=== PATIENT | male | born 1955 | race Two or more races ===

== ENCOUNTER 2024-02-06 00:46 | Inpatient (IN) | payer MEDICARE, MEDICAID, SELFPAY ==
[2024-02-06] VITALS (27 sets, daily range): BP systolic 139–234; BP diastolic 83–125; PULSE 68–93; RESP 16–100; TEMP 36.1–37.1; O2SAT 94–100; BMI 23.6; BMI 25.2; BMI 23.5
--- NOTE | 2024-02-06 01:07 | XR_ITS ---
Examination: Foot, right, 3 views Technique: AP, oblique, lateral views foot, 3 views Date and time of exam: February 06, 2024 0124 hrs. Indications: Redness swelling and pain involving the foot this week Findings: Severe osteopenia Soft tissue vascular calcification Soft tissue swelling dorsum of the foot Suspicious for early cortical bone destruction along the plantar surface of the calcaneus adjacent with soft tissue defect Impression: Suspicious for osteomyelitis plantar surface of the calcaneus, consider repeat MRI foot without contrast
--- NOTE | 2024-02-06 01:07 | PD.EDRME ---
Rapid Medical Screening Exam [facility] Arrival date/time: 02/06/24 00:46 68M with history of HTN and DM (does not take his meds) presents to ED with several weeks of worsening wounds on his R foot. Chief Complaint: Wound/Laceration Vital signs: Vital Signs Temperature 98.3 F 02/06/24 00:58 Pulse Rate 82 02/06/24 00:58 Respiratory Rate 18 02/06/24 00:58 Blood Pressure 232/125 H 02/06/24 00:58 Pulse Oximetry (%) 97 02/06/24 00:58 Oxygen Delivery Method Room Air 02/06/24 00:58
[2024-02-06 02:01] LABS: Basophils # (Auto) 0.1 Thou/mm3 (0.0-0.2); Basophils % (Auto) 1 % (0-2.5); Eosinophils # (Auto) 0.2 Thou/mm3 (0.0-0.5); Eosinophils % (Auto) 1 % (0-10); Hematocrit 34.8 % (41.0-53.0); Hemoglobin 11.2 g/dL (13.5-16.0); Immature Granulocytes % (Auto) 0 % (0-0); Immature Granulocytes Auto 0.04 Thou/mm3 (0.00-0.00); Lymphocytes % (Auto) 16 % (10-50); Mean Corpuscular HGB Conc 32.2 g/dl (31.0-37.0); Mean Corpuscular Hemoglobin 28.8 pg (25.0-35.0); Mean Corpuscular Volume 90 fL (80-100); Monocytes # (Auto) 0.7 Thou/mm3 (0.0-0.8); Monocytes % (Auto) 6 % (0-12); Neutrophils # (Auto) 9.7 Thou/mm3 (1.8-7.7); Neutrophils % (Auto) 77 % (37-80); Nucleated Red Blood Cell % 0 /100 WBC (0); Platelet Count 391 Thou/mm3 (140-440); RDW Standard Deviation 44.5 fL (35.1-43.9); Red Blood Count 3.89 Miln/mm3 (4.50-5.90); White Blood Count 12.6 Thou/mm3 (3.8-10.6)
[2024-02-06 02:19] LABS: Sed Rate (ESR) 130 mm/hr (0-20)
[2024-02-06 02:34] LABS: Glucose Estimated Average 303 mg/dL (80-131); Hemoglobin A1C 12.2 % Hgb (4.8-6.0)
[2024-02-06 02:40] LABS: Alanine Aminotransferase 7 U/L (10-49); Albumin, Serum 3.7 gm/dL (3.4-4.8); Albumin/Globulin Ratio 0.8 (1.2-2.2); Alkaline Phosphatase 100 U/L (46-116); Anion Gap 4 (7-16); Aspartate Amino Transferase < 8 U/L (0-34); BUN/Creatinine Ratio 10 Ratio (12-20); Bilirubin,Total 0.3 mg/dL (0.3-1.2); Blood Urea Nitrogen 34 mg/dL (9-23); Calcium (Corrected) 9.2 mg/dL (8.5-10.1); Carbon Dioxide 23.6 mMol/L (20.0-31.0); Chloride 101 mMol/L (98-107); Creatinine (Component) 3.3 mg/dL (0.6-1.3); Estimated Creatinine Clearance 20.2 mL/min (>60); Globulin 4.8 gm/dL (2.3-3.5); Osmolality,Calculated 283 (275-295); Potassium 4.6 mMol/L (3.4-5.1); Sodium 129 mMol/L (136-145); Total Protein 8.5 gm/dL (5.7-8.2); eGFR 19 See Note
[2024-02-06 03:00] LABS: Glucose 413 mg/dL (74-106)
--- NOTE | 2024-02-06 03:09 | PD.EDWOUND ---
ED Wound/Laceration-RME/HPI General Chief Complaint: Wound/Laceration Stated Complaint: CUt on top of his toes/ happened a week ago Arrival date/time: 02/06/24 00:46 RME / HPI RME / HPI narrative: 02/06/24 00:46 68M with history of HTN and DM (does not take his meds) presents to ED with several weeks of worsening wounds on his R foot. ----- Dr. Zuniga?s Main ED Evaluation: 68yo male with pmhx DM, HTN accompanied by his stepdaughter presents to the ED for a chief complaint of worsening wounds to his right foot. Patient states he cut his right foot ~2 weeks ago. Stepdaughter states she came to visit the patient today and noticed redness and wetness to his right foot, reporting she had to convince the patient to come in for evaluation. She states the patient was more fatigued than usual yesterday, but family thought it was due to the patient still getting Influenza. Patient states his right foot has been swollen for the last 1 week. Denies any fever, chills or any other associated symptoms. No known allergies. Related Data Home Medications ?Medication ?Instructions ?Recorded ?Confirmed atorvastatin 40 mg tablet 40 mg PO QPM 12/09/21 12/09/21 lisinopril 10 mg tablet 10 mg PO QDAY 12/09/21 12/09/21 tamsulosin 0.4 mg capsule 0.4 mg PO QDAY 12/09/21 12/09/21 Allergies Allergy/AdvReac Type Severity Reaction Status Date / Time No Known Allergies Allergy Verified 12/09/21 18:39 Review of Systems Review of Systems Systems Reviewed: All systems reviewed, normal except as documented ED Exam Narrative Physical exam: GENERAL APPEARANCE: alert and oriented x 4, well-developed, well-nourished, no acute distress VITALS: All vitals were reviewed and the pulse ox is 97% on room air, which is normal according to my interpretation. HEENT: Normocephalic, atraumatic; pupils equal, round, reactive to light; EOMI; mucous membranes pink, moist; oropharynx clear NECK: Supple LUNGS: CTABL; no wheezes, no rales, no rhonchi HEART: Regular rate, regular rhythm; normal S1, S2; no murmurs ABDOMEN: non distended; normal BS; soft, no tenderness, no guarding, no rebound; no masses, no organomegaly, no hernia BACK: no CVA tenderness EXTREMITIES: erythema to the right guevara, circumferential swelling of the right foot, tenderness to palpation of the right heel, 4 cm open laceration to the right heel that is warm to touch without any perulent drainage, cap refill is < 2 seconds, good sensations NEUROLOGIC: awake; alert and oriented x4; cranial nerves II-XII grossly intact; no focal sensory or motor deficits PSYCHIATRIC: appropriate mood and affect SKIN: warm, dry, normal color; no rashes Course Course Course Narrative: CXR is ordered for determining the etiology of fatigue. Quality Measures none Orders Category Date Time Status Lay Out Worker STAT Care 02/06/24 03:40 Active Continuous Pulse Oximetry STAT Care 02/06/24 03:40 Completed EKG (ED ONLY) *Do not use* NOW Care 02/06/24 03:40 Active In and Out Catheter [id number] Care 02/06/24 03:40 Active Insert IV NOW Care 02/06/24 03:40 Active Strict Intake and Output Routine Care 02/06/24 03:40 Ordered EKG (ED Only) Stat Exams 02/06/24 03:40 Draft XR chest 1V portable Stat Exams 02/06/24 03:42 Taken XR foot comp RT min 3V Stat Exams 02/06/24 01:07 Taken A1C [Glycohemoglobin w (eAG)] Stat Lab 02/06/24 01:42 Completed B-Type Natriuretic Peptide Stat Lab 02/06/24 04:30 Completed Blood Culture (Lab) Stat Lab 02/06/24 01:35 Received Blood Culture (Lab) Stat Lab 02/06/24 04:20 Received CBC Stat Lab 02/06/24 01:42 Completed CMP [Comprehensive Metabolic Panel] Stat Lab 02/06/24 01:42 Completed CRP [C-Reactive Protein] Stat Lab 02/06/24 01:42 Completed ESR [Sed Rate (ESR)] Stat Lab 02/06/24 01:42 Completed Lactate (Lactic Acid) Stat Lab 02/06/24 04:30 Completed Partial Thromboplastin Time Stat Lab 02/06/24 04:30 Completed Prothrombin Time with INR Stat Lab 02/06/24 04:30 Completed Urinalysis Stat Lab 02/06/24 04:20 Completed Urine Culture Stat Lab 02/06/24 04:20 Received Piper/Tazo 3.375 gm [Zosyn] Med 02/06/24 03:40 Discontinued 3.375 gm in 50 ml IV X1 Sodium Chloride 0.9% 1000 ml [Ns] 1,000 ml Med 02/06/24 03:47 Discontinued IV 999 mls/hr Vancomycin Inj 1,000 mg Med 02/06/24 03:41 Discontinued Sodium Chloride 0.9% 250 ml [Ns] 250 ml IV X1 Vital Signs Vital signs: Vital Signs Temperature 98.3 F 02/06/24 00:58 Pulse Rate 82 02/06/24 00:58 Respiratory Rate 18 02/06/24 00:58 Blood Pressure 232/125 H 02/06/24 00:58 Pulse Oximetry (%) 97 02/06/24 00:58 Oxygen Delivery Method Room Air 02/06/24 00:58 Wound / Laceration Patient data External records reviewed:: [facility] previous records (Per chart review, patient was seen here on 04/30/21 for a diabetic foot infection.) Clinical information provided by:: patient Social determinants that could affect healthcare access:: none Patient has the following chronic illnesses:: DM, HTN How is presenting disease/condition affected by chronic disease/condition?: exacerbated by Evaluation data The following diagnostics were reviewed and interpreted by me:: lab results and radiology exam(s) Lab and/or radiology exams considered but not ordered:: none Interpretation Summary: WBC count is elevated at 12.6, Sodium is low at 129, Creatinine is elevated at 3.3, Glucose is elevated at 413, Sed Rate is elevated at 130, A1C is elevated at 12.2, CRP is elevated at 9.5, according to my interpretation. Right foot x-ray is negative for any fractures, dislocations, bony erosion or subcutaneous gas, according to my interpretation. Medications / Prescriptions Medications or Prescriptions considered but not ordered:: none Medication administrations:: Medication Administration History Acetaminophen (Acetaminophen 325 Mg Tablet) 650 mg PO Q6H PRN PRN Reason: PAIN OR FEVER > 101 Stop: 03/07/24 03:53 Amlodipine Besylate (Amlodipine Besylate 5 Mg Tablet) 5 mg PO QDAY [facility] Stop: 03/07/24 04:09 Last Admin: 02/06/24 05:24 Dose: 5 mg Documented By: CCT Dextrose (Dextrose 50%-Water Inj 50 Ml Syringe) 25 ml IV Q15MIN PRN PRN Reason: BG 50-70 responsive npo pt Stop: 03/07/24 04:02 Dextrose (Dextrose 50%-Water Inj 50 Ml Syringe) 50 ml IV Q15MIN PRN PRN Reason: BG <50 OR BG <70 & pt unresponsive Stop: 03/07/24 04:02 Glucagon (Glucagon Inj 1 Mg Vial) 1 mg IM Q15MIN PRN PRN Reason: BG <70, and no IV access Heparin Sodium (Porcine) (Heparin Sod Inj 5000 Unit/Ml Vial) 5,000 unit SC Q12HR [facility] Stop: 02/20/24 08:59 Hydralazine HCl (Hydralazine Inj 20 Mg/Ml Vial) 10 mg IV Q6H PRN PRN Reason: hypertension Stop: 03/07/24 04:14 Last Admin: 02/06/24 04:33 Dose: 10 mg Documented By: CCT Sodium Chloride (Ns) 1,000 mls @ 75 mls/hr IV .[id number] [facility] Stop: 03/07/24 03:59 Cefepime HCl 2 gm/ Sodium (Chloride) 50 mls @ 100 mls/hr IV DAILY [facility] Stop: 02/13/24 08:59 Insulin Human Lispro (Insulin Lispro (Admelog) 1 Unit/0.01 Ml Unit) 0 unit SC [facility]; Protocol Stop: 03/07/24 07:29 Ondansetron HCl (Ondansetron Inj 2 Mg/Ml Inj 2 Ml) 4 mg IV Q6H PRN; Protocol PRN Reason: NAUSEA OR VOMITING Stop: 03/07/24 03:53 Pantoprazole Sodium (Pantoprazole 40 Mg Tablet) 40 mg PO QDAY [facility] Stop: 03/07/24 08:59 Pharmacy Consult (Vancomycin Pharmacy To Dose 1 Each Each) 1 each IV QDAY [facility] Stop: 03/07/24 08:59 Discontinued Medications Heparin Sodium (Porcine) (Heparin Sod Inj 5000 Unit/Ml Vial) 5,000 unit SC Q8HR [facility] Stop: 02/20/24 05:59 Piperacillin/Tazobactam/Dextrose (Zosyn) 3.375 gm in 50 mls @ 100 mls/hr IV X1 ONE Stop: 02/06/24 04:09 Last Infusion: 02/06/24 05:30 Dose: Infused Documented By: Admin: 02/06/24 04:39 Dose: 100 mls/hr Documented By: CCT Vancomycin HCl 1,000 mg/ (Sodium Chloride) 250 mls @ 150 mls/hr IV X1 ONE Stop: 02/06/24 05:20 Last Admin: 02/06/24 05:09 Dose: 150 mls/hr Documented By: CCT Sodium Chloride (Ns) 1,000 mls @ 999 mls/hr IV .Q1H1M ONE Stop: 02/06/24 04:47 Last Infusion: 02/06/24 05:30 Dose: Infused Documented By: Admin: 02/06/24 04:31 Dose: 999 mls/hr Documented By: CCT Cefepime HCl 2 gm/ Sodium (Chloride) 50 mls @ 100 mls/hr IV Q12HR [facility] Stop: 02/13/24 08:59 Insulin Human Lispro (Insulin Lispro (Admelog) 1 Unit/0.01 Ml Unit) 10 unit SC X1 ONE Stop: 02/06/24 04:07 Last Admin: 02/06/24 04:28 Dose: 10 unit Documented By: CCT Co-signed By: NATACHA see above Consultations Consultation(s) initiated? (list below): Yes Consultation #1 (Physician, Specialty, Details): Discussed case with [Dr. Melton, attending Dr. Bennett] from Hospitalist service regarding admission. Discussed patients ED course, exam findings, labs, and radiology results. The Hospitalist [agrees] to accept the patient for admission. Time: 03:44 Diagnosis Wound Differential Diagnosis: laceration and other (diabetic foot wound, DKA, hyperglycemia without ketosis) Most likely diagnosis given after review of the tests above:: see below Admission Indicated Admission indicated?: indicated Admission Request Was there a request for admission?: Yes Admission Attestation Admission request attestation: Discussed case with [] from Hospitalist service regarding admission. Discussed patients ED course, exam findings, labs, and radiology results. The Hospitalist [agrees,declines] to accept the patient for admission. Disposition Plan Disposition Plan: Admit Critical Care Time Critical Care Time Attestation: Critical Care Time Critical Care Time: Yes Total Critical Care Time (min.): 35 Attestation: The high probability of sudden, clinically significant deterioration in the patient?s condition required the highest level of my preparedness to intervene urgently. The services I provided to this patient were to treat and/or prevent clinically significant deterioration. Services included the following: chart data review, reviewing nursing notes and/or old charts, documentation time, senior treasury consultant collaboration regarding findings and treatment options, medication orders and management, direct patient care, vital sign assessments and ordering, interpreting and reviewing diagnostic studies and lab tests. Aggregate critical care time includes only time during which I was engaged in work directly related to the patient?s care, as described above, whether at bedside or elsewhere in the Emergency Department. It did not include time spent performing other reported procedures or the services of residents, students, nurses or physician assistants. Discharge Plan Plan Patient Disposition: Admit Acute Care w/in Hospital Problem List Clinical Impression: Diabetic foot infection, Sepsis
[2024-02-06 03:12] LABS: C-Reactive Protein 9.5 mg/dL (0.0-0.9)
--- NOTE | 2024-02-06 03:40 | EKG_ITS ---
[facility] Test Date: 2024-02-06 Pat Name: ABDIRAHMAN PETERSEN Department: Room: - Gender: Male Sample Maker: : 1955 Requested By: Gregg Mendoza Order Number: [id number] Reading MD: Gregg Mendoza Measurements Intervals Potter Rate: 80 P: 30 AK: 130 QRS: -31 QRSD: 104 T: 161 QT: 359 QTc: 414 Interpretive Statements SINUS RHYTHM POSSIBLE LEFT ATRIAL ENLARGEMENT [-0.1mV P WAVE IN V1/V2] MARKED LEFT AXIS DEVIATION [QRS AXIS < -30] INCOMPLETE RIGHT BUNDLE BRANCH BLOCK [90+ ms QRS DURATION, TERMINAL R IN V1/V2, 40+ ms S IN I/aVL/V4/V5/V6] LEFT VENTRICULAR HYPERTROPHY AND ST-T CHANGE [VOLTAGE CRITERIA PLUS ST/T ABNORMALITY] Compared to ECG 12/09/2021 18:41:29 Left-axis deviation now present Incomplete right bundle-branch block now present Left ventricular hypertrophy now present ST (T wave) deviation now present T-wave abnormality no longer present Possible ischemia no longer present /store/S0/[id number]/ecg/[id number].pdf
--- NOTE | 2024-02-06 03:42 | XR_ITS ---
Examination: AP chest single view Technique one AP portable upright chest single view Exam date and time: February 06, 2024 0349 hrs. Comparison January 09, 2022 Indications: Sepsis protocol Findings: Normal heart size Early right lower lobe pneumonia Moderate osteopenia Impression: Early right lower lobe pneumonia
--- NOTE | 2024-02-06 04:05 | PD.RESHP ---
Documentation for date of: 02/06/24 [facility] History of Present Illness History of present illness: Ranjith Madden is a 68-year-old male with a past medical history of type 2 diabetes and hypertension who presents with right lower extremity wound. Approximately 2 weeks ago, patient states he injured the plantar surface of his right foot and did not think much of it. It has since progressed to become erythematous and warm up to his guevara. Denies fever, chills, nausea, vomiting, abdominal pain, or change in bowel movements. He has not seen a PCP in a while and does not currently take any medications, including that for his diabetes. In ED, BP 232/125 and patient denies any blurry vision or headaches. Otherwise, patient afebrile and on room air. WBC 12.6, ESR 130, CRP 9.5, Na 129 (corrected 134), Cr 3.3, GFR 19, glucose 413, A1c 12.2%. In ED given Zosyn, vancomycin, 1 L NS bolus PMHx: as noted above Medications: None SHx: Denies cigarette, alcohol, illicit drug use PSHx: Appendectomy Review of Systems Review of Systems Systems Reviewed: All systems reviewed, normal except as documented Exam Vital Signs Temp Pulse Resp BP Pulse Ox O2 Del Method 98.3 F 82 18 232/125 H 97 Room Air 02/06/24 00:58 02/06/24 00:58 02/06/24 00:58 02/06/24 00:58 02/06/24 00:58 02/06/24 00:58 Narrative Exam General: AOx3, no acute distress, able to speak full sentences HEENT: NC/AT, mucous membranes moist, bilateral sclera anicteric Cardiovascular: regular rate and rhythm, S1/S2 present, no murmurs appreciated Pulmonary: clear to auscultation bilaterally, no rales/rhonchi/wheezes Abdominal: soft, non-tender, non-distended, no rebound/guarding, normal bowel sounds present Musculoskeletal: non-pitting right lower extremity edema; normal ROM Skin: right lower extremity erythematous, warm to touch, and scaly with wound on plantar surface Neuro: CN II-XII intact, no focal deficits Results: Labs 02/06/24 04:30 02/06/24 13:40 Labs: Short CBC 02/06/24 Range/Units 01:42 WBC 12.6 H (3.8-10.6) Thou/mm3 Hgb 11.2 L (13.5-16.0) g/dL Hct 34.8 L (41.0-53.0) % Plt Count 391 (140-440) Thou/mm3 BMP 02/06/24 01:42 Sodium 129 L Potassium 4.6 Chloride 101 Carbon Dioxide 23.6 BUN 34 H Creatinine 3.3 H Glucose 413 H* Calcium 9.0 Liver Function 02/06/24 Range/Units 01:42 Total Bilirubin 0.3 (0.3-1.2) mg/dL AST < 8 (0-34) U/L ALT 7 L (10-49) U/L Alkaline Phosphatase 100 (46-116) U/L Albumin 3.7 (3.4-4.8) gm/dL Quality Measures Quality Measures none Advance care planning discussed with:: patient Medications Home Medications and Allergies Home Medications ?Medication ?Instructions ?Recorded ?Confirmed ?Type No Known Home Medications 02/06/24 02/06/24 History Allergies Allergy/AdvReac Type Severity Reaction Status Date / Time No Known Allergies Allergy Verified 12/09/21 18:39 Visit Medications Acetaminophen (Acetaminophen 325 Mg Tablet) 650 mg PO Q6H PRN PRN Reason: PAIN OR FEVER > 101 Stop: 03/07/24 03:53 Dextrose (Dextrose 50%-Water Inj 50 Ml Syringe) 25 ml IV Q15MIN PRN PRN Reason: BG 50-70 responsive npo pt Stop: 03/07/24 04:02 Dextrose (Dextrose 50%-Water Inj 50 Ml Syringe) 50 ml IV Q15MIN PRN PRN Reason: BG <50 OR BG <70 & pt unresponsive Stop: 03/07/24 04:02 Glucagon (Glucagon Inj 1 Mg Vial) 1 mg IM Q15MIN PRN PRN Reason: BG <70, and no IV access Heparin Sodium (Porcine) (Heparin Sod Inj 5000 Unit/Ml Vial) 5,000 unit SC Q8HR [facility] Stop: 02/20/24 05:59 Piperacillin/Tazobactam/Dextrose (Zosyn) 3.375 gm in 50 mls @ 100 mls/hr IV X1 ONE Stop: 02/06/24 04:09 Vancomycin HCl 1,000 mg/ (Sodium Chloride) 250 mls @ 150 mls/hr IV X1 ONE Stop: 02/06/24 05:20 Sodium Chloride (Ns) 1,000 mls @ 999 mls/hr IV .Q1H1M ONE Stop: 02/06/24 04:47 Sodium Chloride (Ns) 1,000 mls @ 75 mls/hr IV .[id number] [facility] Stop: 03/07/24 03:59 Cefepime HCl 2 gm/ Sodium (Chloride) 50 mls @ 100 mls/hr IV Q12HR [facility] Stop: 02/13/24 08:59 Insulin Human Lispro (Insulin Lispro (Admelog) 1 Unit/0.01 Ml Unit) 0 unit SC [facility]; Protocol Stop: 03/07/24 07:29 Ondansetron HCl (Ondansetron Inj 2 Mg/Ml Inj 2 Ml) 4 mg IV Q6H PRN; Protocol PRN Reason: NAUSEA OR VOMITING Stop: 03/07/24 03:53 Pantoprazole Sodium (Pantoprazole 40 Mg Tablet) 40 mg PO QDAY [facility] Stop: 03/07/24 08:59 Pharmacy Consult (Vancomycin Pharmacy To Dose 1 Each Each) 1 each IV QDAY [facility] Stop: 03/07/24 08:59 Assessment & Plan Plan Ranjith Madden is a 68-year-old male with a past medical history of type 2 diabetes and hypertension who is admitted for cellulitis of right lower extremity versus osteomyelitis. #Cellulitis, right lower extremity # ? Osteomyelitis, right lower extremity Nonseptic, WBC 12.6, ESR 130, CRP 9.5. ? General Surgery consulted, appreciate recommendations ? Cefepime 2 g IV daily (02/05-) ? Vancomycin IV daily, renally dosed (02/05-) ? MRI of right foot ? Follow-up blood culture #? Acute on chronic kidney injury #Chronic kidney disease, stage IV ? 1 L NS at 75 mL/h ? Renally dose medications, avoid nephrotoxins #Type 2 diabetes mellitus, uncontrolled On admission, A1c 12.2% and glucose of 413. ? 10 units lispro now ? SSI #Hypertension #Hypertensive urgency ? Amlodipine 5 mg p.o. daily ? Hydralazine 10 mg IV every 6 hours as needed if BP greater than 170/110 Hospital management: Disposition: med surg Fluids: 1 L NS at 75 mL/hr Diet: carb consistent Lines: peripheral DVT prophylaxis: heparin SC BID GI prophylaxis: pantoprazole 40 mg PO daily CODE STATUS: full code ----- Plan discussed with attending physician Dr. Donald Schuster MD PGY-1 Internal Medicine Attending Provider Attestation/Addendum I reviewed labs, imaging, EKG, home medications and prior available records. Face to face evaluation was performed by me. I have personally examined the patient and discussed assessment and plan with the IM team. I reviewed the resident note and agree with the plan with exceptions as below. 68-year-old male with history of uncontrolled diabetes mellitus who presented with worsening right lower extremity wounds. He was found to have cellulitis with possible osteomyelitis. Possible osteomyelitis of right lower extremity: In the setting of diabetic foot ulcer. Started the patient empirically on vancomycin and cefepime. Consulted general surgery for evaluation for debridement. Continue wound care. Management of pain as needed. Uncontrolled diabetes mellitus with hyperglycemia: Last A1c is 12.2. He does not take any medications. Started the patient on insulin Lantus plus sliding scale. Started low carb consistent diet. Monitor fingersticks. 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 Started the patient on IV fluids as he appears dehydrated. Monitor kidney function. Avoid nephrotoxins. Renally dosed medications. Hypertensive urgency: Gave IV labetalol after which BP improved. Started amlodipine. Monitor BP.
[2024-02-06] MEDS: INSULIN LISPRO (AdmeLOG) 1 UNIT/0.01 ML UNIT 10 UNIT SC (04:28)
[2024-02-06] MEDS: SODIUM CHLORIDE 0.9% 1000 ML 1,000 ML 999 ML IV (04:31)
[2024-02-06] MEDS: hydrALAZINE INJ 20 MG/ML VIAL 10 MG IV ×2 (04:33→17:11)
[2024-02-06 04:35] LABS: Lactate (Lactic Acid) 0.9 mMol/L (0.4-2.0)
[2024-02-06] MEDS: PIPER/TAZO 3.375 GM 3.375 GM/50 ML BAG IV (04:39)
[2024-02-06 04:41] LABS: Collection Type, Urine Clean Catch; WBC,Urine 0 /hpf (0-5)
[2024-02-06 04:44] LABS: Basophils # (Auto) 0.1 Thou/mm3 (0.0-0.2); Basophils % (Auto) 1 % (0-2.5); Eosinophils # (Auto) 0.2 Thou/mm3 (0.0-0.5); Eosinophils % (Auto) 1 % (0-10); Hematocrit 33.3 % (41.0-53.0); Hemoglobin 10.5 g/dL (13.5-16.0); Immature Granulocytes % (Auto) 0 % (0-0); Immature Granulocytes Auto 0.04 Thou/mm3 (0.00-0.00); Lymphocytes # (Auto) 2.1 Thou/mm3 (1.0-4.8); Lymphocytes % (Auto) 15 % (10-50); Mean Corpuscular HGB Conc 31.5 g/dl (31.0-37.0); Mean Corpuscular Hemoglobin 28.5 pg (25.0-35.0); Mean Corpuscular Volume 90 fL (80-100); Monocytes # (Auto) 0.8 Thou/mm3 (0.0-0.8); Monocytes % (Auto) 6 % (0-12); Neutrophils # (Auto) 10.6 Thou/mm3 (1.8-7.7); Neutrophils % (Auto) 77 % (37-80); Nucleated Red Blood Cell % 0 /100 WBC (0); Platelet Count 383 Thou/mm3 (140-440); RDW Standard Deviation 44.5 fL (35.1-43.9); Red Blood Count 3.69 Miln/mm3 (4.50-5.90); White Blood Count 13.8 Thou/mm3 (3.8-10.6)
[2024-02-06 05:04] LABS: Partial Thromboplastin Time 33.9 Seconds (22.0-36.0); Prothrombin Time 11.4 Seconds (9.0-12.2)
[2024-02-06 05:07] LABS: Bilirubin,Urine Negative (Negative); Blood,Urine Trace (Negative); Clarity,Urine Clear (Clear/Hazy); Color,Urine Lt-Yellow (Lt Yel-Yel); Glucose, Urine 4+ (Negative); Hyaline Casts,Urine < 1 /hpf (0-1); Ketones,Urine Negative (Negative); Leukocyte Esterase,Urine Negative (Negative); Nitrite,Urine Negative (Negative); PH,Urine 6.5 (5.0-7.0); Protein,Urine 3+ (Neg - Trace); RBC,Urine 2 /hpf (0-3); Specific Gravity,Urine 1.015 (1.001-1.035); Squamous Epithelial Cell,Urine < 1 /hpf (0-5); Urobilinogen,Urine Negative mg/dL (0.0-1.0)
[2024-02-06] MEDS: Vancomycin Inj 1,000 MG in SODIUM CHLORIDE 0.9% 250 ML 250 ML 150 MG IV (05:09)
[2024-02-06] MEDS: amLODIPine BESYLATE 5 MG TABLET PO ×2 (05:24→09:10)
[2024-02-06 05:28] LABS: Alanine Aminotransferase 8 U/L (10-49); Albumin, Serum 3.5 gm/dL (3.4-4.8); Albumin/Globulin Ratio 0.7 (1.2-2.2); Alkaline Phosphatase 91 U/L (46-116); Anion Gap 4 (7-16); Aspartate Amino Transferase 10 U/L (0-34); BUN/Creatinine Ratio 9 Ratio (12-20); Bilirubin,Total 0.3 mg/dL (0.3-1.2); Blood Urea Nitrogen 33 mg/dL (9-23); Calcium 8.6 mg/dL (8.3-10.6); Carbon Dioxide 23.6 mMol/L (20.0-31.0); Cardiac Risk Estimate 4.6 RATIO (4.0-6.7); Chloride 100 mMol/L (98-107); Cholesterol 138 mg/dL (132-200); Creatinine (Component) 3.5 mg/dL (0.6-1.3); Globulin 4.7 gm/dL (2.3-3.5); Glucose 371 mg/dL (74-106); HDL Cholesterol 30 mg/dL (40-60); LDH (Lactate Dehydrogenase) 140 U/L (120-246); LDL Cholesterol,Calculated 87 mg/dL (0-130); Lipase 77 U/L (12-53); Magnesium 2.3 mg/dL (1.6-2.6); Osmolality,Calculated 279 (275-295); Phosphorous 3.3 mg/dL (2.4-5.1); Potassium 4.5 mMol/L (3.4-5.1); Sodium 128 mMol/L (136-145); Thyroid Stimulating Hormone 8.17 uIU/mL (0.55-4.78); Total Protein 8.2 gm/dL (5.7-8.2); Triglycerides 104 mg/dL (30-150); eGFR 18 See Note
[2024-02-06 05:29] LABS: B-Type Natriuretic Peptide 599 pg/mL (0-100)
[2024-02-06 05:31] LABS: Troponin I 0.126 ng/mL (0.0-0.045)
--- NOTE | 2024-02-06 05:37 | PC.NURSE ---
RECEIVED CALL FROM LAB REGARDING TROPONIN .3, ATTEMPTED TO CALL HOSPITALIST NO ANSWER, PHONE IS BUSY.
--- NOTE | 2024-02-06 06:12 | ECHO_ITS ---
Transthoracic Echo Report Ht (in): 68 Wt (lb): 155 Exam Location: Portable Status: Inpatient Food Service Kitchen Supervisor: Susan Holden Indications: Procedure Performed: BP: 190 / 102 HR: 78 Rhythm: Sinus Technical Quality: Fair MEASUREMENTS (Male / Female) Normal Values 2D ECHO LV Diastolic Diameter PLAX 4.9 cm 4.2 - 5.9 / 3.9 - 5.3 cm LV Systolic Diameter PLAX 3.4 cm IVS Diastolic Thickness 1.2 cm 0.6 - 1.0 / 0.6 - 0.9 cm LVPW Diastolic Thickness 1.3 cm 0.6 - 1.0 / 0.6 - 0.9 cm LV Relative Wall Thickness 0.5 LVOT Diameter 2.0 cm LA Volume Index 27.2 cm?/m? 16 - 28 cm?/m? Ascending Aorta Diameter 3.6 cm M-MODE Aortic Root Diameter MM 3.4 cm LA Systolic Diameter MM 3.7 cm LA Ao Ratio MM 1.1 AV Cusp Separation MM 2.0 cm DOPPLER AV Peak Velocity 143.0 cm/s AV Peak Gradient 8.2 mmHg AV Mean Gradient 4.0 mmHg AV Velocity Time Integral 24.7 cm LVOT Peak Velocity 103.0 cm/s LVOT Peak Gradient 4.2 mmHg LVOT Velocity Time Integral 21.1 cm LVOT Cardiac Index 2807.7 cm?/min?m? AV Area Cont Eq vti 2.7 cm? AV Area Cont Eq pk 2.3 cm? MV Peak Velocity 128.0 cm/s MV Peak Gradient 6.6 mmHg MV Mean Velocity 78.0 cm/s MV Mean Gradient 3.0 mmHg MV Area PHT 3.0 cm? Mitral E Point Velocity 75.2 cm/s Mitral A Point Velocity 131.0 cm/s Mitral E to A Ratio 0.6 LV E' Lateral Velocity 3.7 cm/s Mitral E to LV E' Lateral Ratio 20.3 LV E' Septal Velocity 4.2 cm/s Mitral E to LV E' Septal Ratio 17.7 FINDINGS Left Ventricle Normal left ventricular size, systolic function with no obvious regional wall motion abnormalities. Mild LVH. The ejection fraction is visually estimated at 55-60 %. Right Ventricle The right ventricle is normal in size and systolic function. Left Atrium The left atrium is normal by two-dimensional, color flow and Doppler imaging with no structural abnormalities, no thrombus formation present. Right Atrium The right atrium is normal by two-dimensional imaging, color flow and Doppler imaging with no struct ural abnormalities, no thrombus formation present. Atrial Septum The interatrial septum appears normal with no evidence of a shunt. Aorta The ascending aorta is mildly dilated. Mitral Valve The mitral valve is normal by two-dimensional, color flow and Doppler interrogation. There is trace mitral valve regurgitation. Aortic Valve The aortic valve is trileaflet. Mild sclerosis without stenosis. There is trace aortic valve regurgi tation. Tricuspid Valve The tricuspid valve is normal by two-dimensional, color flow and Doppler interrogation. There is tra ce tricuspid valve regurgitation. Pulmonic Valve There is no significant pulmonic valve regurgitation. Vessels The pulmonary artery appears normal. The inferior vena cava pulmonary and hepatic veins appear kade l. Pericardium The pericardium is normal by two-dimensional imaging. There is no significant pericardial effusion. CONCLUSIONS Normal LV size and function. Mild LVH. Estimated EF 55-60% Normal RV size and function. The ascending aorta is mildly dilated. Trace MR, TR, AI. Mild AV sclerosis without stenosis. Shani Benedict (Electronically Signed) Final Date: 09 February 2024 10:08
[2024-02-06] MEDS: LABETALOL INJ 5 MG/ML VIAL 20 ML 10 MG IVP (06:16)
--- NOTE | 2024-02-06 07:08 | PC.NURSE ---
Received report from Marcel BROWN and assumed care of patient. Patient sleeping in bed with no signs of distress.
[2024-02-06] MEDS: SODIUM CHLORIDE 0.9% 1000 ML 1,000 ML 75 ML IV ×2 (07:15→20:19)
--- NOTE | 2024-02-06 07:56 | PC.NURSE ---
Report called and given to Lorraine BROWN in Med Surg
--- NOTE | 2024-02-06 08:15 | PC.CC ---
Patient is a 68 year-old male who presents to the hospital for Diabetic Foot. Radha MENDES made [id number] contact with patient. ASW introduced self, role, and reason for visit. Patient appeared alert and oriented to self, location, and situation. Patient was pleasant and engaged in initial assessment. Patient provided consent to make contact with patient's daughter, Luz Madden . Patient confirmed information on demographics and reports he lives with his daughter Luz. Patient reports he uses a walker to ambulate and his daughter provides assistance with his ADLs. Patient reports he uses [facility] in [place], [place]. ASW made telephone contact with the patient's daughter who reports the patient has an appointment with [facility] in [place] to establish primary care. The patient has his appointment on February 13, 2024. Upon discharge the patient plans to return home with his daughter. technical services rep to remain available for any discharge need.
[2024-02-06 08:22] LABS: Free T4 (Free Thyroxine) 1.06 ng/dL (0.89-1.76)
[2024-02-06] MEDS: INSULIN GLARGINE (Lantus) 5 UNIT/0.05 ML (PER 5 UNITS) 10 UNIT SC (08:57)
[2024-02-06] MEDS: INSULIN LISPRO (AdmeLOG) 1 UNIT/0.01 ML UNIT SC ×4 (08:57→20:15)
[2024-02-06] MEDS: HEPARIN SOD INJ 5000 UNIT/ML VIAL SC ×2 (08:58→20:16)
[2024-02-06] MEDS: PANTOPRAZOLE 40 MG TABLET PO (09:10)
[2024-02-06] MEDS: CEFEPIME INJ 2 GM in SODIUM CHLORIDE 0.9% (P) 50 ML IV (09:11)
--- NOTE | 2024-02-06 11:15 | EVENTNT_ITS ---
Documentation for date of: 02/06/24 Event Note Event Note: Patient received from the night team, admitted overnight for generalized weakness, agree with the admitting team's plan other than the the following exceptions: Mr. Madden is a 68-year-old male with past medical history of type 2 diabetes and hypertension who was admitted to [facility] on earlier this morning for right lower extremity cellulitis, rule out osteomyelitis. Patient is noncompliant with diabetes outpatient, denies taking any medications at home, hemoglobin A1c 12.2, patient's renal panel significant for BUN 33, creatinine 3.5 and GFR 18. Otherwise patient seen at bedside, has no current complaints. Will order nephrology consult for the patient and will repeat renal panel in afternoon, otherwise we will continue with antibiotics and sliding scale insulin. Patient will be referred for wound care, pending general surgery consult. Narrative Exam General: AOx3, no acute distress, able to speak full sentences HEENT: NC/AT, mucous membranes moist, bilateral sclera anicteric Cardiovascular: regular rate and rhythm, S1/S2 present, no murmurs appreciated Pulmonary: clear to auscultation bilaterally, no rales/rhonchi/wheezes Abdominal: soft, non-tender, non-distended, no rebound/guarding, normal bowel sounds present Musculoskeletal: non-pitting right lower extremity edema; normal ROM Skin: right lower extremity erythematous, warm to touch, and scaly with wound on plantar surface Neuro: CN II-XII intact, no focal deficits Case discussed with Attending Dr. Neumann and Dr. Kapoor PGY3. John Weeks PGY1
[2024-02-06 14:20] LABS: Albumin, Serum 3.4 gm/dL (3.4-4.8); Anion Gap 6 (7-16); BUN/Creatinine Ratio 10 Ratio (12-20); Blood Urea Nitrogen 31 mg/dL (9-23); Calcium 8.1 mg/dL (8.3-10.6); Calcium (Corrected) 8.6 mg/dL (8.5-10.1); Carbon Dioxide 22.3 mMol/L (20.0-31.0); Chloride 104 mMol/L (98-107); Creatinine (Component) 3.2 mg/dL (0.6-1.3); Estimated Creatinine Clearance 20.8 mL/min (>60); Glucose 203 mg/dL (74-106); Osmolality,Calculated 277 (275-295); Phosphorous 3.3 mg/dL (2.4-5.1); Potassium 4.2 mMol/L (3.4-5.1); Sodium 132 mMol/L (136-145); Troponin I 0.119 ng/mL (0.0-0.045); eGFR 20 See Note
--- NOTE | 2024-02-06 17:04 | PD.SURCONS ---
HPI Consult details History of present illness: 68M with HTN, DMII presenting with R foot wound. Pt reports he injured his foot 2 weeks ago and then later developed redness and warmth. Workup shows WBC 12, A1c 12.2 and possible osteo of calcaneus on xray, MRI pending Review of Systems Review of Systems ROS Unobtainable: All systems reviewed & no additional complaints except as documented Meds Home Medications and Allergies Home Medications ?Medication ?Instructions ?Recorded ?Confirmed ?Type No Known Home Medications 02/06/24 02/06/24 History Allergies Allergy/AdvReac Type Severity Reaction Status Date / Time No Known Allergies Allergy Verified 12/09/21 18:39 Exam Vital Signs Temp Pulse Resp BP Pulse Ox O2 Del Method 97.0 F 78 18 151/93 H 98 Room Air 02/06/24 12:00 02/06/24 14:59 02/06/24 14:59 02/06/24 12:00 02/06/24 12:00 02/06/24 12:00 Constitutional Constitutional: no acute distress Routine Respiratory Exam Respiratory: Present no resp distress Routine Extremities Exam Comments: right foot dry, blister on lateral distal aspect draining pus, eschar of heel with no erythema or fluctuance Results Results: Laboratory Laboratory results: results reviewed Results: Imaging Imaging narrative: Xray reviewed Assessment & Plan Plan 68M with HTN, DMII presenting with R toe draining wound and eschar of calcaneus with possible associated osteomyelitis. As the wound is draining there is no need for surgical intervention at this time F/u MRI Wound care daily
[2024-02-06] MEDS: ACETAMINOPHEN 325 MG TABLET 650 MG PO (20:13)
--- NOTE | 2024-02-06 22:17 | PC.NURSE ---
Addendum entered by Anam Davidson RN 02/06/24 22:38: Dr. Schuster told KEVIN Mendieta he will come to the unit to make rounds. Addendum entered by Anam Davidson RN 02/06/24 22:20: KEVIN Mendieta attempted to contact hospitalist 3 times, but hospitalists did not answer. KEVIN Mendieta will try to call again. Original Note: Patient complaining of pain in his right foot. Tylenol given at 2013, but did not help. KEVIN Mendieta will notify hospitalists.
[2024-02-06] MEDS: HYDROcodone/APAP 5/325 TABLET 1 TAB PO (23:02)
[2024-02-07] VITALS (13 sets, daily range): BP systolic 139–190; BP diastolic 78–102; PULSE 65–94; RESP 15–97; TEMP 36.2–37.1; O2SAT 94–98
--- NOTE | 2024-02-07 | XR_ITS ---
Examination: MRI right foot, without contrast Date and time of exam: February 07, 2024 1323 hrs. Indications: Right foot swelling and pain this week, diabetes Technique: Multiple axial sagittal and coronal images of the right foot without intravenous contrast have been obtained with the Siemens high-resolution 1.5 Caterina MRI scanner. Images obtained include T2-weighted fat-suppressed sagittal sections, TR 3500, TE 46, T2 weighted coronal fat suppressed images, TR 3050, TE 84, T2-weighted transverse fat suppressed images, TR 3260, TE 63, proton density transverse images, TR 4720 TE 46, and T1 weighted coronal images, TR 560, TE 13. Findings: Large soft tissue defect plantar surface of the calcaneus Cortical bone destruction plantar surface of the calcaneus with reactive marrow edema in the calcaneus Diffuse edema dorsum and plantar aspect of the foot Prominent plantar fasciitis Achilles tendinosis No occult fracture Impression: Osteomyelitis plantar surface of the calcaneus
--- NOTE | 2024-02-07 00:04 | XR_ITS ---
Examination: Retroperitoneal ultrasound, complete Technique: Multiple high resolution grayscale images of the retroperitoneum obtained, including kidneys and bladder. Exam date and time:February 07, 2024 0017 hrs. Indications: Renal failure diagnosis on laboratory examination this week Findings: Right kidney 11.0 x 5.8 x 5.3 cm renal cortex 1.3 cm Left kidney 11.8 x 4.5 x 6.4 cm cortex 1.7 cm Moderate bilateral renal parenchymal scar formation Midpole left renal cyst 21 mm No hydronephrosis Impression: Moderate bilateral renal parenchymal scar formation Bilateral renal cortical thinning
--- NOTE | 2024-02-07 03:18 | PRELIM_ITS ---
Renal/Retroperitoneal ultrasound. February 07, 2024 at 0017 hours Clinical history: Chronic kidney di sease. Technique: Duplex scan of the bilateral renal arterial and venous tree was performed utilizin g 2D grayscale imaging, Doppler spectral analysis and color flow. Comparison: No prior study is avail able for comparison. Findings:Right: The right kidney measures 11 x 5.8 x 5.3 cm and is unremarkable. There is no hydronephrosis or renal calculus. The corticomedullary differentiation is maintained.Lef t: The left kidney measures 11.8 x 4.5 x 6.4 cm and is unremarkable. There is a 2.1 x 1.7 x 2.1 cm le ft renal cortical cyst. There is no hydronephrosis or renal calculus. The corticomedullary differenti ation is maintained.The urinary bladder is not imaged.Please note, the technologist's note is not debby ilable at the time of interpretation.Impression:No renal calculus or hydronephrosis.Small left renal cortical cyst. Report Electronically Signed By: Lina Garcia 02/07/2024 3:18:00 AM [EST]
[2024-02-07 06:05] LABS: Basophils # (Auto) 0.1 Thou/mm3 (0.0-0.2); Basophils % (Auto) 1 % (0-2.5); Eosinophils # (Auto) 0.3 Thou/mm3 (0.0-0.5); Eosinophils % (Auto) 2 % (0-10); Hematocrit 30.7 % (41.0-53.0); Hemoglobin 9.7 g/dL (13.5-16.0); Immature Granulocytes % (Auto) 0 % (0-0); Immature Granulocytes Auto 0.04 Thou/mm3 (0.00-0.00); Lymphocytes # (Auto) 1.9 Thou/mm3 (1.0-4.8); Lymphocytes % (Auto) 16 % (10-50); Mean Corpuscular HGB Conc 31.6 g/dl (31.0-37.0); Mean Corpuscular Hemoglobin 28.8 pg (25.0-35.0); Mean Corpuscular Volume 91 fL (80-100); Monocytes # (Auto) 0.8 Thou/mm3 (0.0-0.8); Monocytes % (Auto) 6 % (0-12); Neutrophils # (Auto) 8.7 Thou/mm3 (1.8-7.7); Neutrophils % (Auto) 75 % (37-80); Nucleated Red Blood Cell % 0 /100 WBC (0); Platelet Count 331 Thou/mm3 (140-440); RDW Standard Deviation 45.8 fL (35.1-43.9); Red Blood Count 3.37 Miln/mm3 (4.50-5.90); White Blood Count 11.7 Thou/mm3 (3.8-10.6)
--- NOTE | 2024-02-07 06:26 | PC.NURSE ---
Per Dr. Schuster change patient from medsurg to tele for elevated troponin.
[2024-02-07 06:36] LABS: Alanine Aminotransferase < 7 U/L (10-49); Albumin, Serum 3.3 gm/dL (3.4-4.8); Albumin/Globulin Ratio 0.8 (1.2-2.2); Alkaline Phosphatase 76 U/L (46-116); Anion Gap 7 (7-16); Aspartate Amino Transferase < 10 U/L (0-34); BUN/Creatinine Ratio 9 Ratio (12-20); Bilirubin,Total 0.3 mg/dL (0.3-1.2); Blood Urea Nitrogen 28 mg/dL (9-23); Calcium 8.4 mg/dL (8.3-10.6); Carbon Dioxide 20.4 mMol/L (20.0-31.0); Chloride 105 mMol/L (98-107); Creatinine (Component) 3.2 mg/dL (0.6-1.3); Estimated Creatinine Clearance 20.8 mL/min (>60); Glucose 150 mg/dL (74-106); Magnesium 2.2 mg/dL (1.6-2.6); Osmolality,Calculated 273 (275-295); Phosphorous 3.9 mg/dL (2.4-5.1); Potassium 4.4 mMol/L (3.4-5.1); Sodium 132 mMol/L (136-145); Total Protein 7.3 gm/dL (5.7-8.2); Vancomycin,Random 8.5 mcg/mL; eGFR 20 See Note
[2024-02-07] MEDS: INSULIN LISPRO (AdmeLOG) 1 UNIT/0.01 ML UNIT SC ×4 (07:18→21:24)
[2024-02-07] MEDS: hydrALAZINE INJ 20 MG/ML VIAL 10 MG IV ×2 (08:08→14:26)
[2024-02-07] MEDS: amLODIPine BESYLATE 5 MG TABLET PO (08:08)
[2024-02-07] MEDS: CEFEPIME INJ 2 GM in SODIUM CHLORIDE 0.9% (P) 50 ML IV (08:08)
[2024-02-07] MEDS: PANTOPRAZOLE 40 MG TABLET PO (08:08)
[2024-02-07] MEDS: INSULIN GLARGINE (Lantus) 5 UNIT/0.05 ML (PER 5 UNITS) 10 UNIT SC (08:09)
[2024-02-07] MEDS: HEPARIN SOD INJ 5000 UNIT/ML VIAL SC ×2 (08:09→21:23)
[2024-02-07] MEDS: VANCOMYCIN/NS 500 MG IVPB 100 ML 120 MG IV (09:42)
--- NOTE | 2024-02-07 10:55 | PC.NURSE ---
Patient arrived on the floor via hospital bed. No signs of distress, no discomfort. Dressing to right foot CDI, IV fluids runing.
--- NOTE | 2024-02-07 11:05 | PC.SS ---
Follow up note: Pt is on IV antibiotic. Final cultures are pending.
[2024-02-07 12:45] LABS: Creatinine,Random Urine 41 mg/dL (30-125); Protein Total, Random Urine 176 mg/dL (1-14)
--- NOTE | 2024-02-07 13:08 | ESPR_ITS ---
<Statement entered by Diya Kapoor DO - 02/07/24 15:07> Senior attestation: Patient was examined and case was reviewed with team including attending physician. Note reviewed, I agree with most of its contents and agree with the patient's care. Vancomycin stopped and doxycycline started, MRI revealing evidence of osteomyelitis, will consult Infectious Disease gaviota Azul appreciated. Data Coder Operator Dr. Bryant following, recommended stopping Vancomycin and IV fluids, will follow patient. Diya Kapoor DO PGY-3 Documentation for date of: 02/07/24 Subjective Subjective Interval history: Patient seen at bedside. Was seen by general surgery, no surgical intervention for now Nephrology consulted for patient's declining renal function, possibility of progression of chronic kidney disease. Patient is currently on IV antibiotics, MRI positive for osteomyelitis. Consulted infectious disease Will continue to monitor patient. Exam Vital Signs Temp Pulse Resp BP Pulse Ox O2 Del Method 97.9 F 82 20 177/96 H 96 Room Air 02/07/24 12:00 02/07/24 12:00 02/07/24 12:00 02/07/24 12:00 02/07/24 12:00 02/07/24 12:00 Narrative Exam General: AOx3, no acute distress, able to speak full sentences HEENT: NC/AT, mucous membranes moist, bilateral sclera anicteric Cardiovascular: regular rate and rhythm, S1/S2 present, no murmurs appreciated Pulmonary: clear to auscultation bilaterally, no rales/rhonchi/wheezes Abdominal: soft, non-tender, non-distended, no rebound/guarding, normal bowel sounds present Musculoskeletal: non-pitting right lower extremity edema; normal ROM Skin: right lower extremity erythematous, warm to touch, and scaly with wound on plantar surface Neuro: CN II-XII intact, no focal deficits Objective Labs 02/09/24 06:10 02/09/24 06:10 Labs: Laboratory Results - last 24 hr 02/06/24 02/07/24 02/07/24 13:40 05:25 11:40 WBC 11.7 H RBC 3.37 L Hgb 9.7 L Hct 30.7 L MCV 91 MCH 28.8 MCHC 31.6 RDW Std Deviation 45.8 H Plt Count 331 D Neut % (Auto) 75 Lymph % (Auto) 16 [place] % (Auto) 6 Eos % (Auto) 2 Baso % (Auto) 1 Neut # (Auto) 8.7 H Lymph # (Auto) 1.9 [place] # (Auto) 0.8 Eos # (Auto) 0.3 Baso # (Auto) 0.1 Immature Gran # (Auto) 0.04 H Absolute Nucleated RBC 0.00 Immature Gran % 0 Nucleated RBC % 0 Sodium 132 L 132 L Potassium 4.2 4.4 Chloride 104 105 Carbon Dioxide 22.3 20.4 Anion Gap 6 L 7 BUN 31 H 28 H Creatinine 3.2 H 3.2 H Estim Creat Clear Calc 20.8 L 20.8 L eGFR 20 L 20 L BUN/Creatinine Ratio 10 L 9 L Glucose 203 H D 150 H D Calculated Osmolality 277 273 L Calcium 8.1 L 8.4 Corrected Calcium 8.6 9.0 Phosphorus 3.3 3.9 Magnesium 2.2 Total Bilirubin 0.3 AST < 10 ALT < 7 L Alkaline Phosphatase 76 Troponin I 0.119 H* Total Protein 7.3 Albumin 3.4 3.3 L Globulin 4.0 H Albumin/Globulin Ratio 0.8 L Ur Random Creatinine 41 U Random Total Protein 176 H Random Vancomycin 8.5 Quality Measures Quality Measures none Advance care planning discussed with:: patient Assessment & Plan Assessment Current Active Medications: Generic Name Dose Route Start Last Admin Trade Name Freq PRN Reason Stop Dose Admin Acetaminophen 650 mg 02/06/24 03:54 02/06/24 20:13 Acetaminophen 325 Mg Tablet PO 03/07/24 03:53 650 mg Q6H PRN Administration PAIN OR FEVER > 101 Amlodipine Besylate 10 mg 02/08/24 09:00 Amlodipine Besylate 5 Mg Tablet PO 03/09/24 08:59 QDAY MADELEINE Dextrose 25 ml 02/06/24 04:03 Dextrose 50%-Water Inj 50 Ml Syringe IV 03/07/24 04:02 Q15MIN PRN BG 50-70 responsive npo pt Dextrose 50 ml 02/06/24 04:03 Dextrose 50%-Water Inj 50 Ml Syringe IV 03/07/24 04:02 Q15MIN PRN BG <50 OR BG <70 & pt unresponsive Glucagon 1 mg 02/06/24 04:03 Glucagon Inj 1 Mg Vial IM Q15MIN PRN BG <70, and no IV access Heparin Sodium (Porcine) 5,000 unit 02/06/24 09:00 02/07/24 08:09 Heparin Sod Inj 5000 Unit/Ml Vial SC 02/20/24 08:59 5,000 unit Q12HR MADELEINE Administration Hydralazine HCl 10 mg 02/06/24 04:05 02/07/24 08:08 Hydralazine Inj 20 Mg/Ml Vial IV 03/07/24 04:14 10 mg Q6H PRN Administration hypertension Sodium Chloride 1,000 mls @ 75 mls/hr 02/06/24 04:00 02/06/24 20:19 Ns IV 03/07/24 03:59 75 mls/hr .[id number] MADELEINE Administration Cefepime HCl 2 gm/ Sodium 50 mls @ 100 mls/hr 02/06/24 09:00 02/07/24 08:08 Chloride IV 02/13/24 08:59 100 mls/hr DAILY MADELEINE Administration Insulin Glargine 10 unit 02/06/24 09:00 02/07/24 08:09 Insulin Glargine (Lantus) 5 Unit/0.05 Ml (Per 5 Units) SC 03/07/24 08:59 10 unit QDAY MADELEINE Administration Insulin Human Lispro 0 unit 02/06/24 07:30 02/07/24 11:50 Insulin Lispro (Admelog) 1 Unit/0.01 Ml Unit SC 03/07/24 07:29 1 unit ACHS MADELEINE Administration Protocol Ondansetron HCl 4 mg 02/06/24 03:54 Ondansetron Inj 2 Mg/Ml Inj 2 Ml IV 03/07/24 03:53 Q6H PRN NAUSEA OR VOMITING Protocol Pantoprazole Sodium 40 mg 02/06/24 09:00 02/07/24 08:08 Pantoprazole 40 Mg Tablet PO 03/07/24 08:59 40 mg QDAY MADELEINE Administration Pharmacy Consult 1 each 02/06/24 09:00 Vancomycin Pharmacy To Dose 1 Each Each IV 03/07/24 08:59 QDAY PRN CONSULT Plan Assessment and Plan: Summary: Mr. Ranjith Madden is a 68-year-old male with a past medical history of type 2 diabetes and hypertension who was admitted for cellulitis of right lower extremity versus osteomyelitis. Patient's MRI of the foot positive for osteomyelitis of calcaneum, consulted infectious disease, ordered physical therapy, will continue IV antibiotics. #Diabetic foot, right #Cellulitis, right foot #Osteomyelitis plantar surface calcaneum, right foot Did not meet SIRS criteria, WBC 12.6, ESR 130, CRP 9.5. Foot x-ray shows suspicious for osteomyelitis plantar surface of the calcaneus MRI positive for Osteomyelitis plantar surface of the calcaneus General Surgery evaluated patient, no surgical need for now per general surgery Patient was started on cefepime and vancomycin, vancomycin (02/05-02/06) discontinued due to patient's poor renal function Plan: ?Continue Cefepime 2 g IV daily (02/05-) and doxycycline (02/06-) ?Wound care as needed ?Follow-up blood culture -Possible PICC line placement, will schedule for Saturday -General Surgery consulted, appreciate recommendations -Infectious disease consulted, appreciate recommendations -Referral to physical therapy -Referral to wound care #?Acute on chronic kidney injury #Chronic kidney disease, stage IV Patient was given IV fluids on admission, baseline renal function unknown, GFR for 12/09/2021: 43 Possible progression of chronic kidney disease due to uncontrolled diabetes and hypertension Urine random creatinine 41, Random urine total protein 176 Retroperitoneal ultrasound shows Moderate bilateral renal parenchymal scar formation Bilateral renal cortical thinning Plan: -Renally dose medications -Avoid nephrotoxic agents -Consulted nephrology, appreciate recommendations #Type 2 diabetes mellitus, uncontrolled On admission, A1c 12.2% and glucose of 413. Patient has poor outpatient control of diabetes, denies taking any medications. Plan: ?Continue 10 units insulin glargine ?SSI lispro -Hypoglycemia protocol in place -Diabetic education -Referral to dietitian #Hypertension #Hypertensive urgency ? Changed amlodipine to 10 mg p.o. daily ? Hydralazine 10 mg IV every 6 hours as needed if BP greater than 170/110 - Monitor blood pressure DVT prophylaxis: Heparin GI prophylaxis: Not indicated Diet: Oral Protonix Lines: Peripheral IV Code status: Full code Case discussed with Attending Dr. Neumann and Dr. Kapoor PGY3. John Weeks PGY1 Attending Provider Attestation/Addendum 68-year-old male with multiple comorbidities including hypertension, hyperlipidemia, type 2 diabetes mellitus who presented with right lower extremity swelling and found to have osteomyelitis started on IV antibiotic therapy. In addition, patient also noted to have acute kidney injury and plan to consult nephrology, infectious disease and general surgery. I reviewed above note and agree with findings and plans. I have also personally examined the patient with medicine team and went over assessment and plan with medical team including global marketing intern and resident physician.
--- NOTE | 2024-02-07 13:13 | PC.NURSE ---
Pt to MRI via jayla
--- NOTE | 2024-02-07 14:59 | ESCONSULT_ITS ---
RE: ABDIRAHMAN PETERSEN : 1955 DATE OF CONSULTATION: 02/07/2024 REASON FOR REFERRAL: Acute kidney injury on chronic kidney disease versus progression of CKD over time. REFERRING PHYSICIAN: Armando Schuster MD HISTORY OF PRESENT ILLNESS: This patient is a 68-year-old -Tajik gentleman with past medical history significant for hypertension and type 2 diabetes diagnosed about 2 years ago who presented to the emergency room yesterday with right lower extremity wound. The patient was found with an elevated creatinine of 3.3 and I was asked to see the patient in consultation. The patient said that a few weeks ago he developed right foot infection, which progressed to his right guevara. He was convinced by his family members to go to the emergency room for further management. While in the ED, he was found with a blood sugar of 413, hemoglobin A1c of 12.2, ESR of 130, and a WBC of 12.6. He was eventually admitted and was started on IV vancomycin and IV Zosyn. 2 years ago, the patient also presented to the emergency room with right foot infection. He said that he stepped on a nail 4 years ago and had a lingering right wound infection. When he presented to the emergency room in 2021, his serum creatinine was found to be elevated as well at 1.7. When he presented yesterday, creatinine was at 3.3, which peaked to 3.5. He said that he never went to a primary care physician for the longest time. He saw a physician 2 years ago and that is when he was told that he has diabetes and hypertension. He currently denies any fever, chest pain, or shortness of breath. He also denies any leg swelling. He denies nausea, vomiting, diarrhea, or constipation. PAST MEDICAL HISTORY: As previously mentioned, diabetes, hypertension. Surgical history: Appendectomy. ALLERGIES: NO KNOWN DRUG ALLERGIES. CURRENT MEDICATIONS: 1. Acetaminophen. 2. Amlodipine 10 mg daily. 3. Cefepime 2 grams IV daily. 4. Hydralazine 10 mg IV q.6. 5. [place]. 6. Lantus 10 units. 7. Lasix daily. 8. Lispro sliding scale. 9. Labetalol 10 mg IV p.r.n. 10. Ondansetron 4 mg IV q.6. 11. Protonix 40 mg p.o. daily. 12. Normal saline 75 mL per hour. 13. Vancomycin 1 gram each day. 14. Zosyn 3.375 grams IV x1. PHYSICAL EXAMINATION: General: He is awake, alert, and oriented. Vital Signs: Blood pressure of 177/96, heart rate of 82, O2 saturation of 96% on room air. HEENT: Normocephalic. Neck: Supple. Chest and Lungs: Normal expansion. Clear breath sounds. Heart: Without murmur. Abdomen: Soft. Extremities: No edema on both lower extremities. Right foot has a bandage. LABORATORY DATA: Hemoglobin 9.7, WBC 11,700, plate count 231,000. Sodium 132, potassium 4.4, chloride 105, CO2 20.4, BUN 28, creatinine 3.2, glucose 150, phosphorus 3.9, troponin 0.119, albumin 3.3. Urine mjywmlr-vc-toirojpmdf ratio of 4.2 g. Chest x-ray early right lower lobe pneumonia. Bilateral kidney ultrasound, right kidney measures 11 cm with renal cortex of 1.3 cm. Left kidney measures 11.8 cm with a cortex of 1.7 cm. Moderate bilateral renal parenchymal scar formation. ASSESSMENT: 1. Non-oliguric acute kidney injury versus chronic kidney disease, most likely progression of chronic kidney disease over time due to uncontrolled hypertension and diabetes. 2. Right foot wound. 3. Pneumonia. 4. Anemia of chronic kidney disease and chronic inflammation. 5. Uncontrolled diabetes. 6. Uncontrolled hypertension. 7. Stage IIIB chronic kidney disease, possible stage IV chronic kidney disease. PLAN: The patient seems to be euvolemic at this point and as such, I will stop his IV fluids given that blood pressure is already elevated. I noticed that the patient was started on vancomycin, which is quite nephrotoxic. Alternatives for gram positive coverage will be either Linezolid or daptomycin. Continue to monitor urine output and kidney function on a daily basis. Avoid nephrotoxic antibiotics and agents, i.e. NSAIDs. I will follow him closely with you. Thank you for allowing me to participate in medical care of your patient. DT: 13:20:35 TT: 14:58:00 Ref: [id number] - TID: [id number] MTDD
--- NOTE | 2024-02-07 16:30 | PC.NURSE ---
Notified hospitalist team of persistently high BP. MD west with recent BP 176/92 and will continue hydralazine every 6H as need. Plan is to lower BP slowly and oral meds to be increased tomorrow
[2024-02-07] MEDS: DOXYCYCLINE 100 MG TABLET PO (21:21)
[2024-02-08] VITALS (10 sets, daily range): BP systolic 133–169; BP diastolic 80–100; PULSE 77–86; RESP 16–27; TEMP 36.1–37.2; O2SAT 95–98
[2024-02-08] MEDS: HYDROmorphone INJ 2 MG/ML VIAL 0.25 MG IVP (00:22)
[2024-02-08 06:52] LABS: Basophils # (Auto) 0.1 Thou/mm3 (0.0-0.2); Basophils % (Auto) 1 % (0-2.5); Eosinophils # (Auto) 0.1 Thou/mm3 (0.0-0.5); Eosinophils % (Auto) 1 % (0-10); Hematocrit 31.1 % (41.0-53.0); Immature Granulocytes % (Auto) 0 % (0-0); Immature Granulocytes Auto 0.06 Thou/mm3 (0.00-0.00); Lymphocytes # (Auto) 1.6 Thou/mm3 (1.0-4.8); Lymphocytes % (Auto) 11 % (10-50); Mean Corpuscular HGB Conc 32.2 g/dl (31.0-37.0); Mean Corpuscular Hemoglobin 28.5 pg (25.0-35.0); Mean Corpuscular Volume 89 fL (80-100); Monocytes % (Auto) 7 % (0-12); Neutrophils # (Auto) 11.7 Thou/mm3 (1.8-7.7); Neutrophils % (Auto) 81 % (37-80); Nucleated Red Blood Cell % 0 /100 WBC (0); Platelet Count 354 Thou/mm3 (140-440); RDW Standard Deviation 45.2 fL (35.1-43.9); Red Blood Count 3.51 Miln/mm3 (4.50-5.90); White Blood Count 14.5 Thou/mm3 (3.8-10.6)
[2024-02-08 07:16] LABS: Alanine Aminotransferase < 7 U/L (10-49); Albumin, Serum 3.4 gm/dL (3.4-4.8); Albumin/Globulin Ratio 0.8 (1.2-2.2); Alkaline Phosphatase 79 U/L (46-116); Anion Gap 8 (7-16); Aspartate Amino Transferase < 8 U/L (0-34); BUN/Creatinine Ratio 8 Ratio (12-20); Bilirubin,Total 0.5 mg/dL (0.3-1.2); Blood Urea Nitrogen 27 mg/dL (9-23); Calcium 8.8 mg/dL (8.3-10.6); Calcium (Corrected) 9.3 mg/dL (8.5-10.1); Carbon Dioxide 19.7 mMol/L (20.0-31.0); Chloride 103 mMol/L (98-107); Creatinine (Component) 3.3 mg/dL (0.6-1.3); Estimated Creatinine Clearance 20.2 mL/min (>60); Globulin 4.3 gm/dL (2.3-3.5); Glucose 107 mg/dL (74-106); Osmolality,Calculated 267 (275-295); Phosphorous 3.8 mg/dL (2.4-5.1); Potassium 4.7 mMol/L (3.4-5.1); Sodium 131 mMol/L (136-145); Total Protein 7.7 gm/dL (5.7-8.2); eGFR 19 See Note
--- NOTE | 2024-02-08 07:46 | ESPR_ITS ---
Subjective Subjective Interval history: admitted a few days ago. afebrile. cx neg. on cefepime and doxy. a1c 12 despite ckd Exam Vital Signs Temp Pulse Resp BP Pulse Ox O2 Del Method 96.9 F 77 27 H 166/95 H 98 Room Air 02/08/24 03:59 02/08/24 04:01 02/08/24 03:59 02/08/24 03:59 02/08/24 03:59 02/08/24 03:59 Narrative Exam not seen. Objective - Internal Medicine Labs 02/08/24 05:24 02/08/24 05:24 Labs: Laboratory Results - last 24 hr 02/07/24 02/08/24 11:40 05:24 WBC 14.5 H RBC 3.51 L Hgb 10.0 L Hct 31.1 L MCV 89 MCH 28.5 MCHC 32.2 RDW Std Deviation 45.2 H Plt Count 354 Neut % (Auto) 81 H Lymph % (Auto) 11 [place] % (Auto) 7 Eos % (Auto) 1 Baso % (Auto) 1 Neut # (Auto) 11.7 H Lymph # (Auto) 1.6 [place] # (Auto) 1.0 H Eos # (Auto) 0.1 Baso # (Auto) 0.1 Immature Gran # (Auto) 0.06 H Absolute Nucleated RBC 0.00 Immature Gran % 0 Nucleated RBC % 0 Sodium 131 L Potassium 4.7 Chloride 103 Carbon Dioxide 19.7 L Anion Gap 8 BUN 27 H Creatinine 3.3 H Estim Creat Clear Calc 20.2 L eGFR 19 L BUN/Creatinine Ratio 8 L Glucose 107 H Calculated Osmolality 267 L Calcium 8.8 Corrected Calcium 9.3 Phosphorus 3.8 Magnesium 2.0 Total Bilirubin 0.5 AST < 8 ALT < 7 L Alkaline Phosphatase 79 Total Protein 7.7 Albumin 3.4 Globulin 4.3 H Albumin/Globulin Ratio 0.8 L Ur Random Creatinine 41 U Random Total Protein 176 H Random Vancomycin 13.0 Assessment & Plan A&P Narrative skin and soft tissue process . staph strep likely, on doxy . pseudomonas unlikely, dm II, a1c 12 ckd control dm changed cefepime to ancef. daily, will look at keflex and doxy in a few days. Time Spent With Patient Time: Total time spent is greater than 50% in coordination of care (as documented) at patient's floor/unit and/or counseling patient:
[2024-02-08] MEDS: INSULIN GLARGINE (Lantus) 5 UNIT/0.05 ML (PER 5 UNITS) 10 UNIT SC (08:24)
[2024-02-08] MEDS: HEPARIN SOD INJ 5000 UNIT/ML VIAL SC ×2 (09:22→20:16)
[2024-02-08] MEDS: DOXYCYCLINE 100 MG TABLET PO ×2 (09:22→20:16)
[2024-02-08] MEDS: amLODIPine BESYLATE 5 MG TABLET 10 MG PO (09:23)
[2024-02-08] MEDS: ceFAZolin/D5W 1 GM IVPB 1 GM/50 ML BAG IV (09:24)
[2024-02-08] MEDS: PANTOPRAZOLE 40 MG TABLET PO (09:24)
--- NOTE | 2024-02-08 10:13 | PC.SS ---
SS submitted DME [facility].
--- NOTE | 2024-02-08 10:52 | PC.SS ---
SS contacted patient's daughter, Luz in regards to patient not having PCP. She reported that patient will see PCP in Feb 12 and patient has not seen PCP since a year ago. SS informed her that HH agency will not be able to follow, per Transfer nurse Bertin, patient could have PCP at the following appointment submit request for HH. Patient's daughter Luz verbalized understanding. Luz also requested 3 in 1 commode. SS ordered commode though [facility]. Cristian will contact patient's daughter for delivery.
--- NOTE | 2024-02-08 10:58 | PC.CM ---
Addendum entered by Eduardo Andre RN 02/08/24 10:59: Informed NEHEMIAS Mari that since pt hasn't seen PCP for a year and pt is not established with PCP. Pt to follow up with [facility] in [place] to establish primary care and ask for HH referral. HH referral is canceled. Original Note: NEHEMIAS Mari informed me that pt hasn't seen PCP for a year. But according to Shannon DEL CID notes made telephone contact with the patient's daughter who reports the patient has an appointment with [facility] in [place] to establish primary care. The patient has his appointment on February 13, 2024 .
--- NOTE | 2024-02-08 10:59 | ESPR_ITS ---
<Statement entered by Diya Kapoor DO - 02/08/24 20:44> Senior attestation: Patient was examined and case was reviewed with team including attending physician. Note reviewed, I agree with most of its contents and agree with the patient's care. Infectious disease following, antibiotics changed to Ancef and doxycycline - will follow up with ID regarding imaging findings that show osteomyelitis. Patient may require 6 week antibiotic course, will follow up with ID regarding PO vs IV and choice/duration. Of note, if patient requires IV antibiotics, may require SNF placement because home health will not be able to accommodate IV abx as patient does not have recent establishment with a PCP. Diya Kapoor DO PGY-3 Documentation for date of: 02/08/24 Subjective Subjective Interval history: Patient seen at bedside. Lying comfortably in bed. Was seen by nephrology, per nephrology possible progression of chronic kidney disease due to underlying diabetes and hypertension. Patient's antibiotic therapy changed to Ancef and doxycycline by infectious disease. Pending recommendations from infectious disease for possible IV antibiotic therapy. Considering Rocephin and doxycycline IV antibiotic therapy with home health till March 20, 2024 Patient's creatinine 3.3, BUN 27, GFR 19 today. Will continue to monitor patient. Exam Vital Signs Temp Pulse Resp BP Pulse Ox O2 Del Method 98.9 F 84 19 154/90 H 97 Room Air 02/08/24 08:00 02/08/24 09:23 02/08/24 08:00 02/08/24 09:23 02/08/24 08:00 02/08/24 08:00 Narrative Exam General: AOx3, no acute distress, able to speak full sentences HEENT: NC/AT, mucous membranes moist, bilateral sclera anicteric Cardiovascular: regular rate and rhythm, S1/S2 present, no murmurs appreciated Pulmonary: clear to auscultation bilaterally, no rales/rhonchi/wheezes Abdominal: soft, non-tender, non-distended, no rebound/guarding, normal bowel sounds present Musculoskeletal: non-pitting right lower extremity edema; normal ROM Skin: right lower extremity erythematous, warm to touch, and scaly with wound on plantar surface Neuro: CN II-XII intact, no focal deficits Objective Labs 02/09/24 06:10 02/09/24 06:10 Labs: Laboratory Results - last 24 hr 02/07/24 02/08/24 11:40 05:24 WBC 14.5 H RBC 3.51 L Hgb 10.0 L Hct 31.1 L MCV 89 MCH 28.5 MCHC 32.2 RDW Std Deviation 45.2 H Plt Count 354 Neut % (Auto) 81 H Lymph % (Auto) 11 [place] % (Auto) 7 Eos % (Auto) 1 Baso % (Auto) 1 Neut # (Auto) 11.7 H Lymph # (Auto) 1.6 [place] # (Auto) 1.0 H Eos # (Auto) 0.1 Baso # (Auto) 0.1 Immature Gran # (Auto) 0.06 H Absolute Nucleated RBC 0.00 Immature Gran % 0 Nucleated RBC % 0 Sodium 131 L Potassium 4.7 Chloride 103 Carbon Dioxide 19.7 L Anion Gap 8 BUN 27 H Creatinine 3.3 H Estim Creat Clear Calc 20.2 L eGFR 19 L BUN/Creatinine Ratio 8 L Glucose 107 H Calculated Osmolality 267 L Calcium 8.8 Corrected Calcium 9.3 Phosphorus 3.8 Magnesium 2.0 Total Bilirubin 0.5 AST < 8 ALT < 7 L Alkaline Phosphatase 79 Total Protein 7.7 Albumin 3.4 Globulin 4.3 H Albumin/Globulin Ratio 0.8 L Ur Random Creatinine 41 U Random Total Protein 176 H Random Vancomycin 13.0 Quality Measures Quality Measures none Advance care planning discussed with:: patient Assessment & Plan Assessment Current Active Medications: Generic Name Dose Route Start Last Admin Trade Name Freq PRN Reason Stop Dose Admin Acetaminophen 650 mg 02/08/24 07:47 Acetaminophen 325 Mg Tablet PO 03/07/24 03:53 Q6H PRN PAIN(1-3) OR FEVER > 101 Hydrocodone Bitart/Acetaminophen 1 tab 02/08/24 07:46 Hydrocodone/Apap 5/325 Tablet PO 02/13/24 07:45 Q8HR PRN PAIN SCALE 4-10(Mod-Sev Amlodipine Besylate 10 mg 02/08/24 09:00 02/08/24 09:23 Amlodipine Besylate 5 Mg Tablet PO 03/09/24 08:59 10 mg QDAY MADELEINE Administration Dextrose 25 ml 02/06/24 04:03 Dextrose 50%-Water Inj 50 Ml Syringe IV 03/07/24 04:02 Q15MIN PRN BG 50-70 responsive npo pt Dextrose 50 ml 02/06/24 04:03 Dextrose 50%-Water Inj 50 Ml Syringe IV 03/07/24 04:02 Q15MIN PRN BG <50 OR BG <70 & pt unresponsive Doxycycline Hyclate 100 mg 02/07/24 21:00 02/08/24 09:22 Doxycycline 100 Mg Tablet PO 02/14/24 20:59 100 mg BID MADELEINE Administration Glucagon 1 mg 02/06/24 04:03 Glucagon Inj 1 Mg Vial IM Q15MIN PRN BG <70, and no IV access Heparin Sodium (Porcine) 5,000 unit 02/06/24 09:00 02/08/24 09:22 Heparin Sod Inj 5000 Unit/Ml Vial SC 02/20/24 08:59 5,000 unit Q12HR MADELEINE Administration Hydralazine HCl 10 mg 02/06/24 04:05 02/07/24 14:26 Hydralazine Inj 20 Mg/Ml Vial IV 03/07/24 04:14 10 mg Q6H PRN Administration hypertension Cefazolin Sodium/Dextrose 1 gm in 50 mls @ 100 mls/hr 02/08/24 09:00 02/08/24 09:24 Ancef Ivpb IV 02/13/24 12:59 100 mls/hr DAILY MADELEINE Administration Insulin Glargine 10 unit 02/06/24 09:00 02/08/24 08:24 Insulin Glargine (Lantus) 5 Unit/0.05 Ml (Per 5 Units) SC 03/07/24 08:59 10 unit QDAY MADELEINE Administration Insulin Human Lispro 0 unit 02/06/24 07:30 02/08/24 07:30 Insulin Lispro (Admelog) 1 Unit/0.01 Ml Unit SC 03/07/24 07:29 Not Given ACHS ON LICENSE OF [facility] Protocol Ondansetron HCl 4 mg 02/06/24 03:54 Ondansetron Inj 2 Mg/Ml Inj 2 Ml IV 03/07/24 03:53 Q6H PRN NAUSEA OR VOMITING Protocol Pantoprazole Sodium 40 mg 02/06/24 09:00 02/08/24 09:24 Pantoprazole 40 Mg Tablet PO 03/07/24 08:59 40 mg QDAY MADELEINE Administration Plan Assessment and Plan: Summary: Mr. Ranjith Madden is a 68-year-old male with a past medical history of type 2 diabetes and hypertension who was admitted for cellulitis of right lower extremity versus osteomyelitis. Patient's MRI of the foot positive for osteomyelitis of calcaneum, consulted infectious disease, ordered physical therapy, will continue IV antibiotics. #Diabetic foot, right #Cellulitis, right foot #Osteomyelitis plantar surface calcaneum, right foot Did not meet SIRS criteria, WBC 12.6, ESR 130, CRP 9.5. Foot x-ray shows suspicious for osteomyelitis plantar surface of the calcaneus MRI positive for Osteomyelitis plantar surface of the calcaneus General Surgery evaluated patient, no surgical need for now per general surgery Patient was started on cefepime and vancomycin, vancomycin (02/05-02/06) discontinued due to patient's poor renal function Cefepime (02/05-02/07) discontinued by infectious disease, patient started on Ancef Plan: ?Continue Ancef daily (02/07-) and doxycycline (02/06-) ?Wound care as needed ?Follow-up blood culture -Possible PICC line placement, will schedule for Saturday per infectious disease recommendations -Patient does have history of meth use, previous urine drug screen positive for methamphetamine, denies any IV drug use currently. Consider oral antibiotics. -General Surgery consulted, appreciate recommendations -Infectious disease consulted, appreciate recommendations -Referral to physical therapy -Referral to wound care #?Acute on chronic kidney injury #Chronic kidney disease, stage IV Patient was given IV fluids on admission, baseline renal function unknown, GFR for 12/09/2021: 43 Possible progression of chronic kidney disease due to uncontrolled diabetes and hypertension Urine random creatinine 41, Random urine total protein 176 Retroperitoneal ultrasound shows Moderate bilateral renal parenchymal scar formation Bilateral renal cortical thinning Plan: -Per nephrology, patient might have progression of chronic kidney disease due to uncontrolled diabetes and hypertension -Renally dose medications -Avoid nephrotoxic agents -Consulted nephrology, appreciate recommendations #Type 2 diabetes mellitus, uncontrolled On admission, A1c 12.2% and glucose of 413. Patient has poor outpatient control of diabetes, denies taking any medications. Plan: ?Continue 10 units insulin glargine ?SSI lispro -Hypoglycemia protocol in place -Diabetic education -Referral to dietitian #Hypertension #Hypertensive urgency ? Changed amlodipine to 10 mg p.o. daily ? Hydralazine 10 mg IV every 6 hours as needed if BP greater than 170/110 - Monitor blood pressure DVT prophylaxis: Heparin GI prophylaxis: Not indicated Diet: Oral Protonix Lines: Peripheral IV Code status: Full code Case discussed with Attending Dr. Neumann and Dr. Kapoor PGY3. John Weeks PGY1 Attending Provider Attestation/Addendum 68-year-old male with multiple comorbidities including hypertension, hyperlipidemia, type 2 diabetes mellitus who presented with right lower extremity swelling and found to have osteomyelitis started on IV antibiotic therapy. In addition, patient also noted to have acute kidney injury and plan to consult nephrology, infectious disease and general surgery. Overnight, patient kidney function continue to worsen despite IV fluid resuscitation. Appreciate nephrology input. Continue IV antibiotic therapy pending official ID input. I reviewed above note and agree with findings and plans. I have also personally examined the patient with medicine team and went over assessment and plan with medical team including technical internship and resident physician.
[2024-02-08] MEDS: INSULIN LISPRO (AdmeLOG) 1 UNIT/0.01 ML UNIT SC ×2 (11:36→20:16)
[2024-02-08] MEDS: hydrALAZINE INJ 20 MG/ML VIAL 10 MG IV (12:44)
[2024-02-08] MEDS: HYDROcodone/APAP 5/325 TABLET 1 TAB PO (15:57)
[2024-02-09] VITALS (10 sets, daily range): BP systolic 145–162; BP diastolic 78–96; PULSE 74–81; RESP 14–22; TEMP 36.1–36.6; O2SAT 96–98
[2024-02-09] MEDS: HYDROcodone/APAP 5/325 TABLET 1 TAB PO ×2 (00:10→21:50)
[2024-02-09] MEDS: ACETAMINOPHEN 325 MG TABLET 650 MG PO (05:44)
[2024-02-09 07:01] LABS: Basophils # (Auto) 0.1 Thou/mm3 (0.0-0.2); Basophils % (Auto) 1 % (0-2.5); Eosinophils # (Auto) 0.3 Thou/mm3 (0.0-0.5); Eosinophils % (Auto) 2 % (0-10); Hematocrit 29.5 % (41.0-53.0); Hemoglobin 9.5 g/dL (13.5-16.0); Immature Granulocytes % (Auto) 0 % (0-0); Immature Granulocytes Auto 0.06 Thou/mm3 (0.00-0.00); Lymphocytes % (Auto) 14 % (10-50); Mean Corpuscular HGB Conc 32.2 g/dl (31.0-37.0); Mean Corpuscular Volume 90 fL (80-100); Monocytes # (Auto) 0.9 Thou/mm3 (0.0-0.8); Monocytes % (Auto) 6 % (0-12); Neutrophils # (Auto) 10.7 Thou/mm3 (1.8-7.7); Neutrophils % (Auto) 76 % (37-80); Nucleated Red Blood Cell % 0 /100 WBC (0); Platelet Count 343 Thou/mm3 (140-440); RDW Standard Deviation 45.6 fL (35.1-43.9); Red Blood Count 3.28 Miln/mm3 (4.50-5.90)
[2024-02-09 07:32] LABS: Alanine Aminotransferase < 7 U/L (10-49); Albumin, Serum 3.4 gm/dL (3.4-4.8); Albumin/Globulin Ratio 0.8 (1.2-2.2); Alkaline Phosphatase 75 U/L (46-116); Anion Gap 10 (7-16); Aspartate Amino Transferase < 10 U/L (0-34); BUN/Creatinine Ratio 9 Ratio (12-20); Bilirubin,Total 0.4 mg/dL (0.3-1.2); Blood Urea Nitrogen 32 mg/dL (9-23); Calcium 8.8 mg/dL (8.3-10.6); Calcium (Corrected) 9.3 mg/dL (8.5-10.1); Carbon Dioxide 19.5 mMol/L (20.0-31.0); Chloride 101 mMol/L (98-107); Creatinine (Component) 3.6 mg/dL (0.6-1.3); Estimated Creatinine Clearance 18.5 mL/min (>60); Globulin 4.2 gm/dL (2.3-3.5); Glucose 89 mg/dL (74-106); Osmolality,Calculated 266 (275-295); Potassium 4.2 mMol/L (3.4-5.1); Sodium 130 mMol/L (136-145); Total Protein 7.6 gm/dL (5.7-8.2); eGFR 17 See Note
[2024-02-09] MEDS: PANTOPRAZOLE 40 MG TABLET PO (08:39)
[2024-02-09] MEDS: HEPARIN SOD INJ 5000 UNIT/ML VIAL SC ×2 (08:39→21:23)
[2024-02-09] MEDS: DOXYCYCLINE 100 MG TABLET PO ×2 (08:39→21:24)
[2024-02-09] MEDS: amLODIPine BESYLATE 5 MG TABLET 10 MG PO (08:39)
[2024-02-09] MEDS: ceFAZolin/D5W 1 GM IVPB 1 GM/50 ML BAG IV (08:39)
[2024-02-09] MEDS: INSULIN GLARGINE (Lantus) 5 UNIT/0.05 ML (PER 5 UNITS) 10 UNIT SC (08:40)
--- NOTE | 2024-02-09 10:28 | PC.SS ---
SS follow up note; Poss IV ABX for 6 Weeks. Pending ID rec's.
[2024-02-09] MEDS: INSULIN LISPRO (AdmeLOG) 1 UNIT/0.01 ML UNIT SC ×3 (11:32→21:24)
--- NOTE | 2024-02-09 15:01 | ESPR_ITS ---
Documentation for date of: 02/09/24 Subjective Subjective Interval history: Patient seen today at the bedside found awake, alert, oriented x3. No overnight events reported. States no active complaints at this time. Vital signs at this time show some hypertension, rest of vitals stable. Labs at this time show worsening kidney fx at this time, spoke with nephrology recommends monitoring at this time, no IVF as patient has positive fluid balance. Added hydralazine 10mg TID, as well as prn Labetalol. Will continue current management for Osteomyelitis of the calcaneum with Cefazolin and doxycycline, ID on the case will f/u there recommendations. Exam Vital Signs Temp Pulse Resp BP Pulse Ox O2 Del Method 97.3 F 74 20 159/87 H 98 Room Air 02/09/24 12:00 02/09/24 12:00 02/09/24 12:00 02/09/24 12:00 02/09/24 12:00 02/09/24 12:00 Narrative Exam Physical Exam GENERAL: NAD, NC/AT, responsive/cooperative. AAOx3 HEENT: Moist mucosa. Eyes open, symmetrical, & clear CARDIO: No chest pain on palpation. Heart RRR, no obvious murmurs PULM: No noted coughing/dyspnea. Lungs CTA B/L, no R/W/R GI: Abdomen soft, nondistended, no pain on palpation. BSx4 URO/PART MAKER:: No further abnormalities noted. Diego catheter SKIN/MSK/EXT: no pain on palpation. right lower extremity erythematous, warm to touch, and scaly with wound on plantar surface and ulcer/scab on the lateral malleolus NEURO: AAOx3, no focal neuro deficits Objective Labs 02/09/24 06:10 02/09/24 06:10 Labs: Laboratory Results - last 24 hr 02/09/24 06:10 WBC 14.0 H RBC 3.28 L Hgb 9.5 L Hct 29.5 L MCV 90 MCH 29.0 MCHC 32.2 RDW Std Deviation 45.6 H Plt Count 343 Neut % (Auto) 76 Lymph % (Auto) 14 [place] % (Auto) 6 Eos % (Auto) 2 Baso % (Auto) 1 Neut # (Auto) 10.7 H Lymph # (Auto) 2.0 [place] # (Auto) 0.9 H Eos # (Auto) 0.3 Baso # (Auto) 0.1 Immature Gran # (Auto) 0.06 H Absolute Nucleated RBC 0.00 Immature Gran % 0 Nucleated RBC % 0 Sodium 130 L Potassium 4.2 D Chloride 101 Carbon Dioxide 19.5 L Anion Gap 10 BUN 32 H Creatinine 3.6 H Estim Creat Clear Calc 18.5 L eGFR 17 L BUN/Creatinine Ratio 9 L Glucose 89 Calculated Osmolality 266 L Calcium 8.8 Corrected Calcium 9.3 Phosphorus 4.0 Magnesium 2.0 Total Bilirubin 0.4 AST < 10 ALT < 7 L Alkaline Phosphatase 75 Total Protein 7.6 Albumin 3.4 Globulin 4.2 H Albumin/Globulin Ratio 0.8 L Quality Measures Quality Measures none Advance care planning discussed with:: patient Assessment & Plan Assessment Current Active Medications: Generic Name Dose Route Start Last Admin Trade Name Freq PRN Reason Stop Dose Admin Acetaminophen 650 mg 02/08/24 07:47 02/09/24 05:44 Acetaminophen 325 Mg Tablet PO 03/07/24 03:53 650 mg Q6H PRN Administration PAIN(1-3) OR FEVER > 101 Hydrocodone Bitart/Acetaminophen 1 tab 02/08/24 07:46 02/09/24 00:10 Hydrocodone/Apap 5/325 Tablet PO 02/13/24 07:45 1 tab Q8HR PRN Administration PAIN SCALE 4-10(Mod-Sev Amlodipine Besylate 10 mg 02/08/24 09:00 02/09/24 08:39 Amlodipine Besylate 5 Mg Tablet PO 03/09/24 08:59 10 mg QDAY MADELEINE Administration Dextrose 25 ml 02/06/24 04:03 Dextrose 50%-Water Inj 50 Ml Syringe IV 03/07/24 04:02 Q15MIN PRN BG 50-70 responsive npo pt Dextrose 50 ml 02/06/24 04:03 Dextrose 50%-Water Inj 50 Ml Syringe IV 03/07/24 04:02 Q15MIN PRN BG <50 OR BG <70 & pt unresponsive Doxycycline Hyclate 100 mg 02/07/24 21:00 02/09/24 08:39 Doxycycline 100 Mg Tablet PO 02/14/24 20:59 100 mg BID MADELEINE Administration Glucagon 1 mg 02/06/24 04:03 Glucagon Inj 1 Mg Vial IM Q15MIN PRN BG <70, and no IV access Heparin Sodium (Porcine) 5,000 unit 02/06/24 09:00 02/09/24 08:39 Heparin Sod Inj 5000 Unit/Ml Vial SC 02/20/24 08:59 5,000 unit Q12HR MADELEINE Administration Hydralazine HCl 10 mg 02/06/24 04:05 02/08/24 12:44 Hydralazine Inj 20 Mg/Ml Vial IV 03/07/24 04:14 10 mg Q6H PRN Administration hypertension Cefazolin Sodium/Dextrose 1 gm in 50 mls @ 100 mls/hr 02/08/24 09:00 02/09/24 08:39 Ancef Ivpb IV 02/13/24 12:59 100 mls/hr DAILY MADELEINE Administration Insulin Glargine 10 unit 02/06/24 09:00 02/09/24 08:40 Insulin Glargine (Lantus) 5 Unit/0.05 Ml (Per 5 Units) SC 03/07/24 08:59 10 unit QDAY MADELEINE Administration Insulin Human Lispro 0 unit 02/06/24 07:30 02/09/24 11:32 Insulin Lispro (Admelog) 1 Unit/0.01 Ml Unit SC 03/07/24 07:29 1 unit ACHS MADELEINE Administration Protocol Ondansetron HCl 4 mg 02/06/24 03:54 Ondansetron Inj 2 Mg/Ml Inj 2 Ml IV 03/07/24 03:53 Q6H PRN NAUSEA OR VOMITING Protocol Pantoprazole Sodium 40 mg 02/06/24 09:00 02/09/24 08:39 Pantoprazole 40 Mg Tablet PO 03/07/24 08:59 40 mg QDAY MADELEINE Administration Plan 68 y/o M with PMHx of Diabetes and Hypertension who was admitted for cellulitis of right lower extremity versus osteomyelitis. Patient's MRI of the foot was positive for osteomyelitis of calcaneum, consulted infectious disease, ordered physical therapy, will continue IV antibiotics. #Diabetic foot, right #Cellulitis, right foot #Osteomyelitis plantar surface calcaneum, right foot RLE x-ray shows suspicious for osteomyelitis plantar surface of the calcaneus MRI positive for Osteomyelitis plantar surface of the calcaneus General Surgery consulted, no surgical intervention at this time Patient was on Cefepime and vancomycin but due to poor kidney fx was discontinued and ID started on Cefazolin Considered PICC line placement for IV Abx therapy but patient has hx of drug abuse, will consider PO Abx therapy or ID recommendations -Continue Ancef daily (02/07-) and doxycycline (02/06-) -Wound care as needed -Blood Cx negative in 48 hours -General Surgery consulted, appreciate recommendations -Infectious disease consulted, appreciate recommendations -Referral to physical therapy -Referral to wound care #?Acute on chronic kidney injury #Chronic kidney disease, stage IV Patient was given IV fluids on admission, baseline renal function unknown Possible progression of chronic kidney disease due to uncontrolled diabetes and hypertension Urine random creatinine 41, Random urine total protein 176 Retroperitoneal ultrasound shows Moderate bilateral renal parenchymal scar formation Bilateral renal cortical thinning Per nephrology, patient might have progression of chronic kidney disease due to uncontrolled diabetes and hypertension, likely ATN -Renally dose medications -Avoid nephrotoxic agents - Nephrology on case, appreciate recommendations #Uncontrolled Diabetes II On admission, A1c 12.2% and glucose of 413. Patient has poor outpatient control of diabetes, denies taking any medications. ?SSI -Hypoglycemia protocol in place #Hypertension #Hypertensive urgency ? on amlodipine to 10 mg p.o. daily ? Hydralazine 10 mg PO - Added labetalol 10mg IV PRN q 6hours, if SBP>160 - Monitor blood pressure Case discussed with my senior Dr. Husain PGY-[address] Thien Vang MD PGY-1 Disposition: Telemetry on Abx for Osteomyelitis DVT prophylaxis: Heparin GI prophylaxis: Pantoprazole Diet: Carb consistent Code status: Full code Attending Provider Attestation/Addendum 68-year-old male with multiple comorbidities including hypertension, hyperlipidemia, type 2 diabetes mellitus who presented with right lower extremity swelling and found to have osteomyelitis started on IV antibiotic therapy. In addition, patient also noted to have acute kidney injury and plan to consult nephrology, infectious disease and general surgery. Overnight, patient kidney function continue to worsen despite IV fluid resuscitation. Appreciate nephrology input. Continue IV antibiotic therapy and will reach out to infectious disease regarding choice and route of antibiotic as patient has a history of IV drug use and might benefit from oral antibiotic therapy compared to IV as patient will need a PICC line. Patient is in agreement with our plan. Awaiting further input from infectious disease. I reviewed above note and agree with findings and plans. I have also personally examined the patient with medicine team and went over assessment and plan with medical team including analysis intern and resident physician.
[2024-02-09 15:52] LABS: B-Type Natriuretic Peptide 132 pg/mL (0-100)
[2024-02-09] MEDS: hydrALAZINE HCL 10 MG TABLET PO ×2 (16:22→21:24)
[2024-02-10] VITALS (11 sets, daily range): BP systolic 133–148; BP diastolic 75–84; PULSE 64–72; RESP 12–18; TEMP 36.1–36.6; O2SAT 95–97
[2024-02-10] MEDS: hydrALAZINE HCL 10 MG TABLET PO ×3 (05:19→21:57)
[2024-02-10 05:58] LABS: Basophils # (Auto) 0.1 Thou/mm3 (0.0-0.2); Basophils % (Auto) 0 % (0-2.5); Eosinophils # (Auto) 0.5 Thou/mm3 (0.0-0.5); Eosinophils % (Auto) 3 % (0-10); Hematocrit 30.1 % (41.0-53.0); Hemoglobin 9.7 g/dL (13.5-16.0); Immature Granulocytes % (Auto) 1 % (0-0); Immature Granulocytes Auto 0.08 Thou/mm3 (0.00-0.00); Lymphocytes % (Auto) 14 % (10-50); Mean Corpuscular HGB Conc 32.2 g/dl (31.0-37.0); Mean Corpuscular Hemoglobin 28.7 pg (25.0-35.0); Mean Corpuscular Volume 89 fL (80-100); Monocytes % (Auto) 7 % (0-12); Neutrophils # (Auto) 10.3 Thou/mm3 (1.8-7.7); Neutrophils % (Auto) 74 % (37-80); Nucleated Red Blood Cell % 0 /100 WBC (0); Platelet Count 316 Thou/mm3 (140-440); RDW Standard Deviation 44.8 fL (35.1-43.9); Red Blood Count 3.38 Miln/mm3 (4.50-5.90); White Blood Count 13.9 Thou/mm3 (3.8-10.6)
[2024-02-10 06:52] LABS: Alanine Aminotransferase < 7 U/L (10-49); Albumin, Serum 3.4 gm/dL (3.4-4.8); Albumin/Globulin Ratio 0.8 (1.2-2.2); Alkaline Phosphatase 81 U/L (46-116); Anion Gap 9 (7-16); Aspartate Amino Transferase < 8 U/L (0-34); BUN/Creatinine Ratio 9 Ratio (12-20); Bilirubin,Total 0.3 mg/dL (0.3-1.2); Blood Urea Nitrogen 33 mg/dL (9-23); Calcium 8.9 mg/dL (8.3-10.6); Calcium (Corrected) 9.4 mg/dL (8.5-10.1); Carbon Dioxide 20.8 mMol/L (20.0-31.0); Chloride 99 mMol/L (98-107); Creatinine (Component) 3.6 mg/dL (0.6-1.3); Estimated Creatinine Clearance 18.5 mL/min (>60); Globulin 4.3 gm/dL (2.3-3.5); Glucose 89 mg/dL (74-106); Magnesium 2.2 mg/dL (1.6-2.6); Osmolality,Calculated 265 (275-295); Phosphorous 4.2 mg/dL (2.4-5.1); Potassium 4.4 mMol/L (3.4-5.1); Sodium 129 mMol/L (136-145); Total Protein 7.7 gm/dL (5.7-8.2); eGFR 17 See Note
[2024-02-10] MEDS: amLODIPine BESYLATE 5 MG TABLET 10 MG PO (08:15)
[2024-02-10] MEDS: ceFAZolin/D5W 1 GM IVPB 1 GM/50 ML BAG IV (08:15)
[2024-02-10] MEDS: PANTOPRAZOLE 40 MG TABLET PO (08:15)
[2024-02-10] MEDS: HEPARIN SOD INJ 5000 UNIT/ML VIAL SC ×2 (08:15→21:58)
[2024-02-10] MEDS: DOXYCYCLINE 100 MG TABLET PO ×2 (08:15→21:57)
[2024-02-10] MEDS: INSULIN GLARGINE (Lantus) 5 UNIT/0.05 ML (PER 5 UNITS) 10 UNIT SC (08:16)
[2024-02-10] MEDS: HYDROcodone/APAP 5/325 TABLET 1 TAB PO (08:28)
--- NOTE | 2024-02-10 08:51 | PD.IDPROG ---
Subjective Subjective Interval history: primary team with strong interest in po rx for this man. there was a study with equal outcomes for iv and po rx. but all had good micro and received initial iv rx till improved. MRI has changes in heel. heels do not heal well. Exam Vital Signs Temp Pulse Resp BP Pulse Ox O2 Del Method 97.0 F 72 16 140/76 H 95 Room Air 02/10/24 07:37 02/10/24 08:15 02/10/24 07:37 02/10/24 08:15 02/10/24 07:37 02/10/24 07:37 Narrative Exam pt denies active idu. has been years per pt but uds pos in 2021for amphetamines, so may not be optimally truthful. Objective - Internal Medicine Labs 02/10/24 04:27 02/10/24 04:27 Labs: Laboratory Results - last 24 hr 02/09/24 02/10/24 14:48 04:27 WBC 13.9 H RBC 3.38 L Hgb 9.7 L Hct 30.1 L MCV 89 MCH 28.7 MCHC 32.2 RDW Std Deviation 44.8 H Plt Count 316 Neut % (Auto) 74 Lymph % (Auto) 14 [place] % (Auto) 7 Eos % (Auto) 3 Baso % (Auto) 0 Neut # (Auto) 10.3 H Lymph # (Auto) 2.0 [place] # (Auto) 1.0 H Eos # (Auto) 0.5 Baso # (Auto) 0.1 Immature Gran # (Auto) 0.08 H Absolute Nucleated RBC 0.00 Immature Gran % 1 H Nucleated RBC % 0 Sodium 129 L Potassium 4.4 Chloride 99 Carbon Dioxide 20.8 Anion Gap 9 BUN 33 H Creatinine 3.6 H Estim Creat Clear Calc 18.5 L eGFR 17 L BUN/Creatinine Ratio 9 L Glucose 89 Calculated Osmolality 265 L Calcium 8.9 Corrected Calcium 9.4 Phosphorus 4.2 Magnesium 2.2 Total Bilirubin 0.3 AST < 8 ALT < 7 L Alkaline Phosphatase 81 B-Natriuretic Peptide 132 H Total Protein 7.7 Albumin 3.4 Globulin 4.3 H Albumin/Globulin Ratio 0.8 L Assessment & Plan A&P Narrative skin and soft tissue process . staph strep likely, on doxy/cefepime . pseudomonas unlikely, dm II, a1c 12 ckd control dm if you feel po rx preferred, please recall that if you go with iv rx, that will be maximally aggressive and if it fails, then po suppression is his only option. if we go with po now. that leaves iv rx for later on... if we are forced to treat empirically, then will likely suggest rocephin 2 gm iv daily and po doxy 100 mg po bid both for 6 weeks with weekly cbc, renal panel,esr while on iv rx and line removal at end of rx. If you prefer po, it will be entirely empirical and may have to use prolonged quinolone cipro 250 bid and doxy 100 bid, both for 6 weeks Time Spent With Patient Time: Total time spent is greater than 50% in coordination of care (as documented) at patient's floor/unit and/or counseling patient:
[2024-02-10 11:08] LABS: C-Reactive Protein 13.2 mg/dL (0.0-0.9)
--- NOTE | 2024-02-10 14:20 | PC.SS ---
Addendum entered by HEATHER Quan 02/10/24 14:24: Updated Dr. Husain that the patient has not followed up with his PCP and per transfer nurse notes not eligible for Home health at this time. Original Note: Rounding note: patient is pending PICC line. Anticipate to d/c tomorrow.
--- NOTE | 2024-02-10 15:23 | ESCONSULT_ITS ---
<Statement entered by Luis Elder MD - 02/11/24 07:20> pt seen with resident. all findings confirmed. see additional notes for details HPI Data of Consult Requesting Physician: Luisito Bennett MD Admitting Provider: Luisito Bennett MD Attending Provider: Luisito Bennett MD Primary Care Provider: Physician No Primary/Family Consult Narrative Reason for consult: Osteomyelitis plantar surface of calcaneus History of present illness: Patient is a 68 year old male with history of type 2 diabetes and hypertension who presented to the ED with concerns of right lower extremity wound, was admitted RLE cellulitis possible osteomyelitis, started on IV vancomycin. Since admission, MRI has revealed evidence of Osteomyelitis plantar surface of the calcaneus, ID team consulted for further recommendations. Today, patient denies any complaints and states norco and IV antibiotics have been helping his foot. Patient's antibiotic regimen has been adjusted from vancomycin to doxycycline to doxycycline with cefazolin. Onset of symptoms is noted to be roughly 2.5 weeks ago, patient denies any recent medications or close follow ups with a PCP. Infectious disease consulted for osteomyelitis of right calcaneous. PMH: type 2 diabetes and hypertension Social Hx: Denies alcohol, tobacco, or illicit drug use Surgical Hx: Appendectomy Travel Hx: No recent travels Vaccinations: Recalls 1 COVID vaccination years ago, denies recent flu or pneumococcal vaccines, cannot recall last tetanus cc:: cc: Luisito Bennett MD Review of Systems Review of Systems Narrative Review of Systems: GENERAL: Denies fevers/chills or diaphoresis. HEENT: Denies headache or visual/hearing changes. Denies nasal discharge. NEURO: Denies unusual weakness or difficulty speaking. CARDIO: Denies chest pain or palpitations. PULM: Denies SOB, coughing, or wheezing. GI: Denies abdominal pain, nausea, vomiting, diarrhea URO: Denies burning/itching/pain/urinary changes. MSK/EXT/SKIN: Denies joint/skeletal/muscle pain Past Medical History Past Medical History Comments PMH COMMENT: PMH: type 2 diabetes and hypertension Social Hx: Denies alcohol, tobacco, or illicit drug use Surgical Hx: Appendectomy Travel Hx: No recent travels Vaccinations: Recalls 1 COVID vaccination years ago, denies recent flu or pneumococcal vaccines, cannot recall last tetanus Exam Vital Signs Temp Pulse Resp BP Pulse Ox O2 Del Method 97.1 F 69 18 139/77 H 97 Room Air 02/10/24 12:00 02/10/24 13:20 02/10/24 12:00 02/10/24 13:20 02/10/24 12:00 02/10/24 12:00 Narrative Exam General: AOx3, cooperative, in no acute distress HEENT: Atraumatic/normocephalic, TAWANDA, neck supple without masses Heart: RRR, S1 and S2 without clicks or murmurs Lungs: Clear on auscultation bilaterally, no difficulty breathing Abdomen: Soft, nontender. Bowel sounds present on all quadrants, no organomegaly Skin: Right foot wrapped, non-tender Neuro: No focal neurological deficits noted Results Labs 02/11/24 05:36 02/11/24 05:36 Labs: Short CBC 02/10/24 Range/Units 04:27 WBC 13.9 H (3.8-10.6) Thou/mm3 Hgb 9.7 L (13.5-16.0) g/dL Hct 30.1 L (41.0-53.0) % Plt Count 316 (140-440) Thou/mm3 BMP 02/10/24 04:27 Sodium 129 L Potassium 4.4 Chloride 99 Carbon Dioxide 20.8 BUN 33 H Creatinine 3.6 H Glucose 89 Calcium 8.9 Liver Function 02/10/24 Range/Units 04:27 Total Bilirubin 0.3 (0.3-1.2) mg/dL AST < 8 (0-34) U/L ALT < 7 L (10-49) U/L Alkaline Phosphatase 81 (46-116) U/L Albumin 3.4 (3.4-4.8) gm/dL Quality Measures Quality Measures VTE prophylaxis (heparin subcutaneously) Advance care planning discussed with:: patient Medications Home Medications and Allergies Home Medications ?Medication ?Instructions ?Recorded ?Confirmed ?Type No Known Home Medications 02/06/24 02/06/24 History Allergies Allergy/AdvReac Type Severity Reaction Status Date / Time No Known Allergies Allergy Verified 12/09/21 18:39 Visit Medications Acetaminophen (Acetaminophen 325 Mg Tablet) 650 mg PO Q6H PRN PRN Reason: PAIN(1-3) OR FEVER > 101 Stop: 03/07/24 03:53 Last Admin: 02/09/24 05:44 Dose: 650 mg Hydrocodone Bitart/Acetaminophen (Hydrocodone/Apap 5/325 Tablet) 1 tab PO Q8HR PRN PRN Reason: PAIN SCALE 4-10(Mod-Sev Stop: 02/13/24 07:45 Last Admin: 02/10/24 08:28 Dose: 1 tab Amlodipine Besylate (Amlodipine Besylate 5 Mg Tablet) 10 mg PO QDAY [facility] Stop: 03/09/24 08:59 Last Admin: 02/10/24 08:15 Dose: 10 mg Dextrose (Dextrose 50%-Water Inj 50 Ml Syringe) 25 ml IV Q15MIN PRN PRN Reason: BG 50-70 responsive npo pt Stop: 03/07/24 04:02 Dextrose (Dextrose 50%-Water Inj 50 Ml Syringe) 50 ml IV Q15MIN PRN PRN Reason: BG <50 OR BG <70 & pt unresponsive Stop: 03/07/24 04:02 Doxycycline Hyclate (Doxycycline 100 Mg Tablet) 100 mg PO BID [facility] Stop: 02/14/24 20:59 Last Admin: 02/10/24 08:15 Dose: 100 mg Glucagon (Glucagon Inj 1 Mg Vial) 1 mg IM Q15MIN PRN PRN Reason: BG <70, and no IV access Heparin Sodium (Porcine) (Heparin Sod Inj 5000 Unit/Ml Vial) 5,000 unit SC Q12HR [facility] Stop: 02/20/24 08:59 Last Admin: 02/10/24 08:15 Dose: 5,000 unit Hydralazine HCl (Hydralazine Hcl 10 Mg Tablet) 10 mg PO TID [facility] Stop: 03/10/24 15:14 Last Admin: 02/10/24 13:20 Dose: 10 mg Cefazolin Sodium/Dextrose (Ancef Ivpb) 1 gm in 50 mls @ 100 mls/hr IV DAILY [facility] Stop: 02/13/24 12:59 Last Admin: 02/10/24 08:15 Dose: 100 mls/hr Insulin Glargine (Insulin Glargine (Lantus) 5 Unit/0.05 Ml (Per 5 Units)) 10 unit SC QDAY [facility] Stop: 03/07/24 08:59 Last Admin: 02/10/24 08:16 Dose: 10 unit Insulin Human Lispro (Insulin Lispro (Admelog) 1 Unit/0.01 Ml Unit) 0 unit SC [facility]; Protocol Stop: 03/07/24 07:29 Last Admin: 02/10/24 11:11 Dose: Not Given Labetalol HCl (Labetalol Inj 5 Mg/Ml Vial 20 Ml) 10 mg IVP Q6HR PRN PRN Reason: SBP >160 Stop: 03/10/24 15:03 Ondansetron HCl (Ondansetron Inj 2 Mg/Ml Inj 2 Ml) 4 mg IV Q6H PRN; Protocol PRN Reason: NAUSEA OR VOMITING Stop: 03/07/24 03:53 Pantoprazole Sodium (Pantoprazole 40 Mg Tablet) 40 mg PO QDAY [facility] Stop: 03/07/24 08:59 Last Admin: 02/10/24 08:15 Dose: 40 mg Discontinued Medications Acetaminophen (Acetaminophen 325 Mg Tablet) 650 mg PO Q6H PRN PRN Reason: PAIN OR FEVER > 101 Stop: 03/07/24 03:53 Last Admin: 02/06/24 20:13 Dose: 650 mg Acetaminophen (Acetaminophen 325 Mg Tablet) 650 mg PO Q6HR PRN PRN Reason: Pain (1-3) and Fever >101 Stop: 03/09/24 07:48 Hydrocodone Bitart/Acetaminophen (Hydrocodone/Apap 5/325 Tablet) 1 tab PO X1 ONE Stop: 02/06/24 22:58 Last Admin: 02/06/24 23:02 Dose: 1 tab Amlodipine Besylate (Amlodipine Besylate 5 Mg Tablet) 5 mg PO QDAY [facility] Stop: 03/07/24 04:09 Last Admin: 02/07/24 08:08 Dose: 5 mg Heparin Sodium (Porcine) (Heparin Sod Inj 5000 Unit/Ml Vial) 5,000 unit SC Q8HR [facility] Stop: 02/20/24 05:59 Hydralazine HCl (Hydralazine Inj 20 Mg/Ml Vial) 10 mg IV Q6H PRN PRN Reason: hypertension Stop: 03/07/24 04:14 Last Admin: 02/08/24 12:44 Dose: 10 mg Hydromorphone HCl (Hydromorphone Inj 2 Mg/Ml Vial) 0.25 mg IVP X1 ONE Stop: 02/08/24 00:15 Last Admin: 02/08/24 00:22 Dose: 0.25 mg Piperacillin/Tazobactam/Dextrose (Zosyn) 3.375 gm in 50 mls @ 100 mls/hr IV X1 ONE Stop: 02/06/24 04:09 Last Infusion: 02/06/24 05:30 Dose: Infused Vancomycin HCl 1,000 mg/ (Sodium Chloride) 250 mls @ 150 mls/hr IV X1 ONE Stop: 02/06/24 05:20 Last Infusion: 02/06/24 07:11 Dose: Infused Sodium Chloride (Ns) 1,000 mls @ 999 mls/hr IV .Q1H1M ONE Stop: 02/06/24 04:47 Last Infusion: 02/06/24 05:30 Dose: Infused Sodium Chloride (Ns) 1,000 mls @ 75 mls/hr IV .[id number] [facility] Stop: 03/07/24 03:59 Last Admin: 02/06/24 20:19 Dose: 75 mls/hr Cefepime HCl 2 gm/ Sodium (Chloride) 50 mls @ 100 mls/hr IV Q12HR [facility] Stop: 02/13/24 08:59 Cefepime HCl 2 gm/ Sodium (Chloride) 50 mls @ 100 mls/hr IV DAILY [facility] Stop: 02/13/24 08:59 Last Admin: 02/07/24 08:08 Dose: 100 mls/hr Vancomycin/Sodium Chloride (Vancomycin/Ns 500 Mg Ivpb) 100 mls @ 120 mls/hr IV X1 ONE Stop: 02/07/24 10:49 Last Admin: 02/07/24 09:42 Dose: 120 mls/hr Insulin Human Lispro (Insulin Lispro (Admelog) 1 Unit/0.01 Ml Unit) 10 unit SC X1 ONE Stop: 02/06/24 04:07 Last Admin: 02/06/24 04:28 Dose: 10 unit Labetalol HCl (Labetalol Inj 5 Mg/Ml Vial 20 Ml) 10 mg IVP X1 ONE Stop: 02/06/24 06:11 Last Admin: 02/06/24 06:16 Dose: 10 mg Pharmacy Consult (Vancomycin Pharmacy To Dose 1 Each Each) 1 each IV QDAY PRN PRN Reason: CONSULT Stop: 03/07/24 08:59 Assessment & Plan Plan Patient is a 68 year old male with history of type 2 diabetes and hypertension who presented to the ED with concerns of right lower extremity wound, was admitted RLE cellulitis possible osteomyelitis, started on IV vancomycin. Since admission, MRI has revealed evidence of Osteomyelitis plantar surface of the calcaneus, ID team consulted for further recommendations. Today, patient denies any complaints and states norco and IV antibiotics have been helping his foot. Patient's antibiotic regimen has been adjusted from vancomycin to doxycycline to doxycycline with cefazolin. Onset of symptoms is noted to be roughly 2.5 weeks ago, patient denies any recent medications or close follow ups with a PCP. Infectious disease consulted for osteomyelitis of right calcaneous. #Soft and skin tissue infection #Osteomyelitis plantar surface of the calcaneus - Osteomyelitis per MRI imaging - Four sets of blood cultures from 02/05 negative - Treated with vancomycin, doxycycline, and cefazolin - Noted to be positive for amphetamines in 2021 - General surgery and physical therapy referral - A1c 12.2 (Jan 2024) Plan: - If PO preferred, will be empirical with ciprofloxacin 250mg BID and doxycycline 100mg BID. Total duration 6 weeks - If IV preferred, advise IV rocephin 2gm qday with PO 100mg BID doxycycline with weekly cbc, renal panel, ESR, with line removal at end of antibiotic course - T2DM management per primary team / PCP #Diabetic foot, right #Chronic kidney disease, stage IV #Uncontrolled Diabetes II #Hypertension #Hypertensive urgency - Per primary team Patient case discussed with attending physician Dr. Jael Kapoor, DO PGY-3
--- NOTE | 2024-02-10 15:50 | ESPR_ITS ---
<Statement entered by Bob Neumann MD - 02/16/24 12:43> I reviewed above note and agree with findings and plans. I have also personally examined the patient with medicine team and went over assessment and plan with medical team including promotions intern and resident physician. Documentation for date of: 02/10/24 Subjective Subjective Interval history: Patient seen today at the bedside found awake, alert, oriented x3. No overnight events. states no active complaints at this time. Vital signs stable. Kidney fx remained stable compared to yesterday, rest of labs un remarkable. Spoke to Infectious disease specialist will consider giving PO antibiotics at time of discharge for 6 weeks for management for osteomyelitis of calcaneum with ciprofloxacin 250mg BID and doxycycline 100mg BID. Anticipate discharge in the am. Exam Vital Signs Temp Pulse Resp BP Pulse Ox O2 Del Method 97.1 F 69 18 139/77 H 97 Room Air 02/10/24 12:00 02/10/24 13:20 02/10/24 12:00 02/10/24 13:20 02/10/24 12:00 02/10/24 12:00 Narrative Exam Physical Exam GENERAL: NAD, NC/AT, responsive/cooperative. AAOx3 HEENT: Moist mucosa. Eyes open, symmetrical, & clear CARDIO: No chest pain on palpation. Heart RRR, no obvious murmurs PULM: No noted coughing/dyspnea. Lungs CTA B/L, no R/W/R GI: Abdomen soft, nondistended, no pain on palpation. BSx4 URO/FINAL INSPECTOR TRUCK TRAILER:: No further abnormalities noted. Diego catheter SKIN/MSK/EXT: no pain on palpation. right lower extremity erythematous, warm to touch, and scaly with wound on plantar surface and ulcer/scab on the lateral malleolus NEURO: AAOx3, no focal neuro deficits Objective Labs 02/10/24 04:27 02/10/24 04:27 Labs: Laboratory Results - last 24 hr 02/09/24 02/10/24 14:48 04:27 WBC 13.9 H RBC 3.38 L Hgb 9.7 L Hct 30.1 L MCV 89 MCH 28.7 MCHC 32.2 RDW Std Deviation 44.8 H Plt Count 316 Neut % (Auto) 74 Lymph % (Auto) 14 Sibley % (Auto) 7 Eos % (Auto) 3 Baso % (Auto) 0 Neut # (Auto) 10.3 H Lymph # (Auto) 2.0 Sibley # (Auto) 1.0 H Eos # (Auto) 0.5 Baso # (Auto) 0.1 Immature Gran # (Auto) 0.08 H Absolute Nucleated RBC 0.00 Immature Gran % 1 H Nucleated RBC % 0 Sodium 129 L Potassium 4.4 Chloride 99 Carbon Dioxide 20.8 Anion Gap 9 BUN 33 H Creatinine 3.6 H Estim Creat Clear Calc 18.5 L eGFR 17 L BUN/Creatinine Ratio 9 L Glucose 89 Calculated Osmolality 265 L Calcium 8.9 Corrected Calcium 9.4 Phosphorus 4.2 Magnesium 2.2 Total Bilirubin 0.3 AST < 8 ALT < 7 L Alkaline Phosphatase 81 C-Reactive Prot, Quant 13.2 H B-Natriuretic Peptide 132 H Total Protein 7.7 Albumin 3.4 Globulin 4.3 H Albumin/Globulin Ratio 0.8 L Quality Measures Quality Measures VTE prophylaxis (heparin subcutaneously) Advance care planning discussed with:: patient Assessment & Plan Assessment Current Active Medications: Generic Name Dose Route Start Last Admin Trade Name Naderq PRN Reason Stop Dose Admin Acetaminophen 650 mg 02/08/24 07:47 02/09/24 05:44 Acetaminophen 325 Mg Tablet PO 03/07/24 03:53 650 mg Q6H PRN Administration PAIN(1-3) OR FEVER > 101 Hydrocodone Bitart/Acetaminophen 1 tab 02/08/24 07:46 02/10/24 08:28 Hydrocodone/Apap 5/325 Tablet PO 02/13/24 07:45 1 tab Q8HR PRN Administration PAIN SCALE 4-10(Mod-Sev Amlodipine Besylate 10 mg 02/08/24 09:00 02/10/24 08:15 Amlodipine Besylate 5 Mg Tablet PO 03/09/24 08:59 10 mg QDAY [facility] Administration Dextrose 25 ml 02/06/24 04:03 Dextrose 50%-Water Inj 50 Ml Syringe IV 03/07/24 04:02 Q15MIN PRN BG 50-70 responsive npo pt Dextrose 50 ml 02/06/24 04:03 Dextrose 50%-Water Inj 50 Ml Syringe IV 03/07/24 04:02 Q15MIN PRN BG <50 OR BG <70 & pt unresponsive Doxycycline Hyclate 100 mg 02/07/24 21:00 02/10/24 08:15 Doxycycline 100 Mg Tablet PO 02/14/24 20:59 100 mg BID [facility] Administration Glucagon 1 mg 02/06/24 04:03 Glucagon Inj 1 Mg Vial IM Q15MIN PRN BG <70, and no IV access Heparin Sodium (Porcine) 5,000 unit 02/06/24 09:00 02/10/24 08:15 Heparin Sod Inj 5000 Unit/Ml Vial SC 02/20/24 08:59 5,000 unit Q12HR [facility] Administration Hydralazine HCl 10 mg 02/09/24 15:15 02/10/24 13:20 Hydralazine Hcl 10 Mg Tablet PO 03/10/24 15:14 10 mg TID [facility] Administration Cefazolin Sodium/Dextrose 1 gm in 50 mls @ 100 mls/hr 02/08/24 09:00 02/10/24 08:15 Ancef Ivpb IV 02/13/24 12:59 100 mls/hr DAILY [facility] Administration Insulin Glargine 10 unit 02/06/24 09:00 02/10/24 08:16 Insulin Glargine (Lantus) 5 Unit/0.05 Ml (Per 5 Units) SC 03/07/24 08:59 10 unit QDAY [facility] Administration Insulin Human Lispro 0 unit 02/06/24 07:30 02/10/24 11:11 Insulin Lispro (Admelog) 1 Unit/0.01 Ml Unit SC 03/07/24 07:29 Not Given [facility] Protocol Labetalol HCl 10 mg 02/09/24 15:04 Labetalol Inj 5 Mg/Ml Vial 20 Ml IVP 03/10/24 15:03 Q6HR PRN SBP >160 Ondansetron HCl 4 mg 02/06/24 03:54 Ondansetron Inj 2 Mg/Ml Inj 2 Ml IV 03/07/24 03:53 Q6H PRN NAUSEA OR VOMITING Protocol Pantoprazole Sodium 40 mg 02/06/24 09:00 02/10/24 08:15 Pantoprazole 40 Mg Tablet PO 03/07/24 08:59 40 mg QDAY [facility] Administration Plan 68 y/o M with PMHx of Diabetes and Hypertension who was admitted for cellulitis of right lower extremity versus osteomyelitis. Patient's MRI of the foot was positive for osteomyelitis of calcaneum, consulted infectious disease, ordered physical therapy, will continue IV antibiotics. PO antibiotics at time of discharge. #Diabetic foot, right #Cellulitis, right foot #Osteomyelitis plantar surface calcaneum, right foot RLE x-ray shows suspicious for osteomyelitis plantar surface of the calcaneus MRI positive for Osteomyelitis plantar surface of the calcaneus General Surgery consulted, no surgical intervention at this time Patient was on Cefepime and vancomycin but due to poor kidney fx was discontinued and ID started on Cefazolin Considered PICC line placement for IV Abx therapy but patient has hx of drug abuse, will consider PO Abx therapy or ID recommendations Blood CX negative in 3 days -Continue Ancef daily (02/07-) and doxycycline (02/06-) -Wound care as needed -Per ID recommendations will give ciprofloxacin 250mg BID and doxycycline 100mg BID. Total duration 6 weeks at the time of discharge -General Surgery consulted, appreciate recommendations -Infectious disease consulted, appreciate recommendations -Referral to physical therapy #?Acute on chronic kidney injury #Chronic kidney disease, stage IV Patient was given IV fluids on admission, baseline renal function unknown Possible progression of chronic kidney disease due to uncontrolled diabetes and hypertension Urine random creatinine 41, Random urine total protein 176 Retroperitoneal ultrasound shows Moderate bilateral renal parenchymal scar formation Bilateral renal cortical thinning Per nephrology, patient might have progression of chronic kidney disease due to uncontrolled diabetes and hypertension, likely ATN -Renally dose medications -Avoid nephrotoxic agents - Nephrology on case, appreciate recommendations #Uncontrolled Diabetes II On admission, A1c 12.2% and glucose of 413. Patient has poor outpatient control of diabetes, denies taking any medications. ?SSI -Hypoglycemia protocol in place #Hypertension #Hypertensive urgency ? on amlodipine to 10 mg p.o. daily ? Hydralazine 10 mg PO - Added labetalol 10mg IV PRN q 6hours, if SBP>160 - Monitor blood pressure Case discussed with my senior Dr. Husain PGY-[address] Thien Vang MD PGY-1 Disposition: Telemetry on Abx for Osteomyelitis DVT prophylaxis: Heparin GI prophylaxis: Pantoprazole Diet: Carb consistent Code status: Full code Senior resident attestation: I discussed with and supervised the promotions intern physician who took care of this patient. I personally saw and examined the patient and discussed the assessment and plan with the entire medicine team, including my attending , I agree with the assessment and plan as documented above. Patient evaluated bedside, currently pain is well-controlled, no active complaints. Per infectious disease recommendations, both IV and per oral antibiotic treatment is reasonable for osteomyelitis. Per case management, patient not a candidate for home health, we will proceed with p.o. antibiotics and discharge patient tomorrow. MD Lisha PGY2
--- NOTE | 2024-02-10 18:19 | ESCONSULT_ITS ---
RE: ABDIRAHMAN PETERSEN : 1955 DATE OF CONSULTATION: 02/10/2024 REFERRING PHYSICIAN: Dr. Bennett. REASON FOR CONSULTATION: Osteomyelitis of the foot in a diabetic. HISTORY OF PRESENT ILLNESS: The patient is an unfortunate 68-year-old diabetic. He has a history of substance use. He states he has been sober for 4-5 years, but there is a pos uds from 2021 with amphetamines. His diabetic control needs work and he has a list of other problems and has had prior surgery as noted. ALLERGIES: NONE NOTED. IMMUNIZATIONS: Last tetanus is not known. He does take flu shot every year and has had a COVID vaccine. He has not had pneumococcal vaccines. FAMILY HISTORY: Unremarkable. SOCIAL HISTORY: He lives with relatives and is a nonsmoker. He states he has not used drugs for 5 years, but his urine drug screen was positive for amphetamines in 2021 . PHYSICAL EXAMINATION: On exam, the patient has wrapped foot. He would not allow examination of his backside, so there may be a sore there. We will try to locate photographs. He is diapered, which is reasonable. If he has overflow incontinence, he may require other interventions to address that issue. It may include chronic catheterization or periodic self catheterization. He also may need imaging of his back to determine whether or not this is more acute than it is suspected. We will check on him again on Saturday. DT: 12:13:17 TT: 15:39:00 Ref: [id number] - TID: [id number] [facility]
[2024-02-10] MEDS: INSULIN LISPRO (AdmeLOG) 1 UNIT/0.01 ML UNIT SC (21:58)
--- NOTE | 2024-02-10 23:55 | ESPR_ITS ---
RE: ABDIRAHMAN PETERSEN : 1955 DATE OF SERVICE: 02/10/2024 SUBJECTIVE: Briefly, he is a 68-year-old [place] gentleman with hypertension and type 2 diabetes, who presented to the emergency room on 02/06/2024 with right lower extremity wound. He was also found with an elevated creatinine level of 3.3. The patient has developed right foot infection 4 years ago and has not seen any doctor. The patient also has uncontrolled diabetes and infected right lower leg and foot wounds. Initially, he was started on IV vancomycin and IV Zosyn. The patient's baseline creatinine is around 1.7 at least since 2021. When he got admitted, creatinine was noted at 3.3 and peaked at 3.6. He has never gone to primary care physician for the longest time. He maintains good urine output. CURRENT MEDICATIONS: 1. Amlodipine 10 mg daily. 2. Cefazolin 1 g IV daily. 3. Doxycycline 100 mg p.o. b.i.d. 4. Hydralazine 10 mg p.o. t.i.d. 5. Labetalol 10 mg IV q.6 p.r.n. 6. Lantus. 7. Ondesantron. 8. Protonix 40 mg p.o. daily. PHYSICAL EXAMINATION: General: He is awake, alert, and oriented. Vital Signs: Blood pressure is 138/75 and heart rate of 66. HEENT: Anicteric sclerae. Normocephalic. Neck: Supple. No JVD. Chest and Lungs: Symmetric expansion. Clear breath sounds. Cardiac: Without murmur. Abdomen: Soft and nontender. Extremities: Right foot has edema and nonhealing wound. LABORATORY DATA: Hemoglobin 9.7, WBC 13,000, and platelet count 316,000. Sodium 129, potassium 4.4, chloride 99, CO2 of 20.8, BUN 33, creatinine 2.6, and phosphorus 4.2. BNP level 132. ASSESSMENT: 1. Acute kidney injury on stage III-IV chronic kidney disease, possibly from volume overload from syndrome of inappropriate antidiuretic hormone. 2. Hyponatremia, euvolemic, possibly syndrome of inappropriate antidiuretic hormone related. 3. Right foot wound. 4. Pneumonia. 5. Anemia of chronic disease and chronic inflammation. 6. Uncontrolled diabetes. 7. Hypertension, now improved. 8. Chronic kidney disease. PLAN: I suspect that the decline in his kidney function is related to vancomycin nephrotoxicity, which has been stopped. The patient is also volume overloaded, possibly secondary to SIADH. Ideally, patient responds to V2 receptor antagonist like Tolvaptan or Conivaptan . I would ask the patient to be on fluid restriction. Continue to monitor urine output, kidney function and serum sodium. If serum sodium goes down to 125, I will probably start him on conivaptan. DT: 22:41:35 TT: 23:43:00 Ref: [id number] - TID: [id number] [facility]TDD
[2024-02-11] VITALS (10 sets, daily range): BP systolic 136–142; BP diastolic 73–78; PULSE 63–80; RESP 17–19; TEMP 36.1–37.1; O2SAT 94–97
[2024-02-11 05:54] LABS: Basophils # (Auto) 0.1 Thou/mm3 (0.0-0.2); Basophils % (Auto) 1 % (0-2.5); Eosinophils # (Auto) 0.5 Thou/mm3 (0.0-0.5); Eosinophils % (Auto) 4 % (0-10); Hematocrit 28.2 % (41.0-53.0); Immature Granulocytes % (Auto) 1 % (0-0); Immature Granulocytes Auto 0.06 Thou/mm3 (0.00-0.00); Lymphocytes # (Auto) 2.1 Thou/mm3 (1.0-4.8); Lymphocytes % (Auto) 16 % (10-50); Mean Corpuscular HGB Conc 31.9 g/dl (31.0-37.0); Mean Corpuscular Hemoglobin 28.6 pg (25.0-35.0); Mean Corpuscular Volume 90 fL (80-100); Monocytes % (Auto) 7 % (0-12); Neutrophils # (Auto) 9.6 Thou/mm3 (1.8-7.7); Neutrophils % (Auto) 72 % (37-80); Nucleated Red Blood Cell % 0 /100 WBC (0); Platelet Count 345 Thou/mm3 (140-440); RDW Standard Deviation 44.5 fL (35.1-43.9); Red Blood Count 3.15 Miln/mm3 (4.50-5.90); White Blood Count 13.3 Thou/mm3 (3.8-10.6)
[2024-02-11] MEDS: hydrALAZINE HCL 10 MG TABLET PO ×3 (05:57→21:22)
[2024-02-11 06:15] LABS: Sed Rate (ESR) 92 mm/hr (0-20)
[2024-02-11 06:37] LABS: Alanine Aminotransferase < 7 U/L (10-49); Albumin, Serum 3.4 gm/dL (3.4-4.8); Albumin/Globulin Ratio 0.8 (1.2-2.2); Alkaline Phosphatase 77 U/L (46-116); Anion Gap 9 (7-16); Aspartate Amino Transferase 11 U/L (0-34); BUN/Creatinine Ratio 9 Ratio (12-20); Bilirubin,Total 0.2 mg/dL (0.3-1.2); Blood Urea Nitrogen 34 mg/dL (9-23); C-Reactive Protein 11.5 mg/dL (0.0-0.9); Calcium 8.7 mg/dL (8.3-10.6); Calcium (Corrected) 9.2 mg/dL (8.5-10.1); Carbon Dioxide 21.1 mMol/L (20.0-31.0); Chloride 99 mMol/L (98-107); Creatinine (Component) 3.6 mg/dL (0.6-1.3); Estimated Creatinine Clearance 18.5 mL/min (>60); Globulin 4.2 gm/dL (2.3-3.5); Glucose 98 mg/dL (74-106); Magnesium 2.1 mg/dL (1.6-2.6); Osmolality,Calculated 266 (275-295); Phosphorous 4.2 mg/dL (2.4-5.1); Potassium 4.3 mMol/L (3.4-5.1); Sodium 129 mMol/L (136-145); Total Protein 7.6 gm/dL (5.7-8.2); eGFR 17 See Note
[2024-02-11 08:12] LABS: Hepatitis C Antibody Non Reactive (Non React)
[2024-02-11] MEDS: INSULIN GLARGINE (Lantus) 5 UNIT/0.05 ML (PER 5 UNITS) 10 UNIT SC (08:16)
[2024-02-11] MEDS: ceFAZolin/D5W 1 GM IVPB 1 GM/50 ML BAG IV (08:16)
[2024-02-11] MEDS: HEPARIN SOD INJ 5000 UNIT/ML VIAL SC ×2 (08:17→21:23)
[2024-02-11] MEDS: PANTOPRAZOLE 40 MG TABLET PO (08:17)
[2024-02-11] MEDS: amLODIPine BESYLATE 5 MG TABLET 10 MG PO (08:17)
[2024-02-11] MEDS: DOXYCYCLINE 100 MG TABLET PO ×2 (08:17→21:22)
[2024-02-11] MEDS: CIPROFLOXACIN HCL 250 MG TABLET PO ×2 (09:18→21:22)
--- NOTE | 2024-02-11 09:29 | PC.SS ---
LUMBER TRIMMER met with patient to confirm d/c plan home. He denies any further needs at this time. Informs his daughter will assist with transportation home.
--- NOTE | 2024-02-11 10:00 | PC.SS ---
Initial assessment: This is 68 year old male admitted for sepsis secondary to pnemonia. Patient appeared alert and oriented. Patient currently on 9L of supplemental oxygen. Patient confirmed demographic information, lives at home with spouse and adult children. Patient's spouse, Mellissa Aguilar was at bed side, and was identified as the patient's alternate medical surrogate decision maker. Patient describes to require minimal assistance with ADL's. Patient utilizes a walker and supplemental oxygen at home, basline is 3L of oxygen per spouse. Patient's PCP is Dr. Fely Cadena. Pharmacy of choice is [facility] in [place]. The discharge plan remains pending at this time. scheduled meeting for 10:30am this morning to discuss patient's care. imaging services director to remain available to address further concerns. D/c plan: pending Next of kin: spouse, Mellissa Aguilar [phone]
--- NOTE | 2024-02-11 11:28 | ESPR_ITS ---
<Statement entered by Bob Neumann MD - 02/16/24 12:44> I reviewed above note and agree with findings and plans. I have also personally examined the patient with medicine team and went over assessment and plan with medical team including internet marketing analyst and resident physician. Documentation for date of: 02/11/24 Subjective Subjective Interval history: Patient seen today at the bedside found awake, alert, oriented x3. No overnight events reported. States no active complaints at this time. Vital signs stable at this time. Labs significant for downtrending Hg 9.7-->9.0, and downtrending Na 131-->129. Fluid restriction was ordered 1000ml, repeat Na in the afternoon, showed decreasing Na levls, was started on tolvaptan and ordered q4hrs. Exam Vital Signs Temp Pulse Resp BP Pulse Ox O2 Del Method 98.0 F 68 17 136/73 H 96 Room Air 02/11/24 08:00 02/11/24 08:17 02/11/24 08:00 02/11/24 08:17 02/11/24 08:00 02/11/24 08:00 Narrative Exam Physical Exam GENERAL: NAD, NC/AT, responsive/cooperative. AAOx3 HEENT: Moist mucosa. Eyes open, symmetrical, & clear CARDIO: No chest pain on palpation. Heart RRR, no obvious murmurs PULM: No noted coughing/dyspnea. Lungs CTA B/L, no R/W/R GI: Abdomen soft, nondistended, no pain on palpation. BSx4 URO/AIRPLANE INSPECTOR:: No further abnormalities noted. Diego catheter SKIN/MSK/EXT: no pain on palpation. right lower extremity erythematous, warm to touch, and scaly with wound on plantar surface and ulcer/scab on the lateral malleolus NEURO: AAOx3, no focal neuro deficits Objective Labs 02/12/24 03:35 02/12/24 11:26 Labs: Laboratory Results - last 24 hr 02/11/24 05:36 WBC 13.3 H RBC 3.15 L Hgb 9.0 L Hct 28.2 L MCV 90 MCH 28.6 MCHC 31.9 RDW Std Deviation 44.5 H Plt Count 345 Neut % (Auto) 72 Lymph % (Auto) 16 [facility] % (Auto) 7 Eos % (Auto) 4 Baso % (Auto) 1 Neut # (Auto) 9.6 H Lymph # (Auto) 2.1 [facility] # (Auto) 1.0 H Eos # (Auto) 0.5 Baso # (Auto) 0.1 Immature Gran # (Auto) 0.06 H Absolute Nucleated RBC 0.00 Immature Gran % 1 H Nucleated RBC % 0 ESR 92 H Sodium 129 L Potassium 4.3 Chloride 99 Carbon Dioxide 21.1 Anion Gap 9 BUN 34 H Creatinine 3.6 H Estim Creat Clear Calc 18.5 L eGFR 17 L BUN/Creatinine Ratio 9 L Glucose 98 Calculated Osmolality 266 L Calcium 8.7 Corrected Calcium 9.2 Phosphorus 4.2 Magnesium 2.1 Total Bilirubin 0.2 L AST 11 ALT < 7 L Alkaline Phosphatase 77 C-Reactive Prot, Quant 11.5 H Total Protein 7.6 Albumin 3.4 Globulin 4.2 H Albumin/Globulin Ratio 0.8 L Hepatitis C Antibody Non Reactive Quality Measures Quality Measures VTE prophylaxis (heparin subcutaneously) Advance care planning discussed with:: patient Assessment & Plan Assessment Current Active Medications: Generic Name Dose Route Start Last Admin Trade Name Freq PRN Reason Stop Dose Admin Acetaminophen 650 mg 02/08/24 07:47 02/09/24 05:44 Acetaminophen 325 Mg Tablet PO 03/07/24 03:53 650 mg Q6H PRN Administration PAIN(1-3) OR FEVER > 101 Hydrocodone Bitart/Acetaminophen 1 tab 02/08/24 07:46 02/10/24 08:28 Hydrocodone/Apap 5/325 Tablet PO 02/13/24 07:45 1 tab Q8HR PRN Administration PAIN SCALE 4-10(Mod-Sev Amlodipine Besylate 10 mg 02/08/24 09:00 02/11/24 08:17 Amlodipine Besylate 5 Mg Tablet PO 03/09/24 08:59 10 mg QDAY MADELEINE Administration Ciprofloxacin 250 mg 02/11/24 09:00 02/11/24 09:18 Ciprofloxacin Hcl 250 Mg Tablet PO 02/18/24 08:59 250 mg BID MADELEINE Administration Dextrose 25 ml 02/06/24 04:03 Dextrose 50%-Water Inj 50 Ml Syringe IV 03/07/24 04:02 Q15MIN PRN BG 50-70 responsive npo pt Dextrose 50 ml 02/06/24 04:03 Dextrose 50%-Water Inj 50 Ml Syringe IV 03/07/24 04:02 Q15MIN PRN BG <50 OR BG <70 & pt unresponsive Doxycycline Hyclate 100 mg 02/07/24 21:00 02/11/24 08:17 Doxycycline 100 Mg Tablet PO 02/14/24 20:59 100 mg BID MADELEINE Administration Glucagon 1 mg 02/06/24 04:03 Glucagon Inj 1 Mg Vial IM Q15MIN PRN BG <70, and no IV access Heparin Sodium (Porcine) 5,000 unit 02/06/24 09:00 02/11/24 08:17 Heparin Sod Inj 5000 Unit/Ml Vial SC 02/20/24 08:59 5,000 unit Q12HR MADELEINE Administration Hydralazine HCl 10 mg 02/09/24 15:15 02/11/24 05:57 Hydralazine Hcl 10 Mg Tablet PO 03/10/24 15:14 10 mg TID MADELEINE Administration Insulin Glargine 10 unit 02/06/24 09:00 02/11/24 08:16 Insulin Glargine (Lantus) 5 Unit/0.05 Ml (Per 5 Units) SC 03/07/24 08:59 10 unit QDAY MADELEINE Administration Insulin Human Lispro 0 unit 02/06/24 07:30 02/11/24 11:23 Insulin Lispro (Admelog) 1 Unit/0.01 Ml Unit SC 03/07/24 07:29 Not Given ACHS [facility] Protocol Labetalol HCl 10 mg 02/09/24 15:04 Labetalol Inj 5 Mg/Ml Vial 20 Ml IVP 03/10/24 15:03 Q6HR PRN SBP >160 Ondansetron HCl 4 mg 02/06/24 03:54 Ondansetron Inj 2 Mg/Ml Inj 2 Ml IV 03/07/24 03:53 Q6H PRN NAUSEA OR VOMITING Protocol Pantoprazole Sodium 40 mg 02/06/24 09:00 02/11/24 08:17 Pantoprazole 40 Mg Tablet PO 03/07/24 08:59 40 mg QDAY MADELEINE Administration Plan 68 y/o M with PMHx of Diabetes and Hypertension who was admitted for cellulitis of right lower extremity versus osteomyelitis. Patient's MRI of the foot was positive for osteomyelitis of calcaneum, consulted infectious disease, ordered physical therapy, will continue IV antibiotics. PO antibiotics at time of discharge. #Diabetic foot, right #Cellulitis, right foot #Osteomyelitis plantar surface calcaneum, right foot RLE x-ray shows suspicious for osteomyelitis plantar surface of the calcaneus MRI positive for Osteomyelitis plantar surface of the calcaneus General Surgery consulted, no surgical intervention at this time Patient was on Cefepime and vancomycin but due to poor kidney fx was discontinued and ID started on Cefazolin Considered PICC line placement for IV Abx therapy but patient has hx of drug abuse, will consider PO Abx therapy or ID recommendations Blood CX negative in 3 days -started on PO Ciprofloxacin 250mg BID, for 6 weeks -Continue doxycycline (02/06-) -Wound care as needed -ID on case appreciate recommendations -General Surgery consulted, appreciate recommendations -Infectious disease consulted, appreciate recommendations -Referral to physical therapy #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 Patients baseline seems to be around 131-133 Na 129, repeat Na in the afternoon 128 -fluid restriction 1000ml -on tolvaptan, as per nephrology recommendations -Na checks q4hrs #?Acute on chronic kidney injury #Chronic kidney disease, stage IV Patient was given IV fluids on admission, baseline renal function unknown Possible progression of chronic kidney disease due to uncontrolled diabetes and hypertension Urine random creatinine 41, Random urine total protein 176 Retroperitoneal ultrasound shows Moderate bilateral renal parenchymal scar formation Bilateral renal cortical thinning Per nephrology, patient might have progression of chronic kidney disease due to uncontrolled diabetes and hypertension, likely ATN -Renally dose medications -Avoid nephrotoxic agents -Nephrology on case, appreciate recommendations #Uncontrolled Diabetes II On admission, A1c 12.2% and glucose of 413. Patient has poor outpatient control of diabetes, denies taking any medications. ?SSI -Hypoglycemia protocol in place #Hypertension #Hypertensive urgency ? on amlodipine to 10 mg p.o. daily ? Hydralazine 10 mg PO - Added labetalol 10mg IV PRN q 6hours, if SBP>160 - Monitor blood pressure Case discussed with my senior Dr. Husain PGY-[address] Thien Vang MD PGY-1 Disposition: Telemetry on Abx for Osteomyelitis DVT prophylaxis: Heparin GI prophylaxis: Pantoprazole Diet: Carb consistent Code status: Full code Senior resident attestation: I discussed with and supervised the internet marketing analyst physician who took care of this patient. I personally saw and examined the patient and discussed the assessment and plan with the entire medicine team, including my attending , I agree with the assessment and plan as documented above. Patient evaluated bedside, currently pain is well-controlled, no active complaints. Per infectious disease recommendations, both IV and per oral antibiotic treatment is reasonable for osteomyelitis. Per case management, patient not a candidate for home health, we discussed both options with the patient part of shared decision making, patient prefers per oral antibiotics instead of having an IV line for 6 weeks. we will proceed with p.o. antibiotics. Dr Bryant is following the patient for CKD, currently renal function stable, patient is making adequate urine, EGFR CKD stage IV, added tolvaptan and fluid restriction 1000 cc yesterday for persistent low degree of sodium levels. Every 4 hours sodium checks added. MD Lisha PGY2
--- NOTE | 2024-02-11 12:58 | PC.SS ---
Addendum entered by HEATHER Quan 02/11/24 12:59: Faxed referral to [facility] wound healing department for patient to follow up outpatient. Informed patient's daughter Luz of referral completed to follow up with appointment. Original Note: Contacted patient's daughter Luz and informed her of the need to follow up with patient's PCP for home health. Patient is scheduled with [facility] in [place] to establish primary care. The patient has his appointment on February 13, 2024.
[2024-02-11 13:22] LABS: Sodium 128 mMol/L (136-145)
[2024-02-11] MEDS: TOLVAPTAN 15 MG PO (13:56)
--- NOTE | 2024-02-11 15:53 | ESPR_ITS ---
RE: ABDIRAHMAN PETERSEN : 1955 DATE OF SERVICE: 02/11/2024 SUBJECTIVE: Briefly, he is a 68-year-old [place] gentleman with hypertension and type 2 diabetes who presented to the emergency room on 02/06/2024 with right lower extremity wound. He was also found with an elevated iron level of 3.3. The patient developed right foot infection 4 years ago and has not seen any doctor. The patient also has uncontrolled diabetes and infected right lower leg and foot wounds. Initially, he was started on IV vancomycin and IV Zosyn. The patient's creatinine is around 1.7 at least since 2021. When he got admitted, creatinine was noted at 3.3 and peaked at 3.6. He has never gone to primary care physician for the longest time. He maintains good urine output. CURRENT MEDICATIONS: 1. Acetaminophen 2. Amlodipine 10 mg p.o. daily 3. Ciprofloxacin 250 mg p.o. b.i.d. 4. Doxycycline 100 mg p.o. b.i.d. 5. Heparin 4000 units q.12 6. Hydralazine 10 mg p.o. t.i.d. 7. [place] 8. Lantus 10 units. 9. Lasix daily. 10. Lispro 11. Labetalol 10 mg IV q.6 12. Ondansetron 4 mg IV q.6 p.r.n. 13. Protonix 4 mg p.o. daily PHYSICAL EXAMINATION: General: He is awake, alert, and oriented. Vital Signs: Blood pressure 138/74, heart rate of 65. HEENT: Anicteric sclerae. Normocephalic. Neck: Supple. No JVD. Chest and Lungs: Symmetric expansion. Clear breath sounds. Cardiac: Without murmur. Abdomen: Soft and nontender. Extremities: No edema. LABORATORY DATA: Hemoglobin 9, WBC 13,300, platelet count 345,000. Sodium 128, potassium 4.3, chloride 99, CO2 of 21.1, BUN 34. Creatinine 3.6, albumin 3.4. ASSESSMENT: 1. Acute kidney injury on stage III to IV chronic kidney disease, possibly from volume overload from syndrome of inappropriate antidiuretic hormone and acute tubular necrosis from vancomycin. 2. Hyponatremia, euvolemic, most likely syndrome of inappropriate antidiuretic hormone related. 3. Right foot wound. 4. Pneumonia. 5. Anemia of chronic kidney disease and chronic inflammation. 6. Uncontrolled diabetes. 7. Hypertension, now improved. 8. Stage IV chronic kidney disease. PLAN: The patient's kidney function is currently stable. At this point, I will start him on Tolvaptan 15 mg p.o. x1, which is a V2 receptor antagonist to address his hyponatremia. We will continue fluid restriction of 1 liter per day. Continue to monitor urine output, kidney function, serum sodium daily. DT: 14:42:09 TT: 15:32:00 Ref: [id number] - TID: [id number]
[2024-02-11 16:46] LABS: Sodium 128 mMol/L (136-145)
[2024-02-11] MEDS: INSULIN LISPRO (AdmeLOG) 1 UNIT/0.01 ML UNIT SC ×2 (17:27→21:23)
[2024-02-11 19:57] LABS: Sodium 130 mMol/L (136-145)
[2024-02-12] VITALS (8 sets, daily range): BP systolic 129–154; BP diastolic 71–82; PULSE 63–75; RESP 17–19; TEMP 36.4–36.8; O2SAT 95–98
[2024-02-12 00:07] LABS: Sodium 132 mMol/L (136-145)
[2024-02-12 03:56] LABS: Basophils # (Auto) 0.1 Thou/mm3 (0.0-0.2); Basophils % (Auto) 1 % (0-2.5); Eosinophils # (Auto) 0.4 Thou/mm3 (0.0-0.5); Eosinophils % (Auto) 4 % (0-10); Hematocrit 29.9 % (41.0-53.0); Hemoglobin 9.4 g/dL (13.5-16.0); Immature Granulocytes % (Auto) 0 % (0-0); Immature Granulocytes Auto 0.02 Thou/mm3 (0.00-0.00); Lymphocytes # (Auto) 1.7 Thou/mm3 (1.0-4.8); Lymphocytes % (Auto) 14 % (10-50); Mean Corpuscular HGB Conc 31.4 g/dl (31.0-37.0); Mean Corpuscular Hemoglobin 28.1 pg (25.0-35.0); Mean Corpuscular Volume 89 fL (80-100); Monocytes # (Auto) 0.9 Thou/mm3 (0.0-0.8); Monocytes % (Auto) 8 % (0-12); Neutrophils # (Auto) 8.5 Thou/mm3 (1.8-7.7); Neutrophils % (Auto) 73 % (37-80); Nucleated Red Blood Cell % 0 /100 WBC (0); Platelet Count 314 Thou/mm3 (140-440); RDW Standard Deviation 44.3 fL (35.1-43.9); Red Blood Count 3.35 Miln/mm3 (4.50-5.90); White Blood Count 11.6 Thou/mm3 (3.8-10.6)
[2024-02-12 04:23] LABS: Alanine Aminotransferase < 7 U/L (10-49); Albumin, Serum 3.4 gm/dL (3.4-4.8); Albumin/Globulin Ratio 0.8 (1.2-2.2); Alkaline Phosphatase 79 U/L (46-116); Anion Gap 7 (7-16); Aspartate Amino Transferase 18 U/L (0-34); BUN/Creatinine Ratio 9 Ratio (12-20); Bilirubin,Total 0.2 mg/dL (0.3-1.2); Blood Urea Nitrogen 36 mg/dL (9-23); Calcium 8.6 mg/dL (8.3-10.6); Calcium (Corrected) 9.1 mg/dL (8.5-10.1); Carbon Dioxide 21.9 mMol/L (20.0-31.0); Chloride 103 mMol/L (98-107); Creatinine (Component) 3.8 mg/dL (0.6-1.3); Estimated Creatinine Clearance 17.5 mL/min (>60); Globulin 4.2 gm/dL (2.3-3.5); Glucose 185 mg/dL (74-106); Osmolality,Calculated 277 (275-295); Potassium 4.2 mMol/L (3.4-5.1); Sodium 132 mMol/L (136-145); Total Protein 7.6 gm/dL (5.7-8.2); eGFR 16 See Note
[2024-02-12] MEDS: hydrALAZINE HCL 10 MG TABLET PO (05:39)
[2024-02-12 08:12] LABS: Sodium 134 mMol/L (136-145)
[2024-02-12] MEDS: CIPROFLOXACIN HCL 250 MG TABLET PO (08:14)
[2024-02-12] MEDS: DOXYCYCLINE 100 MG TABLET PO (08:14)
[2024-02-12] MEDS: amLODIPine BESYLATE 5 MG TABLET 10 MG PO (08:15)
[2024-02-12] MEDS: HEPARIN SOD INJ 5000 UNIT/ML VIAL SC (08:15)
[2024-02-12] MEDS: PANTOPRAZOLE 40 MG TABLET PO (08:15)
[2024-02-12] MEDS: INSULIN GLARGINE (Lantus) 5 UNIT/0.05 ML (PER 5 UNITS) 10 UNIT SC (08:15)
[2024-02-12] MEDS: LACTULOSE SYRUP 20 GM/30 ML UDC PO (08:42)
--- NOTE | 2024-02-12 11:09 | PC.SS ---
Confirmed with wound center, patient's appointment scheduled for patient on 02/20/24 at 1pm. Patient aware and provided patient with appointment information. Patient's daughter to transport the patient home today.
[2024-02-12 11:52] LABS: Sodium 133 mMol/L (136-145)
--- NOTE | 2024-02-12 13:27 | PD.RESDS ---
Planned Discharge Date 02/12/24 DS: Providers Provider Date of admission: 02/06/24 03:54 Primary care physician: Physician No Primary/Family Admitting Provider: Luisito Bennett MD Attending Provider on Admission: Eleno Allen DO Consults: 02/06/24 03:59 Consult to General Surgery Stat Comment: Consulting Provider: Ning Jones Referral Registered Dietitian Routine Comment: 02/06/24 08:57 Referral Wound Care Routine Comment: 02/06/24 15:38 Consult to Nephrology Routine Comment: BLAIRE on CKD Consulting Provider: Rere Chang 02/07/24 14:17 Consult to Infectious Diseases Routine Comment: Osteomyelitis Consulting Provider: Luis Elder 02/07/24 14:19 Referral Physical Therapy Routine Comment: Physician Instructions: 02/11/24 14:44 Referral OP Wound Healing Dept Routine Comment: Attending Provider on DC: Yang Vang MD Discharging Provider: Yang Vang MD DS: Diagnosis Problem List Completed Was Problem List Reviewed/Reconciled?: Yes Hospital Course Hospital Course Hospital course: 68 y/o M with PMHx of Diabetes and Hypertension who had an injury on the plantar surface of his right lower extremity, this was about 2 weeks prior to admission. Patient did not think much of the injury until it started to progress and became erythematous and warm up to his guevara. Patient was admitted for management of cellulitis of right lower extremity versus osteomyelitis. During hospitalization patient was found to have uncontrolled diabetes and hypertension. Diabetes was managed with sliding scale insulin and hypertension was managed with scheduled hydralazine and IV labetalol as needed. Patient also developed hyponatremia and CKD and due to unknown baseline, nephrology was consulted. Patients sodium was managed with fluid restriction and tolvaptan per nephrology recommendations with adequate response. Patient also had MRI of the foot which was positive for osteomyelitis of calcaneum. Patient was started on IV antibiotics. Infectious disease specialist, Dr. Elder consulted and provided alternatives for antibiotic therapy including PO and IV. Patient was started on Ciprofloxacin and doxycycline PO and should continue for a duration of 6 weeks as part of treatment for osteomyelitis. Patient at this time is medically stable for discharge. Patient is instructed to follow up with his primary care physician 1 week after discharge. Patient should also follow up with Nephrology in regards to his chronic kidney disease. Patient should also continue antibiotic therapy with Ciprofloxacin and doxycycline for a duration of 6 weeks. As well as continue medications for his blood pressure and diabetes as prescribed. Problem List: #Diabetic foot, right #Cellulitis, right foot #Osteomyelitis plantar surface calcaneum, right foot #Hyponatremia #Acute on chronic kidney injury #Chronic kidney disease, stage IV #Uncontrolled Diabetes II #Hypertension #Hypertensive urgency Case discussed with my senior Dr. Husain PGY-[address] iTffany Vang MD PGY-1 Senior resident attestation: I discussed with and supervised the chief internal auditor physician who took care of this patient. I personally saw and examined the patient and discussed the assessment and plan with the entire medicine team, including my attending Dr. Allen, I agree with the assessment and plan as documented above. 68-year-old patient past medical history diabetes and hypertension, following injury to his right heel couple years ago, complicated by osteomyelitis in setting of poorly controlled diabetes mellitus, presented to the ER for pain, diagnosed with cellulitis/osteomyelitis of the calcaneum. IV antibiotics were initiated, infectious disease was consulted, given patient's social issues, history of prior drug abuse, and patient's preference, the patient is discharged on p.o. antibiotics for 6 weeks. Also found to have CKD stage IIIb/IV and SIADH. Nephrology followed the patient, patient was given tolvaptan and fluid restriction was started, serum sodium improved. Patient is scheduled for follow-up at residency clinic, appointment made at 9:30 Saturday. Recommended to be compliant with insulin as well as antibiotics, set up wound care appointment on outpatient basis. MD Lisha PGY2 Status at Discharge Overall status at discharge: patient is progressing back to baseline Time Spent with Patient Time attestation: Total time spent providing and/or coordinating discharge services: Time spent: Greater than 30 minutes Exam Vital Signs Temp Pulse Resp BP Pulse Ox O2 Del Method 97.5 F 70 19 147/81 H 98 Room Air 02/12/24 11:51 02/12/24 12:00 02/12/24 11:51 02/12/24 11:51 02/12/24 11:51 02/12/24 11:51 Narrative Exam Physical Exam GENERAL: NAD, NC/AT, responsive/cooperative. AAOx3 HEENT: Moist mucosa. Eyes open, symmetrical, & clear CARDIO: No chest pain on palpation. Heart RRR, no obvious murmurs PULM: No noted coughing/dyspnea. Lungs CTA B/L, no R/W/R GI: Abdomen soft, nondistended, no pain on palpation. BSx4 URO/CUSTOMER ACQUISITION MANAGER:: No further abnormalities noted. Diego catheter SKIN/MSK/EXT: no pain on palpation. right lower extremity, warm to touch, and scaly with wound on plantar surface and ulcer/scab on the lateral malleolus NEURO: AAOx3, no focal neuro deficits Discharge Plan Plan Patient Disposition: HOME (Self Care) Patient condition on transfer: Stable Care Plan Goals: Please follow-up with your primary care physician within 5 days of discharge from hospital, also need to schedule wound care clinic appointment as an outpatient. Please continue antibiotics (ciprofloxacin and doxycycline )as prescribed for 6 weeks. Recommend repeating CBC, ESR, CRP and LFT after 1 week on outpatient basis. In case of worsening symptoms, please return to the emergency room. Prescriptions/Referrals Prescriptions/Med Rec: New acetaminophen 325 mg Tablet 650 mg PO Q6H PRN (Reason: PAIN(1-3) OR FEVER > 101) 30 Days Qty: 60 0RF amlodipine 10 mg tablet 10 mg PO QDAY 30 Days Qty: 30 0RF hydralazine 10 mg Tablet 10 mg PO TID 30 Days Qty: 90 0RF ciprofloxacin HCl 250 mg Tablet 250 mg PO BID 42 Days Qty: 84 0RF doxycycline hyclate 100 mg Tablet 100 mg PO BID 42 Days Qty: 84 0RF insulin glargine [Lantus Solostar U-100 Insulin] 100 unit/mL (3 mL) insulin pen 15 unit subcut QAM Qty: 15 0RF (DME) pen needle, diabetic [BD Ultra-Fine Orig Pen Needle] 29 gauge x 1/2 needle See Rx Instructions .Route Qty: 100 0RF Rx Instructions: As directed (DME) blood ketone glucose monitor Kit See Rx Instructions .Route Qty: 1 0RF Rx Instructions: As directed (DME) lancets [Acti-Zak Lancets] 28 gauge misc See Rx Instructions .Route Qty: 100 0RF Rx Instructions: As directed (DME) Accutrend Glucose test strips Strip See Rx Instructions .Route Qty: 50 1RF Rx Instructions: As directed Referrals: No Primary/Family,Physician [Primary Care Provider] - Patient/Caregiver Discharge Instructions Other Discharge Activity Instructions:: Please follow-up with your primary care physician within 5 days of discharge from hospital, also need to schedule wound care clinic appointment as an outpatient. Please continue antibiotics (ciprofloxacin and doxycycline )as prescribed for 6 weeks. Recommend repeating CBC, ESR, CRP and LFT after 1 week on outpatient basis. In case of worsening symptoms, please return to the emergency room. Education Materials: Diabetes: Keeping Feet Healthy, Diabetes: Inspecting Your Feet Print Language: Austrian Activity Restrictions/Additional Instructions: pLEASE FOLLOW UP WITH YOUR PRIMARY CARE DOCTOR IN 2-3 DAYS FOLLOW UP WITH DR CHANG [phone] CALL IN THE MORNING FOR APPOINTMENT Stand Alone Forms: Ayanna Award Info., Patient Portal Info Letter Discharge Order Discharge Orders: Discharge (Routine); Ordered 02/12/24 Ordered By: Yang Vang Quality Discharge Quality Measures VTE prophylaxis Attestestation MD Attestation I have discussed and was present for the essential components of the discharge history, physical examination, diagnosis, and discharge treatment plan with the resident. I agree with the patient's discharge care as documented by the resident and amended herein by me. Kirit Allen DO. The patient understood all discharge instructions, all questions were answered satisfactorily. The patient was instructed to return to the Emergency Department is symptoms worsened or persisted. Patient was stable, afebrile, tolerating p.o. intake at time of discharge Although this document has been carefully reviewed, there may still be some phonetic and other typographical errors. These errors are purely grammatical due to imperfections in the software program and should not be construed in any way to compromise the substance of the patient's medical care during this visit.
== END 2024-02-12 13:10 | disposition home or self-care (01) | DRG 637 ==
LOC: SERX 01:39 → SERHOLD 04:55 → S3SX 08:19 → S2NX 02-07 10:55
PROVIDERS: Internal Medicine Infectious Disease; Internal Medicine Nephrology; Physician Assistant; Student in an Organized Health Care Education/Training Program; Admitting Provider Student in an Organized Health Care Education/Training Program; Emergency Provider Emergency Medicine; Visit Provider Student in an Organized Health Care Education/Training Program
DX: E11.69 Type 2 diabetes mellitus with other specified complication (principal); J18.9 Pneumonia, unspecified organism; E22.2 Syndrome of inappropriate secretion of antidiuretic hormone; L97.419 Non-pressure chronic ulcer of right heel and midfoot with unspecified severity; L03.115 Cellulitis of right lower limb; M86.8X7 Other osteomyelitis, ankle and foot; N18.4 Chronic kidney disease, stage 4 (severe); N17.9 Acute kidney failure, unspecified; E11.65 Type 2 diabetes mellitus with hyperglycemia; E86.0 Dehydration; I12.9 Hypertensive chronic kidney disease with stage 1 through stage 4 chronic kidney disease, or unspecified chronic kidney disease; I16.0 Hypertensive urgency; E11.22 Type 2 diabetes mellitus with diabetic chronic kidney disease; D63.1 Anemia in chronic kidney disease; E78.5 Hyperlipidemia, unspecified; E11.621 Type 2 diabetes mellitus with foot ulcer; Z91.199 Patient's noncompliance with other medical treatment and regimen due to unspecified reason; Z79.899 Other long term (current) drug therapy
CPT/HCPCS: 36415; 71045; 73630; 73718; 76770; 80053; 80061; 80069; 80202; 81001; 82570; 83036; 83605; 83615; 83690; 83735; 83880; 83935; 84100; 84145; 84156; 84295; 84439; 84443; 84484; 85025; 85610; 85652; 85730; 86140; 86803; 87040; 87077; 87086; 87186; 93005; 93306; 96365; 96366; 96367; 96372; 96375; 97162; 99291; J0360; J0689; J0692; J1643; J1815; J2543; J3370; J3371; J3490; J7030; J7050; A9270; J0690; J1644; J1920; J8499

== ENCOUNTER 2024-02-14 09:40 | Outpatient (AMB) | payer MEDICARE, MEDICAID, SELFPAY ==
[2024-02-14 10:09] VITALS: BP 147/75; PULSE 65; RESP 18; TEMP 36.8; O2SAT 97; BMI 22.8
--- NOTE | 2024-02-14 10:09 | ACNOTE_ITS ---
Vital Signs 02/14/24 10:09 Height 1.73 m Height Method Stated Weight 68.039 kg Weight Measurement Method Estimated by Patient BMI 22.8 BP 147/75 H Blood Pressure Source Automatic Cuff Blood Pressure Location Right Upper Arm Position Sitting Respiration 18 Pulse 65 Pulse Source Monitor Temp 98.2 F Temp Source Oral Pulse Oximetry (%) 97 Oxygen Delivery Method Room Air Allergies/Meds Allergies & Medications Allergies No Known Allergies Allergy (Verified 02/14/24 10:11) Medication Reconciliation acetaminophen 325 mg tablet 650 mg (2 x 325 mg) PO Q6H PRN PAIN(1-3) OR FEVER > 101 30 days #60 tabs 02/11/24 [Rx Confirmed 02/14/24] amlodipine 10 mg tablet 10 mg PO QDAY 30 days #30 tabs 02/11/24 [Rx Confirmed 02/14/24] ciprofloxacin HCl 250 mg tablet 250 mg PO BID 42 days #84 tabs 02/11/24 [Rx Confirmed 02/14/24] doxycycline hyclate 100 mg tablet 100 mg PO BID 42 days #84 tabs 02/11/24 [Rx Confirmed 02/14/24] hydralazine 10 mg tablet 10 mg PO TID 30 days #90 tabs 02/11/24 [Rx Confirmed 02/14/24] blood ketone glucose monitor #1 ea 02/12/24 [Rx] blood sugar diagnostic (Accutrend Glucose test strips) #50 ea 02/12/24 [Rx] insulin glargine 100 unit/mL (3 mL) subcutaneous pen (Lantus Solostar U-100 Insulin) 15 unit (0.15 mL) subcut QAM #15 mL 02/12/24 [Rx Confirmed 02/14/24] lancets 28 gauge (Acti-Zak Lancets) #100 ea 02/12/24 [Rx] pen needle, diabetic 29 gauge x 1/2 (BD Ultra-Fine Original Pen Needle) #100 ea 02/12/24 [Rx] miscellaneous medical supply (IUH-Qrjj-Vmhgoo Blood Pressure Cuff) #1 ea 02/14/24 [Rx] blood-glucose meter,continuous (FreeStyle Ninfa 3 [place]) #1 ea 02/24/24 [Rx] blood-glucose sensor (FreeStyle Ninfa 3 Plus Sensor device) #1 ea 02/24/24 [Rx] MA Intake Visit Data Collection New Patient or Established: Established Patient (seen at [facility] within 3 years) Seen by Clinical Staff ONLY (RN/MA): No Pain Present Currently: No Pain scale:: 0 Pain Scale Used: Peña-Jean/Numerical Ball Truing Machine Operator Required: No PCP or OBGYN visit in last 3 months: No Do You Feel Safe at Home: Yes Authorities Contacted: N/A Smoking Status Smoking Status: Never smoker Immunization / Flu Flu Vaccine in the Last 12 Months: No Flu Vaccine Exclusion Criteria: Refused by Patient Past Medical History Past Medical History NEUROLOGIC: Negative Neurological Disorders CARDIAC: Positive Cardiac Disorders and Hypertension; Negative Congestive Heart Failure RESPIRATORY: Negative Chronic Obstructive Pulmonary Disease (COPD) GASTROINTESTINAL: Negative Gastrointestinal Disorders GENITOURINARY: Negative Genitourinary Disorders or Renal Disease MUSCULOSKELETAL: Negative Musculoskeletal Disorders ENDOCRINE: Positive Endocrine Disorders and Diabetes Mellitus Type 2; Negative Diabetes Mellitus Type 1 HEMATOLOGIC: Negative Blood Disorders OTHER HISTORY: Negative Autoimmune Disease, Blood Transfusions or Anesthesia Reactions Social History SMOKING STATUS: Smoking status: Never smoker SUBSTANCE USE: Substance use type: does not use ALCOHOL: Alcohol Intake: Former ALCOHOL FREQUENCY: Alcohol Intake Frequency: 3 or More Drinks per Day HOUSING: Housing: Apartment LIVES WITH: Lives With: Family and Spouse Travel Risk Travel Hx Recent Travel: No Patient Portal Questionaires Social History Living Situation History Housing: Apartment Tobacco History Smoking Status: Never smoker Alcohol History Alcohol Intake: Former Alcohol Intake Frequency: 3 or More Drinks per Day Domestic Abuse History Do You Feel Safe at Home: Yes Review of Systems Report any current symptoms Only answer those that you have currently: Past Medical History Past Medical History Have you ever been diagnosed with any of the following: Cardiology Problems Congestive Heart Failure: No Hypertension: Yes Respiratory Problems Chronic Obstructive Pulmonary Disease (COPD): No Genital/Urinary Problems Renal Disease: No Endocrine Problems Diabetes Mellitus Type 1: No Diabetes Mellitus Type 2: Yes Other Problems Autoimmune Disease: No Blood Transfusions: No Anesthesia Reactions: No History of Present Illness HPI Narrative 68 y/o M PMHx HTN, insulin dependent DM, came to the [facility] after hospital dischar ge for RLE osteomyelitis. Patient currently taking Ciprofloxacin 250 BID and doxycycline 100mg po bid for a duration of 6 weeks for his osteo. Patient also wanted to establish care with primary care physician. Basic labs were ordered including CBC, CMP, as well inflammatory markers ESR and CRP to monitor progression of treatment. BP was found to be elevated was started on low dose lisinopril and told follow up within 1-2 weeks to review labs. Review of Systems Review of Systems Narrative Review of Systems: Narrative ROS GENERAL: Denies fevers/chills or diaphoresis. HEENT: Denies headache or visual/hearing changes. Denies nasal discharge. NEURO: Denies unusual weakness or difficulty speaking. CARDIO: Denies chest pain or palpitations. PULM: Denies SOB, coughing, or wheezing. GI: Denies abdominal pain, N/V/C/D/reflux/gas, bright red blood per rectum or melena. Reports having BMs. URO: Denies burning/itching/pain/urinary changes. MSK/EXT/SKIN: + mild discomfort in RLE, issues/changes in upper or lower extremities, itchiness, or superficial pain. PSYCH: Cooperative, pleasant mood & affect. The rest of the review of systems is otherwise negative. Objective/Exam Narrative Physical exam: Physical Exam GENERAL: NAD, NC/AT, responsive/cooperative. A&Ox3 HEENT: Moist mucosa. Eyes open, symmetrical, & clear CARDIO: No chest pain on palpation. Heart RRR, no obvious murmurs PULM: No noted coughing/dyspnea. Lungs CTA B/L, no R/W/R GI: Abdomen soft, nondistended, no pain on palpation. BSx4 URO/WAIST FITTER:: No further abnormalities noted. SKIN/MSK/EXT: RLE covered, no pain on palpation. Pedal pulses present B/L NEURO: :AAOX3, no focal neuro deficits Assessment & Plan Diagnosis / Problem List (1) Other acute osteomyelitis, unspecified site: Status: Acute Plan: Recent hospital discharge from [facility] for osteomyelitis, was d/c with Ciprofloxacin and Doxycycline - ordered CRP and ESR as well as CBC and CMP to monitor disease progression (2) Hypertension: Status: Acute Plan: Patient here at the office found with elevated BP SBP 150s and at takes hydralazine 10mg tid and amlodipine 10mg q day - added lisinopril 10 mg qday - ordered BP cuff for monitoring (3) Insulin dependent diabetes mellitus: Status: Acute Plan: - ordered freestyle libre3 to monitor more optimally Blood sugar (4) CKD (chronic kidney disease): Status: Acute Plan: Patient had CKD stage IV - referall to Nephrology, Dr. Bryant (5) Encounter to establish care: Status: Acute Plan: Patient during hospital admission had not established care with a PCP and decided to come to [facility] to establish care Orders: Orders CBC 02/24/24 M86.10 - Other acute osteomyelitis, unspecified site Sed Rate (ESR) 02/24/24 E11.628 - Type 2 diabetes mellitus with other skin complications, I10 - Essential (primary) hypertension, L08.9 - Local infection of the skin and subcutaneous tissue, unspecified, M86.10 - Other acute osteomyelitis, unspecified site C-Reactive Protein 02/24/24 E11.628 - Type 2 diabetes mellitus with other skin complications, I10 - Essential (primary) hypertension, L08.9 - Local infection of the skin and subcutaneous tissue, unspecified, M86.10 - Other acute osteomyelitis, unspecified site CBC 02/14/24 M86.10 - Other acute osteomyelitis, unspecified site Comprehensive Metabolic Panel 1 Week M86.10 - Other acute osteomyelitis, unspecified site hs-CRP* 1 Week M86.10 - Other acute osteomyelitis, unspecified site Sed Rate (ESR) 1 Week M86.10 - Other acute osteomyelitis, unspecified site Comprehensive Metabolic Panel 02/24/24 E11.628 - Type 2 diabetes mellitus with other skin complications, L08.9 - Local infection of the skin and subcutaneous tissue, unspecified, M86.10 - Other acute osteomyelitis, unspecified site Referrals Nephrology N18.9 - Chronic kidney disease, unspecified Additional Assessment Attending note: I, Skinny Quinn MD, attest that I was physically present for the mattson portions of the service and evaluated the patient with the resident and I reviewed and discussed the case with the resident and agree with the resident's findings and plans of care as documented above. New patient to clinic. Presented to establish following recent hospitalization for osteomyelitis. Patient is insulin-dependent diabetic. History of hypertension. Found to have CKD stage IV. He has been referred during hospitalization to Dr Bryant. History of hyponatremia. He is supposed be fluid restricted to 1 L/day and was started on tolvaptan 15 mg p.o. x 1 dose while inpatient. Currently on ciprofloxacin and doxycycline for total of 6 weeks. Ciprofloxacin dose renally adjusted. Patient's blood pressure elevated today. Would avoid ACEs and ARB's for now given CKD 4. Continue amlodipine and hydralazine. Can titrate dose of hydralazine for better control. Repeat labs ordered for 1 week. Follow-up in 2 weeks. Skinny Quinn MD Advanced Care Planning Advance care planning discussed with:: patient and child Physician Billing New Patient New Patient: E/M Level 3-CPT 48153 Office Procedures [facility] Level of Care Nursing/Assessment Patient Status: Established Patient Nursing Assessment/Reassessment: Medication Reconciliation, Update PMH in EMR and Vital Signs Coordination of Care: Complex Care and Chronic Disease 1-5, Consent,records obtained, informed consent, Education Simp Pt/Fam, Lab and Imaging orders and Staff clarify orders Established Patient Charge Established Patient Point Assignment: 100 Established Patient Point Charge: EP Level 3 (80-115)
== END 2024-02-14 10:52 | disposition home or self-care (01) ==
LOC: HODAHC 09:40
PROVIDERS: PCP Student in an Organized Health Care Education/Training Program; Referring Provider Student in an Organized Health Care Education/Training Program; Supervising Provider Internal Medicine; Visit Provider Student in an Organized Health Care Education/Training Program
DX: M86.8X6 Other osteomyelitis, lower leg (principal); E11.22 Type 2 diabetes mellitus with diabetic chronic kidney disease; I12.9 Hypertensive chronic kidney disease with stage 1 through stage 4 chronic kidney disease, or unspecified chronic kidney disease; N18.9 Chronic kidney disease, unspecified; Z79.4 Long term (current) use of insulin
CPT/HCPCS: 36415; 80053; 85025; 85652; 86141; 99213; G0463

== ENCOUNTER → 2024-02-25 | Outpatient (CLI) | payer MEDICARE, MEDICAID, SELFPAY | END | disposition home or self-care (01) | PROVIDERS: PCP Student in an Organized Health Care Education/Training Program; Referring Provider Student in an Organized Health Care Education/Training Program; Visit Provider Student in an Organized Health Care Education/Training Program | DX: I96 Gangrene, not elsewhere classified (principal); E11.621 Type 2 diabetes mellitus with foot ulcer; L97.818 Non-pressure chronic ulcer of other part of right lower leg with other specified severity; L97.412 Non-pressure chronic ulcer of right heel and midfoot with fat layer exposed; I10 Essential (primary) hypertension; E11.69 Type 2 diabetes mellitus with other specified complication | CPT/HCPCS: 97597; 97598 ×5; 99213; A9270; G0463 ==

== ENCOUNTER → 2024-03-02 | Outpatient (CLI) | payer MEDICARE, MEDICAID, SELFPAY ==
[2024-03-02 11:30] LABS: Basophils # (Auto) 0.1 Thou/mm3 (0.0-0.2); Basophils % (Auto) 1 % (0-2.5); Eosinophils # (Auto) 0.4 Thou/mm3 (0.0-0.5); Eosinophils % (Auto) 3 % (0-10); Hematocrit 28.9 % (41.0-53.0); Hemoglobin 9.4 g/dL (13.5-16.0); Immature Granulocytes % (Auto) 0 % (0-0); Immature Granulocytes Auto 0.04 Thou/mm3 (0.00-0.00); Lymphocytes # (Auto) 1.8 Thou/mm3 (1.0-4.8); Lymphocytes % (Auto) 14 % (10-50); Mean Corpuscular HGB Conc 32.5 g/dl (31.0-37.0); Mean Corpuscular Hemoglobin 28.8 pg (25.0-35.0); Mean Corpuscular Volume 89 fL (80-100); Monocytes # (Auto) 0.8 Thou/mm3 (0.0-0.8); Monocytes % (Auto) 7 % (0-12); Neutrophils # (Auto) 9.5 Thou/mm3 (1.8-7.7); Neutrophils % (Auto) 75 % (37-80); Nucleated Red Blood Cell % 0 /100 WBC (0); Platelet Count 249 Thou/mm3 (140-440); RDW Standard Deviation 45.3 fL (35.1-43.9); Red Blood Count 3.26 Miln/mm3 (4.50-5.90); White Blood Count 12.7 Thou/mm3 (3.8-10.6)
[2024-03-02 11:36] LABS: Alanine Aminotransferase 16 U/L (10-49); Albumin, Serum 3.6 gm/dL (3.4-4.8); Albumin/Globulin Ratio 0.9 (1.2-2.2); Alkaline Phosphatase 71 U/L (46-116); Anion Gap 10 (7-16); Aspartate Amino Transferase 20 U/L (0-34); BUN/Creatinine Ratio 18 Ratio (12-20); Bilirubin,Total 0.2 mg/dL (0.3-1.2); Blood Urea Nitrogen 60 mg/dL (9-23); C-Reactive Protein 1.4 mg/dL (0.0-0.9); Calcium 8.9 mg/dL (8.3-10.6); Calcium (Corrected) 9.2 mg/dL (8.5-10.1); Chloride 106 mMol/L (98-107); Creatinine (Component) 3.3 mg/dL (0.6-1.3); Glucose 86 mg/dL (74-106); Osmolality,Calculated 287 (275-295); Potassium 4.1 mMol/L (3.4-5.1); Sodium 136 mMol/L (136-145); Total Protein 7.6 gm/dL (5.7-8.2); eGFR 19 See Note
[2024-03-02 12:24] LABS: Sed Rate (ESR) 99 mm/hr (0-20)
== END | disposition home or self-care (01) ==
LOC: COPL 10:27
PROVIDERS: PCP Student in an Organized Health Care Education/Training Program; Referring Provider Student in an Organized Health Care Education/Training Program; Visit Provider Student in an Organized Health Care Education/Training Program
DX: M86.10 Other acute osteomyelitis, unspecified site (principal); E11.628 Type 2 diabetes mellitus with other skin complications; L08.9 Local infection of the skin and subcutaneous tissue, unspecified; I10 Essential (primary) hypertension
CPT/HCPCS: 36415; 80053; 85025; 85652; 86140

== ENCOUNTER 2024-03-06 08:59 | Outpatient (AMB) | payer MEDICARE, MEDICAID, SELFPAY ==
[2024-03-06 09:09] VITALS: BP 176/80; PULSE 64; RESP 18; TEMP 36.8; O2SAT 97
--- NOTE | 2024-03-06 09:09 | ACNOTE_ITS ---
Vital Signs 03/06/24 09:09 BP 176/80 H Blood Pressure Source Automatic Cuff Blood Pressure Location Right Upper Arm Position Sitting Respiration 18 Pulse 64 Pulse Source Monitor Temp 98.2 F Temp Source Oral Pulse Oximetry (%) 97 Oxygen Delivery Method Room Air Allergies/Meds Allergies & Medications Allergies No Known Allergies Allergy (Verified 03/06/24 09:15) Medication Reconciliation acetaminophen 325 mg tablet 650 mg (2 x 325 mg) PO Q6H PRN PAIN(1-3) OR FEVER > 101 30 days #60 tabs 02/11/24 [Rx Confirmed 03/06/24] amlodipine 10 mg tablet 10 mg PO QDAY 30 days #30 tabs 02/11/24 [Rx Confirmed 03/06/24] ciprofloxacin HCl 250 mg tablet 250 mg PO BID 42 days #84 tabs 02/11/24 [Rx Confirmed 03/06/24] doxycycline hyclate 100 mg tablet 100 mg PO BID 42 days #84 tabs 02/11/24 [Rx Confirmed 03/06/24] blood ketone glucose monitor #1 ea 02/12/24 [Rx Confirmed 03/06/24] blood sugar diagnostic (Accutrend Glucose test strips) #50 ea 02/12/24 [Rx Confirmed 03/06/24] insulin glargine 100 unit/mL (3 mL) subcutaneous pen (Lantus Solostar U-100 Insulin) 15 unit (0.15 mL) subcut QAM #15 mL 02/12/24 [Rx Confirmed 03/06/24] lancets 28 gauge (Acti-Zak Lancets) #100 ea 02/12/24 [Rx Confirmed 03/06/24] pen needle, diabetic 29 gauge x 1/2 (BD Ultra-Fine Original Pen Needle) #100 ea 02/12/24 [Rx Confirmed 03/06/24] miscellaneous medical supply ([facility]-Hgym-Uaxxtn Blood Pressure Cuff) #1 ea 02/14/24 [Rx Confirmed 03/06/24] blood-glucose meter,continuous (FreeStyle Ninfa 3 [place]) #1 ea 02/24/24 [Rx Confirmed 03/06/24] blood-glucose sensor (FreeStyle Ninfa 3 Plus Sensor device) #1 ea 02/24/24 [Rx Confirmed 03/06/24] hydralazine 25 mg tablet 25 mg PO TID #90 tabs 03/06/24 [Rx] MA Intake Visit Data Collection New Patient or Established: Established Patient (seen at [facility] within 3 years) Seen by Clinical Staff ONLY (RN/MA): No Pain Present Currently: No Power Reactor Operator Required: No PCP or OBGYN visit in last 3 months: Yes Do You Feel Safe at Home: Yes Smoking Status Smoking Status: Never smoker Immunization / Flu Flu Vaccine in the Last 12 Months: No Flu Vaccine Exclusion Criteria: Refused by Patient Past Medical History Past Medical History NEUROLOGIC: Negative Neurological Disorders CARDIAC: Positive Cardiac Disorders and Hypertension; Negative Congestive Heart Failure RESPIRATORY: Negative Chronic Obstructive Pulmonary Disease (COPD) GASTROINTESTINAL: Negative Gastrointestinal Disorders GENITOURINARY: Negative Genitourinary Disorders or Renal Disease ENDOCRINE: Positive Endocrine Disorders and Diabetes Mellitus Type 2; Negative Diabetes Mellitus Type 1 HEMATOLOGIC: Negative Blood Disorders OTHER HISTORY: Negative Autoimmune Disease, Blood Transfusions or Anesthesia Reactions Social History SMOKING STATUS: Smoking status: Never smoker ALCOHOL: Alcohol Intake: Former ALCOHOL FREQUENCY: Alcohol Intake Frequency: 3 or More Drinks per Day HOUSING: Housing: Apartment LIVES WITH: Lives With: Family and Spouse Patient Portal Questionaires Social History Living Situation History Housing: Apartment Tobacco History Smoking Status: Never smoker Alcohol History Alcohol Intake: Former Alcohol Intake Frequency: 3 or More Drinks per Day Domestic Abuse History Do You Feel Safe at Home: Yes Review of Systems Report any current symptoms Only answer those that you have currently: Past Medical History Past Medical History Have you ever been diagnosed with any of the following: Cardiology Problems Congestive Heart Failure: No Hypertension: Yes Respiratory Problems Chronic Obstructive Pulmonary Disease (COPD): No Genital/Urinary Problems Renal Disease: No Endocrine Problems Diabetes Mellitus Type 1: No Diabetes Mellitus Type 2: Yes Other Problems Autoimmune Disease: No Blood Transfusions: No Anesthesia Reactions: No History of Present Illness HPI Narrative 68 y/o M PMHx HTN, insulin dependent DM, came to the [facility] after hospital discharge for RLE osteomyelitis. Patient currently taking Ciprofloxacin 250 BID and doxycycline 100mg po bid for a duration of 6 weeks for his osteo. Patient also wanted to establish care with primary care physician. Basic labs were ordered including CBC, CMP, as well inflammatory markers ESR and CRP to monitor progression of treatment. BP was found to be elevated was started on low dose lisinopril and told follow up within 1-2 weeks to review labs. 03/06/2024: Patient seen today for f/u appointment and lab review. Patient is currently seeing wound care for his osteomyelitis, per their documentation patient seems to be improving, Labs reviewed and showed downtrending WBCs and inflammatory markers, plan is to continue wound care and antibiotic course for the osteo. As far as his BP it was found to be 176/80 and repeat was found to have 158/76, hydralazine 10mg TID will be adjusted to 25mg TID. Patient also instructed to write down his BP readings and glucose readings regularly in order to make further adjustments. Patient also saw Nephrology, Dr. Bryant and recommended repeat labs and lifestyle modifications and to control BP and BS for April 06 before making any further adjustments. Will follow up in 2 weeks. Objective/Exam Narrative Physical exam: Physical Exam GENERAL: NAD, NC/AT, responsive/cooperative. A&Ox3 HEENT: Moist mucosa. Eyes open, symmetrical, & clear CARDIO: No chest pain on palpation. Heart RRR, no obvious murmurs PULM: No noted coughing/dyspnea. Lungs CTA B/L, no R/W/R GI: Abdomen soft, nondistended, no pain on palpation. BSx4 URO/CLIP RIVETER:: No further abnormalities noted. SKIN/MSK/EXT: RLE covered, no pain on palpation. 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 will re-evaluate in 1 month after trying lifestyle modifications (2) Insulin dependent diabetes mellitus: Status: Acute Plan: Patient has not been monitoring his sugars, glucose sensor and reader arrives saturday, counseled on strict glycemic control and to write down sugar lvls in order to adjust medications (3) Hypertension: Status: Acute Plan: BP today 176/80, currently taking amlodipine 10mg qday and hydralazine 10mg TID, ordered repeat BP (4) Other acute osteomyelitis, unspecified site: Status: Acute Plan: patient currently seeing wound care for his osteomyelitis of right lower extremity, seems to be improving per wound care documentation. Is currently on antibiotic therapy for 6 weeks, doses are already renally adjusted. Labs reviewed WBCs trending down and inflammatory markers are downtrending. Will continue current antibiotic therapy and wound care. (5) Diabetic foot infection: Status: Acute Plan: see above Additional Assessment Attending note: I, Skinny Quinn MD, attest that I was physically present for the mattson portions of the service and evaluated the patient with the resident and I reviewed and discussed the case with the resident and agree with the resident's findings and plans of care as documented above. Follow-up visit. Labs reviewed. Improvement in white count and inflammatory markers. Following with wound care for osteomyelitis. Blood pressure remains elevated, we will increase hydralazine to 25 mg 3 times daily. Patient following with nephrology for CKD. Diabetes self-care reviewed including diet, exercise, footcare, eye care, home testing, insulin injections. Continue present treatment for now. Skinny Quinn MD Advanced Care Planning Advance care planning discussed with:: patient and child Physician Billing Established Patient Established Patient: E/M Level 3-CPT 63420 Office Procedures [facility] Level of Care Nursing/Assessment Patient Status: Established Patient Nursing Assessment/Reassessment: Medication Reconciliation, Update PMH in EMR and Vital Signs Coordination of Care: Complex Care and Chronic Disease 1-5, Consent,records obtained, informed consent, Education Simp Pt/Fam, Results/Orders obtained and Staff clarify orders Established Patient Charge Established Patient Point Assignment: 90 Established Patient Point Charge: EP Level 3 (80-115)
== END 2024-03-06 10:01 | disposition home or self-care (01) ==
LOC: HODAHC 08:59
PROVIDERS: PCP Student in an Organized Health Care Education/Training Program; Referring Provider Student in an Organized Health Care Education/Training Program; Supervising Provider Internal Medicine; Visit Provider Student in an Organized Health Care Education/Training Program
DX: I12.9 Hypertensive chronic kidney disease with stage 1 through stage 4 chronic kidney disease, or unspecified chronic kidney disease (principal); E11.22 Type 2 diabetes mellitus with diabetic chronic kidney disease; N18.9 Chronic kidney disease, unspecified; Z79.4 Long term (current) use of insulin; E11.69 Type 2 diabetes mellitus with other specified complication; M86.8X6 Other osteomyelitis, lower leg
CPT/HCPCS: 99213; G0463

== ENCOUNTER → 2024-03-10 | Outpatient (CLI) | payer MEDICARE, MEDICAID, SELFPAY | END | disposition home or self-care (01) | PROVIDERS: PCP Student in an Organized Health Care Education/Training Program; Referring Provider Student in an Organized Health Care Education/Training Program; Visit Provider Student in an Organized Health Care Education/Training Program | DX: I96 Gangrene, not elsewhere classified (principal); E11.621 Type 2 diabetes mellitus with foot ulcer; L97.418 Non-pressure chronic ulcer of right heel and midfoot with other specified severity; L97.519 Non-pressure chronic ulcer of other part of right foot with unspecified severity; I10 Essential (primary) hypertension; E11.69 Type 2 diabetes mellitus with other specified complication | CPT/HCPCS: 97597; A9270 ==

== ENCOUNTER 2024-03-20 09:41 | Outpatient (AMB) | payer MEDICARE, MEDICAID, SELFPAY ==
[2024-03-20 09:51] VITALS: BP 172/79; PULSE 53; RESP 18; TEMP 36.8; O2SAT 98
--- NOTE | 2024-03-20 09:51 | ACNOTE_ITS ---
Vital Signs 03/20/24 09:51 Height 1.73 m Height Method Stated Weight Measurement Method Wheelchair BP 172/79 H Blood Pressure Source Automatic Cuff Blood Pressure Location Right Upper Arm Position Sitting Respiration 18 Pulse 53 L Pulse Source Monitor Temp 98.2 F Temp Source Oral Pulse Oximetry (%) 98 Oxygen Delivery Method Room Air Allergies/Meds Allergies & Medications Allergies No Known Allergies Allergy (Verified 03/20/24 09:52) Medication Reconciliation ciprofloxacin HCl 250 mg tablet 250 mg PO BID 42 days #84 tabs 02/11/24 [Rx Confirmed 03/20/24] doxycycline hyclate 100 mg tablet 100 mg PO BID 42 days #84 tabs 02/11/24 [Rx Confirmed 03/20/24] blood ketone glucose monitor #1 ea 02/12/24 [Rx Confirmed 03/20/24] blood sugar diagnostic (Accutrend Glucose test strips) #50 ea 02/12/24 [Rx Confirmed 03/20/24] insulin glargine 100 unit/mL (3 mL) subcutaneous pen (Lantus Solostar U-100 Insulin) 15 unit (0.15 mL) subcut QAM #15 mL 02/12/24 [Rx Confirmed 03/20/24] lancets 28 gauge (Acti-Zak Lancets) #100 ea 02/12/24 [Rx Confirmed 03/20/24] pen needle, diabetic 29 gauge x 1/2 (BD Ultra-Fine Original Pen Needle) #100 ea 02/12/24 [Rx Confirmed 03/20/24] miscellaneous medical supply (AMU-Ncyj-Tqvrte Blood Pressure Cuff) #1 ea 09/01 [Rx Confirmed 03/20/24] blood-glucose meter,continuous (FreeStyle Ninfa 3 [place]) #1 ea 02/24/24 [Rx Confirmed 03/20/24] blood-glucose sensor (FreeStyle Ninfa 3 Plus Sensor device) #1 ea 02/24/24 [Rx Confirmed 03/20/24] hydralazine 25 mg tablet 25 mg PO TID #90 tabs 03/06/24 [Rx Confirmed 03/20/24] blood sugar diagnostic (Accu-Chek Guide test strips) #100 ea 03/20/24 [Rx] blood-glucose meter (Accu-Chek Guide Me Glucose Meter) #1 ea 03/20/24 [Rx] lancets (Accu-Chek Fastclix Lancet Drum) #200 ea 03/20/24 [Rx] MA Intake Visit Data Collection New Patient or Established: Established Patient (seen at [facility] within 3 years) Seen by Clinical Staff ONLY (RN/MA): No Pain Present Currently: No Pain scale:: 0 Ammonium Sulfate Operator Required: No PCP or OBGYN visit in last 3 months: Yes Do You Feel Safe at Home: Yes Authorities Contacted: N/A Smoking Status Smoking Status: Never smoker Immunization / Flu Flu Vaccine in the Last 12 Months: No Flu Vaccine Exclusion Criteria: No Exclusion Criteria Past Medical History Past Medical History NEUROLOGIC: Negative Neurological Disorders CARDIAC: Positive Cardiac Disorders and Hypertension; Negative Congestive Heart Failure RESPIRATORY: Negative Chronic Obstructive Pulmonary Disease (COPD) GASTROINTESTINAL: Negative Gastrointestinal Disorders GENITOURINARY: Negative Genitourinary Disorders or Renal Disease ENDOCRINE: Positive Endocrine Disorders and Diabetes Mellitus Type 2; Negative Diabetes Mellitus Type 1 HEMATOLOGIC: Negative Blood Disorders OTHER HISTORY: Negative Autoimmune Disease, Blood Transfusions or Anesthesia Reactions Social History SMOKING STATUS: Smoking status: Never smoker ALCOHOL: Alcohol Intake: Former ALCOHOL FREQUENCY: Alcohol Intake Frequency: 3 or More Drinks per Day HOUSING: Housing: Apartment LIVES WITH: Lives With: Family and Spouse Patient Portal Questionaires Social History Living Situation History Housing: Apartment Tobacco History Smoking Status: Never smoker Alcohol History Alcohol Intake: Former Alcohol Intake Frequency: 3 or More Drinks per Day Domestic Abuse History Do You Feel Safe at Home: Yes Review of Systems Report any current symptoms Only answer those that you have currently: Past Medical History Past Medical History Have you ever been diagnosed with any of the following: Cardiology Problems Congestive Heart Failure: No Hypertension: Yes Respiratory Problems Chronic Obstructive Pulmonary Disease (COPD): No Genital/Urinary Problems Renal Disease: No Endocrine Problems Diabetes Mellitus Type 1: No Diabetes Mellitus Type 2: Yes Other Problems Autoimmune Disease: No Blood Transfusions: No Anesthesia Reactions: No History of Present Illness HPI Narrative 68 y/o M PMHx HTN, insulin dependent DM, came to the [facility] after hospital discharge for RLE osteomyelitis. Patient currently taking Ciprofloxacin 250 BID and doxycycline 100mg po bid for a duration of 6 weeks for his osteo. Patient also wanted to establish care with primary care physician. Basic labs were ordered including CBC, CMP, as well inflammatory markers ESR and CRP to monitor progression of treatment. BP was found to be elevated was started on low dose lisinopril and told follow up within 1-2 weeks to review labs. 03/06/2024: Patient seen today for f/u appointment and lab review. Patient is currently seeing wound care for his osteomyelitis, per their documentation patient seems to be improving, Labs reviewed and showed downtrending WBCs and inflammatory markers, plan is to continue wound care and antibiotic course for the osteo. As far as his BP it was found to be 176/80 and repeat was found to have 158/76, hydralazine 10mg TID will be adjusted to 25mg TID. Patient also instructed to write down his BP readings and glucose readings regularly in order to make further adjustments. Patient also saw Nephrology, Dr. Bryant and rec ommended repeat labs and lifestyle modifications and to control BP and BS for April 06 before making any further adjustments. Will follow up in 2 weeks. 03/20/2024: Patient seen today for f/u appointment. Patient is currently seeing wound care for osteomyelitis, per their documentation patient is improving. However blood pressure remains elevated SBP>170, will add in losartan 25mg q day as this will help with BP as well as renal protection. Patient is still having problems with insurances to get his blood glucose monitor, re-sent a new script for an older sensor. Patient was instructed to as soon as he gets it to start documenting his blood sugars and his blood pressure. Will follow up in 1 week with renal panel to evaluate tolerance of ARB. Objective/Exam Narrative Physical exam: Physical Exam GENERAL: NAD, NC/AT, responsive/cooperative. A&Ox3 HEENT: Moist mucosa. Eyes open, symmetrical, & clear CARDIO: No chest pain on palpation. Heart RRR, no obvious murmurs PULM: No noted coughing/dyspnea. Lungs CTA B/L, no R/W/R GI: Abdomen soft, nondistended, no pain on palpation. BSx4 URO/SEALER SANDER:: No further abnormalities noted. SKIN/MSK/EXT: RLE covered, no pain on palpation. Pedal pulses present B/L NEURO: :AAOX3, no focal neuro deficits Assessment & Plan Diagnosis / Problem List (1) Diabetic foot infection: Status: Acute Plan: continue to see wound care, per documentation overall improving (2) Hypertension: Status: Acute Plan: Patient received BP monitor, at the office today SBP>170s, currently taking amlodipine 10mg q day and hydralazine 25mg TID, however this last week patient ran out of amlodipine medication. Will refill amlodipine and will start patient on Losartan 25mg q day for renal protection. (3) Insulin dependent diabetes mellitus: Status: Acute Plan: Re-sent script for glucose monitor so patient can document his blood sugars in order to make adjustments to insulin regimen. (4) CKD (chronic kidney disease): Status: Acute Plan: Patient received BP monitor, at the office today SBP>170s, currently taking amlodipine 10mg q day and hydralazine 25mg TID, however this last week patient ran out of amlodipine medication. Will refill amlodipine and will start patient on Losartan 25mg q day for renal protection, as patient has proteinuria as well on previous labs. Will follow up in 1 week with renal panel. Patient is scheduled to see thread grinder Dr. Bryant on April 06. Orders: Orders Renal Function Panel Today E11.628 - Type 2 diabetes mellitus with other skin complications, I10 - Essential (primary) hypertension, L08.9 - Local infection of the skin and subcutaneous tissue, unspecified, N18.9 - Chronic kidney disease, unspecified Advanced Care Planning Advance care planning discussed with:: patient and child Office Procedures [facility] Level of Care Nursing/Assessment Patient Status: Established Patient Nursing Assessment/Reassessment: Medication Reconciliation, Update PMH in EMR and Vital Signs Coordination of Care: Complex Care and Chronic Disease 1-5, Consent,records obtained, informed consent, Education Simp Pt/Fam, Results/Orders obtained and Staff clarify orders Established Patient Charge Established Patient Point Assignment: 90 Established Patient Point Charge: EP Level 3 (80-115)
== END 2024-03-20 10:39 | disposition home or self-care (01) ==
LOC: HODAHC 09:41
PROVIDERS: PCP Student in an Organized Health Care Education/Training Program; Referring Provider Student in an Organized Health Care Education/Training Program; Supervising Provider Internal Medicine; Visit Provider Student in an Organized Health Care Education/Training Program
DX: E11.69 Type 2 diabetes mellitus with other specified complication (principal); M86.9 Osteomyelitis, unspecified; I12.9 Hypertensive chronic kidney disease with stage 1 through stage 4 chronic kidney disease, or unspecified chronic kidney disease; E11.22 Type 2 diabetes mellitus with diabetic chronic kidney disease; N18.9 Chronic kidney disease, unspecified; Z79.4 Long term (current) use of insulin
CPT/HCPCS: 99213; G0463

== ENCOUNTER → 2024-03-25 | Outpatient (CLI) | payer MEDICARE, MEDICAID, SELFPAY | END | disposition home or self-care (01) | LOC: SWHD 13:29 | PROVIDERS: Visit Provider Student in an Organized Health Care Education/Training Program | DX: I96 Gangrene, not elsewhere classified (principal); E11.621 Type 2 diabetes mellitus with foot ulcer; L97.412 Non-pressure chronic ulcer of right heel and midfoot with fat layer exposed; L97.519 Non-pressure chronic ulcer of other part of right foot with unspecified severity; I10 Essential (primary) hypertension; E11.69 Type 2 diabetes mellitus with other specified complication | CPT/HCPCS: 11042; A9270 ==

== ENCOUNTER 2024-04-03 10:11 | Outpatient (AMB) | payer MEDICARE, MEDICAID, SELFPAY ==
[2024-04-03 10:25] VITALS: BP 133/70; PULSE 56; RESP 17; TEMP 36.1; O2SAT 96
--- NOTE | 2024-04-03 10:25 | PD.RESCLINIC ---
Vital Signs 04/03/24 10:25 Height 1.73 m Height Method Stated Weight Measurement Method Wheelchair BP 133/70 H Blood Pressure Source Automatic Cuff Blood Pressure Location Right Upper Arm Position Sitting Respiration 17 Pulse 56 L Pulse Source Monitor Temp 97.0 F Temp Source Oral Pulse Oximetry (%) 96 Oxygen Delivery Method Room Air Allergies/Meds Allergies & Medications Allergies No Known Allergies Allergy (Verified 04/03/24 10:25) Medication Reconciliation blood ketone glucose monitor #1 ea 02/12/24 [Rx Confirmed 04/03/24] blood sugar diagnostic (Accutrend Glucose test strips) #50 ea 02/12/24 [Rx Confirmed 04/03/24] insulin glargine 100 unit/mL (3 mL) subcutaneous pen (Lantus Solostar U-100 Insulin) 15 unit (0.15 mL) subcut QAM #15 mL 02/12/24 [Rx Confirmed 04/03/24] lancets 28 gauge (Acti-Zak Lancets) #100 ea 02/12/24 [Rx Confirmed 04/03/24] pen needle, diabetic 29 gauge x 1/2 (BD Ultra-Fine Original Pen Needle) #100 ea 02/12/24 [Rx Confirmed 04/03/24] miscellaneous medical supply ([facility]-Byav-Buaiiq Blood Pressure Cuff) #1 ea 02/14/24 [Rx Confirmed 04/03/24] blood-glucose meter,continuous (FreeStyle Ninfa 3 [place]) #1 ea 02/24/24 [Rx Confirmed 04/03/24] blood-glucose sensor (FreeStyle Ninfa 3 Plus Sensor device) #1 ea 02/24/24 [Rx Confirmed 04/03/24] hydralazine 25 mg tablet 25 mg PO TID #90 tabs 03/06/24 [Rx Confirmed 04/03/24] amlodipine 10 mg tablet 10 mg PO QDAY #30 tabs 03/20/24 [Rx Confirmed 04/03/24] blood sugar diagnostic (Accu-Chek Guide test strips) #100 ea 03/20/24 [Rx Confirmed 04/03/24] blood-glucose meter (Accu-Chek Guide Me Glucose Meter) #1 ea 03/20/24 [Rx Confirmed 04/03/24] lancets (Accu-Chek Fastclix Lancet Drum) #200 ea 03/20/24 [Rx Confirmed 04/03/24] losartan 25 mg tablet 25 mg PO QDAY #30 tabs 04/03/24 [Rx] MA Intake Visit Data Collection New Patient or Established: Established Patient (seen at [facility] within 3 years) Seen by Clinical Staff ONLY (RN/MARCOS): No Pain Present Currently: No Pain scale:: 0 Pain Scale Used: Peña-Jean/Numerical Correctional Casework Specialist Required: No PCP or OBGYN visit in last 3 months: Yes Hx Now: No Do You Feel Safe at Home: Yes Authorities Contacted: N/A Smoking Status Smoking Status: Never smoker Immunization / Flu Flu Vaccine in the Last 12 Months: No Flu Vaccine Exclusion Criteria: No Exclusion Criteria Past Medical History Past Medical History NEUROLOGIC: Negative Neurological Disorders CARDIAC: Positive Cardiac Disorders and Hypertension; Negative Congestive Heart Failure RESPIRATORY: Negative Chronic Obstructive Pulmonary Disease (COPD) GASTROINTESTINAL: Negative Gastrointestinal Disorders GENITOURINARY: Negative Genitourinary Disorders or Renal Disease ENDOCRINE: Positive Endocrine Disorders and Diabetes Mellitus Type 2; Negative Diabetes Mellitus Type 1 HEMATOLOGIC: Negative Blood Disorders OTHER HISTORY: Negative Autoimmune Disease, Blood Transfusions or Anesthesia Reactions Social History SMOKING STATUS: Smoking status: Never smoker ALCOHOL: Alcohol Intake: Former ALCOHOL FREQUENCY: Alcohol Intake Frequency: 3 or More Drinks per Day HOUSING: Housing: Apartment LIVES WITH: Lives With: Family and Spouse Patient Portal Questionaires Social History Living Situation History Housing: Apartment Tobacco History Smoking Status: Never smoker Alcohol History Alcohol Intake: Former Alcohol Intake Frequency: 3 or More Drinks per Day Domestic Abuse History Do You Feel Safe at Home: Yes Review of Systems Report any current symptoms Only answer those that you have currently: Past Medical History Past Medical History Have you ever been diagnosed with any of the following: Cardiology Problems Congestive Heart Failure: No Hypertension: Yes Respiratory Problems Chronic Obstructive Pulmonary Disease (COPD): No Genital/Urinary Problems Renal Disease: No Endocrine Problems Diabetes Mellitus Type 1: No Diabetes Mellitus Type 2: Yes Other Problems Autoimmune Disease: No Blood Transfusions: No Anesthesia Reactions: No History of Present Illness HPI Narrative 68 y/o M PMHx HTN, insulin dependent DM, came to the [facility] after hospital discharge for RLE osteomyelitis. Patient currently taking Ciprofloxacin 250 BID and doxycycline 100mg po bid for a duration of 6 weeks for his osteo. Patient also wanted to establish care with primary care physician. Basic labs were ordered including CBC, CMP, as well inflammatory markers ESR and CRP to monitor progression of treatment. BP was found to be elevated was started on low dose lisinopril and told follow up within 1-2 weeks to review labs. 03/06/2024: Patient seen today for f/u appointment and lab review. Patient is currently seeing wound care for his osteomyelitis, per their documentation patient seems to be improving, Labs reviewed and showed downtrending WBCs and inflammatory markers, plan is to continue wound care and antibiotic course for the osteo. As far as his BP it was found to be 176/80 and repeat was found to have 158/76, hydralazine 10mg TID will be adjusted to 25mg TID. Patient also instructed to write down his BP readings and glucose readings regularly in order to make further adjustments. Patient also saw Nephrology, Dr. Bryant and recommended repeat labs and lifestyle modifications and to control BP and BS for April 06 before making any further adjustments. Will follow up in 2 weeks. 03/20/2024: Patient seen today for f/u appointment. Patient is currently seeing wound care for osteomyelitis, per their documentation patient is improving. However blood pressure remains elevated SBP>170, will add in losartan 25mg q day as this will help with BP as well as renal protection. Patient is still having problems with insurances to get his blood glucose monitor, re-sent a new script for an older sensor. Patient was instructed to as soon as he gets it to start documenting his blood sugars and his blood pressure. Will follow up in 1 week with renal panel to evaluate tolerance of ARB. 04/03/2024: Patient seen today for follow up appointment in [facility]. Patient still seeing wound care for his ostemyelitis, per their documentation osteo is improving. Patient finished course of Antibiotics for his osteomyelitis. Patient still has not obtained blood glucose meter, reported will bean picker from pharmacy today. BP has improved significantly since starting losartan 25mg. Kidney function has improved as well. Will refill patients losartan and will see patient for follow up in 2 weeks with blood sugar documentation to determine if we need to adjust insulin regimen. Review of Systems Review of Systems Systems Reviewed: All systems reviewed, normal except as documented Objective/Exam Narrative Physical exam: Physical Exam GENERAL: NAD, NC/AT, responsive/cooperative. A&Ox3 HEENT: Moist mucosa. Eyes open, symmetrical, & clear CARDIO: No chest pain on palpation. Heart RRR, no obvious murmurs PULM: No noted coughing/dyspnea. Lungs CTA B/L, no R/W/R GI: Abdomen soft, nondistended, no pain on palpation. BSx4 URO/SKI BINDING FITTER AND REPAIRER:: No further abnormalities noted. SKIN/MSK/EXT: RLE covered, no pain on palpation. Pedal pulses present B/L NEURO: :AAOX3, no focal neuro deficits Assessment & Plan Diagnosis / Problem List (1) CKD (chronic kidney disease): Status: Acute Plan: Patient started on losartan 25mg q day last week and has improved kidney function and BP has been controlled. Will refill medication, will follow up in 2 weeks (2) Insulin dependent diabetes mellitus: Status: Acute Plan: Patient will bean picker glucose monitor today, informed patient importance of BS control. Will follow up in 2 weeks with glucose documentation and will make adjustments to insulin regimen if needed. (3) Hypertension: Status: Acute Plan: BP today 133/70, improved significantly compared to previous read. Will continue current BP regimen, including new medication losartan 25mg q day which will be refilled today. (4) Diabetic foot infection: Status: Acute Plan: Patient completed antibiotic course for osteomyelitis, continues to follow up in wound clinic, per their documentation continues to improve. Advanced Care Planning Advance care planning discussed with:: patient and child Office Procedures [facility] Level of Care Nursing/Assessment Patient Status: Established Patient Nursing Assessment/Reassessment: Medication Reconciliation, Update PMH in EMR and Vital Signs Coordination of Care: Complex Care and Chronic Disease 1-5, Consent,records obtained, informed consent, Education Simp Pt/Fam, Results/Orders obtained and Staff clarify orders Established Patient Charge Established Patient Point Assignment: 90 Established Patient Point Charge: EP Level 3 (80-115)
== END 2024-04-03 11:00 | disposition home or self-care (01) ==
LOC: HODAHC 10:11
PROVIDERS: PCP Student in an Organized Health Care Education/Training Program; Referring Provider Student in an Organized Health Care Education/Training Program; Supervising Provider Internal Medicine; Visit Provider Student in an Organized Health Care Education/Training Program
DX: E11.22 Type 2 diabetes mellitus with diabetic chronic kidney disease (principal); I12.9 Hypertensive chronic kidney disease with stage 1 through stage 4 chronic kidney disease, or unspecified chronic kidney disease; N18.9 Chronic kidney disease, unspecified; E11.69 Type 2 diabetes mellitus with other specified complication; M86.9 Osteomyelitis, unspecified; Z79.4 Long term (current) use of insulin
CPT/HCPCS: 99213; G0463

== ENCOUNTER → 2024-04-03 | Outpatient (CLI) | payer MEDICARE, MEDICAID, SELFPAY ==
[2024-04-03 12:03] LABS: Collection Type, Urine Clean Catch; Squamous Epithelial Cell,Urine 0 /hpf (0-5)
[2024-04-03 12:34] LABS: Bilirubin,Urine Negative (Negative); Blood,Urine Negative (Negative); Clarity,Urine Clear (Clear/Hazy); Color,Urine Colorless (Lt Yel-Yel); Glucose, Urine Negative (Negative); Ketones,Urine Negative (Negative); Leukocyte Esterase,Urine Negative (Negative); Nitrite,Urine Negative (Negative); Protein,Urine 2+ (Neg - Trace); RBC,Urine 1 /hpf (0-3); Specific Gravity,Urine 1.012 (1.001-1.035); Urobilinogen,Urine Negative mg/dL (0.0-1.0); WBC,Urine < 1 /hpf (0-5)
[2024-04-03 12:37] LABS: Basophils # (Auto) 0.1 Thou/mm3 (0.0-0.2); Basophils % (Auto) 1 % (0-2.5); Eosinophils # (Auto) 0.5 Thou/mm3 (0.0-0.5); Eosinophils % (Auto) 4 % (0-10); Glucose Estimated Average 169 mg/dL (80-131); Hematocrit 29.4 % (41.0-53.0); Hemoglobin 9.5 g/dL (13.5-16.0); Hemoglobin A1C 7.5 % Hgb (4.8-6.0); Immature Granulocytes % (Auto) 0 % (0-0); Immature Granulocytes Auto 0.02 Thou/mm3 (0.00-0.00); Lymphocytes # (Auto) 2.1 Thou/mm3 (1.0-4.8); Lymphocytes % (Auto) 19 % (10-50); Mean Corpuscular HGB Conc 32.3 g/dl (31.0-37.0); Mean Corpuscular Hemoglobin 28.2 pg (25.0-35.0); Mean Corpuscular Volume 87 fL (80-100); Monocytes # (Auto) 0.7 Thou/mm3 (0.0-0.8); Monocytes % (Auto) 7 % (0-12); Neutrophils # (Auto) 7.6 Thou/mm3 (1.8-7.7); Neutrophils % (Auto) 69 % (37-80); Nucleated Red Blood Cell % 0 /100 WBC (0); Platelet Count 239 Thou/mm3 (140-440); RDW Standard Deviation 45.3 fL (35.1-43.9); Red Blood Count 3.37 Miln/mm3 (4.50-5.90)
[2024-04-03 12:39] LABS: Parathyroid Hormone Intact 166.7 pg/ml (18.5-88.0)
[2024-04-03 12:43] LABS: Alanine Aminotransferase 29 U/L (10-49); Albumin, Serum 3.9 gm/dL (3.4-4.8); Alkaline Phosphatase 66 U/L (46-116); Anion Gap 8 (7-16); Aspartate Amino Transferase 24 U/L (0-34); BUN/Creatinine Ratio 21 Ratio (12-20); Bilirubin,Direct 0.1 mg/dL (0.0-0.3); Bilirubin,Total 0.3 mg/dL (0.3-1.2); Blood Urea Nitrogen 74 mg/dL (9-23); Calcium 8.9 mg/dL (8.3-10.6); Carbon Dioxide 23.2 mMol/L (20.0-31.0); Cardiac Risk Estimate 3.5 RATIO (4.0-6.7); Chloride 103 mMol/L (98-107); Cholesterol 151 mg/dL (132-200); Creatinine (Component) 3.5 mg/dL (0.6-1.3); Glucose 98 mg/dL (74-106); HDL Cholesterol 43 mg/dL (40-60); LDL Cholesterol,Calculated 80 mg/dL (0-130); Osmolality,Calculated 290 (275-295); Phosphorous 4.7 mg/dL (2.4-5.1); Potassium 5.7 mMol/L (3.4-5.1); Sodium 134 mMol/L (136-145); Total Protein 7.3 gm/dL (5.7-8.2); Triglycerides 142 mg/dL (30-150); eGFR 18 See Note
[2024-04-03 12:50] LABS: Creatinine,Random Urine 37 mg/dL (30-125); Protein Total, Random Urine 166 mg/dL (1-14)
== END | disposition home or self-care (01) ==
PROVIDERS: PCP Student in an Organized Health Care Education/Training Program; Referring Provider Internal Medicine Nephrology; Visit Provider Internal Medicine Nephrology
DX: E11.22 Type 2 diabetes mellitus with diabetic chronic kidney disease (principal); N18.4 Chronic kidney disease, stage 4 (severe); E55.9 Vitamin D deficiency, unspecified; E78.5 Hyperlipidemia, unspecified
CPT/HCPCS: 36415; 80061; 80069; 80076; 81001; 82306; 82570; 83036; 83970; 84156; 85025

== ENCOUNTER → 2024-04-08 | Outpatient (CLI) | payer MEDICARE, MEDICAID, SELFPAY | END | disposition home or self-care (01) | LOC: SWHD 13:43 | PROVIDERS: Visit Provider Student in an Organized Health Care Education/Training Program | DX: I96 Gangrene, not elsewhere classified (principal); E11.621 Type 2 diabetes mellitus with foot ulcer; L97.412 Non-pressure chronic ulcer of right heel and midfoot with fat layer exposed; L97.519 Non-pressure chronic ulcer of other part of right foot with unspecified severity; I10 Essential (primary) hypertension; E11.69 Type 2 diabetes mellitus with other specified complication | CPT/HCPCS: 97597; 97598 ==

== ENCOUNTER 2024-04-24 10:05 | Outpatient (AMB) | payer MEDICARE, MEDICAID, SELFPAY ==
[2024-04-24 10:18] VITALS: BP 136/73; PULSE 58; RESP 17; TEMP 36.6; O2SAT 98
--- NOTE | 2024-04-24 10:18 | ACNOTE_ITS ---
Vital Signs 04/24/24 10:18 Height 1.73 m Height Method Stated Weight Measurement Method Wheelchair BP 136/73 H Blood Pressure Source Automatic Cuff Blood Pressure Location Right Upper Arm Position Sitting Respiration 17 Pulse 58 L Pulse Source Monitor Temp 97.9 F Temp Source Temporal Artery Scan Pulse Oximetry (%) 98 Oxygen Delivery Method Room Air Allergies/Meds Allergies & Medications Allergies No Known Allergies Allergy (Verified 04/24/24 10:26) Medication Reconciliation blood ketone glucose monitor #1 ea 02/12/24 [Rx Confirmed 04/24/24] blood sugar diagnostic (Accutrend Glucose test strips) #50 ea 02/12/24 [Rx Confirmed 04/24/24] insulin glargine 100 unit/mL (3 mL) subcutaneous pen (Lantus Solostar U-100 Insulin) 15 unit (0.15 mL) subcut QAM #15 mL 02/12/24 [Rx Confirmed 04/24/24] lancets 28 gauge (Acti-Zak Lancets) #100 ea 02/12/24 [Rx Confirmed 04/24/24] pen needle, diabetic 29 gauge x 1/2 (BD Ultra-Fine Original Pen Needle) #100 ea 02/12/24 [Rx Confirmed 04/24/24] miscellaneous medical supply (NVN-Lagy-Cpncgy Blood Pressure Cuff) #1 ea 02/14/24 [Rx Confirmed 04/24/24] blood-glucose meter,continuous (FreeStyle Ninfa 3 [place]) #1 ea 02/24/24 [Rx Confirmed 04/24/24] blood-glucose sensor (FreeStyle Ninfa 3 Plus Sensor device) #1 ea 02/24/24 [Rx Confirmed 04/24/24] hydralazine 25 mg tablet 25 mg PO TID #90 tabs 03/06/24 [Rx Confirmed 04/24/24] blood sugar diagnostic (Accu-Chek Guide test strips) #100 ea 03/20/24 [Rx Confirmed 04/24/24] blood-glucose meter (Accu-Chek Guide Me Glucose Meter) #1 ea 03/20/24 [Rx Confirmed 04/24/24] lancets (Accu-Chek Fastclix Lancet Drum) #200 ea 03/20/24 [Rx Confirmed 04/24/24] losartan 25 mg tablet 25 mg PO QDAY #30 tabs 04/03/24 [Rx Confirmed 04/24/24] amlodipine 10 mg tablet 10 mg PO QDAY #30 tabs 04/24/24 [Rx] MA Intake Visit Data Collection New Patient or Established: Established Patient (seen at [facility] within 3 years) Seen by Clinical Staff ONLY (RN/MARCOS): No Pain Present Currently: No Pain scale:: 0 Metal Drill Press Operator Required: No PCP or OBGYN visit in last 3 months: Yes Hx Now: No Do You Feel Safe at Home: Yes Authorities Contacted: N/A Smoking Status Smoking Status: Never smoker Immunization / Flu Flu Vaccine in the Last 12 Months: No Flu Vaccine Exclusion Criteria: No Exclusion Criteria Past Medical History Past Medical History NEUROLOGIC: Negative Neurological Disorders CARDIAC: Positive Cardiac Disorders and Hypertension; Negative Congestive Heart Failure RESPIRATORY: Negative Chronic Obstructive Pulmonary Disease (COPD) GASTROINTESTINAL: Negative Gastrointestinal Disorders GENITOURINARY: Negative Genitourinary Disorders or Renal Disease ENDOCRINE: Positive Endocrine Disorders and Diabetes Mellitus Type 2; Negative Diabetes Mellitus Type 1 HEMATOLOGIC: Negative Blood Disorders OTHER HISTORY: Negative Autoimmune Disease, Blood Transfusions or Anesthesia Reactions Social History SMOKING STATUS: Smoking status: Never smoker ALCOHOL: Alcohol Intake: Former ALCOHOL FREQUENCY: Alcohol Intake Frequency: 3 or More Drinks per Day HOUSING: Housing: Apartment LIVES WITH: Lives With: Family and Spouse Patient Portal Questionaires Social History Living Situation History Housing: Apartment Tobacco History Smoking Status: Never smoker Alcohol History Alcohol Intake: Former Alcohol Intake Frequency: 3 or More Drinks per Day Domestic Abuse History Do You Feel Safe at Home: Yes Review of Systems Report any current symptoms Only answer those that you have currently: Past Medical History Past Medical History Have you ever been diagnosed with any of the following: Cardiology Problems Congestive Heart Failure: No Hypertension: Yes Respiratory Problems Chronic Obstructive Pulmonary Disease (COPD): No Genital/Urinary Problems Renal Disease: No Endocrine Problems Diabetes Mellitus Type 1: No Diabetes Mellitus Type 2: Yes Other Problems Autoimmune Disease: No Blood Transfusions: No Anesthesia Reactions: No History of Present Illness HPI Narrative 68 y/o M PMHx HTN, insulin dependent DM, came to the [facility] after hospital discharge for RLE osteomyelitis. Patient currently taking Ciprofloxacin 250 BID and doxycycline 100mg po bid for a duration of 6 weeks for his osteo. Patient also wanted to establish care with primary care physician. Basic labs were ordered including CBC, CMP, as well inflammatory markers ESR and CRP to monitor progression of treatment. BP was found to be elevated was started on low dose lisinopril and told follow up within 1-2 weeks to review labs. 03/06/2024: Patient seen today for f/u appointment and lab review. Patient is currently seeing wound care for his osteomyelitis, per their documentation patient seems to be improving, Labs reviewed and showed downtrending WBCs and inflammatory markers, plan is to continue wound care and antibiotic course for the osteo. As far as his BP it was found to be 176/80 and repeat was found to have 158/76, hydralazine 10mg TID will be adjusted to 25mg TID. Patient also instructed to write down his BP readings and glucose readings regularly in order to make further adjustments. Patient also saw Nephrology, Dr. Bryant and recommended repeat labs and lifestyle modifications and to control BP and BS for April 06 before making any further adjustments. Will follow up in 2 weeks. 03/20/2024: Patient seen today for f/u appointment. Patient is currently seeing wound care for osteomyelitis, per their documentation patient is improving. However blood pressure remains elevated SBP>170, will add in losartan 25mg q day as this will help with BP as well as renal protection. Patient is still having problems with insurances to get his blood glucose monitor, re-sent a new script for an older sensor. Patient was instructed to as soon as he gets it to start documenting his blood sugars and his blood pressure. Will follow up in 1 week with renal panel to evaluate tolerance of ARB. 04/03/2024: Patient seen today for follow up appointment in [facility]. Patient still seeing wound care for his ostemyelitis, per their documentation osteo is improving. Patient finished course of Antibiotics for his osteomyelitis. Patient still has not obtained blood glucose meter, reported will pick up and delivery driver from pharmacy today. BP has improved significantly since starting losartan 25mg. Kidney function has improved as well. Will refill patients losartan and will see patient for follow up in 2 weeks with blood sugar documentation to determine if we need to adjust insulin regimen. 04/24/2024: Patient seen today for follow up visit at [facility]. Patient states no active complaints and is feeling well, accompanied by daughter. Patient continues to be seen by wound clinic per their documentation overall improvement in ulcers. BP stable at this time. Patient has not been compliant with glucose monitoring only checked it for about 6 days and stopped however states range has been between 110s and 140s, instructed patient on importance of glucose monitoring, he stated he has been having a hard time with continuous draws, will reattempt to prescribe CGM, as previous attempts have not been approved by insurance. On labs patient found to have hyperkalemia (potassium of 5.7), Tutoring Assistant, Dr. Bryant aware and made some diet recommendations and will see the patient at the end of the month in regards to potassium. Pateint will see vascular doctor next week to evaluate for PAD. Patient requested refill for amlodipine 10mg qday. No other refills needed per patietn. Will follow-up in 1 month Review of Systems Review of Systems Systems Reviewed: All systems reviewed, normal except as documented Objective/Exam Narrative Physical exam: Physical Exam GENERAL: NAD, NC/AT, responsive/cooperative. A&Ox3 HEENT: Moist mucosa. Eyes open, symmetrical, & clear CARDIO: No chest pain on palpation. Heart RRR, no obvious murmurs PULM: No noted coughing/dyspnea. Lungs CTA B/L, no R/W/R GI: Abdomen soft, nondistended, no pain on palpation. BSx4 URO/FREIGHT RATE ANALYST:: No further abnormalities noted. SKIN/MSK/EXT: RLE covered, no pain on palpation. Pedal pulses present B/L NEURO: :AAOX3, no focal neuro deficits Assessment & Plan Diagnosis / Problem List (1) Hypertension: Status: Acute Plan: BP stable at this time continue current management. (2) Diabetic foot infection: Status: Acute Plan: continue wound care, and strict glucose control (3) Insulin dependent diabetes mellitus: Status: Acute Plan: Patient counseled extensively on blood sugar monitoring. States he is having a hard time with draws. Will re-attempt to send CGM however previous attemps have not been successful. Patient states BS 110-140s on the 6 days he was able to check. (4) Hyperkalemia: Status: Acute Plan: On last labs found to have potassium of 5.7, likely in the setting of CKD vs ARB medication. Tutoring Assistant, Dr. Bryant aware and recommended diet modification and to see patient at the end of the month. Additional Assessment Internal Medicine Attending Note: Case discussed with and agree with note and management plan of Resident Physician as per Resident's Note above. Issues of concern for present visit are as follows: Follow-up visit. Labs reviewed. Patient with hyperkalemia of 5.7, his commercial insurance underwriter is aware and made diet recommendations. Diabetes self-care reviewed including diet, exercise, footcare, eye care. Home glucose readings mainly below 150. We will re prescribe a continuous glucose meter. Continue present diabetes care. Blood pressure stable. Continue to follow with wound care for diabetic foot infection. Skinny Quinn MD Advanced Care Planning Advance care planning discussed with:: patient and child Physician Billing Established Patient Established Patient: E/M Level 3-CPT 26241 Office Procedures [facility] Level of Care Nursing/Assessment Patient Status: Established Patient Nursing Assessment/Reassessment: Medication Reconciliation, Update PMH in EMR and Vital Signs Coordination of Care: Complex Care and Chronic Disease 1-5, Consent,records obtained, informed consent, Education Simp Pt/Fam, Results/Orders obtained and Staff clarify orders Established Patient Charge Established Patient Point Assignment: 90 Established Patient Point Charge: EP Level 3 (80-115)
== END 2024-04-24 11:22 | disposition home or self-care (01) ==
LOC: HODAHC 10:05
PROVIDERS: PCP Student in an Organized Health Care Education/Training Program; Referring Provider Student in an Organized Health Care Education/Training Program; Supervising Provider Internal Medicine; Visit Provider Student in an Organized Health Care Education/Training Program
DX: E87.5 Hyperkalemia (principal); I10 Essential (primary) hypertension; E11.621 Type 2 diabetes mellitus with foot ulcer; L97.519 Non-pressure chronic ulcer of other part of right foot with unspecified severity; Z79.4 Long term (current) use of insulin; Z76.0 Encounter for issue of repeat prescription
CPT/HCPCS: 99213; G0463

== ENCOUNTER 2024-05-22 10:44 | Outpatient (AMB) | payer MEDICARE, MEDICAID, SELFPAY ==
[2024-05-22 11:08] VITALS: BP 159/72; PULSE 54; RESP 16; TEMP 36.8; O2SAT 98
--- NOTE | 2024-05-22 11:08 | PD.RESCLINIC ---
Vital Signs 05/22/24 11:08 Height 1.73 m Height Method Stated Weight Measurement Method Wheelchair BP 159/72 H Blood Pressure Source Automatic Cuff Blood Pressure Location Right Lower Arm Position Sitting Respiration 16 Pulse 54 L Pulse Source Monitor Temp 98.2 F Temp Source Temporal Artery Scan Pulse Oximetry (%) 98 Oxygen Delivery Method Room Air Allergies/Meds Allergies & Medications Allergies No Known Allergies Allergy (Verified 05/22/24 11:10) Medication Reconciliation blood ketone glucose monitor #1 ea 02/12/24 [Rx Confirmed 05/22/24] blood sugar diagnostic (Accutrend Glucose test strips) #50 ea 02/12/24 [Rx Confirmed 05/22/24] insulin glargine 100 unit/mL (3 mL) subcutaneous pen (Lantus Solostar U-100 Insulin) 15 unit (0.15 mL) subcut QAM #15 mL 02/12/24 [Rx Confirmed 05/22/24] lancets 28 gauge (Acti-Zak Lancets) #100 ea 02/12/24 [Rx Confirmed 05/22/24] pen needle, diabetic 29 gauge x 1/2 (BD Ultra-Fine Original Pen Needle) #100 ea 02/12/24 [Rx Confirmed 05/22/24] miscellaneous medical supply (YOC-Xioi-Kdmwgp Blood Pressure Cuff) #1 ea 02/14/24 [Rx Confirmed 05/22/24] blood-glucose meter,continuous (FreeStyle Ninfa 3 [place]) #1 ea 02/24/24 [Rx Confirmed 05/22/24] blood-glucose sensor (FreeStyle Ninfa 3 Plus Sensor device) #1 ea 02/24/24 [Rx Confirmed 05/22/24] blood sugar diagnostic (Accu-Chek Guide test strips) #100 ea 03/20/24 [Rx Confirmed 05/22/24] blood-glucose meter (Accu-Chek Guide Me Glucose Meter) #1 ea 03/20/24 [Rx Confirmed 05/22/24] lancets (Accu-Chek Fastclix Lancet Drum) #200 ea 03/20/24 [Rx Confirmed 05/22/24] losartan 25 mg tablet 25 mg PO QDAY #30 tabs 04/03/24 [Rx Confirmed 05/22/24] amlodipine 10 mg tablet 10 mg PO QDAY #30 tabs 04/24/24 [Rx Confirmed 05/22/24] hydralazine 50 mg tablet 50 mg PO TID 1 month #90 tabs 05/22/24 [Rx] MA Intake Visit Data Collection New Patient or Established: Established Patient (seen at [facility] within 3 years) Seen by Clinical Staff ONLY (RN/MARCOS): No Pain Present Currently: No Pain scale:: 0 Pain Scale Used: Peña-Jean/Numerical Windmill Technician Required: No PCP or OBGYN visit in last 3 months: Yes Hx Now: No Do You Feel Safe at Home: Yes Authorities Contacted: N/A Smoking Status Smoking Status: Never smoker Immunization / Flu Flu Vaccine in the Last 12 Months: No Flu Vaccine Exclusion Criteria: No Exclusion Criteria Past Medical History Past Medical History NEUROLOGIC: Negative Neurological Disorders CARDIAC: Positive Cardiac Disorders and Hypertension; Negative Congestive Heart Failure RESPIRATORY: Negative Chronic Obstructive Pulmonary Disease (COPD) GASTROINTESTINAL: Negative Gastrointestinal Disorders GENITOURINARY: Negative Genitourinary Disorders or Renal Disease ENDOCRINE: Positive Endocrine Disorders and Diabetes Mellitus Type 2; Negative Diabetes Mellitus Type 1 HEMATOLOGIC: Negative Blood Disorders OTHER HISTORY: Negative Autoimmune Disease, Blood Transfusions or Anesthesia Reactions Social History SMOKING STATUS: Smoking status: Never smoker ALCOHOL: Alcohol Intake: Former ALCOHOL FREQUENCY: Alcohol Intake Frequency: 3 or More Drinks per Day HOUSING: Housing: Apartment LIVES WITH: Lives With: Family and Spouse Patient Portal Questionairmelissa Social History Living Situation History Housing: Apartment Tobacco History Smoking Status: Never smoker Alcohol History Alcohol Intake: Former Alcohol Intake Frequency: 3 or More Drinks per Day Domestic Abuse History Do You Feel Safe at Home: Yes Review of Systems Report any current symptoms Only answer those that you have currently: Past Medical History Past Medical History Have you ever been diagnosed with any of the following: Cardiology Problems Congestive Heart Failure: No Hypertension: Yes Respiratory Problems Chronic Obstructive Pulmonary Disease (COPD): No Genital/Urinary Problems Renal Disease: No Endocrine Problems Diabetes Mellitus Type 1: No Diabetes Mellitus Type 2: Yes Other Problems Autoimmune Disease: No Blood Transfusions: No Anesthesia Reactions: No History of Present Illness HPI Narrative 68 y/o M PMHx HTN, insulin dependent DM, came to the [facility] after hospital discharge for RLE osteomyelitis. Patient currently taking Ciprofloxacin 250 BID and doxycycline 100mg po bid for a duration of 6 weeks for his osteo. Patient also wanted to establish care with primary care physician. Basic labs were ordered including CBC, CMP, as well inflammatory markers ESR and CRP to monitor progression of treatment. BP was found to be elevated was started on low dose lisinopril and told follow up within 1-2 weeks to review labs. 03/06/2024: Patient seen today for f/u appointment and lab review. Patient is currently seeing wound care for his osteomyelitis, per their documentation patient seems to be improving, Labs reviewed and showed downtrending WBCs and inflammatory markers, plan is to continue wound care and antibiotic course for the osteo. As far as his BP it was found to be 176/80 and repeat was found to have 158/76, hydralazine 10mg TID will be adjusted to 25mg TID. Patient also instructed to write down his BP readings and glucose readings regularly in order to make further adjustments. Patient also saw Nephrology, Dr. Bryant and recommended repeat labs and lifestyle modifications and to control BP and BS for April 06 before making any further adjustments. Will follow up in 2 weeks. 03/20/2024: Patient seen today for f/u appointment. Patient is currently seeing wound care for osteomyelitis, per their documentation patient is improving. However blood pressure remains elevated SBP>170, will add in losartan 25mg q day as this will help with BP as well as renal protection. Patient is still having problems with insurances to get his blood glucose monitor, re-sent a new script for an older sensor. Patient was instructed to as soon as he gets it to start documenting his blood sugars and his blood pressure. Will follow up in 1 week with renal panel to evaluate tolerance of ARB. 04/03/2024: Patient seen today for follow up appointment in [facility] Patient still seeing wound care for his ostemyelitis, per their documentation osteo is improving. Patient finished course of Antibiotics for his osteomyelitis. Patient still has not obtained blood glucose meter, reported will potato picker from pharmacy today. BP has improved significantly since starting losartan 25mg. Kidney function has improved as well. Will refill patients losartan and will see patient for follow up in 2 weeks with blood sugar documentation to determine if we need to adjust insulin regimen. 04/24/2024: Patient seen today for follow up visit at [facility] Patient states no active complaints and is feeling well, accompanied by daughter. Patient continues to be seen by wound clinic per their documentation overall improvement in ulcers. BP stable at this time. Patient has not been compliant with glucose monitoring only checked it for about 6 days and stopped however states range has been between 110s and 140s, instructed patient on importance of glucose monitoring, he stated he has been having a hard time with continuous draws, will reattempt to prescribe CGM, as previous attempts have not been approved by insurance. On labs patient found to have hyperkalemia (potassium of 5.7), Contracts Manager, Dr. Bryant aware and made some diet recommendations and will see the patient at the end of the month in regards to potassium. Pateint will see vascular doctor next week to evaluate for PAD. Patient requested refill for amlodipine 10mg qday. No other refills needed per patietn. Will follow-up in 1 month 05/22/2024: Patient today here for follow-up with [facility]. Vitals today show elevated blood pressure systolic blood pressure 160s. Patient has not been compliant with blood sugar monitoring. Patient has history of osteomyelitis recent documentation shows that patient is having necrosis. Patient was evaluated by a vascular surgeon and Marina patient had a CTA with runoff showed no flow to extremity and vascular surgeon recommends amputation at this time. Patient was counseled extensively on the importance of blood pressure control and blood sugar control. Patient will require a referral to cardiology for cardiac clearance for surgery. Referral sent to Dr. Rogers in [place]. For the patient's blood pressure hydralazine was adjusted to 50 mg 3 times daily. Patient was instructed to monitor fasting blood glucose and instructed if found to be above 200 increase evening insulin by 1 unit and to continue to titrate until fasting blood sugars are at target goal of 150.Will continue to follow at this time. Objective/Exam Narrative Physical exam: Physical Exam GENERAL: NAD, NC/AT, responsive/cooperative. A&Ox3 HEENT: Moist mucosa. Eyes open, symmetrical, & clear CARDIO: No chest pain on palpation. Heart RRR, no obvious murmurs PULM: No noted coughing/dyspnea. Lungs CTA B/L, no R/W/R GI: Abdomen soft, nondistended, no pain on palpation. BSx4 URO/EMD TEACHER:: No further abnormalities noted. SKIN/MSK/EXT: RLE covered, no pain on palpation. Pedal pulses present B/L NEURO: :AAOX3, no focal neuro deficits Assessment & Plan Diagnosis / Problem List (1) Hypertension: Status: Acute Plan: Hydralazine adjusted to 50 mg 3 times daily. Patient instructed to continue blood pressure monitoring and maintaining a log and will adjust antihypertensives as required. (2) Other acute osteomyelitis, unspecified site: Status: Acute Plan: Patient found to have necrosis of the right lower extremity was evaluated by vascular surgeon and had CTA with runoff found to have no flow to set extremity. At this time vascular surgery recommends amputation. Patient will require cardiac clearance for surgical amputation of right lower extremity. Referral was sent to Dr. Rogers in [place]. (3) Insulin dependent diabetes mellitus: Status: Acute Plan: Patient was instructed about the importance of blood sugar control was instructed to log and monitor his fasting blood sugars and to titrate by 1 unit of insulin until reaching target goal of 150. Orders: Referrals Cardiology Additional Assessment Internal Medicine Attending Note: Case discussed with and agree with note and management plan of Resident Physician as per Resident's Note above. Issues of concern for present visit are as follows: Follow-up visit. History of osteomyelitis. Patient has been following with wound care. Did see vascular surgery, CTA with runoff showed minimal to no flow to the right lower extremity and vascular surgery has recommended amputation. Needs referral to cardiology for cardiac clearance which we will do. Diabetes self-care reviewed including diet, exercise, footcare, eye care. Has not been checking home glucose readings. We will titrate basal insulin with a goal of a.m. fasting blood glucose of 150. Patient instructed on this. Blood pressure elevated today, we will titrate hydralazine upwards. Check blood pressures as outpatient. Patient is afebrile today. Heart rate of 54, not symptomatic from this, no change to meds. Skinny Quinn MD Advanced Care Planning Advance care planning discussed with:: patient and child Physician Billing Established Patient Established Patient: E/M Level 3-CPT 64408 Office Procedures [facility] Level of Care Nursing/Assessment Patient Status: Established Patient Nursing Assessment/Reassessment: Medication Reconciliation, Update PMH in EMR and Vital Signs Coordination of Care: Complex Care and Chronic Disease 1-5, Consent,records obtained, informed consent, Education Simp Pt/Fam and Staff clarify orders Established Patient Charge Established Patient Point Assignment: 85 Established Patient Point Charge: Level 3 (80-115)
== END 2024-05-22 12:00 | disposition home or self-care (01) ==
LOC: HODAHC 10:44
PROVIDERS: Supervising Provider Internal Medicine; Visit Provider Student in an Organized Health Care Education/Training Program
DX: I10 Essential (primary) hypertension (principal); M86.18 Other acute osteomyelitis, other site; E11.9 Type 2 diabetes mellitus without complications; Z79.4 Long term (current) use of insulin
CPT/HCPCS: 99213; G0463

== ENCOUNTER → 2024-05-22 | Outpatient (CLI) | payer MEDICARE, MEDICAID, SELFPAY ==
[2024-05-22 13:42] LABS: Basophils # (Auto) 0.1 Thou/mm3 (0.0-0.2); Basophils % (Auto) 1 % (0-2.5); Eosinophils # (Auto) 0.5 Thou/mm3 (0.0-0.5); Eosinophils % (Auto) 5 % (0-10); Hematocrit 29.4 % (41.0-53.0); Hemoglobin 9.3 g/dL (13.5-16.0); Immature Granulocytes % (Auto) 0 % (0-0); Immature Granulocytes Auto 0.03 Thou/mm3 (0.00-0.00); Lymphocytes # (Auto) 1.8 Thou/mm3 (1.0-4.8); Lymphocytes % (Auto) 16 % (10-50); Mean Corpuscular HGB Conc 31.6 g/dl (31.0-37.0); Mean Corpuscular Hemoglobin 28.4 pg (25.0-35.0); Mean Corpuscular Volume 90 fL (80-100); Monocytes # (Auto) 0.7 Thou/mm3 (0.0-0.8); Monocytes % (Auto) 7 % (0-12); Neutrophils # (Auto) 7.7 Thou/mm3 (1.8-7.7); Neutrophils % (Auto) 71 % (37-80); Nucleated Red Blood Cell % 0 /100 WBC (0); Platelet Count 278 Thou/mm3 (140-440); RDW Standard Deviation 48.6 fL (35.1-43.9); Red Blood Count 3.27 Miln/mm3 (4.50-5.90); White Blood Count 10.8 Thou/mm3 (3.8-10.6)
[2024-05-22 13:56] LABS: Albumin, Serum 3.7 gm/dL (3.4-4.8); Anion Gap 11 (7-16); BUN/Creatinine Ratio 19 Ratio (12-20); Blood Urea Nitrogen 85 mg/dL (9-23); Calcium 8.9 mg/dL (8.3-10.6); Calcium (Corrected) 9.1 mg/dL (8.5-10.1); Carbon Dioxide 18.9 mMol/L (20.0-31.0); Chloride 106 mMol/L (98-107); Creatinine (Component) 4.5 mg/dL (0.6-1.3); Glucose 120 mg/dL (74-106); Iron 52 mcg/dL (65-175); Osmolality,Calculated 298 (275-295); Phosphorous 4.4 mg/dL (2.4-5.1); Potassium 4.7 mMol/L (3.4-5.1); Sodium 136 mMol/L (136-145); Total Iron Binding Capacity 245 mcg/dL (250-425); eGFR 13 See Note
[2024-05-22 14:05] LABS: Collection Type, Urine Clean Catch; Squamous Epithelial Cell,Urine 0 /hpf (0-5)
[2024-05-22 14:27] LABS: Bilirubin,Urine Negative (Negative); Blood,Urine Trace (Negative); Clarity,Urine Clear (Clear/Hazy); Color,Urine Lt-Yellow (Lt Yel-Yel); Culture Indicated,Urine Not Indicated; Glucose, Urine 2+ (Negative); Ketones,Urine Negative (Negative); Leukocyte Esterase,Urine Negative (Negative); Nitrite,Urine Negative (Negative); Protein,Urine 2+ (Neg - Trace); RBC,Urine 1 /hpf (0-3); Specific Gravity,Urine 1.013 (1.001-1.035); Urobilinogen,Urine Negative mg/dL (0.0-1.0); WBC,Urine 1 /hpf (0-5)
== END | disposition home or self-care (01) ==
PROVIDERS: PCP Internal Medicine Nephrology; Referring Provider Internal Medicine Nephrology; Visit Provider Internal Medicine Nephrology
DX: N18.4 Chronic kidney disease, stage 4 (severe) (principal); D63.1 Anemia in chronic kidney disease; N39.0 Urinary tract infection, site not specified
CPT/HCPCS: 36415; 80069; 81001; 83540; 83550; 85025

== ENCOUNTER → 2024-05-27 | Outpatient (CLI) | payer MEDICARE, MEDICAID, SELFPAY ==
--- NOTE | 2024-05-27 15:53 | XR_ITS ---
Examination: PA lateral chest 2 views TECHNIQUE: Upright PA lateral chest 2 views Exam date and time: May 27, 2024 1602 hours Comparison February 06, 2024 INDICATIONS: History right lung pneumonia February 06, 2024 FINDINGS: Normal heart size Ectatic thoracic aorta. No pneumonia or pulmonary edema Prominent osteopenia IMPRESSION: No active disease
[2024-05-27 20:59] LABS: Hepatitis A Antibody IgM Non Reactive (Non React); Hepatitis B Core Antibody IgM Non Reactive (Non React); Hepatitis B Surface Antigen Non Reactive (Non React); Hepatitis C Antibody Non Reactive (Non React)
== END | disposition home or self-care (01) ==
LOC: CDIM 15:48 → COPL 16:11
PROVIDERS: PCP Student in an Organized Health Care Education/Training Program; Referring Provider Internal Medicine Nephrology; Visit Provider Internal Medicine Nephrology
DX: Z11.1 Encounter for screening for respiratory tuberculosis (principal); N18.6 End stage renal disease
CPT/HCPCS: 36415; 71046; 80074

== ENCOUNTER 2024-06-26 10:06 | Outpatient (AMB) | payer MEDICAID, SELFPAY ==
--- NOTE | 2024-06-26 10:20 | ACNOTE_ITS ---
Allergies/Meds Allergies & Medications Allergies No Known Allergies Allergy (Verified 06/26/24 10:20) Medication Reconciliation blood ketone glucose monitor #1 ea 02/12/24 [Rx Confirmed 06/26/24] blood sugar diagnostic (Accutrend Glucose test strips) #50 ea 02/12/24 [Rx Confirmed 06/26/24] insulin glargine 100 unit/mL (3 mL) subcutaneous pen (Lantus Solostar U-100 Insulin) 15 unit (0.15 mL) subcut QAM #15 mL 02/12/24 [Rx Confirmed 06/26/24] lancets 28 gauge (Acti-Zak Lancets) #100 ea 02/12/24 [Rx Confirmed 06/26/24] pen needle, diabetic 29 gauge x 1/2 (BD Ultra-Fine Original Pen Needle) #100 ea 02/12/24 [Rx Confirmed 06/26/24] miscellaneous medical supply (HZR-Usgg-Negmad Blood Pressure Cuff) #1 ea 02/14/24 [Rx Confirmed 06/26/24] blood-glucose meter,continuous (FreeStyle Ninfa 3 [place]) #1 ea 02/24/24 [Rx Confirmed 06/26/24] blood-glucose sensor (FreeStyle Ninfa 3 Plus Sensor device) #1 ea 02/24/24 [Rx Confirmed 06/26/24] blood sugar diagnostic (Accu-Chek Guide test strips) #100 ea 03/20/24 [Rx Confirmed 06/26/24] blood-glucose meter (Accu-Chek Guide Me Glucose Meter) #1 ea 03/20/24 [Rx Confirmed 06/26/24] lancets (Accu-Chek Fastclix Lancet Drum) #200 ea 03/20/24 [Rx Confirmed 06/26/24] losartan 25 mg tablet 25 mg PO QDAY #30 tabs 04/03/24 [Rx Confirmed 06/26/24] amlodipine 10 mg tablet 10 mg PO QDAY #30 tabs 04/24/24 [Rx Confirmed 06/26/24] hydralazine 50 mg tablet 50 mg PO TID 1 month #90 tabs 05/22/24 [Rx Confirmed 06/26/24] ciprofloxacin HCl 500 mg tablet 500 mg PO DAILY 2 weeks #14 tabs 06/26/24 [Rx] doxycycline hyclate 100 mg capsule 100 mg PO BID 2 weeks #28 caps 06/26/24 [Rx] MA Intake Visit Data Collection New Patient or Established: Established Patient (seen at [facility] within 3 years) Seen by Clinical Staff ONLY (RN/MARCOS): No Pain Present Currently: No Pain scale:: 0 Pain Scale Used: Peña-Jean/Numerical Lease Picker Required: No PCP or OBGYN visit in last 3 months: Yes Hx Now: No Do You Feel Safe at Home: Yes Authorities Contacted: N/A Smoking Status Smoking Status: Never smoker For Televisit only Telemed Video/Phone Visit: Yes Verbal consent obtained for Telemed visit?: Yes Verbal Consent witness name: reese pappas ma Telemed Video/Phone visit w/Clinical Staff: 21-30 min Immunization / Flu Flu Vaccine in the Last 12 Months: No Flu Vaccine Exclusion Criteria: No Exclusion Criteria Past Medical History Past Medical History NEUROLOGIC: Negative Neurological Disorders CARDIAC: Positive Cardiac Disorders and Hypertension; Negative Congestive Heart Failure RESPIRATORY: Negative Chronic Obstructive Pulmonary Disease (COPD) GASTROINTESTINAL: Negative Gastrointestinal Disorders GENITOURINARY: Negative Genitourinary Disorders or Renal Disease ENDOCRINE: Positive Endocrine Disorders and Diabetes Mellitus Type 2; Negative Diabetes Mellitus Type 1 HEMATOLOGIC: Negative Blood Disorders OTHER HISTORY: Negative Autoimmune Disease, Blood Transfusions or Anesthesia Reactions Social History SMOKING STATUS: Smoking status: Never smoker ALCOHOL: Alcohol Intake: Former ALCOHOL FREQUENCY: Alcohol Intake Frequency: 3 or More Drinks per Day HOUSING: Housing: Apartment LIVES WITH: Lives With: Family and Spouse Patient Portal Questionaires Social History Living Situation History Housing: Apartment Tobacco History Smoking Status: Never smoker Alcohol History Alcohol Intake: Former Alcohol Intake Frequency: 3 or More Drinks per Day Domestic Abuse History Do You Feel Safe at Home: Yes Review of Systems Report any current symptoms Only answer those that you have currently: Past Medical History Past Medical History Have you ever been diagnosed with any of the following: Cardiology Problems Congestive Heart Failure: No Hypertension: Yes Respiratory Problems Chronic Obstructive Pulmonary Disease (COPD): No Genital/Urinary Problems Renal Disease: No Endocrine Problems Diabetes Mellitus Type 1: No Diabetes Mellitus Type 2: Yes Other Problems Autoimmune Disease: No Blood Transfusions: No Anesthesia Reactions: No History of Present Illness HPI Narrative 68 y/o M PMHx HTN, insulin dependent DM, came to the [facility] after hospital discharge for RLE osteomyelitis. Patient currently taking Ciprofloxacin 250 BID and doxycycline 100mg po bid for a duration of 6 weeks for his osteo. Patient also wanted to establish care with primary care physician. Basic labs were ordered including CBC, CMP, as well inflammatory markers ESR and CRP to monitor progression of treatment. BP was found to be elevated was started on low dose lisinopril and told follow up within 1-2 weeks to review labs. 03/06/2024: Patient seen today for f/u appointment and lab review. Patient is currently seeing wound care for his osteomyelitis, per their documentation patient seems to be improving, Labs reviewed and showed downtrending WBCs and inflammatory markers, plan is to continue wound care and antibiotic course for the osteo. As far as his BP it was found to be 176/80 and repeat was found to have 158/76, hydralazine 10mg TID will be adjusted to 25mg TID. Patient also instructed to write down his BP readings and glucose readings regularly in order to make further adjustments. Patient also saw Nephrology, Dr. Bryant and recommended repeat labs and lifestyle modifications and to control BP and BS for April 06 before making any further adjustments. Will follow up in 2 weeks. 03/20/2024: Patient seen today for f/u appointment. Patient is currently seeing wound care for osteomyelitis, per their documentation patient is improving. However blood pressure remains elevated SBP>170, will add in losartan 25mg q day as this will help with BP as well as renal protection. Patient is still having problems with insurances to get his blood glucose monitor, re-sent a new script for an older sensor. Patient was instructed to as soon as he gets it to start documenting his blood sugars and his blood pressure. Will follow up in 1 week with renal panel to evaluate tolerance of ARB. 04/03/2024: Patient seen today for follow up appointment in [facility]. Patient still seeing wound care for his ostemyelitis, per their documentation osteo is improving. Patient finished course of Antibiotics for his osteomyelitis. 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 BP has improved significantly since starting losartan 25mg. Kidney function has improved as well. Will refill patients losartan and will see patient for follow up in 2 weeks with blood sugar documentation to determine if we need to adjust insulin regimen. 04/24/2024: Patient seen today for follow up visit at [facility]. Patient states no active complaints and is feeling well, accompanied by daughter. Patient continues to be seen by wound clinic per their documentation overall improvement in ulcers. BP stable at this time. Patient has not been compliant with glucose monitoring only checked it for about 6 days and stopped however states range has been between 110s and 140s, instructed patient on importance of glucose monitoring, he stated he has been having a hard time with continuous draws, will reattempt to prescribe CGM, as previous attempts have not been approved by insurance. On labs patient found to have hyperkalemia (potassium of 5.7), Drawer Hardware Worker, Dr. Bryant aware and made some diet recommendations and will see the patient at the end of the month in regards to potassium. Pateint will see vascular doctor next week to evaluate for PAD. Patient requested refill for amlodipine 10mg qday. No other refills needed per patietn. Will follow-up in 1 month 05/22/2024: Patient today here for follow[facility]. Vitals today show elevated blood pressure systolic blood pressure 160s. Patient has not been compliant with blood sugar monitoring. Patient has history of osteomyelitis recent documentation shows that patient is having necrosis. Patient was evaluated by a vascular surgeon and Marina patient had a CTA with runoff showed no flow to extremity and vascular surgeon recommends amputation at this time. Patient was counseled extensively on the importance of blood pressure control and blood sugar control. Patient will require a referral to cardiology for cardiac clearance for surgery. Referral sent to Dr. Rogers in [place]. For the patient's blood pressure hydralazine was adjusted to 50 mg 3 times daily. Patient was instructed to monitor fasting blood glucose and instructed if found to be above 200 increase evening insulin by 1 unit and to continue to titrate until fasting blood sugars are at target goal of 150.Will continue to follow at this time. 06/26/2024: Patient was unable to reach appointment however spoke to daughter who is taking care of the patient via telephone visit. Daughter states patient will be started on dialysis and is pending dialysis catheter placement patient already has chair time in [place] will be started on dialysis schedule Saturday. Daughter who is communicating with the patient states patient is not having any fevers, chills at this time or any symptoms. However is stating the patient's lower extremity starting to smell we will treat patient empirically with antibiotic therapy at this time, however was instructed that there is concern of recurring osteomyelitis given his poor blood flow and poorly controlled HTN and DM and will very likely need vascular intervention. Patient is also in denial of needing BKA but was counseled on the importance of having source control. Of note patient is pending Right BKA with vascular surgery however patient is pending cardiac clearance at this time. Patient has not scheduled an appointment yet with cardiology instructed on the importance of this so patient can have his surgery and to have proper source control. Will follow up very soon. Objective/Exam Narrative Physical exam: deferred due to tele health visit Assessment & Plan Diagnosis / Problem List (1) Other acute osteomyelitis, unspecified site: Status: Acute Plan: Daughter states patient foot is starting to smell. Patient is pending right BKA surgery by vascular service. Is pending cardiac clearance. Patient was instructed to follow-up with cardiology in order to get workup done to have surgery for proper source control. As patient is starting to develop a smell on the affected limb we will start patient empirically on ciprofloxacin and doxycycline. (2) ESRD (end stage renal disease): Status: Acute Plan: Daughter informed that patient will be started on hemodialysis in [place] already has chair time Saturday and is pending hemodialysis catheter placement at this time. (3) Peripheral arterial disease: Status: Acute Plan: Previous CTA with runoff showed no flow to right lower extremity, amputation recommended. Needs cardiac clearance prior to any vascular surgery/amputation. Patient and patient's daughter are encouraged to make appointment as soon as possible. Additional Assessment Internal Medicine Attending Note: Case discussed with and agree with note and management plan of Resident Physician as per Resident's Note above. Issues of concern for present visit are as follows: 1 month follow-up visit completed via telephone. Patient is to have a dialysis catheter placed and to start dialysis in [place] on Saturday/Saturday/Saturday. History of osteomyelitis in right lower extremity, patient's daughter/caregiver states that it is starting to smell. Previously evaluated by vascular surgery, CTA with runoff showed no flow to the extremity with amputation recommended. Given reported symptoms, we will treat empirically with antibiotics, with concern for recurrence of osteomyelitis or other cellulitis/soft tissue infection. Concerned that this will not improve given the poor blood flow. Patient is pending cardiac clearance for surgery, has not yet scheduled his appointment with cardiology, need for this emphasized with patient and his daughter by resident physician. Skinny Quinn MD Advanced Care Planning Advance care planning discussed with:: child Physician Billing Established Patient Established Patient: E/M Level 3-CPT 20912 Office Procedures [facility] Level of Care Nursing/Assessment Patient Status: Established Patient Nursing Assessment/Reassessment: Medication Reconciliation and Update PMH in EMR Coordination of Care: Complex Care and Chronic Disease 1-5, Consent,records obtained, informed consent, Education Simp Pt/Fam and Staff clarify orders Established Patient Charge Established Patient Point Assignment: 70 Telehealth Telemed Phone/Video with patient at home & Dr,PA,BACK HOE OPERATOR: Yes
== END 2024-06-26 11:45 | disposition home or self-care (01) ==
LOC: HODAHC 10:06
PROVIDERS: PCP Student in an Organized Health Care Education/Training Program; Referring Provider Student in an Organized Health Care Education/Training Program; Supervising Provider Student in an Organized Health Care Education/Training Program; Visit Provider Student in an Organized Health Care Education/Training Program
DX: M86.171 Other acute osteomyelitis, right ankle and foot (principal); E11.22 Type 2 diabetes mellitus with diabetic chronic kidney disease; I12.0 Hypertensive chronic kidney disease with stage 5 chronic kidney disease or end stage renal disease; N18.6 End stage renal disease; Z99.2 Dependence on renal dialysis; Z79.4 Long term (current) use of insulin; I73.9 Peripheral vascular disease, unspecified
CPT/HCPCS: 99212; G0463

== ENCOUNTER 2024-07-03 10:17 | Outpatient (AMB) | payer MEDICAID, SELFPAY ==
[2024-07-03 10:34] VITALS: BP 215/99; PULSE 66; RESP 18; TEMP 36.8; O2SAT 98
--- NOTE | 2024-07-03 10:34 | ACNOTE_ITS ---
Vital Signs 07/03/24 10:34 Height 1.73 m Height Method Stated Weight Measurement Method Wheelchair BP 215/99 H Blood Pressure Source Automatic Cuff Blood Pressure Location Right Upper Arm Position Sitting Respiration 18 Pulse 66 Pulse Source Monitor Temp 98.2 F Temp Source Temporal Artery Scan Pulse Oximetry (%) 98 Oxygen Delivery Method Room Air Allergies/Meds Allergies & Medications Allergies No Known Allergies Allergy (Verified 07/07/24 09:04) Medication Reconciliation blood ketone glucose monitor #1 ea 02/12/24 [Rx Confirmed 07/03/24] blood sugar diagnostic (Accutrend Glucose test strips) #50 ea 02/12/24 [Rx Confirmed 07/03/24] insulin glargine 100 unit/mL (3 mL) subcutaneous pen (Lantus Solostar U-100 Insulin) 15 unit (0.15 mL) subcut QAM #15 mL 02/12/24 [Rx Confirmed 07/06/24] lancets 28 gauge (Acti-Zak Lancets) #100 ea 02/12/24 [Rx Confirmed 07/03/24] pen needle, diabetic 29 gauge x 1/2 (BD Ultra-Fine Original Pen Needle) #100 ea 02/12/24 [Rx Confirmed 07/03/24] miscellaneous medical supply (WYN-Vfyl-Mannth Blood Pressure Cuff) #1 ea 02/14/24 [Rx Confirmed 07/03/24] blood-glucose sensor (FreeStyle Ninfa 3 Plus Sensor device) #1 ea 02/24/24 [Rx Confirmed 07/03/24] blood-glucose,vocational rehab consultant,cont (FreeStyle Ninfa 3 Arley) #1 ea 02/24/24 [Rx Confirmed 07/03/24] blood sugar diagnostic (Accu-Chek Guide test strips) #100 ea 03/20/24 [Rx Confirmed 07/03/24] blood-glucose meter (Accu-Chek Guide Me Glucose Meter) #1 ea 03/20/24 [Rx Confirmed 07/03/24] lancets (Accu-Chek Fastclix Lancet Drum) #200 ea 03/20/24 [Rx Confirmed 07/03/24] amlodipine 10 mg tablet 10 mg PO QDAY #30 tabs 04/24/24 [Rx Confirmed 07/06/24] hydralazine 50 mg tablet 50 mg PO TID 1 month #90 tabs 05/22/24 [Rx Confirmed 07/06/24] ciprofloxacin HCl 500 mg tablet 500 mg PO DAILY 2 weeks #14 tabs 06/26/24 [Rx Confirmed 07/06/24] doxycycline hyclate 100 mg capsule 100 mg PO BID 2 weeks #28 caps 06/26/24 [Rx Confirmed 07/06/24] MA Intake Visit Data Collection New Patient or Established: Established Patient (seen at [facility] within 3 years) Seen by Clinical Staff ONLY (RN/MARCOS): No Pain Present Currently: No Pain scale:: 0 Pain Scale Used: Peña-Jean/Numerical Compo Conveyor Operator Required: No PCP or OBGYN visit in last 3 months: No Hx Now: No Do You Feel Safe at Home: Yes Authorities Contacted: N/A Smoking Status Smoking Status: Never smoker Immunization / Flu Flu Vaccine in the Last 12 Months: No Flu Vaccine Exclusion Criteria: No Exclusion Criteria Past Medical History Past Medical History NEUROLOGIC: Negative Neurological Disorders CARDIAC: Positive Cardiac Disorders and Hypertension; Negative Congestive Heart Failure RESPIRATORY: Negative Chronic Obstructive Pulmonary Disease (COPD) GASTROINTESTINAL: Negative Gastrointestinal Disorders GENITOURINARY: Negative Genitourinary Disorders or Renal Disease ENDOCRINE: Positive Endocrine Disorders and Diabetes Mellitus Type 2; Negative Diabetes Mellitus Type 1 HEMATOLOGIC: Negative Blood Disorders OTHER HISTORY: Negative Autoimmune Disease, Blood Transfusions or Anesthesia Reactions Social History SMOKING STATUS: Smoking status: Never smoker ALCOHOL: Alcohol Intake: Former ALCOHOL FREQUENCY: Alcohol Intake Frequency: 3 or More Drinks per Day HOUSING: Housing: Apartment LIVES WITH: Lives With: Family and Spouse Patient Portal Questionaires Social History Living Situation History Housing: Apartment Tobacco History Smoking Status: Never smoker Alcohol History Alcohol Intake: Former Alcohol Intake Frequency: 3 or More Drinks per Day Domestic Abuse History Do You Feel Safe at Home: Yes Review of Systems Report any current symptoms Only answer those that you have currently: Past Medical History Past Medical History Have you ever been diagnosed with any of the following: Cardiology Problems Congestive Heart Failure: No Hypertension: Yes Respiratory Problems Chronic Obstructive Pulmonary Disease (COPD): No Genital/Urinary Problems Renal Disease: No Endocrine Problems Diabetes Mellitus Type 1: No Diabetes Mellitus Type 2: Yes Other Problems Autoimmune Disease: No Blood Transfusions: No Anesthesia Reactions: No History of Present Illness HPI Narrative 68 y/o M PMHx HTN, insulin dependent DM, came to the [facility] after hospital discharge for RLE osteomyelitis. Patient currently taking Ciprofloxacin 250 BID and doxycycline 100mg po bid for a duration of 6 weeks for his osteo. Patient also wanted to establish care with primary care physician. Basic labs were ordered including CBC, CMP, as well inflammatory markers ESR and CRP to monitor progression of treatment. BP was found to be elevated was started on low dose lisinopril and told follow up within 1-2 weeks to review labs. 03/06/2024: Patient seen today for f/u appointment and lab review. Patient is currently seeing wound care for his osteomyelitis, per their documentation patie nt seems to be improving, Labs reviewed and showed downtrending WBCs and inflammatory markers, plan is to continue wound care and antibiotic course for the osteo. As far as his BP it was found to be 176/80 and repeat was found to have 158/76, hydralazine 10mg TID will be adjusted to 25mg TID. Patient also instructed to write down his BP readings and glucose readings regularly in order to make further adjustments. Patient also saw Nephrology, Dr. Bryant and recommended repeat labs and lifestyle modifications and to control BP and BS for April 06 before making any further adjustments. Will follow up in 2 weeks. 03/20/2024: Patient seen today for f/u appointment. Patient is currently seeing wound care for osteomyelitis, per their documentation patient is improving. However blood pressure remains elevated SBP>170, will add in losartan 25mg q day as this will help with BP as well as renal protection. Patient is still having problems with insurances to get his blood glucose monitor, re-sent a new script for an older sensor. Patient was instructed to as soon as he gets it to start documenting his blood sugars and his blood pressure. Will follow up in 1 week with renal panel to evaluate tolerance of ARB. 04/03/2024: Patient seen today for follow up appointment in [facility]. Patient still seeing wound care for his ostemyelitis, per their documentation osteo is improving. Patient finished course of Antibiotics for his osteomyelitis. Patient still has not obtained blood glucose meter, reported will picker tender from pharmacy today. BP has improved significantly since starting losartan 25mg. Kidney function has improved as well. Will refill patients losartan and will see patient for follow up in 2 weeks with blood sugar documentation to determine if we need to adjust insulin regimen. 04/24/2024: Patient seen today for follow up visit at [facility]. Patient states no active complaints and is feeling well, accompanied by daughter. Patient continues to be seen by wound clinic per their documentation overall improvement in ulcers. BP stable at this time. Patient has not been compliant with glucose monitoring only checked it for about 6 days and stopped however states range has been between 110s and 140s, instructed patient on importance of glucose monitoring, he stated he has been having a hard time with continuous draws, will reattempt to prescribe CGM, as previous attempts have not been approved by insurance. On labs patient found to have hyperkalemia (potassium of 5.7), [facility], Dr. Bryant aware and made some diet recommendations and will see the patient at the end of the month in regards to potassium. Pateint will see vascular doctor next week to evaluate for PAD. Patient requested refill for amlodipine 10mg qday. No other refills needed per patietn. Will follow-up in 1 month 05/22/2024: Patient today here for follow-up with [facility]. Vitals today show elevated blood pressure systolic blood pressure 160s. Patient has not been compliant with blood sugar monitoring. Patient has history of osteomyelitis recent documentation shows that patient is having necrosis. Patient was evaluated by a vascular surgeon and [place] patient had a CTA with runoff showed no flow to extremity and vascular surgeon recommends amputation at this time. Patient was counseled extensively on the importance of blood pressure control and blood sugar control. Patient will require a referral to cardiology for cardiac clearance for surgery. Referral sent to Dr. Rogers in [place]. For the patient's blood pressure hydralazine was adjusted to 50 mg 3 times daily. Patient was instructed to monitor fasting blood glucose and instructed if found to be above 200 increase evening insulin by 1 unit and to continue to titrate until fasting blood sugars are at target goal of 150.Will continue to follow at this time. 06/26/2024: Patient was unable to reach appointment however spoke to daughter who is taking care of the patient via telephone visit. Daughter states patient will be started on dialysis and is pending dialysis catheter placement patient already has chair time in [place] will be started on dialysis schedule Saturday. Daughter who is communicating with the patient states patient is not having any fevers, chills at this time or any symptoms. However is stating the patient's lower extremity starting to smell we will treat patient empirically with antibiotic therapy at this time, however was instructed that there is concern of recurring osteomyelitis given his poor blood flow and poorly controlled HTN and DM and will very likely need vascular intervention. Patient is also in denial of needing BKA but was counseled on the importance of having source control. Of note patient is pending Right BKA with vascular surgery however patient is pending cardiac clearance at this time. Patient has not scheduled an appointment yet with cardiology instructed on the importance of this so patient can have his surgery and to have proper source control. Will follow up very soon. 07/03/2024: Patient interviewed accompanied by daughter, Luz. Patient's daughter reports he is scheduled to undergo permcath placement and start hemodialysis soon. He will call to make an appointment on 07/06 to scheduled the permcath placement. Patient is being followed by [facility] Artist, Dr. Suad Pierson for his impending dialysis. In regards to the patient's right foot, he was started on PO abx cipro and doxy for suspected osteomyelitis 1 week prior. She notes the malodor from the ulcer has decreased but no change in the size or erythema of the DFU. Patient will see vascular surgeon in [place] for possible amputation of the foot due to recurrent osteomyelitis secconday to PAD and uncontrolled DM2. He is currently pending cardiac clearance to undergo aforementioned amputation, however has been unable to f/u with dinner cook due to transport issues. Will refer patient to a local dinner cook for further evaluation and cardiac clearance. In office BP measured markedly elevated at 215/99. Patient currerntly asymptomatic. In regards to his DM2 management, his FSG have been 115-150's however they were not fasting. Due to the patient worsening osteomyelitis and hypertensive urgency, he was advised to present himself to the ED for further evaluation of osteomyelitis. Review of Systems Review of Systems Systems Reviewed: All systems reviewed, normal except as documented Objective/Exam Narrative Physical exam: General: Not in any visible or apparent acute distress, alert, pleasant and interactive HEENT: NC/AT, moist mucous membranes, oropharynx clear Neck: Supple, No masses, No JVD, normal range of motion CVS: S1S2 Regular rate and rhythm, No murmurs, rubs or gallops Lungs: Normal respiratory effort, no wheezing rhonchi or rales, CTAB Abd: Soft, no tenderness to palpation, no guarding, +BS, no organomegaly Ext: 1+ B/L LE edema with some pitting noted, warm well perfused, 1+ B/L LE DP pulses, marked necrosis of RLE 1st, 3rd and 5th digits with malodorous scent noted Skin: Intact, no rashes, no lesions, no erythema Neuro: AOx3, cranial nerves II through XII intact, reflex symmetric, and sensation normal Psych: Appropriate mood and affect Assessment & Plan Diagnosis / Problem List (1) Hypertensive urgency: Status: Acute Assessment & Plan: In office BP 215/99 Plan: Patient advised to present to ED due to marked BP in the setting of possible osteomyelitis. Will consider titrating BP medications post discharge from hospital. (2) Osteomyelitis: Status: Acute Assessment & Plan: Patient presents with possible osteomyelitis of RLE 1st, 3rd and 5th digits. Patient was started on empiric PO abx tx with ciprofloxacin and doxycycline one week prior. On presentation today, the wounds appear to be worsening with malodorous discharge noted concerning for worsening osteomyelitis. Plan: Referred patient to ED due to worsening osteomyelitis with PO abx failure. (3) ESRD (end stage renal disease): Status: Acute Assessment & Plan: History of ESRD in the setting of long standing hypertension and DM2 Plan: Patient to undergo permcath placement for impending dialysis. F/U with Ceramic Artist Dr. Suad Pierson (4) Peripheral arterial disease: Status: Acute Assessment & Plan: Hisotory of PAD, currently being followed by vascular surgery. Patient is pending amputation of RLE,, however is awaiting preop risk stratifaction. Plan: F/u with Cardiology and vascular surgery. Additional Assessment Internal Medicine Attending Note: Patient examined and interviewed. Case discussed with and agree with note and management plan of Resident Physician as per Resident's Note above. Issues of concern for present visit are as follows: 1 week follow-up to prior telehealth visit. Patient was empirically placed on ciprofloxacin and doxycycline for suspected osteomyelitis of the right foot. On examination today, there is edema, with marked necrosis of the 1st, 3rd and 5th digits with malodorous scent.. Blood pressure in office also noted to be 215/99. Given that patient's wounds on his foot appear to be worsening, and with known peripheral arterial disease with pending amputation of the right lower extremity (awaiting preoperative risk stratification from cardiology), as well as hypertensive urgency/emergency, patient is sent to the emergency room for probable admission to hospital for treatment of the above. Skinny Quinn MD Advanced Care Planning Advance care planning discussed with:: patient and child Physician Billing Established Patient Established Patient: E/M Level 4-CPT 19617 Office Procedures [facility] Level of Care Nursing/Assessment Patient Status: Established Patient Nursing Assessment/Reassessment: Medication Reconciliation, Update PMH in EMR and Vital Signs Coordination of Care: Complex Care and Chronic Disease 1-5, Consent,records obtained, informed consent, Education Simp Pt/Fam and Staff clarify orders Established Patient Charge Established Patient Point Assignment: 85 Established Patient Point Charge: EP Level 3 (80-115)
== END 2024-07-03 11:21 | disposition home or self-care (01) ==
LOC: HODAHC 10:17
PROVIDERS: PCP Student in an Organized Health Care Education/Training Program; Referring Provider Student in an Organized Health Care Education/Training Program; Supervising Provider Internal Medicine; Visit Provider Student in an Organized Health Care Education/Training Program
DX: M86.9 Osteomyelitis, unspecified (principal); I16.0 Hypertensive urgency; I12.0 Hypertensive chronic kidney disease with stage 5 chronic kidney disease or end stage renal disease; N18.6 End stage renal disease; E11.22 Type 2 diabetes mellitus with diabetic chronic kidney disease; Z79.4 Long term (current) use of insulin; I73.9 Peripheral vascular disease, unspecified
CPT/HCPCS: 99213; G0463

== ENCOUNTER 2024-07-03 13:44 | Inpatient (IN) | payer MEDICARE, MEDICAID, SELFPAY ==
[2024-07-03] VITALS (12 sets, daily range): BP systolic 158–195; BP diastolic 79–100; PULSE 63–75; RESP 8–28; TEMP 36.1–36.6; O2SAT 97–99; BMI 22.8; BMI 23.2
--- NOTE | 2024-07-03 14:04 | XR_ITS ---
Examination: Foot, right, 3 views Technique: AP, oblique, lateral views foot, 3 views Date and time of exam: July 03, 2024 1418 hours INDICATIONS: Redness swelling and pain involving the foot 5 months Comparison January 29, 2024 findings: Cortical bone destruction involving the proximal and middle phalanges third digit with soft tissue defect Severe osteopenia Soft tissue vascular calcification Soft tissue swelling dorsum of the foot impression: Osteomyelitis proximal and middle phalanges fifth digit
--- NOTE | 2024-07-03 14:05 | PD.EDRME ---
Rapid Medical Screening Exam RME Arrival date/time: 07/03/24 13:44 68-year-old male presents to the emergency department today for complaints of infection of the right foot patient reports symptoms ongoing since January Chief Complaint: Wound/Laceration
[2024-07-03 14:32] LABS: Lactate (Lactic Acid) 0.8 mMol/L (0.4-2.0)
[2024-07-03 14:33] LABS: Basophils # (Auto) 0.1 Thou/mm3 (0.0-0.2); Basophils % (Auto) 1 % (0-2.5); Eosinophils # (Auto) 0.5 Thou/mm3 (0.0-0.5); Eosinophils % (Auto) 4 % (0-10); Hematocrit 32.3 % (41.0-53.0); Hemoglobin 10.4 g/dL (13.5-16.0); Immature Granulocytes % (Auto) 0 % (0-0); Immature Granulocytes Auto 0.05 Thou/mm3 (0.00-0.00); Lymphocytes # (Auto) 1.9 Thou/mm3 (1.0-4.8); Lymphocytes % (Auto) 13 % (10-50); Mean Corpuscular HGB Conc 32.2 g/dl (31.0-37.0); Mean Corpuscular Hemoglobin 28.9 pg (25.0-35.0); Mean Corpuscular Volume 90 fL (80-100); Monocytes # (Auto) 0.8 Thou/mm3 (0.0-0.8); Monocytes % (Auto) 5 % (0-12); Neutrophils # (Auto) 11.3 Thou/mm3 (1.8-7.7); Neutrophils % (Auto) 78 % (37-80); Nucleated Red Blood Cell % 0 /100 WBC (0); Platelet Count 258 Thou/mm3 (140-440); RDW Standard Deviation 47.1 fL (35.1-43.9); White Blood Count 14.5 Thou/mm3 (3.8-10.6)
[2024-07-03 14:50] LABS: Partial Thromboplastin Time 32.4 Seconds (22.0-36.0); Prothrombin Time 11.3 Seconds (9.0-12.2)
[2024-07-03 14:51] LABS: Glucose Estimated Average 126 mg/dL (80-131)
[2024-07-03 15:02] LABS: Alanine Aminotransferase 61 U/L (10-49); Albumin/Globulin Ratio 0.9 (1.2-2.2); Alkaline Phosphatase 70 U/L (46-116); Anion Gap 9 (7-16); Aspartate Amino Transferase 28 U/L (0-34); BUN/Creatinine Ratio 19 Ratio (12-20); Bilirubin,Total 0.3 mg/dL (0.3-1.2); Blood Urea Nitrogen 82 mg/dL (9-23); C-Reactive Protein 4.3 mg/dL (0.0-0.9); Calcium 9.1 mg/dL (8.3-10.6); Calcium (Corrected) 9.1 mg/dL (8.5-10.1); Carbon Dioxide 20.7 mMol/L (20.0-31.0); Chloride 107 mMol/L (98-107); Creatinine (Component) 4.4 mg/dL (0.6-1.3); Globulin 4.4 gm/dL (2.3-3.5); Glucose 164 mg/dL (74-106); Osmolality,Calculated 302 (275-295); Potassium 4.6 mMol/L (3.4-5.1); Procalcitonin 0.16 ng/ml (0.0-0.49); Sodium 137 mMol/L (136-145); Total Protein 8.4 gm/dL (5.7-8.2); eGFR 14 See Note
[2024-07-03 15:09] LABS: Sed Rate (ESR) 113 mm/hr (0-20)
--- NOTE | 2024-07-03 17:11 | EDNOTE_ITS ---
ED Wound/Laceration-RME/HPI General Chief Complaint: Wound/Laceration Stated Complaint: SENT BY PCP FOR HYPERTENSION; WOUND ON R TOES Arrival date/time: 07/03/24 13:44 RME / HPI RME / HPI narrative: 07/03/24 13:44 68-year-old male presents to the emergency department today for complaints of infection of the right foot patient reports symptoms ongoing since January DR. NUNES MAIN ED EVALUATION 68 year old male with history of hypertension, diabetes, chronic wounds right foot, presents to the ED sent by PCP further evaluation and management of worsening right foot infection, per PCP recommendation. Accompanied by right foot pain. The patient is currently on Ciprofloxacin 250 mg BID and Doxycycline 100 mg BID. According to the patient's daughter, he was previously evaluated here in January 2024 for a similar right foot infection, and she reports no significant improvement since that visit. She also states that the patient was seen approximately two months ago at [facility] for the same issue. Daughter further reports that they have consulted with a vascular surgeon at [facility] in [place], [place]. Based on the evaluation, the surgeon recommended a right foot amputation. However, the procedure is pending for medical clearance from both a personnel manager and a sales assistant entertainment and media. Denies fever, chills, sweating. Denies chest pain, cough, shortness of breath. Denies nausea, vomiting, diarrhea, constipation. Denies dysuria, urinary frequency and urgency. Related Data Previous Rx's ?Medication ?Instructions ?Recorded blood ketone glucose monitor #1 ea 02/12/24 blood sugar diagnostic (Accutrend #50 ea 02/12/24 Glucose test strips) insulin glargine 100 unit/mL (3 15 unit (0.15 mL) subc ut QAM #15 mL 02/12/24 mL) subcutaneous pen (Lantus Solostar U-100 Insulin) lancets 28 gauge (Acti-Zak #100 ea 02/12/24 Lancets) pen needle, diabetic 29 gauge x #100 ea 02/12/24 1/ (BD Ultra-Fine Original Pen Needle) miscellaneous medical supply #1 ea 02/14/24 (FNT-Mkcd-Qgnmak Blood Pressure Cuff) blood-glucose meter,continuous #1 ea 02/24/24 (FreeStyle Ninfa 3 [place]) blood-glucose sensor (FreeStyle #1 ea 02/24/24 Ninfa 3 Plus Sensor device) blood sugar diagnostic (Accu-Chek #100 ea 03/20/24 Guide test strips) blood-glucose meter (Accu-Chek #1 ea 03/20/24 Guide Me Glucose Meter) lancets (Accu-Chek Fastclix Lancet #200 ea 03/20/24 Drum) losartan 25 mg tablet 25 mg PO QDAY #30 tabs 04/03 amlodipine 10 mg tablet 10 mg PO QDAY #30 tabs 04/24 hydralazine 50 mg tablet 50 mg PO TID 1 month #90 tab s 05/22/24 ciprofloxacin HCl 500 mg tablet 500 mg PO DAILY 2 week s #14 tabs 06/26/24 doxycycline hyclate 100 mg capsule 100 mg PO BID 2 wee ks #28 caps 06/26/24 Allergies Allergy/AdvReac Type Severity Reaction Status Date / Time No Known Allergies Allergy Verified 07/03/24 13:48 Review of Systems Review of Systems Narrative Review of Systems: GEN: No fever, no chills, no weight loss EYES: No discharge, no visual changes, no pain HEENT: No ear pain, no congestion, no sore throat PULM: No shortness of breath, no cough, no congestion CV: No chest pain, no dyspnea on exertion, no palpitations GI: No nausea, no vomiting, no diarrhea, no pain, no constipation : No frequency, no urgency, no dysuria MUSC/SKEL: +right foot pain and infection, no back pain SKIN: No rash PSYCH: No hallucinations, no depression HEME/LYMPH: No easy bleeding or bruising tendencies NEURO: No weakness, no headache Past Medical History Past Medical History CARDIAC: Positive Cardiac Disorders and Hypertension ENDOCRINE: Positive Endocrine Disorders and Diabetes Mellitus Type 2 Social History SMOKING STATUS: Never smoker SUBSTANCE USE: does not use ED Exam Narrative Physical exam: GENERAL APPEARANCE: alert and oriented x 4, well-developed, well-nourished, no acute distress HEENT: Normocephalic, atraumatic; pupils equal, round, reactive to light; EOMI; mucous membranes pink, moist; oropharynx clear NECK: Supple LUNGS: CTABL; no wheezes, no rales, no rhonchi HEART: Regular rate, regular rhythm; normal S1, S2; no murmurs ABDOMEN: non distended; normal BS; soft, no tenderness, no guarding, no rebound; no masses, no organomegaly, no hernia BACK: no CVA tenderness EXTREMITIES: Right foot toes 1, 2 and 4 are necrotic, he has no palpable DP pulse, his right lower leg is woody, lower leg discolored; no edema NEUROLOGIC: awake; alert and oriented x4; cranial nerves II-XII grossly intact; no focal sensory or motor deficits PSYCHIATRIC: appropriate mood and affect SKIN: warm, dry, normal color; no rashes Course Quality Measures none Orders Category Date Time Status XR foot comp RT min 3V Stat Exams 07/03/24 14:04 Completed A1C [Glycohemoglobin w (eAG)] Stat Lab 07/03/24 14:18 Completed Blood Culture (Lab) Stat Lab 07/03/24 14:18 Results CBC Stat Lab 07/03/24 14:18 Completed CMP [Comprehensive Metabolic Panel] Stat Lab 07/03/24 14:18 Completed CRP [C-Reactive Protein] Stat Lab 07/03/24 14:18 Completed ESR [Sed Rate (ESR)] Stat Lab 07/03/24 14:18 Completed Lactic Acid [Lactate (Lactic Acid)] Stat Lab 07/03/24 14:18 Completed PT [Prothrombin Time with INR] Stat Lab 07/03/24 14:18 Completed PTT [Partial Thromboplastin Time] Stat Lab 07/03/24 14:18 Completed Procalcitonin Stat Lab 07/03/24 14:18 Completed Piper/Tazo 3.375 gm Premix [Zosyn] Med 07/03/24 14:51 Discontinued 3.375 gm in 50 ml IV X1 Vancomycin/Ns 1 gm Ivpb 200 ml Med 07/03/24 14:51 Discontinued IV X1 Vital Signs Vital signs: Vital Signs Temperature 97.8 F 07/03/24 14:05 Pulse Rate 63 07/03/24 14:05 Respiratory Rate 18 07/03/24 14:05 Blood Pressure 192/89 H 07/03/24 14:05 Pulse Oximetry (%) 98 07/03/24 14:05 Oxygen Delivery Method Room Air 07/03/24 14:05 Pulse ox is 98% on room air which is adequate. Wound / Laceration MDM Narrative MDM Narrative:: Haleigh Yu am scribing for and in the presence of Dr. Nunes. Patient data External records reviewed:: [facility] previous records (I reviewed admission from 02/06/2024 through 02/12/2024) Clinical information provided by:: patient and family (Daughter, adds to hpi) Social determinants that could affect healthcare access:: none Patient has the following chronic illnesses:: hypertension, diabetes, right foot osteomyelitis How is presenting disease/condition affected by chronic disease/condition?: exacerbated by Evaluation data The following diagnostics were reviewed and interpreted by me:: lab results and radiology exam(s) Lab and/or radiology exams considered but not ordered:: None Interpretation Summary: Ordering Physician: Adan SALMERON),Marcel HORN Date of Service: 07/03/24 Procedure(s): XR foot comp RT min 3V Accession Number(s): [id number] cc: Adan SALMERON),Marcel HORN; Charles Mccracken MD; Yang Christensen MD~ Examination: Foot, right, 3 views Technique: AP, oblique, lateral views foot, 3 views Date and time of exam: July 03, 2024 1418 hours INDICATIONS: Redness swelling and pain involving the foot 5 months Comparison January 29, 2024 findings: Cortical bone destruction involving the proximal and middle phalanges third digit with soft tissue defect Severe osteopenia Soft tissue vascular calcification Soft tissue swelling dorsum of the foot impression: Osteomyelitis proximal and middle phalanges fifth digit Dictated By: Charles Mccracken MD Signed By: <Electronically signed by Charles Mccracken MD in OV> 07/03/24 1439 Medications / Prescriptions Medications or Prescriptions considered but not ordered:: None Medication administrations:: Medication Administration History Acetaminophen (Acetaminophen 325 Mg Tablet) 650 mg PO Q6H PRN PRN Reason: Fever >100.4 or pain 1-3 Stop: 08/02/24 17:49 Amlodipine Besylate (Amlodipine Besylate 5 Mg Tablet) 10 mg PO QDAY MADE[facility]INE Stop: 08/03/24 08:59 Last Admin: 07/04/24 10:09 Dose: 10 mg Documented By: TERESA Dextrose (Dextrose 50%-Water Inj 50 Ml Syringe) 25 ml IV Q15MIN PRN PRN Reason: BG 50-70 responsive npo pt Stop: 08/02/24 17:55 Dextrose (Dextrose 50%-Water Inj 50 Ml Syringe) 50 ml IV Q15MIN PRN PRN Reason: BG <50 OR BG <70 & pt unresponsive Stop: 08/02/24 17:55 Docusate Sodium (Docusate Sod 100 Mg Capsule) 100 mg PO QDAY PRN; Protocol PRN Reason: CONSTIPATION Stop: 08/02/24 17:49 Glucagon (Glucagon Inj 1 Mg Vial) 1 mg IM Q15MIN PRN PRN Reason: BG <70, and no IV access Heparin Sodium (Porcine) (Heparin Sod Inj 5000 Unit/Ml Vial) 5,000 unit SC Q12HR MADELEINE Stop: 07/17/24 20:59 Last Admin: 07/03/24 21:56 Dose: 5,000 unit Documented By: ORTIZ Co-signed By: LISA Hydralazine HCl (Hydralazine Hcl 25 Mg Tablet) 50 mg PO TID MADELEINE Stop: 08/02/24 21:59 Last Admin: 07/04/24 13:31 Dose: Not Given Documented By: TERESA Non-Admin Reason: Per Protocol Admin: 07/04/24 05:56 Dose: Not Given Documented By: MARCOS Non-Admin Reason: okay to hold med per Dr. Judge. Comments: PT NPO Admin: 07/03/24 21:55 Dose: 50 mg Documented By: ORTIZ Piperacillin Sod/Tazobactam (Sod 4.5 gm/ Sodium Chloride) 100 mls @ 200 mls/hr IV Q12HR M[facility]INE Stop: 07/11/24 05:59 Last Infusion: 07/04/24 06:40 Dose: Infused Documented By: Admin: 07/04/24 05:55 Dose: 200 mls/hr Documented By: MARCOS Insulin Human Lispro (Insulin Lispro (Admelog) 1 Unit/0.01 Ml Unit) 0 unit SC [facility]; Protocol Stop: 08/03/24 07:29 Last Admin: 07/04/24 11:46 Dose: Not Given Documented By: MALLYW Non-Admin Reason: Per Protocol Admin: 07/04/24 08:25 Dose: Not Given Documented By: GAW Non-Admin Reason: NPO Comments: npo bs taken at 0600=83 Ondansetron HCl (Ondansetron Inj 2 Mg/Ml Inj 2 Ml) 4 mg IV Q6H PRN; Protocol PRN Reason: NAUSEA OR VOMITING Stop: 08/02/24 17:49 Pharmacy Consult (Vancomycin Pharmacy To Dose 1 Each Each) 1 each IV QDAY M[facility]INE Stop: 08/03/24 08:59 Last Admin: 07/04/24 10:12 Dose: Not Given Documented By: TERESA Non-Admin Reason: Per Protocol Sennosides (Senna Tablet) 1 tab PO QDAY PRN; Protocol PRN Reason: constipation Stop: 08/02/24 17:49 Tramadol HCl (Tramadol Hcl 50 Mg Tablet) 50 mg PO Q4HR PRN PRN Reason: PAIN 4-6 Stop: 07/08/24 19:11 Discontinued Medications Hydrocodone Bitart/Acetaminophen (Hydrocodone/Apap 5/325 Tablet) 1 tab PO Q4HR PRN PRN Reason: PAIN SCALE 4-10(Mod-Sev Stop: 07/08/24 17:49 Hydralazine HCl (Hydralazine Inj 20 Mg/Ml Vial) 10 mg IV X1 ONE Stop: 07/03/24 17:51 Last Admin: 07/03/24 18:11 Dose: 10 mg Documented By: MACY Vancomycin/Sodium Chloride (Vancomycin/Ns 1 Gm Ivpb) 200 mls @ 120 mls/hr IV X1 ONE Stop: 07/03/24 16:30 Last Infusion: 07/03/24 20:21 Dose: Infused Documented By: Admin: 07/03/24 18:02 Dose: 120 mls/hr Documented By: MACY Piperacillin/Tazobactam/Dextrose (Zosyn) 3.375 gm in 50 mls @ 100 mls/hr IV X1 ONE Stop: 07/03/24 15:20 Last Infusion: 07/03/24 18:32 Dose: Infused Documented By: Admin: 07/03/24 18:02 Dose: 100 mls/hr Documented By: MACY Tuberculin PPD (Tuberculin Ppd Inj 5 Unit/0.1 Ml Dose) 5 unit ID X1 ONE Stop: 07/04/24 10:14 Last Admin: 07/04/24 16:22 Dose: 5 unit Documented By: LT See above Consultations Consultation(s) initiated? (list below): Yes Consultation #1 (Physician, Specialty, Details): I spoke with hospitalist Dr. Bennett. Discussed patients PMHx, HPI, ED course, exam findings, labs, and radiology results. The hospitalist agree to accept the patient for admission. Diagnosis Wound Differential Diagnosis: abscess and other (osteomyelitis, sepsis) Most likely diagnosis given after review of the tests above:: Osteomyelitis Admission Indicated Admission indicated?: indicated Admission Request Was there a request for admission?: Yes Admission Attestation Admission request attestation: Discussed case with [] from Hospitalist service regarding admission. Discussed patients ED course, exam findings, labs, and radiology results. The Hospitalist [agrees,declines] to accept the patient for admission. Disposition Plan Disposition Plan: Admit Discharge Plan Plan Patient Disposition: Admit Acute Care w/in Hospital Problem List Clinical Impression: Osteomyelitis
--- NOTE | 2024-07-03 17:50 | XR_ITS ---
Examination: Duplex scan of the lower extremity, unilateral right Date and time of exam: July 03, 20242053 hours INDICATIONS: Right leg pain beginning 5 months ago Technique: Duplex scan of the extremity veins using B-mode/grayscale imaging and Doppler spectral analysis and color flow Attention is directed to internal echogenicity, compression and augmentation involving these veins, color flow assessment, spectral analysis Findings: Major deep venous structures in the extremity demonstrate normal course and caliber. There is no evidence of deep vein thrombosis. Normal color flow and spectral analysis Impression: Negative for DVT..
[2024-07-03] MEDS: PIPER/TAZO 3.375 GM PREMIX 3.375 GM/50 ML BAG IV (18:02)
[2024-07-03] MEDS: VANCOMYCIN/NS 1 GM IVPB 200 ML IV (18:02)
[2024-07-03] MEDS: hydrALAZINE INJ 20 MG/ML VIAL 10 MG IV (18:11)
--- NOTE | 2024-07-03 18:15 | PD.ADDHP ---
Addendum History & Physical Addendum Date of report being addended: 07/03/24 Narrative: Attending's attestation: I reviewed labs, imaging, EKG, home medications and prior available records. Face to face evaluation was performed by me. I have personally examined the patient and discussed assessment and plan with the IM team. I reviewed the resident note and agree with the plan with exceptions as below. ESRD Hemodialysis candidate Diabetic foot ulcer, right fifth toe Gangrene of right foot toes Peripheral arterial disease Hypertensive urgency Insulin-dependent diabetes mellitus Failed outpatient treatment. Will start IV vancomycin/Zosyn Send blood/wound cultures Consult surgery for possible debridement/amputation Start wound care Consult nephrology to start hemodialysis. He will need hemodialysis line Give 10 mg of IV hydralazine. Resume home BP medications. Monitor BP Start sliding scale insulin. Monitor fingersticks
--- NOTE | 2024-07-03 18:43 | PD.RESHP ---
Documentation for date of: 07/03/24 HPI History of Present Illness Chief complaint: Right foot infection History of present illness: 68 y/o M with PMHx significant for CKD, diabetes, hypertension presents to ED with chief complaint progressive right foot infection. Patient noticed right lower leg swelling and erythema with foul smell and necrosis of the foot 2 weeks ago. Wound ago patient started on oral antibiotics by primary care physician, does not see improvement in symptoms except for foul smell. Necrosis progressed slightly since then. Patient was seen in outpatient clinic, told to present to ED due to progression of infection and elevated blood pressure in clinic. Patient had subjective fevers and emesis 2 weeks ago, for the past week patient has had no fevers, chills, chest pain, shortness of breath, nausea, vomiting. Patient denies headaches and blurry vision. ED COURSE: Labs significant for: WBC 14.5, BUN 82, creatinine 4.4, EGFR 15. A1c 6%, lactic acid 0.8, CRP 4.3, ESR 113, Pro-Ladarius 0.16. Imaging significant for: Right foot x-ray showing osteomyelitis proximal and middle phalanges of fifth digit. Patient started on vancomycin and Zosyn in the ED. Patient had elevated blood pressure 215/99. PMH: Insulin-dependent diabetes, hypertension, CKD PSH: Appendectomy, right calcaneal amputation. SH: Denies history of alcohol, tobacco, illicit drug use. Allergies:?NKDA Medications: Amlodipine, hydralazine, insulin Review of Systems Review of Systems Systems Reviewed: All systems reviewed, normal except as documented Past Medical History Past Medical History Comments PMH COMMENT: PMH: Insulin-dependent diabetes, hypertension, PAD, CKD PSH: Appendectomy, right calcaneal amputation. SH: Denies history of alcohol, tobacco, illicit drug use. Allergies:?NKDA Medications: Amlodipine, hydralazine, insulin Exam Vital Signs Temp Pulse Resp BP Pulse Ox O2 Del Method 97.8 F 66 14 158/82 H 97 Room Air 07/03/24 18:31 07/03/24 18:31 07/03/24 18:31 07/03/24 18:31 07/03/24 18:31 07/03/24 18:31 Narrative Exam PE: Gen: Chronically ill-appearing. HEENT: NCAT, PERRLA, EOMI, MMM, anicteric conjunctivae. CVS: normal S1 and S2. RRR. No M/R/G. Poor pedal pulses. Resp: CTA B/L. No rhonchi, rales, crackles or wheezing. Abd: soft, non-tender, non-distended. MSK: Good ROM in BUE & BLE. 2+ pitting edema bilateral lower extremities. Right lower leg erythematous and swollen. Bilateral stasis dermatitis. Right foot bandaged, with necrosis of 1st, 3rd and 5th digits, nontender. Neuro: CN II-XII grossly intact. Strength 5/5 in BUE & BLE. Alert and oriented x3. Psych: appropriate mood and affect. Results: Labs 07/06/24 04:08 07/06/24 04:08 Labs: Short CBC 07/03/24 Range/Units 14:18 WBC 14.5 H (3.8-10.6) Thou/mm3 Hgb 10.4 L (13.5-16.0) g/dL Hct 32.3 L (41.0-53.0) % Plt Count 258 (140-440) Thou/mm3 BMP 07/03/24 14:18 Sodium 137 Potassium 4.6 Chloride 107 Carbon Dioxide 20.7 BUN 82 H Creatinine 4.4 H* Glucose 164 H Calcium 9.1 Liver Function 07/03/24 Range/Units 14:18 Total Bilirubin 0.3 (0.3-1.2) mg/dL AST 28 (0-34) U/L ALT 61 H (10-49) U/L Alkaline Phosphatase 70 (46-116) U/L Albumin 4.0 (3.4-4.8) gm/dL Quality Measures Quality Measures VTE prophylaxis Advance care planning discussed with:: patient Medications Home Medications and Allergies Allergies Allergy/AdvReac Type Severity Reaction Status Date / Time No Known Allergies Allergy Verified 07/03/24 13:48 Visit Medications Acetaminophen (Acetaminophen 325 Mg Tablet) 650 mg PO Q6H PRN PRN Reason: Fever >100.4 or pain 1-3 Stop: 08/02/24 17:49 Hydrocodone Bitart/Acetaminophen (Hydrocodone/Apap 5/325 Tablet) 1 tab PO Q4HR PRN PRN Reason: PAIN SCALE 4-10(Mod-Sev Stop: 07/08/24 17:49 Amlodipine Besylate (Amlodipine Besylate 5 Mg Tablet) 10 mg PO QDAY [facility] Stop: 08/03/24 08:59 Dextrose (Dextrose 50%-Water Inj 50 Ml Syringe) 25 ml IV Q15MIN PRN PRN Reason: BG 50-70 responsive npo pt Stop: 08/02/24 17:55 Dextrose (Dextrose 50%-Water Inj 50 Ml Syringe) 50 ml IV Q15MIN PRN PRN Reason: BG <50 OR BG <70 & pt unresponsive Stop: 08/02/24 17:55 Docusate Sodium (Docusate Sod 100 Mg Capsule) 100 mg PO QDAY PRN; Protocol PRN Reason: CONSTIPATION Stop: 08/02/24 17:49 Glucagon (Glucagon Inj 1 Mg Vial) 1 mg IM Q15MIN PRN PRN Reason: BG <70, and no IV access Heparin Sodium (Porcine) (Heparin Sod Inj 5000 Unit/Ml Vial) 5,000 unit SC Q12HR [facility] Stop: 07/17/24 20:59 Hydralazine HCl (Hydralazine Hcl 25 Mg Tablet) 50 mg PO TID [facility] Stop: 08/02/24 21:59 Piperacillin Sod/Tazobactam (Sod 4.5 gm/ Sodium Chloride) 100 mls @ 200 mls/hr IV Q12HR [facility] Stop: 07/10/24 17:54 Insulin Human Lispro (Insulin Lispro (Admelog) 1 Unit/0.01 Ml Unit) 0 unit SC [facility]; Protocol Stop: 08/03/24 07:29 Ondansetron HCl (Ondansetron Inj 2 Mg/Ml Inj 2 Ml) 4 mg IV Q6H PRN; Protocol PRN Reason: NAUSEA OR VOMITING Stop: 08/02/24 17:49 Pharmacy Consult (Vancomycin Pharmacy To Dose 1 Each Each) 1 each IV QDAY [facility] Stop: 08/03/24 08:59 Sennosides (Senna Tablet) 1 tab PO QDAY PRN; Protocol PRN Reason: constipation Stop: 08/02/24 17:49 Discontinued Medications Hydralazine HCl (Hydralazine Inj 20 Mg/Ml Vial) 10 mg IV X1 ONE Stop: 07/03/24 17:51 Last Admin: 07/03/24 18:11 Dose: 10 mg Vancomycin/Sodium Chloride (Vancomycin/Ns 1 Gm Ivpb) 200 mls @ 120 mls/hr IV X1 ONE Stop: 07/03/24 16:30 Last Admin: 07/03/24 18:02 Dose: 120 mls/hr Piperacillin/Tazobactam/Dextrose (Zosyn) 3.375 gm in 50 mls @ 100 mls/hr IV X1 ONE Stop: 07/03/24 15:20 Last Infusion: 07/03/24 18:32 Dose: Infused Assessment & Plan Plan 68 y/o M with PMHx significant for CKD, diabetes, hypertension presents to ED with chief complaint progressive right foot infection. Patient noticed right lower leg swelling and erythema with foul smell and necrosis of the foot 2 weeks ago. #Osteomyelitis of right foot?fifth digit Patient presents with right foot infection for 2 weeks, after 1 week of outpatient biotics. Patient notes foul smell that has improved over the past week, necrosis of 1st, 3rd and 5th toes that has progressed. CRP 4.3, ESR 113. X-ray of the right foot showed osteomyelitis of the proximal middle phalanges of the fifth digit. Patient is nonseptic, negative Pro-Ladarius, afebrile. Patient has poor pedal pulses on exam. Patient with bilateral lower extremity edema, with right leg more swollen and erythematous compared to left. Patient denies tenderness on exam. Patient has history of osteomyelitis of right foot in the past, with amputation of the calcaneal. - Vancomycin pharmacy dosing (started 07/03) - Zosyn 4.5 g IV every 12 hours (started 07/03) - General Surgery consulted, appreciate recommendations - N.p.o. after midnight - Tylenol and Ultram as needed - Wound care #Hypertensive urgency #Hypertension, patient history Patient history as stated. On presentation patient has BP 215/99, no signs of endorgan damage, denies headache, chest pain, blurry vision. - 10 mg hydralazine IV x 1 - Resume home meds: Hydralazine and amlodipine - Closely monitor #CKD stage V Patient has history of CKD likely due to diabetes and hypertension. Per patient has been progressing towards dialysis, has been attempting to arrange placement of dialysis cath. Follows with inspection engineer Dr. Bryant. Dr. Bryant was consulted, will see patient provide further recommendations. Possible dialysis catheter placement and hemodialysis on Saturday. - Renally dose medications - Nephrology consulted, appreciate recommendations - Avoid nephrotoxins #Diabetes, insulin-dependent Patient has history as stated. Hemoglobin A1c 6% as of 07/03. - ISS #Chronic normocytic anemia Patient has history as stated. Hemoglobin currently 10.4, no signs of active bleeding. Likely due to anemia of chronic disease in setting of diabetes, CKD. - Monitor hemoglobin - Transfuse if needed DVT prophylaxis: Heparin, hold at midnight GI prophylaxis: None Diet: Renal, carb consistent low, n.p.o. at midnight Lines: Peripheral IV Code status: Full code Plan of care discussed with attending Dr. Bennett. Darrin Apple MD PGY?1 Attending Provider Attestation/Addendum I reviewed labs, imaging, EKG, home medications and prior available records. Face to face evaluation was performed by me. I have personally examined the patient and discussed assessment and plan with the IM team. I reviewed the resident note and agree with the plan with exceptions as below. See my H and P addendum for the same date of service
--- NOTE | 2024-07-03 19:09 | PC.NURSE ---
CALLED PHARMACY AT THIS TIME TO RE-TIME ZOSYN DOSE IS TOO CLOSE
[2024-07-03] MEDS: hydrALAZINE HCL 25 MG TABLET 50 MG PO (21:55)
[2024-07-03] MEDS: HEPARIN SOD INJ 5000 UNIT/ML VIAL SC (21:56)
--- NOTE | 2024-07-03 22:08 | PC.NURSE ---
pt resting quietly at this time .family at bedside. Report called to Alanis BROWN pt taken to rm 365 on monitor with RN
--- NOTE | 2024-07-03 22:59 | PC.NURSE ---
Pt' BP 177/95, 187/92, HR 66, DR. Wilcox was made aware. MD's recommended to recheck BP in 1 hr and let him know if BP is still high.
[2024-07-04] VITALS (10 sets, daily range): BP systolic 137–154; BP diastolic 60–88; PULSE 58–96; RESP 16–18; TEMP 36.4–36.9; O2SAT 96–98; BMI 23.1
[2024-07-04] MEDS: PIPER/TAZO INJ 4.5 GM in SODIUM CHLORIDE 0.9% (POP) 100 ML IV ×2 (05:55→21:49)
[2024-07-04 06:29] LABS: INR 1.1 (0.9-1.3); Partial Thromboplastin Time 34.7 Seconds (22.0-36.0); Prothrombin Time 11.6 Seconds (9.0-12.2)
[2024-07-04 06:36] LABS: Alanine Aminotransferase 42 U/L (10-49); Albumin, Serum 3.3 gm/dL (3.4-4.8); Albumin/Globulin Ratio 0.9 (1.2-2.2); Alkaline Phosphatase 58 U/L (46-116); Anion Gap 10 (7-16); Aspartate Amino Transferase 20 U/L (0-34); BUN/Creatinine Ratio 17 Ratio (12-20); Bilirubin,Total 0.3 mg/dL (0.3-1.2); Blood Urea Nitrogen 75 mg/dL (9-23); Calcium 8.6 mg/dL (8.3-10.6); Calcium (Corrected) 9.2 mg/dL (8.5-10.1); Carbon Dioxide 19.3 mMol/L (20.0-31.0); Cardiac Risk Estimate 3.8 RATIO (4.0-6.7); Chloride 111 mMol/L (98-107); Cholesterol 138 mg/dL (132-200); Creatinine (Component) 4.3 mg/dL (0.6-1.3); Estimated Creatinine Clearance 15.5 mL/min (>60); Globulin 3.7 gm/dL (2.3-3.5); Glucose 108 mg/dL (74-106); HDL Cholesterol 36 mg/dL (40-60); LDL Cholesterol,Calculated 83 mg/dL (0-130); Osmolality,Calculated 302 (275-295); Phosphorous 5.1 mg/dL (2.4-5.1); Potassium 4.2 mMol/L (3.4-5.1); Sodium 140 mMol/L (136-145); Triglycerides 97 mg/dL (30-150); eGFR 14 See Note
[2024-07-04 06:51] LABS: Basophils # (Auto) 0.1 Thou/mm3 (0.0-0.2); Basophils % (Auto) 1 % (0-2.5); Eosinophils # (Auto) 0.7 Thou/mm3 (0.0-0.5); Eosinophils % (Auto) 6 % (0-10); Hematocrit 28.1 % (41.0-53.0); Hemoglobin 9.2 g/dL (13.5-16.0); Immature Granulocytes % (Auto) 0 % (0-0); Immature Granulocytes Auto 0.05 Thou/mm3 (0.00-0.00); Lymphocytes # (Auto) 1.1 Thou/mm3 (1.0-4.8); Lymphocytes % (Auto) 10 % (10-50); Mean Corpuscular HGB Conc 32.7 g/dl (31.0-37.0); Mean Corpuscular Hemoglobin 29.4 pg (25.0-35.0); Mean Corpuscular Volume 90 fL (80-100); Monocytes # (Auto) 0.7 Thou/mm3 (0.0-0.8); Monocytes % (Auto) 6 % (0-12); Neutrophils # (Auto) 8.6 Thou/mm3 (1.8-7.7); Neutrophils % (Auto) 77 % (37-80); Nucleated Red Blood Cell % 0 /100 WBC (0); Platelet Count 240 Thou/mm3 (140-440); RDW Standard Deviation 46.5 fL (35.1-43.9); Red Blood Count 3.13 Miln/mm3 (4.50-5.90); White Blood Count 11.2 Thou/mm3 (3.8-10.6)
[2024-07-04 07:33] LABS: Glucose Estimated Average 128 mg/dL (80-131); Hemoglobin A1C 6.1 % Hgb (4.8-6.0)
[2024-07-04 08:16] LABS: Vancomycin,Random 12.9 mcg/mL
[2024-07-04] MEDS: amLODIPine BESYLATE 5 MG TABLET 10 MG PO (10:09)
--- NOTE | 2024-07-04 11:42 | ESPR_ITS ---
Documentation for date of: 07/04/24 Subjective Subjective Interval history: Patient was seen and examined at bedside. No acute overnight events. Labs and vitals were reviewed. Surgery evaluated patient, stated that patient most likely will have surgery on Saturday, cardiology was consulted for surgery clearance. Overall patient is afebrile overnight, labs revealed improvement of leukocytosis, Dr. Bryant is on board, plan is to do most likely during this hospital stay. Otherwise we will continue current management with IV antibiotics, wound care is in place,. Will follow-up with surgery, cardio and nephro recommendations. Blood culture is pending. Exam Vital Signs Temp Pulse Resp BP Pulse Ox O2 Del Method 98.4 F 60 16 137/74 H 96 Room Air 07/04/24 08:00 07/04/24 10:09 07/04/24 08:00 07/04/24 10:09 07/04/24 08:00 07/04/24 08:00 Narrative Exam GENERAL: no acute distress, AAO x3,Chronically ill appearing HEENT: Head AT/ NC. Mucous membranes moist. PERRL. NECK: Supple, no lymphadenopathy, no carotid bruits. CARDIOVASCULAR: RRR. Normal S1/S2, No m/r/g. No pitting edema of bilateral LEs. RESPIRATORY: CTAB. No wheezing, rhonchi, crackles. GASTROINTESTINAL: Abdomen soft, non tender no palpable masses. Bowel sounds present in all 4 quadrants. MUSCULOSKELETAL:?Poor pedal pulses, 2+ pitting edema bilateral lower extremities, right lower leg erythematous and swollen, bilateral stasis dermatitis. Right foot bandaged, dressing is dry and clean, necrosis of 1st, 3rd and 5th digits. NEUROLOGICAL: CN II-XII grossly intact. No focal deficits. Sensation intact, symmetric. PSYCHIATRIC: Awake and alert, not agitated, normal mood and affect. Objective Labs 07/05/24 04:46 07/05/24 04:46 Labs: Laboratory Results - last 24 hr 07/03/24 07/04/24 14:18 05:25 WBC 14.5 H 11.2 H RBC 3.60 L 3.13 L Hgb 10.4 L 9.2 L Hct 32.3 L 28.1 L MCV 90 90 MCH 28.9 29.4 MCHC 32.2 32.7 RDW Std Deviation 47.1 H 46.5 H Plt Count 258 240 Neut % (Auto) 78 77 Lymph % (Auto) 13 10 [place] % (Auto) 5 6 Eos % (Auto) 4 6 Baso % (Auto) 1 1 Neut # (Auto) 11.3 H 8.6 H Lymph # (Auto) 1.9 1.1 [place] # (Auto) 0.8 0.7 Eos # (Auto) 0.5 0.7 H Baso # (Auto) 0.1 0.1 Immature Gran # (Auto) 0.05 H 0.05 H Absolute Nucleated RBC 0.00 0.00 Immature Gran % 0 0 Nucleated RBC % 0 0 ESR 113 H PT 11.3 11.6 INR 1.0 1.1 APTT 32.4 34.7 Sodium 137 140 Potassium 4.6 4.2 Chloride 107 111 H Carbon Dioxide 20.7 19.3 L Anion Gap 9 10 BUN 82 H 75 H Creatinine 4.4 H* 4.3 H* Estim Creat Clear Calc 15.0 L 15.5 L eGFR 14 L* 14 L* BUN/Creatinine Ratio 19 17 Glucose [address] H [address] Glu mg/dL 126 128 Hemoglobin A1c 6.0 6.1 H Calculated Osmolality 302 H 302 H Lactic Acid 0.8 Calcium 9.1 8.6 Corrected Calcium 9.1 9.2 Phosphorus 5.1 Magnesium 2.0 Total Bilirubin 0.3 0.3 AST 28 20 ALT 61 H 42 Alkaline Phosphatase 70 58 C-Reactive Prot, Quant 4.3 H Total Protein 8.4 H 7.0 Albumin 4.0 3.3 L D Globulin 4.4 H 3.7 H Albumin/Globulin Ratio 0.9 L 0.9 L Triglycerides 97 Cholesterol 138 LDL Cholesterol, Calc 83 HDL Cholesterol 36 L Cholesterol/HDL Ratio 3.8 L Procalcitonin 0.16 Random Vancomycin 12.9 Quality Measures Quality Measures VTE prophylaxis Advance care planning discussed with:: patient Assessment & Plan Assessment Current Active Medications: Generic Name Dose Route Start Last Admin Trade Name Freq PRN Reason Stop Dose Admin Acetaminophen 650 mg 07/03/24 17:50 Acetaminophen 325 Mg Tablet PO 08/02/24 17:49 Q6H PRN Fever >100.4 or pain 1-3 Amlodipine Besylate 10 mg 07/04/24 09:00 07/04/24 10:09 Amlodipine Besylate 5 Mg Tablet PO 08/03/24 08:59 10 mg QDAY MADELEINE Administration Dextrose 25 ml 07/03/24 17:56 Dextrose 50%-Water Inj 50 Ml Syringe IV 08/02/24 17:55 Q15MIN PRN BG 50-70 responsive npo pt Dextrose 50 ml 07/03/24 17:56 Dextrose 50%-Water Inj 50 Ml Syringe IV 08/02/24 17:55 Q15MIN PRN BG <50 OR BG <70 & pt unresponsive Docusate Sodium 100 mg 07/03/24 17:50 Docusate Sod 100 Mg Capsule PO 08/02/24 17:49 QDAY PRN CONSTIPATION Protocol Glucagon 1 mg 07/03/24 17:56 Glucagon Inj 1 Mg Vial IM Q15MIN PRN BG <70, and no IV access Heparin Sodium (Porcine) 5,000 unit 07/03/24 21:00 07/03/24 21:56 Heparin Sod Inj 5000 Unit/Ml Vial SC 07/17/24 20:59 5,000 unit Q12HR MADELEINE Administration Hydralazine HCl 50 mg 07/03/24 22:00 07/04/24 05:56 Hydralazine Hcl 25 Mg Tablet PO 08/02/24 21:59 Not Given TID MADELEINE Piperacillin Sod/Tazobactam 100 mls @ 200 mls/hr 07/04/24 06:00 07/04/24 05:55 Sod 4.5 gm/ Sodium Chloride IV 07/11/24 05:59 200 mls/hr Q12HR MADELEINE Administration Insulin Human Lispro 0 unit 07/04/24 07:30 07/04/24 08:25 Insulin Lispro (Admelog) 1 Unit/0.01 Ml Unit SC 08/03/24 07:29 Not Given AC MADELEINE Protocol Ondansetron HCl 4 mg 07/03/24 17:50 Ondansetron Inj 2 Mg/Ml Inj 2 Ml IV 08/02/24 17:49 Q6H PRN NAUSEA OR VOMITING Protocol Pharmacy Consult 1 each 07/04/24 09:00 07/04/24 10:12 Vancomycin Pharmacy To Dose 1 Each Each IV 08/03/24 08:59 Not Given QDAY MADELEINE Sennosides 1 tab 07/03/24 17:50 Senna Tablet PO 08/02/24 17:49 QDAY PRN constipation Protocol Tramadol HCl 50 mg 07/03/24 19:12 Tramadol Hcl 50 Mg Tablet PO 07/08/24 19:11 Q4HR PRN PAIN 4-6 Plan 68 y/o M with PMHx significant for CKD, diabetes, hypertension presents to ED with chief complaint progressive right foot infection. Patient noticed right lower leg swelling and erythema with foul smell and necrosis of the foot 2 weeks ago. #Osteomyelitis of right foot?fifth digit Patient presents with right foot infection for 2 weeks, after 1 week of outpatient biotics. Patient notes foul smell that has improved over the past week, necrosis of 1st, 3rd and 5th toes that has progressed. CRP 4.3, ESR 113. X-ray of the right foot showed osteomyelitis of the proximal middle phalanges of the fifth digit. Patient is nonseptic, negative Pro-Ladarius, afebrile. Patient has poor pedal pulses on exam. Patient with bilateral lower extremity edema, with right leg more swollen and erythematous compared to left. Patient denies tenderness on exam. Patient has history of osteomyelitis of right foot in the past, with amputation of the calcaneal. - Vancomycin pharmacy dosing (started 07/03) - Zosyn 4.5 g IV every 12 hours (started 07/03) - General Surgery consulted, most likely surgery will be done on Saturday - Tylenol as needed - Wound care #Hypertensive urgency resolved #Hypertension, patient history Patient history as stated. On presentation patient has BP 215/99, no signs of endorgan damage, denies headache, chest pain, blurry vision. - Resume home meds: Hydralazine and amlodipine - Closely monitor #CKD stage V Patient has history of CKD likely due to diabetes and hypertension. Per patient has been progressing towards dialysis, has been attempting to arrange placement of dialysis cath. Follows with integrated marketing specialist Dr. Bryant. Dr. Bryant was consulted, will see patient provide further recommendations. Possible dialysis catheter placement and hemodialysis on Saturday. - Renally dose medications - Nephrology consulted, most likely patient will have a catheter placement and have hemodialysis earliest on Saturday, nephrology is on board, will follow-up with recommendations - Avoid nephrotoxins #Diabetes, insulin-dependent Patient has history as stated. Hemoglobin A1c 6% as of 07/03. - ISS - Patient will need close control of blood sugar #Chronic normocytic anemia Patient has history as stated. Hemoglobin currently 10.4, no signs of active bleeding. Likely due to anemia of chronic disease in setting of diabetes, CKD. - Monitor hemoglobin - Transfuse if needed DVT prophylaxis: Resumed heparin as surgery will happen on Saturday, will hold heparin night before surgery GI prophylaxis: None Diet: Renal, carb consistent low, Lines: Peripheral IV Code status: Full code Patient care was discussed with attending physician Dr. Sotero Almonte MD PGY-2 Attending Provider Attestation/Addendum Cecy Yu DO, attest that I was physically present for the mattson portions of the service and evaluated the patient with the resident and I reviewed and discussed the case with the resident and agree with the resident's findings and plans of care as documented above Patient seen and evaluated this AM. Patient reports mild pain in his right foot. Dry gangrene noted over first right toe with exposed necrotic distal phalanx, discoloured third and fifth digits. Erythema over dorsum of foot to ankle. He denies any active drainage. Case discussed with surgeon, plan for amputation on Saturday. Will need cardiac clearance prior to surgery. Will consult cardiology. Patient denies any fevers or chills.
--- NOTE | 2024-07-04 13:30 | PD.SURCONS ---
HPI Consult details History of present illness: 68M with HTN, CKD, DM with R foot osteomyelitis being treated since last year presenting with pain and discoloration of the toes. Pt has been taking PO antibiotics from his PCP but noted worsening necrosis prompting him to seek care in ER. Pt states he was seen by a vascular surgeon in [place] and was told that he needed an amputation (from his description the recommendation seems to be TMA) but that he needed to be optimized in terms of his cardiac and renal status PMH: HTN, CKD, DM PSHx: Calcanectomy, appendectomy Meds: No antiplt or anticoagulation Allergies: NKDA Review of Systems Review of Systems ROS Unobtainable: All systems reviewed & no additional complaints except as documented Meds Home Medications and Allergies Allergies Allergy/AdvReac Type Severity Reaction Status Date / Time No Known Allergies Allergy Verified 07/03/24 13:48 Exam Vital Signs Temp Pulse Resp BP Pulse Ox O2 Del Method 98.4 F 60 16 137/74 H 96 Room Air 07/04/24 08:00 07/04/24 10:09 07/04/24 08:00 07/04/24 10:09 07/04/24 08:00 07/04/24 08:00 Constitutional Constitutional: no acute distress Routine Respiratory Exam Respiratory: Present no resp distress Routine Extremities Exam Comments: right foot mild erythema, necrosis of the dorsum of the 1st, 3rd and 5th toes Results Results: Laboratory Laboratory results: results reviewed Assessment & Plan Plan 68M with HTN, CKD, DM and R osteomyelitis of the 5th digit, previous calcanectomy. Pt is planned for HD on 07/06 so I explained that as the surgery is not urgent it will be safer to proceed after HD, as soon as 07/07
[2024-07-04] MEDS: TUBERCULIN PPD INJ 5 UNIT/0.1 ML DOSE ID (16:22)
--- NOTE | 2024-07-04 16:34 | PC.NURSE ---
PPD printed info given to family as well as education.
[2024-07-04] MEDS: HEPARIN SOD INJ 5000 UNIT/ML VIAL SC (21:49)
[2024-07-04] MEDS: hydrALAZINE HCL 25 MG TABLET 50 MG PO (21:58)
[2024-07-05] VITALS (12 sets, daily range): BP systolic 143–174; BP diastolic 75–85; PULSE 45–63; RESP 13–20; TEMP 36.1–36.9; O2SAT 95–98
[2024-07-05] MEDS: hydrALAZINE HCL 25 MG TABLET 50 MG PO ×3 (05:58→22:12)
[2024-07-05 06:18] LABS: Basophils # (Auto) 0.1 Thou/mm3 (0.0-0.2); Basophils % (Auto) 1 % (0-2.5); Eosinophils # (Auto) 0.8 Thou/mm3 (0.0-0.5); Eosinophils % (Auto) 7 % (0-10); Hematocrit 27.4 % (41.0-53.0); Hemoglobin 8.9 g/dL (13.5-16.0); Immature Granulocytes % (Auto) 0 % (0-0); Immature Granulocytes Auto 0.03 Thou/mm3 (0.00-0.00); Lymphocytes # (Auto) 1.6 Thou/mm3 (1.0-4.8); Lymphocytes % (Auto) 14 % (10-50); Mean Corpuscular HGB Conc 32.5 g/dl (31.0-37.0); Mean Corpuscular Hemoglobin 29.5 pg (25.0-35.0); Mean Corpuscular Volume 91 fL (80-100); Monocytes # (Auto) 0.7 Thou/mm3 (0.0-0.8); Monocytes % (Auto) 6 % (0-12); Neutrophils % (Auto) 72 % (37-80); Nucleated Red Blood Cell % 0 /100 WBC (0); Platelet Count 229 Thou/mm3 (140-440); RDW Standard Deviation 48.3 fL (35.1-43.9); Red Blood Count 3.02 Miln/mm3 (4.50-5.90); White Blood Count 11.3 Thou/mm3 (3.8-10.6)
[2024-07-05 06:21] LABS: Alanine Aminotransferase 38 U/L (10-49); Albumin, Serum 3.3 gm/dL (3.4-4.8); Albumin/Globulin Ratio 0.9 (1.2-2.2); Alkaline Phosphatase 58 U/L (46-116); Anion Gap 9 (7-16); Aspartate Amino Transferase 24 U/L (0-34); BUN/Creatinine Ratio 17 Ratio (12-20); Bilirubin,Total 0.3 mg/dL (0.3-1.2); Blood Urea Nitrogen 73 mg/dL (9-23); Calcium 8.4 mg/dL (8.3-10.6); Carbon Dioxide 21.1 mMol/L (20.0-31.0); Chloride 108 mMol/L (98-107); Creatinine (Component) 4.3 mg/dL (0.6-1.3); Estimated Creatinine Clearance 15.5 mL/min (>60); Globulin 3.7 gm/dL (2.3-3.5); Glucose 127 mg/dL (74-106); Osmolality,Calculated 299 (275-295); Potassium 4.2 mMol/L (3.4-5.1); Sodium 138 mMol/L (136-145); eGFR 14 See Note
[2024-07-05 07:37] LABS: INR 1.1 (0.9-1.3); Partial Thromboplastin Time 34.9 Seconds (22.0-36.0); Prothrombin Time 11.8 Seconds (9.0-12.2)
[2024-07-05] MEDS: SENNA TABLET 1 TAB PO (08:36)
[2024-07-05] MEDS: amLODIPine BESYLATE 5 MG TABLET 10 MG PO (08:36)
[2024-07-05] MEDS: PIPER/TAZO INJ 4.5 GM in SODIUM CHLORIDE 0.9% (POP) 100 ML IV ×2 (08:37→22:13)
[2024-07-05] MEDS: HEPARIN SOD INJ 5000 UNIT/ML VIAL SC ×2 (08:37→22:17)
--- NOTE | 2024-07-05 09:20 | PD.IMCONS ---
HPI Data of Consult Requesting Physician: Luisito Bennett MD Primary Care Provider: Yang Vang MD Consult Narrative History of present illness: This is a68 y/o M with PMHx significant for CKD, diabetes, hypertension R foot osteomylitis and sever PVD cardiology consulted for pre op evaluation pt denies chest pain /sob/palpitaions troponin/EKG pending ECHO in 02/01 - normal EF other davalos unremarkable cc:: cc: Luisito Bennett MD Meds Home Medications and Allergies Allergies Allergy/AdvReac Type Severity Reaction Status Date / Time No Known Allergies Allergy Verified 07/03/24 13:48 Exam Vital Signs Temp Pulse Resp BP Pulse Ox O2 Del Method 97.4 F 59 L 13 174/85 H 98 Room Air 07/05/24 08:00 07/05/24 08:36 07/05/24 08:00 07/05/24 08:36 07/05/24 08:00 07/05/24 08:00 Routine HEENT Exam Head: Present normocephalic and atraumatic Eye: Present EOMI and PERRL ENT: Present mucous membranes moist Routine Neck Exam Neck: Present supple and trachea midline Routine Respiratory Exam Respiratory: Present chest non-tender, lungs clear, normal breath sounds and no resp distress Routine Cardiovascular Exam Cardiovascular: Present RRR Routine Abdominal Exam Abdominal: Present soft and normoactive bowel sounds Routine Extremities Exam Extremities: Present full ROM Routine Skin Exam Skin: Present intact, dry and warm Routine Neurological Exam Neurological: Present alert, oriented X3 and CN II-XII intact Routine Psychiatric Exam Psychiatric: Present normal affect and normal thought process Results Labs 07/05/24 04:46 07/05/24 04:46 Labs: Short CBC 07/05/24 Range/Units 04:46 WBC 11.3 H (3.8-10.6) Thou/mm3 Hgb 8.9 L (13.5-16.0) g/dL Hct 27.4 L (41.0-53.0) % Plt Count 229 (140-440) Thou/mm3 BMP 07/05/24 04:46 Sodium 138 Potassium 4.2 Chloride 108 H Carbon Dioxide 21.1 BUN 73 H Creatinine 4.3 H* Glucose 127 H Calcium 8.4 Liver Function 07/05/24 Range/Units 04:46 Total Bilirubin 0.3 (0.3-1.2) mg/dL AST 24 (0-34) U/L ALT 38 (10-49) U/L Alkaline Phosphatase 58 (46-116) U/L Albumin 3.3 L (3.4-4.8) gm/dL Assessment and Plan Assessment and plan (1) Osteomyelitis: Status: Acute (2) Peripheral arterial disease: Status: Acute (3) ESRD (end stage renal disease): Status: Acute (4) CKD (chronic kidney disease): Status: Acute (5) Preoperative cardiovascular examination: Status: Acute Additional Assessment & Plan Additional Plan: troponin /EKG/Rpt echo to be done pt denies cardiac symptoms
[2024-07-05] MEDS: VANCOMYCIN/NS 500 MG IVPB 100 ML 120 MG IV (10:21)
--- NOTE | 2024-07-05 15:04 | ESPR_ITS ---
Documentation for date of: 07/05/24 Subjective Subjective Interval history: No overnight events. Patient seen examined at bedside, resting comfortably. Patient reports feeling well, states leg pain has improved significantly. Denies fever, chills, chest pain, nausea, vomiting. Plan for dialysis catheter placement for the hemodialysis tomorrow. Plan for right TMA Saturday. Exam Vital Signs Temp Pulse Resp BP Pulse Ox O2 Del Method 97.0 F 55 L 14 164/80 H 98 Room Air 07/05/24 12:00 07/05/24 13:34 07/05/24 12:00 07/05/24 13:34 07/05/24 12:00 07/05/24 12:00 Narrative Exam PE: Gen: Chronically ill-appearing. HEENT: NCAT, PERRLA, EOMI, MMM, anicteric conjunctivae. CVS: normal S1 and S2. RRR. No M/R/G. Poor pedal pulses. Resp: CTA B/L. No rhonchi, rales, crackles or wheezing. Abd: soft, non-tender, non-distended. MSK: Good ROM in BUE & BLE. 1+ pitting edema right lower leg. Right lower leg erythematous and swollen. Bilateral stasis dermatitis. Right foot bandaged, with necrosis of 1st, 3rd and 5th digits, nontender. Neuro: CN II-XII grossly intact. Strength 5/5 in BUE & BLE. Alert and oriented x3. Psych: appropriate mood and affect. Objective Labs 07/06/24 04:08 07/06/24 04:08 Labs: Laboratory Results - last 24 hr 07/05/24 04:46 WBC 11.3 H RBC 3.02 L Hgb 8.9 L Hct 27.4 L MCV 91 MCH 29.5 MCHC 32.5 RDW Std Deviation 48.3 H Plt Count 229 Neut % (Auto) 72 Lymph % (Auto) 14 [place] % (Auto) 6 Eos % (Auto) 7 Baso % (Auto) 1 Neut # (Auto) 8.0 H Lymph # (Auto) 1.6 [place] # (Auto) 0.7 Eos # (Auto) 0.8 H Baso # (Auto) 0.1 Immature Gran # (Auto) 0.03 H Absolute Nucleated RBC 0.00 Immature Gran % 0 Nucleated RBC % 0 PT 11.8 INR 1.1 APTT 34.9 Sodium 138 Potassium 4.2 Chloride 108 H Carbon Dioxide 21.1 Anion Gap 9 BUN 73 H Creatinine 4.3 H* Estim Creat Clear Calc 15.5 L eGFR 14 L* BUN/Creatinine Ratio 17 Glucose 127 H Calculated Osmolality 299 H Calcium 8.4 Corrected Calcium 9.0 Phosphorus 5.0 Magnesium 2.0 Total Bilirubin 0.3 AST 24 ALT 38 Alkaline Phosphatase 58 Total Protein 7.0 Albumin 3.3 L Globulin 3.7 H Albumin/Globulin Ratio 0.9 L Random Vancomycin 10.0 Quality Measures Quality Measures VTE prophylaxis Advance care planning discussed with:: patient Assessment & Plan Assessment Current Active Medications: Generic Name Dose Route Start Last Admin Trade Name Freq PRN Reason Stop Dose Admin Acetaminophen 650 mg 07/03/24 17:50 Acetaminophen 325 Mg Tablet PO 08/02/24 17:49 Q6H PRN Fever >100.4 or pain 1-3 Amlodipine Besylate 10 mg 07/04/24 09:00 07/05/24 08:36 Amlodipine Besylate 5 Mg Tablet PO 08/03/24 08:59 10 mg QDAY MADELEINE Administration Dextrose 25 ml 07/03/24 17:56 Dextrose 50%-Water Inj 50 Ml Syringe IV 08/02/24 17:55 Q15MIN PRN BG 50-70 responsive npo pt Dextrose 50 ml 07/03/24 17:56 Dextrose 50%-Water Inj 50 Ml Syringe IV 08/02/24 17:55 Q15MIN PRN BG <50 OR BG <70 & pt unresponsive Docusate Sodium 100 mg 07/03/24 17:50 Docusate Sod 100 Mg Capsule PO 08/02/24 17:49 QDAY PRN CONSTIPATION Protocol Glucagon 1 mg 07/03/24 17:56 Glucagon Inj 1 Mg Vial IM Q15MIN PRN BG <70, and no IV access Heparin Sodium (Porcine) 5,000 unit 07/03/24 21:00 07/05/24 08:37 Heparin Sod Inj 5000 Unit/Ml Vial SC 07/17/24 20:59 5,000 unit Q12HR MADELEINE Administration Hydralazine HCl 50 mg 07/03/24 22:00 07/05/24 13:34 Hydralazine Hcl 25 Mg Tablet PO 08/02/24 21:59 50 mg TID MADELEINE Administration Piperacillin Sod/Tazobactam 100 mls @ 200 mls/hr 07/04/24 06:00 07/05/24 08:37 Sod 4.5 gm/ Sodium Chloride IV 07/11/24 05:59 200 mls/hr Q12HR MADELEINE Administration Insulin Human Lispro 0 unit 07/04/24 07:30 07/05/24 11:00 Insulin Lispro (Admelog) 1 Unit/0.01 Ml Unit SC 08/03/24 07:29 Not Given AC MADELEINE Protocol Ondansetron HCl 4 mg 07/03/24 17:50 Ondansetron Inj 2 Mg/Ml Inj 2 Ml IV 08/02/24 17:49 Q6H PRN NAUSEA OR VOMITING Protocol Pharmacy Consult 1 each 07/04/24 09:00 07/05/24 10:20 Vancomycin Pharmacy To Dose 1 Each Each IV 08/03/24 08:59 Not Given QDAY MADELEINE Sennosides 1 tab 07/03/24 17:50 07/05/24 08:36 Senna Tablet PO 08/02/24 17:49 1 tab QDAY PRN Administration constipation Protocol Tramadol HCl 50 mg 07/03/24 19:12 Tramadol Hcl 50 Mg Tablet PO 07/08/24 19:11 Q4HR PRN PAIN 4-6 Plan 68 y/o M with PMHx significant for CKD, diabetes, hypertension presents to ED with chief complaint progressive right foot infection. Patient noticed right lower leg swelling and erythema with foul smell and necrosis of the foot 2 weeks ago. #Osteomyelitis of right foot?fifth digit Patient presents with right foot infection for 2 weeks, after 1 week of outpatient biotics. Patient notes foul smell that has improved over the past week, necrosis of 1st, 3rd and 5th toes that has progressed. CRP 4.3, ESR 113. X-ray of the right foot showed osteomyelitis of the proximal middle phalanges of the fifth digit. Patient is nonseptic, negative Pro-Ladarius, afebrile. Patient has poor pedal pulses on exam. Patient with bilateral lower extremity edema, with right leg more swollen and erythematous compared to left. Patient denies tenderness on exam. Patient has history of osteomyelitis of right foot in the past, with amputation of the calcaneal. - Vancomycin pharmacy dosing (started 07/03) - Zosyn 4.5 g IV every 12 hours (started 07/03) - General Surgery consulted, most likely surgery will be done on Saturday - Tylenol as needed - Wound care #Hypertensive urgency resolved #Hypertension, patient history Patient history as stated. On presentation patient has BP 215/99, no signs of endorgan damage, denies headache, chest pain, blurry vision. - Resume home meds: Hydralazine and amlodipine - Closely monitor #CKD stage V Patient has history of CKD likely due to diabetes and hypertension. Per patient has been progressing towards dialysis, has been attempting to arrange placement of dialysis cath. Follows with telecommunications network engineer Dr. Bryant. Dr. Bryant was consulted, will see patient provide further recommendations. Possible dialysis catheter placement and hemodialysis on Saturday. - Renally dose medications - Nephrology consulted, most likely patient will have a catheter placement and have hemodialysis earliest on Saturday, nephrology is on board, will follow-up with recommendations - Avoid nephrotoxins #Diabetes, insulin-dependent Patient has history as stated. Hemoglobin A1c 6% as of 07/03. - ISS - Patient will need close control of blood sugar #Chronic normocytic anemia Patient has history as stated. Hemoglobin currently 10.4, no signs of active bleeding. Likely due to anemia of chronic disease in setting of diabetes, CKD. - Monitor hemoglobin - Transfuse if needed DVT prophylaxis: Resumed heparin as surgery will happen on Saturday, will hold heparin night before surgery GI prophylaxis: None Diet: Renal, carb consistent low, Lines: Peripheral IV Code status: Full code Patient care was discussed with attending physician Dr. Sotero Apple MD PGY?1 Attending Provider Attestation/Addendum Cecy Yu, , attest that I was physically present for the mattson portions of the service and evaluated the patient with the resident and I reviewed and discussed the case with the resident and agree with the resident's findings and plans of care as documented above Patient seen and evaluated this AM. Patient has no active complaints. No acute events overnight. Pending echocardiogram for cardiac clearance. Tentatively planned for transmetatarsal amputation on Saturday.
[2024-07-05] MEDS: EPOETIN ALFA INJ 1,000 UNIT/0.05 ML UNIT 10000 UNIT SC (16:34)
--- NOTE | 2024-07-05 17:37 | ESCONSULT_ITS ---
RE: ABDIRAHMAN PETERSEN : 1955 DATE OF CONSULTATION: 07/05/2024 REASON FOR REFERRAL: Advanced CKD. REFERRING PHYSICIAN: Dr. Richmond. HISTORY OF PRESENT ILLNESS: This patient is a 68-year-old -[place] gentleman with type 2 diabetes diagnosed around 3 years ago, hypertension, and stage V CKD, who was initially seen at [facility] 01/2024 for nonhealing right foot infection. While he was there last time, he was found with a hemoglobin A1C of 12 and his right foot infection was spreading to his right guevara. He was given IV vancomycin and Zosyn while in the hospital and was discharged. During that time, his serum creatinine peaked at around 3.8. About a month ago, patient saw me in my clinic and he told me that he would be needing a left BKA as his right leg is in a very poor condition. He told me during that time that the vascular surgeon wanted him to see his steelscope operator to get him on dialysis prior to doing a left BKA. Due to insurance problem, we could not put him in either dialysis unit to start dialysis or get a dialysis catheter placement. There was one outpatient radiology clinic, who was willing to put a dialysis catheter on him; however, they said that they were moving to another office and it would not happen until the first week of July. We tried to look for a another [facility] that would provide him with dialysis catheter; however, we have a hard time getting one due to insurance problems. Finally, patient decided to go to emergency room as it seems like the right leg is getting worse. Currently, he is seemingly stable. No fever with a declining leukocytosis. The patient is currently on vancomycin and Zosyn. Blood cultures have been negative so far. While in the hospital, he was seen by Dr. Jones and there is a plan to do BKA after starting him on dialysis. PAST MEDICAL HISTORY: Stage V CKD, diabetic nephropathy, right foot infection now with osteomyelitis, and hypertension. SURGICAL HISTORY: Appendectomy and right calcaneal amputation. SOCIAL HISTORY: No smoking, alcohol abuse or drug abuse. ALLERGIES: NO KNOWN DRUG ALLERGIES. CURRENT MEDICATIONS: 1. Tramadol. 2. Vancomycin. 3. Acetaminophen. 4. Amlodipine 10 mg daily. 5. Hydralazine 50 mg p.o. t.i.d. 6. Ondansetron. 7. Zosyn 4.5 g IV q.12. PHYSICAL EXAMINATION: Blood pressure of 164/80 and heart rate of 51. Did not perform full examination as it is telehealth. LABORATORY DATA: Hemoglobin 8.9, WBC 11,300, and platelet count 129,000. Sodium 138, potassium 4.2, chloride 108, CO2 of 21.1, BUN 47, creatinine 4.3, phosphorus 5, calcium 8.4, and albumin 3.3. ASSESSMENT: 1. Stage V chronic kidney disease secondary to diabetic nephropathy and hypertensive nephrosclerosis. 2. 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 3. Hypertension. 4. Anemia of chronic disease and chronic inflammation. 5. Right leg osteomyelitis with osteomyelitis of the plantar surface of the calcaneus. TREATMENT: The patient will be started on dialysis tomorrow after a tunneled dialysis catheter is placed by IR. I have discussed risk of getting a dialysis catheter placement as well as hemodialysis treatment, which include, but not limited to bleeding, infection, low blood pressure during dialysis, etc. Dialysis will be provided in incremental doses in the next 3 days and after that, he will undergo dialysis treatment 3 times a week. I will give him also one dose of Retacrit 10,000 units x1 to address his anemia, butI will avoid IV iron due to active infection. I will closely monitor him with you. Thank you for allowing me to participate in medical care of your patient. DT: 15:40:35 TT: 17:31:00 Ref: [id number] - TID: [id number] MTDD
[2024-07-06] VITALS (29 sets, daily range): BP systolic 111–212; BP diastolic 58–101; PULSE 50–82; RESP 14–19; TEMP 36.2–37.1; O2SAT 95–99
[2024-07-06 05:20] LABS: Basophils # (Auto) 0.1 Thou/mm3 (0.0-0.2); Basophils % (Auto) 0 % (0-2.5); Eosinophils % (Auto) 9 % (0-10); Hematocrit 27.4 % (41.0-53.0); Hemoglobin 8.9 g/dL (13.5-16.0); Immature Granulocytes % (Auto) 0 % (0-0); Immature Granulocytes Auto 0.05 Thou/mm3 (0.00-0.00); Lymphocytes # (Auto) 1.6 Thou/mm3 (1.0-4.8); Lymphocytes % (Auto) 14 % (10-50); Mean Corpuscular HGB Conc 32.5 g/dl (31.0-37.0); Mean Corpuscular Hemoglobin 29.4 pg (25.0-35.0); Mean Corpuscular Volume 90 fL (80-100); Monocytes # (Auto) 0.7 Thou/mm3 (0.0-0.8); Monocytes % (Auto) 7 % (0-12); Neutrophils # (Auto) 7.9 Thou/mm3 (1.8-7.7); Neutrophils % (Auto) 70 % (37-80); Nucleated Red Blood Cell % 0 /100 WBC (0); Platelet Count 232 Thou/mm3 (140-440); RDW Standard Deviation 46.6 fL (35.1-43.9); Red Blood Count 3.03 Miln/mm3 (4.50-5.90); White Blood Count 11.3 Thou/mm3 (3.8-10.6)
[2024-07-06 06:00] LABS: Alanine Aminotransferase 31 U/L (10-49); Albumin, Serum 3.2 gm/dL (3.4-4.8); Albumin/Globulin Ratio 0.8 (1.2-2.2); Alkaline Phosphatase 53 U/L (46-116); Anion Gap 10 (7-16); Aspartate Amino Transferase 18 U/L (0-34); BUN/Creatinine Ratio 17 Ratio (12-20); Bilirubin,Total 0.3 mg/dL (0.3-1.2); Blood Urea Nitrogen 75 mg/dL (9-23); Calcium 8.4 mg/dL (8.3-10.6); Carbon Dioxide 21.3 mMol/L (20.0-31.0); Chloride 107 mMol/L (98-107); Creatinine (Component) 4.5 mg/dL (0.6-1.3); Estimated Creatinine Clearance 14.6 mL/min (>60); Globulin 3.8 gm/dL (2.3-3.5); Glucose 121 mg/dL (74-106); Magnesium 2.1 mg/dL (1.6-2.6); Osmolality,Calculated 298 (275-295); Phosphorous 4.7 mg/dL (2.4-5.1); Potassium 4.3 mMol/L (3.4-5.1); Sodium 138 mMol/L (136-145); Vancomycin,Random 13.6 mcg/mL; eGFR 13 See Note
--- NOTE | 2024-07-06 07:28 | PD.IMPROG ---
Documentation for date of: 07/06/24 Subjective Subjective Interval history: feeing ok Exam Vital Signs Temp Pulse Resp BP Pulse Ox O2 Del Method 98.7 F 51 L 16 145/80 H 95 Room Air 07/06/24 04:00 07/06/24 05:26 07/06/24 04:00 07/06/24 05:26 07/06/24 04:00 07/06/24 04:00 Routine HEENT Exam Head: Present normocephalic and atraumatic Eye: Present EOMI and PERRL ENT: Present mucous membranes moist Routine Neck Exam Neck: Present supple and trachea midline Routine Respiratory Exam Respiratory: Present chest non-tender, lungs clear, normal breath sounds and no resp distress Routine Cardiovascular Exam Cardiovascular: Present RRR Routine Abdominal Exam Abdominal: Present soft and normoactive bowel sounds Routine Extremities Exam Extremities: Present full ROM Routine Skin Exam Skin: Present intact, dry and warm Routine Neurological Exam Neurological: Present alert, oriented X3 and CN II-XII intact Routine Psychiatric Exam Psychiatric: Present normal affect and normal thought process Objective Labs 07/06/24 04:08 07/06/24 04:08 Labs: Laboratory Results - last 24 hr 07/05/24 07/06/24 04:46 04:08 WBC 11.3 H RBC 3.03 L Hgb 8.9 L Hct 27.4 L MCV 90 MCH 29.4 MCHC 32.5 RDW Std Deviation 46.6 H Plt Count 232 Neut % (Auto) 70 Lymph % (Auto) 14 [place] % (Auto) 7 Eos % (Auto) 9 Baso % (Auto) 0 Neut # (Auto) 7.9 H Lymph # (Auto) 1.6 [place] # (Auto) 0.7 Eos # (Auto) 1.0 H Baso # (Auto) 0.1 Immature Gran # (Auto) 0.05 H Absolute Nucleated RBC 0.00 Immature Gran % 0 Nucleated RBC % 0 PT 11.8 INR 1.1 APTT 34.9 Sodium 138 Potassium 4.3 Chloride 107 Carbon Dioxide 21.3 Anion Gap 10 BUN 75 H Creatinine 4.5 H* Estim Creat Clear Calc 14.6 L eGFR 13 L* BUN/Creatinine Ratio 17 Glucose 121 H Calculated Osmolality 298 H Calcium 8.4 Corrected Calcium 9.0 Phosphorus 4.7 Magnesium 2.1 Total Bilirubin 0.3 AST 18 ALT 31 Alkaline Phosphatase 53 Total Protein 7.0 Albumin 3.2 L Globulin 3.8 H Albumin/Globulin Ratio 0.8 L Random Vancomycin 13.6 Assessment & Plan A&P Narrative troponin /EKG/Rpt echo to be done pt denies cardiac symptoms Time Spent With Patient Time: Total time spent is greater than 50% in coordination of care (as documented) at patient's floor/unit and/or counseling patient:
--- NOTE | 2024-07-06 08:00 | XR_ITS ---
Ultrasound-guided needle placement right internal jugular vein Permanent tunneled dialysis catheter insertion, percutaneous Fluoroscopy AP chest, portable, single view. Date and time of procedure: July 06, 2024 1040 hours INDICATIONS: Renal failure, need for stat and long-term dialysis Informed consent provided Technique: A timeout was completed verifying correct patient, procedure, site, positioning, and special equipment if applicable. The patient was placed in a dependent position appropriate for dialysis catheter placement based on the vein to be cannulated. The patient'sright neck was prepped and draped in sterile fashion. Maximum Sterile Barrier Technique used including cap, mask, sterile gown, sterile gloves, and sterile full body drape. If ultrasound technique used: sterile gel and sterile probe covers. Hand Hygiene performed using proper scrub, soap and water, or alcohol-based hand rub. 1% lidocaine was used to anesthetize the surrounding skin area The [employer] portable ultrasound apparatus utilized to confirm patency of the right internal jugular vein Utilizing ultrasonographic guidance successful 21-gauge needle puncture into the right internal jugular vein Ultrasound images were recorded and stored. Vessel micropuncture was performed with 21-gauge needle. 0.18 wire guide is introduced into the vein. 0.18 wire is introduced into the vena cava under fluoroscopy. Subcutaneous tunnel formed in the upper chest. Permanent tunneled dialysis catheter placed in the subcutaneous tunnel. Dilators were introduced over the J-wire guide. Tunneled dialysis catheter is introduced through a dilator with venous sheath into the superior vena cava under fluoroscopic guidance. The catheter is sutured in place to the skin and a sterile dressing applied. Perfusion to the extremity distal to the point of catheter insertion is checked and found to be adequate Attending radiologist was present for the entire procedure Estimated blood loss3 cc. The patient tolerated the procedure well and there were no complications Impression: Successful ultrasound-guided needle placement right internal blood or vein Successful permanent tunneled dialysis catheter insertion, percutaneous Fluoroscopy 0.2 minute radiation dose 0.98 milligray 1 spot fluoroscopic chest film. AP chest performed at completion procedure demonstrates satisfactory position dialysis catheter. May use dialysis catheter.
--- NOTE | 2024-07-06 08:15 | EKG_ITS ---
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
--- NOTE | 2024-07-06 08:15 | ECHO_ITS ---
Transthoracic Echo Report Ht (in): 69 Wt (lb): 153 Exam Location: Echo Lab Status: Inpatient Pumper Gauger: REYNA Rodríguez^^^^ Indications: Procedure Performed: BP: / HR: Technical Quality: Fair MEASUREMENTS (Male / Female) Normal Values 2D ECHO LV Diastolic Diameter PLAX 5.4 cm 4.2 - 5.9 / 3.9 - 5.3 cm LV Systolic Diameter PLAX 3.6 cm IVS Diastolic Thickness 0.9 cm 0.6 - 1.0 / 0.6 - 0.9 cm LVPW Diastolic Thickness 1.0 cm 0.6 - 1.0 / 0.6 - 0.9 cm LV Relative Wall Thickness 0.4 LVOT Diameter 1.9 cm Aortic Root Diameter 3.6 cm LA Systolic Diameter LX 2.5 cm 3.0 - 4.0 / 2.7 - 3.8 cm LA Volume Index 56.0 cm?/m? 16 - 28 cm?/m? DOPPLER AV Peak Velocity 156.3 cm/s AV Peak Gradient 9.8 mmHg AV Mean Gradient 5.7 mmHg AV Velocity Time Integral 38.2 cm AI Peak Velocity 253.3 cm/s AI Peak Gradient 25.7 mmHg AI Pressure Half Time 553.0 ms LVOT Peak Velocity 111.0 cm/s LVOT Peak Gradient 4.9 mmHg LVOT Velocity Time Integral 28.6 cm AV Area Cont Eq vti 2.1 cm? AV Area Cont Eq pk 2.0 cm? MV Area PHT 2.5 cm? Mitral E Point Velocity 69.4 cm/s Mitral A Point Velocity 99.4 cm/s Mitral E to A Ratio 0.7 LV E' Lateral Velocity 7.8 cm/s Mitral E to LV E' Lateral Ratio 8.9 LV E' Septal Velocity 4.3 cm/s Mitral E to LV E' Septal Ratio 16.0 TR Peak Velocity 298.0 cm/s TR Peak Gradient 35.5 mmHg PV Peak Velocity 105.0 cm/s PV Peak Gradient 4.4 mmHg RVOT Peak Velocity 68.7 cm/s FINDINGS Left Ventricle Normal left ventricular size, wall thickness, systolic function with no obvious regional wall motion abnormalities. There is grade I diastolic dysfunction of the left ventricle (impaired relaxation pattern). The left ventricular ejection fraction is normal, estimated at 55-60%. Right Ventricle The right ventricle is normal in size and systolic function. The estimated right ventricular systolic pressure, 36 mmHg. Left Atrium Moderately increased left atrial volume 56 mL/m?. Right Atrium The right atrial cavity size is mildly increased. Atrial Septum The interatrial septum appears normal with no evidence of a shunt. Aorta The aorta is normal by two-dimensional, color flow and Doppler interrogation. Mitral Valve Mild mitral regurgitation. Mild mitral annular calcification. Aortic Valve Aortic valve sclerosis. Diffuse calcification of the aortic valve. Mild thickening of the aortic valve leaflets. Tricuspid Valve There is mild tricuspid valve regurgitation. Pulmonic Valve Trivial pulmonic valve regurgitation. Vessels The pulmonary artery appears normal. The inferior vena cava pulmonary and hepatic veins appear normal. Pericardium The pericardium is normal by two-dimensional imaging. There is no significant pericardial effusion. CONCLUSIONS indication: Cardiac Clearance LV appears normal with EF 55-60%. RV appears normal with RVSP 36 mmHg. LA is moderatley dilated RA is mildly dilated Mild MR & MAC AOV sclerosis heavily calcified AOV. Mild TR Shani Benedict (Electronically Signed) Final Date: 06 July 2024 13:41
[2024-07-06] MEDS: PIPER/TAZO INJ 4.5 GM in SODIUM CHLORIDE 0.9% (POP) 100 ML IV ×2 (08:29→20:22)
--- NOTE | 2024-07-06 10:26 | PC.NURSE ---
PT TAKEN DOWN TO M[employer] PROGRAMMER
[2024-07-06] MEDS: HEPARIN SOD LOCK SYR 100 UNIT/ML 500 UNIT STFIELD (11:00)
[2024-07-06] MEDS: fentaNYL CIT INJ 50 mCg/ML AMP 2ML IVP (11:13)
[2024-07-06] MEDS: HEPARIN SOD INJ 5000 UNIT/ML VIAL 10 ML 3500 UNIT INTRACATH (11:23)
[2024-07-06] MEDS: LIDOCAINE INJ PF 1% 5 ML VIAL 9 ML INFL (11:25)
--- NOTE | 2024-07-06 13:29 | ESPR_ITS ---
<Statement entered by Micheline Almonte MD - 07/06/24 15:04> Patient evaluated at bedside. No acute events overnight. Patient clinically improving: Afebrile, saturating well on room air..Hemodynamically stable. Labs:CBC/CMP: No significant changes.WBC trended down to 11.3.Blood cultures: Negative. Blood pressure well-controlled with hydralazine and amlodipine. Antibiotics: Continuing vancomycin and Zosyn. Plan: Dialysis catheter placement scheduled for today. Initiation of dialysis session today per nephrology. Follow nephrology recommendations. Cardiology consulted: -Troponin, EKG, and echocardiogram ordered. -Awaiting cardiology clearance for surgery. -If patient remains hemodynamically stable and is cleared by cardiology, proceed with surgery tomorrow. Documentation for date of: 07/06/24 Subjective Subjective Interval history: No overnight events. Patient seen examined at bedside, resting comfortably. Patient reports feeling well, denies chest pain, nausea, vomiting, shortness of breath, headache, fatigue, fevers, chills. Did well with dialysis. Plan for TMA tomorrow, possible dialysis session tomorrow. Blood cultures negative. Exam Vital Signs Temp Pulse Resp BP Pulse Ox O2 Del Method O2 Flow Rate 98.3 F 52 L 18 147/76 H 95 Nasal Cannula 2 07/06/24 11:49 07/06/24 13:15 07/06/24 11:49 07/06/24 13:15 07/06/24 11:49 07/06/24 11:29 07/06/24 11:29 Narrative Exam PE: Gen: Chronically ill-appearing. HEENT: NCAT, PERRLA, EOMI, MMM, anicteric conjunctivae. CVS: normal S1 and S2. RRR. No M/R/G. Poor pedal pulses. Resp: CTA B/L. No rhonchi, rales, crackles or wheezing. Abd: soft, non-tender, non-distended. MSK: Good ROM in BUE & BLE. Trace pitting edema right lower leg. Right lower leg erythematous and swollen, improved. Bilateral stasis dermatitis. Right foot bandaged, with necrosis of 1st, 3rd and 5th digits, nontender. Neuro: CN II-XII grossly intact. Strength 5/5 in BUE & BLE. Alert and oriented x3. Psych: appropriate mood and affect. Objective Labs 07/07/24 04:21 07/07/24 04:21 Labs: Laboratory Results - last 24 hr 07/06/24 04:08 WBC 11.3 H RBC 3.03 L Hgb 8.9 L Hct 27.4 L MCV 90 MCH 29.4 MCHC 32.5 RDW Std Deviation 46.6 H Plt Count 232 Neut % (Auto) 70 Lymph % (Auto) 14 [place] % (Auto) 7 Eos % (Auto) 9 Baso % (Auto) 0 Neut # (Auto) 7.9 H Lymph # (Auto) 1.6 [place] # (Auto) 0.7 Eos # (Auto) 1.0 H Baso # (Auto) 0.1 Immature Gran # (Auto) 0.05 H Absolute Nucleated RBC 0.00 Immature Gran % 0 Nucleated RBC % 0 Sodium 138 Potassium 4.3 Chloride 107 Carbon Dioxide 21.3 Anion Gap 10 BUN 75 H Creatinine 4.5 H* Estim Creat Clear Calc 14.6 L eGFR 13 L* BUN/Creatinine Ratio 17 Glucose 121 H Calculated Osmolality 298 H Calcium 8.4 Corrected Calcium 9.0 Phosphorus 4.7 Magnesium 2.1 Total Bilirubin 0.3 AST 18 ALT 31 Alkaline Phosphatase 53 Troponin I 0.040 Total Protein 7.0 Albumin 3.2 L Globulin 3.8 H Albumin/Globulin Ratio 0.8 L Random Vancomycin 13.6 Quality Measures Quality Measures VTE prophylaxis Advance care planning discussed with:: patient Assessment & Plan Assessment Current Active Medications: Generic Name Dose Route Start Last Admin Trade Name Freq PRN Reason Stop Dose Admin Acetaminophen 650 mg 07/03/24 17:50 Acetaminophen 325 Mg Tablet PO 08/02/24 17:49 Q6H PRN Fever >100.4 or pain 1-3 Amlodipine Besylate 10 mg 07/04/24 09:00 07/06/24 08:24 Amlodipine Besylate 5 Mg Tablet PO 08/03/24 08:59 Not Given QDAY MADELEINE Dextrose 25 ml 07/03/24 17:56 Dextrose 50%-Water Inj 50 Ml Syringe IV 08/02/24 17:55 Q15MIN PRN BG 50-70 responsive npo pt Dextrose 50 ml 07/03/24 17:56 Dextrose 50%-Water Inj 50 Ml Syringe IV 08/02/24 17:55 Q15MIN PRN BG <50 OR BG <70 & pt unresponsive Docusate Sodium 100 mg 07/03/24 17:50 Docusate Sod 100 Mg Capsule PO 08/02/24 17:49 QDAY PRN CONSTIPATION Protocol Glucagon 1 mg 07/03/24 17:56 Glucagon Inj 1 Mg Vial IM Q15MIN PRN BG <70, and no IV access Heparin Sodium (Porcine) 5,000 unit 07/03/24 21:00 07/06/24 08:21 Heparin Sod Inj 5000 Unit/Ml Vial SC 07/17/24 20:59 Not Given Q12HR [facility] Heparin Sodium (Porcine) 3,500 unit 07/06/24 12:46 Heparin Sod Inj 1000 Unit/Ml Vial 10 Ml INDWELLCAT 07/20/24 12:45 X1 PRN DIALYSIS Hydralazine HCl 50 mg 07/03/24 22:00 07/06/24 05:26 Hydralazine Hcl 25 Mg Tablet PO 08/02/24 21:59 Not Given TID MADELEINE Piperacillin Sod/Tazobactam 100 mls @ 200 mls/hr 07/04/24 06:00 07/06/24 08:29 Sod 4.5 gm/ Sodium Chloride IV 07/11/24 05:59 200 mls/hr Q12HR MADELEINE Administration Vancomycin/Sodium Chloride 100 mls @ 120 mls/hr 07/06/24 15:00 Vancomycin/Ns 500 Mg Ivpb IV 07/06/24 15:49 X1 ONE Albumin Human 25 gm in 100 mls @ 100 mls/hr 07/06/24 12:46 Albuminar-25 Ivpb IV 07/09/24 12:45 PRN PRN DIALYSIS Insulin Human Lispro 0 unit 07/04/24 07:30 07/06/24 12:17 Insulin Lispro (Admelog) 1 Unit/0.01 Ml Unit SC 08/03/24 07:29 Not Given AC [facility] Protocol Ondansetron HCl 4 mg 07/03/24 17:50 Ondansetron Inj 2 Mg/Ml Inj 2 Ml IV 08/02/24 17:49 Q6H PRN NAUSEA OR VOMITING Protocol Pharmacy Consult 1 each 07/06/24 08:08 Vancomycin Pharmacy To Dose 1 Each Each IV 08/03/24 08:59 QDAY PRN RX Sennosides 1 tab 07/03/24 17:50 07/05/24 08:36 Senna Tablet PO 08/02/24 17:49 1 tab QDAY PRN Administration constipation Protocol Tramadol HCl 50 mg 07/03/24 19:12 Tramadol Hcl 50 Mg Tablet PO 07/08/24 19:11 Q4HR PRN PAIN 4-6 Plan 68 y/o M with PMHx significant for CKD, diabetes, hypertension presents to ED with chief complaint progressive right foot infection. Patient noticed right lower leg swelling and erythema with foul smell and necrosis of the foot 2 weeks ago. #Osteomyelitis of right foot?fifth digit Patient presents with right foot infection for 2 weeks, after 1 week of outpatient biotics. Patient notes foul smell that has improved over the past week, necrosis of 1st, 3rd and 5th toes that has progressed. CRP 4.3, ESR 113. X-ray of the right foot showed osteomyelitis of the proximal middle phalanges of the fifth digit. Patient is nonseptic, negative Pro-Ladarius, afebrile. Patient has poor pedal pulses on exam. Patient with bilateral lower extremity edema, with right leg more swollen and erythematous compared to left. Patient denies tenderness on exam. Patient has history of osteomyelitis of right foot in the past, with amputation of the calcaneal. - Vancomycin pharmacy dosing (started 07/03) - Zosyn 4.5 g IV every 12 hours (started 07/03) - General Surgery consulted, most likely surgery will be done on Saturday - Tylenol as needed - Wound care - Cardiology consulted, pending cardiac clearance #Hypertensive urgency, resolved #Hypertension, patient history Patient history as stated. On presentation patient has BP 215/99, no signs of endorgan damage, denies headache, chest pain, blurry vision. - Resume home meds: Hydralazine and amlodipine - Closely monitor #CKD stage V, hemodialysis Patient has history of CKD likely due to diabetes and hypertension. Per patient has been progressing towards dialysis, has been attempting to arrange placement of dialysis cath. Follows with bushel worker Dr. Bryant. Dr. Bryant was consulted, will see patient provide further recommendations. Patient had dialysis catheter placed, received first session of hemodialysis without fluid removal, well-tolerated. - Renally dose medications - Nephrology consulted, appreciate recommendations - Dialysis as per nephrology - Avoid nephrotoxins #Diabetes, insulin-dependent Patient has history as stated. Hemoglobin A1c 6% as of 07/03. - ISS - Patient will need close control of blood sugar #Chronic normocytic anemia Patient has history as stated. Hemoglobin currently 10.4, no signs of active bleeding. Likely due to anemia of chronic disease in setting of diabetes, CKD. - Monitor hemoglobin - Transfuse if needed DVT prophylaxis: Resumed heparin as surgery will happen on Saturday, will hold heparin night before surgery GI prophylaxis: None Diet: Renal, carb consistent low, n.p.o. after midnight Lines: Peripheral IV Code status: Full code Patient care was discussed with senior resident Dr. Palmer PGY?[address] Sotero Apple MD PGY?1 Attending Provider Attestation/Addendum I, Cecy Bey, DO, attest that I was physically present for the mattson portions of the service and evaluated the patient with the resident and I reviewed and discussed the case with the resident and agree with the resident's findings and plans of care as documented above Patient seen and evaluated this AM. Patient underwent first session of dialysis today after placement of tunneled catheter. Right upper chest at insertion site appears clean,dry and intact. Patient denies any pain, chest pain, shortness of breaht or lightheadedness. Patient will be undergoing TMA tomorrow. NPO after midnight. All quetsions and concerns addressed at bedside to patient's satisfaction.
[2024-07-06] MEDS: HEPARIN SOD INJ 1000 UNIT/ML VIAL 10 ML 3500 UNIT INDWELLCAT (14:14)
[2024-07-06] MEDS: VANCOMYCIN/NS 500 MG IVPB 100 ML 120 MG IV (14:38)
[2024-07-06] MEDS: hydrALAZINE HCL 25 MG TABLET 50 MG PO ×2 (14:38→21:48)
--- NOTE | 2024-07-06 14:53 | PC.SS ---
SS met with patient who is alert/oriented. Patient was able to verify demographics. Patient states he resides with his daughter, Luz. Patient is ambulatory and uses a walker. Patient was admitted for osteomyelitis. Patient had per [facility] placement today. He will be new on hemodialysis. [employer] D[employer] Server is Dr. Bryant. SS will submit all paperwork to dialysis center. Today was day one of dialysis treatment. Patient's daughter transports him to all appointments. Patient is pending surgery tomorrow. PCP: Dr. Vang and last appt. was last week. Alt medical decision maker: DaughterRafat,
[2024-07-06] MEDS: amLODIPine BESYLATE 5 MG TABLET 10 MG PO (15:10)
[2024-07-06] MEDS: hydrALAZINE INJ 20 MG/ML VIAL 10 MG IV (17:05)
--- NOTE | 2024-07-06 19:23 | ESPR_ITS ---
Documentation for date of: 07/06/24 Subjective Subjective Brief History: 69M with HTN, CKD, DM with R foot osteomyelitis being treated since last year presenting with pain and discoloration of the toes. Pt has been taking PO antibiotics from his PCP but noted worsening necrosis prompting him to seek care in ER. Pt states he was seen by a vascular surgeon in [place] and was told that he needed an amputation (from his description the recommendation seems to be TMA) but that he needed to be optimized in terms of his cardiac and renal status PMH: HTN, CKD, DM PSHx: Calcanectomy, appendectomy Meds: No antiplt or anticoagulation Allergies: NKDA Narrative: Pain controlled, underwent catheter placement and HD today Exam Vital Signs Temp Pulse Resp BP Pulse Ox O2 Del Method O2 Flow Rate 98.8 F 64 17 149/74 H 97 Room Air 2 07/06/24 17:47 07/06/24 17:47 07/06/24 17:47 07/06/24 18:31 07/06/24 17:47 07/06/24 17:47 07/06/24 11:29 Constitutional Constitutional: no acute distress Routine Respiratory Exam Respiratory: Present no resp distress Routine Extremities Exam Comments: RLE absent popliteal, DP pulses Results Results: Laboratory Laboratory results: results reviewed Assessment & Plan Plan 69M with HTN, CKD, DM and R osteomyelitis of the 5th digit, previous calcanectomy which appears partial based on exam and xray. I examined the pt yesterday with colleague Dr Hernandez and we determined that it is reasonable to pursue amputation of all the digits for now, as most are affected by dry gangrene and are unlikely to improve with wound care. I explained to pt and his daughter that wound healing will likely take weeks-months and that he should follow up with the vascular surgeon he saw previously in case there is any chance of improving blood flow to the area which could help the wounds to heal, but that if the wounds do not heal well he may go on to require BKA. All questions were answered and pt is agreeable to this plan NPO after MN for amputation of R 1st-5th digits in AM
--- NOTE | 2024-07-06 23:07 | ESPR_ITS ---
RE: ABDIRAHMAN PETERSEN : 1955 DATE OF SERVICE: 07/06/2024 SUBJECTIVE: Briefly he is a 68-year-old -[place] gentleman with type 2 diabetes diagnosed 3 years ago, hypertension, and stage V CKD with a nonhealing right foot infection since 01/2024. The patient had uncontrolled diabetes when he was admitted in 01/2024. He also has a right foot infection that was getting worse. During that time he was treated with IV vancomycin and Zosyn and was discharged. Sometime in 05/2024, the patient saw me in the clinic as he was getting ready to have a left below-knee amputation. However, due to his insurance we were not able to get a [facility] for dialysis catheter placement as well as a dialysis unit. Family decided to bring him to the emergency room as his right foot seemed to be getting worse. He had dialysis catheter placed early this morning and is currently on dialysis. He is doing well and has no specific complaints. CURRENT MEDICATIONS: 1. Acetaminophen. 2. Albumin. 3. Amlodipine 10 mg daily. 4. Heparin 5000 units SubQ q. 12. 5. Hydralazine 50 mg p.o. t.i.d. 6. Lispro sliding scale. 7. Ondansetron 4 mg IV q.4 p.r.n. 8. Zosyn 4.5 g IV q.12. 9. Vancomycin 1 g IV daily PHYSICAL EXAMINATION: General: Awake, alert, and oriented, currently on dialysis. Vital Signs: Blood pressure 144/76. Heart rate of 65. HEENT: HEENT: Anicteric sclerae. Normocephalic. Neck: Supple. No JVD. Chest and Lungs: Symmetric expansion. Clear breath sounds. Cardiac: Without murmur. Abdomen: Soft and nontender. Extremities: No edema. LABORATORY DATA: Hemoglobin 8.9, WBC 11,200, platelet count 232,000. Sodium 128, potassium 4.3, chloride 107, CO2 of 21.3, BUN 75. Creatinine 4.5, glucose 121. calcium 8.4, corrected 9. Phosphorous 4.7. ASSESSMENT: 1. 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 2. 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 3. Hypertension. 4. Anemia of chronic disease and chronic inflammation. 5. Right leg Cellulitis with osteomyelitis of the plantar surface of the calcaneus. PLAN: The patient is currently on dialysis. Next dialysis will be tomorrow. There is a plan for right foot surgery. I will continue giving him Retacrit 10,000 units subcutaneously three times a week but I will avoid IV iron due to active infection. DT: 21:43:02 TT: 22:25:00 Ref: [id number] - TID: [id number] [facility]
[2024-07-07] VITALS (31 sets, daily range): BP systolic 99–171; BP diastolic 52–93; PULSE 54–86; RESP 12–61; TEMP 36.1–36.8; O2SAT 94–98
[2024-07-07] MEDS: traMADol HCL 50 MG TABLET PO ×4 (02:54→23:54)
[2024-07-07] MEDS: HYDROmorphone INJ 2 MG/ML VIAL 0.5 MG IVP (04:03)
--- NOTE | 2024-07-07 05:34 | PC.NURSE ---
Patient NPO and MD said okay to give Hydralazine with sip of water.
[2024-07-07] MEDS: hydrALAZINE HCL 25 MG TABLET 50 MG PO ×2 (05:38→22:14)
[2024-07-07 06:27] LABS: Basophils # (Auto) 0.1 Thou/mm3 (0.0-0.2); Basophils % (Auto) 1 % (0-2.5); Eosinophils # (Auto) 0.8 Thou/mm3 (0.0-0.5); Eosinophils % (Auto) 7 % (0-10); Hemoglobin 10.2 g/dL (13.5-16.0); Immature Granulocytes % (Auto) 0 % (0-0); Immature Granulocytes Auto 0.03 Thou/mm3 (0.00-0.00); Lymphocytes # (Auto) 1.7 Thou/mm3 (1.0-4.8); Lymphocytes % (Auto) 14 % (10-50); Mean Corpuscular HGB Conc 31.9 g/dl (31.0-37.0); Mean Corpuscular Hemoglobin 28.8 pg (25.0-35.0); Mean Corpuscular Volume 90 fL (80-100); Monocytes # (Auto) 1.1 Thou/mm3 (0.0-0.8); Monocytes % (Auto) 9 % (0-12); Neutrophils # (Auto) 8.9 Thou/mm3 (1.8-7.7); Neutrophils % (Auto) 70 % (37-80); Nucleated Red Blood Cell % 0 /100 WBC (0); Platelet Count 227 Thou/mm3 (140-440); RDW Standard Deviation 46.1 fL (35.1-43.9); Red Blood Count 3.54 Miln/mm3 (4.50-5.90); White Blood Count 12.7 Thou/mm3 (3.8-10.6)
[2024-07-07 06:56] LABS: Alanine Aminotransferase 26 U/L (10-49); Albumin, Serum 3.6 gm/dL (3.4-4.8); Albumin/Globulin Ratio 0.9 (1.2-2.2); Alkaline Phosphatase 60 U/L (46-116); Anion Gap 8 (7-16); Aspartate Amino Transferase 17 U/L (0-34); BUN/Creatinine Ratio 13 Ratio (12-20); Bilirubin,Total 0.2 mg/dL (0.3-1.2); Blood Urea Nitrogen 52 mg/dL (9-23); Calcium 8.8 mg/dL (8.3-10.6); Calcium (Corrected) 9.1 mg/dL (8.5-10.1); Chloride 105 mMol/L (98-107); Creatinine (Component) 3.9 mg/dL (0.6-1.3); Estimated Creatinine Clearance 16.8 mL/min (>60); Globulin 4.1 gm/dL (2.3-3.5); Glucose 101 mg/dL (74-106); Osmolality,Calculated 289 (275-295); Potassium 4.1 mMol/L (3.4-5.1); Sodium 138 mMol/L (136-145); Total Protein 7.7 gm/dL (5.7-8.2); Vancomycin,Random 18.8 mcg/mL; eGFR 16 See Note
--- NOTE | 2024-07-07 07:15 | CHAP ---
Went to patient's room and prayed with him before his procedure. He was very grateful and thanked me several times.
--- NOTE | 2024-07-07 08:58 | SUR.PHASEI ---
pt arrived to PACU via gurney, breathing unlabored, dressing to right foot clean, dry, and intact, report from Judd BROWN and Dr Nieto
--- NOTE | 2024-07-07 09:01 | PD.SUROPNT ---
Date of Procedure 07/07/24 Pre Op Diagnosis Osteomyelitis and dry gangrene of right toes Post Op Diagnosis Same Procedure Amputation of right 1st through 5th toes Findings Dry gangrene of toes 1, 2, 3 and 5 Procedure Description After discussion of risks and benefits with patient and his daughter, including the possibility of the need for further amputation depending on the course of wound healing, patient was brought to the operating room, and SCD was placed on the left in general anesthesia with LMA was induced. He was prepped and draped in the usual sterile fashion. After timeout amputation of the right 1st through 5th toes was undertaken with each toe individually amputated. The base of each toe was incised with electrocautery until the bone was reached. The bone was then transected using a bone cutter or rongeur down to the level of the metatarsals. For the first toe bone smoother was used to eliminate any raw edges. Each wound was irrigated and there was minimal bleeding from the wound beds, but more so in the lateral wound beds and in the medial wound beds. Hemostasis was achieved with electrocautery. The skin was then reapproximated with 2-0 nylon vertical mattress sutures. Of note there was a small pocket on the lateral/plantar aspect of the fifth toe at the base which contained minimal fibrinous tissue. I curetted this fibrinous tissue and also extended the opening towards the plantar surface to allow for drainage as needed. The wound was covered with Adaptic, fluffs and Kerlix. Patient was extubated without complication and brought to PACU in stable condition Pathology / specimen Other (Right 1st through 5th toes) Estimated Blood Loss 10 Surgeon Ning Jones MD Surgical Staff Operation Date: 07/07/24 07:30 Case Staff Anesthesiologist: Alan Nieto Assisting Surgeon: Carla. digital librarian: Dylan Teran
--- NOTE | 2024-07-07 09:17 | SUR.PHASEI ---
pt tolerating ice chips without difficulty swallowing or n/v
--- NOTE | 2024-07-07 09:33 | SUR.PHASEI ---
pt awake alert able to follow commands, breathing unlabored, dressing right foot clean, dry, and intact, VS stable, report called to Bita BROWN, pt transferred to room at this time
[2024-07-07] MEDS: amLODIPine BESYLATE 5 MG TABLET 10 MG PO (10:45)
[2024-07-07] MEDS: PIPER/TAZO INJ 4.5 GM in SODIUM CHLORIDE 0.9% (POP) 100 ML IV ×2 (10:45→20:40)
[2024-07-07] MEDS: ASCORBIC ACID 250 MG TABLET 500 MG PO ×2 (10:46→20:40)
[2024-07-07] MEDS: MULTIVITAMINS TABLET 1 TAB PO (10:46)
[2024-07-07] MEDS: ZINC SULFATE 220 MG CAPSULE PO (10:47)
--- NOTE | 2024-07-07 12:04 | PD.IMPROG ---
Documentation for date of: 07/07/24 Subjective Subjective Interval history: s/p amputation of the toes Exam Vital Signs Temp Pulse Resp BP Pulse Ox O2 Del Method O2 Flow Rate 98.3 F 86 16 156/76 H 96 Room Air 3 07/07/24 10:12 07/07/24 10:45 07/07/24 10:12 07/07/24 10:45 07/07/24 10:12 07/07/24 10:12 07/07/24 09:08 Routine HEENT Exam Head: Present normocephalic and atraumatic Eye: Present EOMI and PERRL ENT: Present mucous membranes moist Routine Neck Exam Neck: Present supple and trachea midline Routine Respiratory Exam Respiratory: Present chest non-tender, lungs clear, normal breath sounds and no resp distress Routine Cardiovascular Exam Cardiovascular: Present RRR Routine Abdominal Exam Abdominal: Present soft and normoactive bowel sounds Routine Extremities Exam Extremities: Present full ROM Routine Skin Exam Skin: Present intact, dry and warm Routine Neurological Exam Neurological: Present alert, oriented X3 and CN II-XII intact Routine Psychiatric Exam Psychiatric: Present normal affect and normal thought process Objective Labs 07/07/24 04:21 07/07/24 04:21 Labs: Laboratory Results - last 24 hr 07/07/24 04:21 WBC 12.7 H RBC 3.54 L Hgb 10.2 L Hct 32.0 L MCV 90 MCH 28.8 MCHC 31.9 RDW Std Deviation 46.1 H Plt Count 227 Neut % (Auto) 70 Lymph % (Auto) 14 [place] % (Auto) 9 Eos % (Auto) 7 Baso % (Auto) 1 Neut # (Auto) 8.9 H Lymph # (Auto) 1.7 [place] # (Auto) 1.1 H Eos # (Auto) 0.8 H Baso # (Auto) 0.1 Immature Gran # (Auto) 0.03 H Absolute Nucleated RBC 0.00 Immature Gran % 0 Nucleated RBC % 0 Sodium 138 Potassium 4.1 Chloride 105 Carbon Dioxide 25.0 Anion Gap 8 BUN 52 H Creatinine 3.9 H D Estim Creat Clear Calc 16.8 L eGFR 16 L BUN/Creatinine Ratio 13 Glucose 101 Calculated Osmolality 289 Calcium 8.8 Corrected Calcium 9.1 Total Bilirubin 0.2 L AST 17 ALT 26 Alkaline Phosphatase 60 Total Protein 7.7 Albumin 3.6 Globulin 4.1 H Albumin/Globulin Ratio 0.9 L Random Vancomycin 18.8 Assessment & Plan A&P Narrative continue post op care Time Spent With Patient Time: Total time spent is greater than 50% in coordination of care (as documented) at patient's floor/unit and/or counseling patient:
--- NOTE | 2024-07-07 13:46 | ESPR_ITS ---
<Statement entered by Micheline Almonte MD - 07/07/24 15:16> No acute overnight events reported. Vitals and labs were reviewed. WBC up trended, most likely reactive, postsurgical. Currently at 12.7. Patient underwent hemodialysis yesterday; post-dialysis labs show creatinine at 3.9 and BUN at 52. Hemodialysis session was well tolerated. Today, the patient underwent TMA ; the procedure was completed without complications and was well tolerated. Postoperative evaluation was performed; patient remains stable. Blood cultures are negative. Patient continue to clinically improve. Plan: Continue close monitoring postoperatively. Next hemodialysis session is scheduled for tomorrow. Discharge is anticipated within the next 24 hours. Patient will require outpatient hemodialysis; a dialysis chair has been requested. Social work has been notified for discharge planning and dialysis coordination. Documentation for date of: 07/07/24 Subjective Subjective Interval history: No overnight events. Patient seen and examined at bedside, resting comfortably. Patient received TMA, well-tolerated. Patient denies fevers, chills, chest pain, shortness breath, nausea, vomiting, pain/tingling in the right foot. Continue dialysis. Probable DC once cleared for outpatient dialysis. Exam Vital Signs Temp Pulse Resp BP Pulse Ox O2 Del Method O2 Flow Rate 98.3 F 86 16 156/76 H 96 Room Air 3 07/07/24 10:12 07/07/24 12:00 07/07/24 10:12 07/07/24 10:45 07/07/24 10:12 07/07/24 10:12 07/07/24 09:08 Narrative Exam PE: Gen: Chronically ill-appearing. HEENT: NCAT, PERRLA, EOMI, MMM, anicteric conjunctivae. CVS: normal S1 and S2. RRR. No M/R/G. Poor pedal pulses. Resp: CTA B/L. No rhonchi, rales, crackles or wheezing. Abd: soft, non-tender, non-distended. MSK: Good ROM in BUE & BLE. Trace pitting edema right lower leg. Right lower leg erythematous and swollen, improved. Bilateral stasis dermatitis. Right foot bandaged, s/p TMA. Neuro: CN II-XII grossly intact. Strength 5/5 in BUE & BLE. Alert and oriented x3. Psych: appropriate mood and affect. Objective Labs 07/07/24 04:21 07/07/24 04:21 Labs: Laboratory Results - last 24 hr 07/07/24 04:21 WBC 12.7 H RBC 3.54 L Hgb 10.2 L Hct 32.0 L MCV 90 MCH 28.8 MCHC 31.9 RDW Std Deviation 46.1 H Plt Count 227 Neut % (Auto) 70 Lymph % (Auto) 14 [place] % (Auto) 9 Eos % (Auto) 7 Baso % (Auto) 1 Neut # (Auto) 8.9 H Lymph # (Auto) 1.7 [place] # (Auto) 1.1 H Eos # (Auto) 0.8 H Baso # (Auto) 0.1 Immature Gran # (Auto) 0.03 H Absolute Nucleated RBC 0.00 Immature Gran % 0 Nucleated RBC % 0 Sodium 138 Potassium 4.1 Chloride 105 Carbon Dioxide 25.0 Anion Gap 8 BUN 52 H Creatinine 3.9 H D Estim Creat Clear Calc 16.8 L eGFR 16 L BUN/Creatinine Ratio 13 Glucose 101 Calculated Osmolality 289 Calcium 8.8 Corrected Calcium 9.1 Total Bilirubin 0.2 L AST 17 ALT 26 Alkaline Phosphatase 60 Total Protein 7.7 Albumin 3.6 Globulin 4.1 H Albumin/Globulin Ratio 0.9 L Random Vancomycin 18.8 Quality Measures Quality Measures VTE prophylaxis Advance care planning discussed with:: patient Assessment & Plan Assessment Current Active Medications: Generic Name Dose Route Start Last Admin Trade Name Freq PRN Reason Stop Dose Admin Acetaminophen 650 mg 07/03/24 17:50 Acetaminophen 325 Mg Tablet PO 08/02/24 17:49 Q6H PRN Fever >100.4 or pain 1-3 Amlodipine Besylate 10 mg 07/04/24 09:00 07/07/24 10:45 Amlodipine Besylate 5 Mg Tablet PO 08/03/24 08:59 10 mg QDAY MADELEINE Administration Ascorbic Acid 500 mg 07/07/24 09:15 07/07/24 10:46 Ascorbic Acid 250 Mg Tablet PO 08/06/24 09:14 500 mg BID MADELEINE Administration Dextrose 25 ml 07/03/24 17:56 Dextrose 50%-Water Inj 50 Ml Syringe IV 08/02/24 17:55 Q15MIN PRN BG 50-70 responsive npo pt Dextrose 50 ml 07/03/24 17:56 Dextrose 50%-Water Inj 50 Ml Syringe IV 08/02/24 17:55 Q15MIN PRN BG <50 OR BG <70 & pt unresponsive Docusate Sodium 100 mg 07/03/24 17:50 Docusate Sod 100 Mg Capsule PO 08/02/24 17:49 QDAY PRN CONSTIPATION Protocol Glucagon 1 mg 07/03/24 17:56 Glucagon Inj 1 Mg Vial IM Q15MIN PRN BG <70, and no IV access Heparin Sodium (Porcine) 5,000 unit 07/03/24 21:00 07/06/24 20:40 Heparin Sod Inj 5000 Unit/Ml Vial SC 07/17/24 20:59 Not Given Q12HR MADELEINE Heparin Sodium (Porcine) 3,500 unit 07/06/24 12:46 07/06/24 14:14 Heparin Sod Inj 1000 Unit/Ml Vial 10 Ml INDWELLCAT 07/20/24 12:45 3,500 unit X1 PRN Administration DIALYSIS Hydralazine HCl 50 mg 07/03/24 22:00 07/07/24 05:38 Hydralazine Hcl 25 Mg Tablet PO 08/02/24 21:59 50 mg TID MADELEINE Administration Piperacillin Sod/Tazobactam 100 mls @ 200 mls/hr 07/04/24 06:00 07/07/24 10:45 Sod 4.5 gm/ Sodium Chloride IV 07/11/24 05:59 200 mls/hr Q12HR MADELEINE Administration Albumin Human 25 gm in 100 mls @ 100 mls/hr 07/06/24 12:46 Albuminar-25 Ivpb IV 07/09/24 12:45 PRN PRN DIALYSIS Insulin Human Lispro 0 unit 07/04/24 07:30 07/07/24 11:14 Insulin Lispro (Admelog) 1 Unit/0.01 Ml Unit SC 08/03/24 07:29 Not Given AC MADELEINE Protocol Multivitamins 1 tab 07/07/24 09:15 07/07/24 10:46 Multivitamins Tablet PO 08/06/24 09:14 1 tab QDAY MADELEINE Administration Ondansetron HCl 4 mg 07/03/24 17:50 Ondansetron Inj 2 Mg/Ml Inj 2 Ml IV 08/02/24 17:49 Q6H PRN NAUSEA OR VOMITING Protocol Pharmacy Consult 1 each 07/06/24 08:08 Vancomycin Pharmacy To Dose 1 Each Each IV 08/03/24 08:59 QDAY PRN RX Sennosides 1 tab 07/03/24 17:50 07/05/24 08:36 Senna Tablet PO 08/02/24 17:49 1 tab QDAY PRN Administration constipation Protocol Tramadol HCl 50 mg 07/03/24 19:12 07/07/24 10:46 Tramadol Hcl 50 Mg Tablet PO 07/08/24 19:11 50 mg Q4HR PRN Administration PAIN 4-6 Zinc Sulfate 220 mg 07/07/24 09:15 07/07/24 10:47 Zinc Sulfate 220 Mg Capsule PO 08/06/24 09:14 220 mg QDAY MADELEINE Administration Plan 68 y/o M with PMHx significant for CKD, diabetes, hypertension presents to ED with chief complaint progressive right foot infection. Patient noticed right lower leg swelling and erythema with foul smell and necrosis of the foot 2 weeks ago. #Osteomyelitis of right foot?fifth digit s/p TMA Patient presents with right foot infection for 2 weeks, after 1 week of outpatient biotics. Patient notes foul smell that has improved over the past week, necrosis of 1st, 3rd and 5th toes that has progressed. CRP 4.3, ESR 113. X-ray of the right foot showed osteomyelitis of the proximal middle phalanges of the fifth digit. Patient is nonseptic, negative Pro-Ladarius, afebrile. Patient has poor pedal pulses on exam. Patient with bilateral lower extremity edema, with right leg more swollen and erythematous compared to left. Patient denies tenderness on exam. Patient has history of osteomyelitis of right foot in the past, with amputation of the calcaneal. Patient received TMA right foot 07/07, procedure was well-tolerated. - Vancomycin pharmacy dosing (started 07/03) - Zosyn 4.5 g IV every 12 hours (started 07/03) - Will continue antibiotics through tomorrow - General Surgery consulted, appreciate recommendations - Tylenol as needed - Wound care - Cardiology consulted for cardiac clearance #Hypertensive urgency, resolved #Hypertension, patient history Patient history as stated. On presentation patient has BP 215/99, no signs of endorgan damage, denies headache, chest pain, blurry vision. - Resume home meds: Hydralazine and amlodipine - Closely monitor #CKD stage V, hemodialysis Patient has history of CKD likely due to diabetes and hypertension. Per patient has been progressing towards dialysis, has been attempting to arrange placement of dialysis cath. Follows with [facility] Dr. Bryant. Dr. Bryant was consulted, will see patient provide further recommendations. Patient had dialysis catheter placed, received first session of hemodialysis without fluid removal, well-tolerated. Arranged outpatient dialysis. Patient needs 3 inpatient dialysis sessions. - Renally dose medications - Nephrology consulted, appreciate recommendations - Dialysis as per nephrology - Avoid nephrotoxins #Diabetes, insulin-dependent Patient has history as stated. Hemoglobin A1c 6% as of 07/03. - ISS - Patient will need close control of blood sugar #Chronic normocytic anemia Patient has history as stated. Hemoglobin currently 10.4, no signs of active bleeding. Likely due to anemia of chronic disease in setting of diabetes, CKD. - Monitor hemoglobin - Transfuse if needed DVT prophylaxis: Heparin GI prophylaxis: None Diet: Renal, carb consistent low Lines: Peripheral IV Code status: Full code Patient care was discussed with senior resident Dr. Palmer PGY?[address] Sotero Apple MD PGY?1 Attending Provider Attestation/Addendum Gigi, Cecy Bey, DO, attest that I was physically present for the mattson portions of the service and evaluated the patient with the resident and I reviewed and discussed the case with the resident and agree with the resident's findings and plans of care as documented above Patient seen and eval this a.m. He states that he is feeling well. Patient underwent TMA today and denied any pain. Patient is to undergo hemodialysis for the second time today. Anticipate discharge within the next 24 to 48 hours if okay with surgery and after patient receives his last session of dialysis tomorrow. Patient already has a chair time. Will follow-up with surgery recommendations.
--- NOTE | 2024-07-07 14:41 | PC.SS ---
Follow up note: SS spoke to Rep from [facility] who confirmed they already received some information from [employer], Dr. Bryant prior to patient hospitalization for new dialysis treatment. SS faxed over additional information as requested. Patient ready for d/c by tomorrow. Tentative o/p chair time: M/W/F @ 5p.m. Mehrdad Kimball,
[2024-07-07] MEDS: ALBUMIN HUMAN 25% IVPB 25 GM/100 ML BTL IV (15:02)
--- NOTE | 2024-07-07 15:08 | PC.NURSE ---
BP LOW PT DENIES ALL COMPLAINTS, WILL ADMIN PRN ALBUMIN AND CONT. TO ONITOR
[2024-07-07] MEDS: HEPARIN SOD INJ 1000 UNIT/ML VIAL 10 ML 3500 UNIT INDWELLCAT (18:28)
[2024-07-07] MEDS: HEPARIN SOD INJ 5000 UNIT/ML VIAL SC (22:16)
--- NOTE | 2024-07-07 23:24 | ESPR_ITS ---
RE: ABDIRAHMAN PETERSEN : 1955 DATE OF SERVICE: 07/07/2024 HISTORY OF PRESENT ILLNESS: Briefly, he is a 68-year-old -Citizen Of [place] gentleman with type 2 diabetes diagnosed 3 years ago, hypertension, stage V CKD with nonhealing right foot infection since 01/2024. The patient had uncontrolled diabetes when he was admitted on 01/2024 with a hemoglobin A1c of 12. He also has a right foot infection that was getting worse. During that time, he was treated with IV vancomycin and Zosyn and was discharged. Sometime in 05/2024, the patient saw me in my clinic as he was getting ready to have a left [id number] amputation in [place]. However, due to his insurance, we were not able to get a freestanding radiology clinic for dialysis catheter placement as well as a dialysis unit. Later on, the patient was accepted at [facility]. Family decided to bring him to the emergency room on Saturday as his right foot seemed to be getting worse. He had a dialysis catheter placed on 07/05/2024 and had dialysis yesterday. He also had amputation of his toes on the right foot today. He is currently on dialysis and tolerating it well. CURRENT MEDICATIONS: 1. Acetaminophen. 2. Amlodipine. 3. Ascorbic acid. 4. Fentanyl injection. 5. Glucagon. 6. Heparin 5000 units subcutaneously q.12h. 7. Hydralazine mg p.o. t.i.d. 8. Multivitamin one tablet p.o. daily. 9. Ondansetron. 10. Zosyn 4.5 g IV q.12h. 11. Vancomycin. 12. Zinc sulfate. PHYSICAL EXAMINATION: General: Awake, alert, and oriented. Vital Signs: Blood pressure of 145/76 mmHg, heart rate of 60. HEENT: Anicteric sclerae. Normocephalic. Neck: Supple. No JVD. Chest and Lungs: Symmetric expansion. Clear breath sounds. Cardiac: Heart sound without murmur. Abdomen: Soft and nontender. Extremities: No edema. LABORATORY DATA: Hemoglobin 10.2, WBC 12,500, platelet count 227,000. Sodium 138, potassium 4.1, chloride 105, CO2 25, BUN 52, creatinine 3.9, glucose 101, calcium 9.1. AST 17 and ALT 26. ASSESSMENT: 1. 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 2. Type 2 diabetes and diabetic neuropathy and nephropathy. 3. Hypertension. 4. Anemia of chronic kidney disease and chronic inflammation. 5. Right leg cellulitis with osteomyelitis of the plantar surface of the calcaneus, surgery earlier today. The patient is currently on dialysis, tolerating it well. Next dialysis will be tomorrow. If he is deemed dischargeable, then the patient already has a dialysis time slot at [facility]. PLAN: Continue Retacrit 10,000 units subcutaneously 3 times a week. DT: 21:51:58 TT: 22:55:00 Ref: [id number] - TID: [id number] [facility]
[2024-07-08] VITALS (25 sets, daily range): BP systolic 115–179; BP diastolic 50–91; PULSE 57–78; RESP 17–67; TEMP 36.3–37.1; O2SAT 92–99
[2024-07-08] MEDS: hydrALAZINE HCL 25 MG TABLET 50 MG PO ×2 (05:15→14:18)
[2024-07-08 06:14] LABS: Basophils % (Auto) 0 % (0-2.5); Eosinophils # (Auto) 0.7 Thou/mm3 (0.0-0.5); Eosinophils % (Auto) 6 % (0-10); Hematocrit 29.6 % (41.0-53.0); Hemoglobin 9.5 g/dL (13.5-16.0); Immature Granulocytes % (Auto) 0 % (0-0); Immature Granulocytes Auto 0.03 Thou/mm3 (0.00-0.00); Lymphocytes # (Auto) 1.6 Thou/mm3 (1.0-4.8); Lymphocytes % (Auto) 14 % (10-50); Mean Corpuscular HGB Conc 32.1 g/dl (31.0-37.0); Mean Corpuscular Hemoglobin 28.6 pg (25.0-35.0); Mean Corpuscular Volume 89 fL (80-100); Monocytes # (Auto) 0.9 Thou/mm3 (0.0-0.8); Monocytes % (Auto) 8 % (0-12); Neutrophils # (Auto) 8.1 Thou/mm3 (1.8-7.7); Neutrophils % (Auto) 72 % (37-80); Nucleated Red Blood Cell % 0 /100 WBC (0); Platelet Count 173 Thou/mm3 (140-440); RDW Standard Deviation 45.4 fL (35.1-43.9); Red Blood Count 3.32 Miln/mm3 (4.50-5.90); White Blood Count 11.4 Thou/mm3 (3.8-10.6)
[2024-07-08 06:31] LABS: Alanine Aminotransferase 18 U/L (10-49); Albumin, Serum 3.6 gm/dL (3.4-4.8); Albumin/Globulin Ratio 0.9 (1.2-2.2); Alkaline Phosphatase 50 U/L (46-116); Anion Gap 9 (7-16); Aspartate Amino Transferase 15 U/L (0-34); BUN/Creatinine Ratio 9 Ratio (12-20); Bilirubin,Total 0.3 mg/dL (0.3-1.2); Blood Urea Nitrogen 29 mg/dL (9-23); Calcium 8.4 mg/dL (8.3-10.6); Calcium (Corrected) 8.7 mg/dL (8.5-10.1); Carbon Dioxide 26.2 mMol/L (20.0-31.0); Chloride 102 mMol/L (98-107); Creatinine (Component) 3.1 mg/dL (0.6-1.3); Estimated Creatinine Clearance 21.1 mL/min (>60); Globulin 3.8 gm/dL (2.3-3.5); Glucose 98 mg/dL (74-106); Osmolality,Calculated 279 (275-295); Potassium 3.9 mMol/L (3.4-5.1); Sodium 137 mMol/L (136-145); Total Protein 7.4 gm/dL (5.7-8.2); Vancomycin,Random 11.4 mcg/mL; eGFR 21 See Note
[2024-07-08] MEDS: traMADol HCL 50 MG TABLET PO (10:00)
[2024-07-08] MEDS: HEPARIN SOD INJ 1000 UNIT/ML VIAL 10 ML 3500 UNIT INDWELLCAT (10:57)
--- NOTE | 2024-07-08 11:44 | ESPR_ITS ---
RE: ABDIRAHMAN PETERSEN : 1955 DATE OF SERVICE: 07/08/2024 HISTORY OF PRESENT ILLNESS: Briefly, he is a 69-year-old -[place] gentleman with type 2 diabetes diagnosed 3 years ago, hypertension and stage V CKD with nonhealing right foot infection since 01/2024. The patient also has uncontrolled diabetes when he was admitted on 01/29/2024 with a hemoglobin A1c of 12. He also has right foot infection that was getting worse. During this time, he was treated with IV vancomycin and Zosyn and had amputation of all his toes on the right foot. The patient is currently on dialysis and tolerating it very well. CURRENT MEDICATIONS: 1. Acetaminophen. 2. Amlodipine. 3. Ascorbic acid. 4. Fentanyl injection x1. 5. Glucagon p.r.n. 6. Heparin 5000 units subcutaneously every 12 hours. 7. Hydralazine 50 mg p.o. daily. 8. Multivitamins. 9. Ondansetron. 10. Zosyn 4.5 g IV every 12 hours. 11. Vancomycin. 12. Zinc sulfate. PHYSICAL EXAMINATION: General: He is awake, alert, and oriented, currently on dialysis. Vital Signs: Blood pressure 128/68, heart rate 59. HEENT: Anicteric sclerae. Normocephalic. Neck: Supple. No JVD. Chest and Lungs: Symmetric expansion. Clear breath sounds. Cardiac: Heart sound without murmur. Abdomen: Soft and nontender. Extremities: No edema. LABORATORY DATA: Hemoglobin 9.5, WBC 11,400, platelet count 172,000. Sodium 137, potassium 3.9, chloride 102, CO2 of 26.2, BUN 29, creatinine 3.1, glucose 98. ASSESSMENT: 1. End-stage renal disease secondary to diabetic nephropathy and hypertensive nephrosclerosis. 2. 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 3. Hypertension. 4. Anemia of chronic disease and chronic inflammation. 5. Right leg cellulitis with osteomyelitis of the plantar surface of the calcaneus. PLAN: Surgery done yesterday. The patient is currently on dialysis. If discharging today, then he will go to [facility]. DT: 09:50:24 TT: 11:43:00 Ref: [id number] - TID: [id number] MTDD
--- NOTE | 2024-07-08 12:06 | PC.SS ---
Patient has d/c orders. We have a tentative schedule of M/W/F @ 5p.m. However, when we contacted Mehrdad they still need a confirmation for this schedule. Updated nursing to hold discharging patient until we receive a confirmation.
--- NOTE | 2024-07-08 12:20 | PD.SURPROG ---
Documentation for date of: 07/08/24 Subjective Subjective Brief History: 69M with HTN, CKD, DM with R foot osteomyelitis being treated since last year presenting with pain and discoloration of the toes. Pt has been taking PO antibiotics from his PCP but noted worsening necrosis prompting him to seek care in ER. Pt states he was seen by a vascular surgeon in [place] and was told that he needed an amputation (from his description the recommendation seems to be TMA) but that he needed to be optimized in terms of his cardiac and renal status PMH: HTN, CKD, DM PSHx: Calcanectomy, appendectomy Meds: No antiplt or anticoagulation Allergies: NKDA Narrative: Pain controlled, worked with PT and was able to ambulate with a walker, remaining afebrile Exam Vital Signs Temp Pulse Resp BP Pulse Ox O2 Del Method O2 Flow Rate 98.5 F 76 20 150/91 H 98 Room Air 3 07/08/24 11:34 07/08/24 11:34 07/08/24 11:34 07/08/24 11:34 07/08/24 11:34 07/08/24 11:34 07/07/24 09:08 FiO2 95 07/07/24 15:29 Constitutional Constitutional: no acute distress Routine Respiratory Exam Respiratory: Present no resp distress Routine Extremities Exam Comments: right foot wound with sutures intact, dressing with signs of mild bleeding but there is no active bleeding on exam. No fluctuance, minimal tenderness Assessment & Plan Diagnosis (1) Osteomyelitis: Status: Acute Plan 69M with HTN, CKD, DM and R osteomyelitis of the 5th digit, previous calcanectomy which appears partial based on exam and xray, now s/p amputation of R 1st-5th digits, recovering well OK from my standpoint for dc Weight bearing as tolerated Will follow up as outpt for suture removal in 2-3 weeks Refer to Wound Healing Procedures Procedures Amputation of right 1st through 5th toes
[2024-07-08] MEDS: INSULIN LISPRO (AdmeLOG) 1 UNIT/0.01 ML UNIT SC (12:40)
[2024-07-08] MEDS: VANCOMYCIN/NS 500 MG IVPB 100 ML 120 MG IV (13:11)
[2024-07-08 14:24] LABS: Hepatitis A Antibody IgM Non Reactive (Non React); Hepatitis B Core Antibody IgM Non Reactive (Non React); Hepatitis B Surface Antigen Non Reactive (Non React); Hepatitis C Antibody Non Reactive (Non React)
--- NOTE | 2024-07-08 16:00 | PC.SS ---
Follow up note: SS received Hep b surface antigen as [facility] had initially requested. SS received a call from [place] at [facility] who agreed we can d/c and start on Saturday. M/W/F @ 5p.m. chair time. Updated physician team. Patient will be discharged today
--- NOTE | 2024-07-08 16:06 | PD.IMPROG ---
Documentation for date of: 07/08/24 Subjective Subjective Interval history: s/p amputation of the toes Exam Vital Signs Temp Pulse Resp BP Pulse Ox O2 Del Method O2 Flow Rate 98.5 F 68 67 H 150/74 H 98 Room Air 3 07/08/24 11:34 07/08/24 14:18 07/08/24 15:03 07/08/24 14:18 07/08/24 11:34 07/08/24 11:34 07/07/24 09:08 FiO2 95 07/08/24 15:03 Routine HEENT Exam Head: Present normocephalic and atraumatic Eye: Present EOMI and PERRL ENT: Present mucous membranes moist Routine Neck Exam Neck: Present supple and trachea midline Routine Respiratory Exam Respiratory: Present chest non-tender, lungs clear, normal breath sounds and no resp distress Routine Cardiovascular Exam Cardiovascular: Present RRR Routine Abdominal Exam Abdominal: Present soft and normoactive bowel sounds Routine Extremities Exam Extremities: Present full ROM Routine Skin Exam Skin: Present intact, dry and warm Routine Neurological Exam Neurological: Present alert, oriented X3 and CN II-XII intact Routine Psychiatric Exam Psychiatric: Present normal affect and normal thought process Objective Labs 07/08/24 04:50 07/08/24 04:50 Labs: Laboratory Results - last 24 hr 07/08/24 07/08/24 04:50 12:44 WBC 11.4 H RBC 3.32 L Hgb 9.5 L Hct 29.6 L MCV 89 MCH 28.6 MCHC 32.1 RDW Std Deviation 45.4 H Plt Count 173 D Neut % (Auto) 72 Lymph % (Auto) 14 [place] % (Auto) 8 Eos % (Auto) 6 Baso % (Auto) 0 Neut # (Auto) 8.1 H Lymph # (Auto) 1.6 [place] # (Auto) 0.9 H Eos # (Auto) 0.7 H Baso # (Auto) 0.0 Immature Gran # (Auto) 0.03 H Absolute Nucleated RBC 0.00 Immature Gran % 0 Nucleated RBC % 0 Sodium 137 Potassium 3.9 Chloride 102 Carbon Dioxide 26.2 Anion Gap 9 BUN 29 H Creatinine 3.1 H D Estim Creat Clear Calc 21.1 L eGFR 21 L BUN/Creatinine Ratio 9 L Glucose 98 Calculated Osmolality 279 Calcium 8.4 Corrected Calcium 8.7 Total Bilirubin 0.3 AST 15 ALT 18 Alkaline Phosphatase 50 Total Protein 7.4 Albumin 3.6 Globulin 3.8 H Albumin/Globulin Ratio 0.9 L Random Vancomycin 11.4 Hepatitis A IgM Ab Non Reactive Hep Bs Antigen Non Reactive Hep B Core IgM Ab Non Reactive Hepatitis C Antibody Non Reactive Assessment & Plan A&P Narrative continue post op care Time Spent With Patient Time: Total time spent is greater than 50% in coordination of care (as documented) at patient's floor/unit and/or counseling patient:
--- NOTE | 2024-07-08 18:17 | ESDS_ITS ---
<Statement entered by Cecy Bey DO - 07/09/24 08:09> I, Cecy Bey DO, attest that I was physically present for the mattson portions of the service and evaluated the patient with the resident and I reviewed and discussed the case with the resident and agree with the resident's findings and plans of care as documented above Planned Discharge Date 07/08/24 DS: Providers Provider Date of admission: 07/03/24 17:50 Primary care physician: Yang Vang MD Admitting Provider: Luisito Bennett MD Attending Provider on Admission: Cecy Bey DO Consults: 07/03/24 18:01 Consult to Nephrology Routine Comment: CKD, planning for dialysis Consulting Provider: Rere Bryant 07/03/24 19:12 Referral Wound Care Routine Comment: 07/04/24 08:42 Consult to General Surgery Urgent Comment: Consulting Provider: Ning Jones 07/04/24 13:56 Consult to Cardiology Routine Comment: surgery clearance Consulting Provider: Lavell Benedict 07/08/24 09:13 Referral Physical Therapy Routine Comment: Physician Instructions: 07/08/24 15:22 Referral OP Wound Healing Dept Routine Comment: Instructions: Right TMA Attending Provider on DC: Cecy Bey DO Discharging Provider: Darrin Apple MD DS: Diagnosis Problem List Completed Was Problem List Reviewed/Reconciled?: Yes Hospital Course Hospital Course Hospital course: &1 y/o M with PMHx significant for CKD, diabetes, hypertension presented to ED with chief complaint progressive right foot infection, admitted for osteomyelitis. Patient had necrosis of left 1st, 3rd, and 5th digits of her right toe. Extensive osteonecrosis seen on x-ray imaging. Patient was nonseptic, IV antibiotics started. General surgery is consulted, and performed a TMA on patient, procedure well-tolerated. Patient been attempting to get placement for dialysis catheter placement and hemodialysis outpatient, nephrology was consulted. Dialysis catheter was placed inpatient, patient received 3 session of dialysis, well-tolerated. Of note, patient had hypertensive urgency on admission, resolved. Patient cleared for discharge from general surgery perspective. Patient cleared for discharge from nephrology perspective. Patient medically stable and cleared for discharge. Discharge plan: You are being discharged on the following medications: -Doxycycline 100 mg twice daily for 5 days The following medications have been STOPPED: - Ciprofloxacin Please continue taking all other medications as previously prescribed. You have been started on outpatient dialysis with Dr Bryant. Please follow with your primary doctor within 7-10 days. You will be seen at wound care clinic ([address] [place] [id number]) for further management.Call [phone] for appointment. - Wound care to right foot. Ambulate using the heel of your foot only, Do not walk on the wound portion of foot *Wash hands with soap and water, remove old dressing. Cleanse incision with wound cleanser spray and pat dry with gauze. *Wash hands again * Place adaptic (vasoline like gauze) over the incision. Layer with dry gauze and wrap with gauze wrap. *Change once a day and as needed for falling off or soiling. Any active bleeding, apply pressure dressing and return to ED You are being discharged with home health for wound care and dressing changes. Please ensure dressings are changed daily. Please follow-up with surgeon Dr. Jones in 2-3 weeks for suture removal. Please continue to follow-up with vascular surgery for optimal wound healing. Please return to the ED if develop new or worsening symptoms. Out patient dialysis at [facility], M/W/F @ 5p.m. chair time. Start date 07/10/2024. Diagnoses: #Osteomyelitis of right foot?fifth digit s/p TMA #Hypertensive urgency, resolved #Hypertension, patient history #CKD stage V, hemodialysis #Diabetes, insulin-dependent #Chronic normocytic anemia Patient care was discussed with attending physician Dr. Bey. Darrin Apple MD PGY?1 Status at Discharge Overall status at discharge: patient is progressing back to baseline Time Spent with Patient Time attestation: Total time spent providing and/or coordinating discharge services: Time spent: Greater than 30 minutes Home Health Home Health Referral Orders: 07/08/24 10:31 Home Health Referral Routine Reason For Exam: TMA of right foot Home-Bound The patient must either because of illness or injury, need the aid of supportive devices such as crutches, canes, wheelchairs, and walkers; the use of special transportation; or the assistance of another person in order to leave their place of residence; OR have a condition such that leaving his or her home is medically contraindicated. In addition, the patient also meets the following criteria: patient is normally unable to leave the home and leaving home requires considerable taxing effort. Addendum to Home Health Certification Practitioner's Certification: I certify that the patient has been under my care in the hospital and the care of attending physician (see below). We had a [id number] encounter on (see date below). My clinical findings indicate that the patient is home bound per the above criteria and the Home Health Services noted in these orders are medically necessary. The primary reason for the [id number] encounter is related to the fact that the patient requires home health services. Date Certifying Mpga-li-Jmkh Physician Encounter: 07/03/24 Physician's Name who will Assume Oversight for HH Services: Yang Vang PRODUCT INFO SPECIALIST - Community Resources: No PT to Evaluate: Yes PT to evaluate and provide a treatmnet plan to increase patient's mobility and strength. Wound Care: Yes Home Health RN - Wound Care Order: As per wound nurse instructions IV Therapy: No RN Safety Evaluation: Yes RN to evaluate and create a plan of care that will produce positive outcomes. Palliative Treatment: No Palliative treatment and evaluate the need for hospice. Home Health Aide - Personal Care: Yes Home Health Aide to assist with any ADL's. Exam Vital Signs Temp Pulse Resp BP Pulse Ox O2 Del Method O2 Flow Rate 98.2 F 78 17 150/88 H 99 Room Air 3 07/08/24 16:00 07/08/24 16:00 07/08/24 16:00 07/08/24 16:00 07/08/24 16:00 07/08/24 16:00 07/07/24 09:08 FiO2 95 07/08/24 15:03 Narrative Exam PE: Gen: Chronically ill-appearing. HEENT: NCAT, PERRLA, EOMI, MMM, anicteric conjunctivae. CVS: normal S1 and S2. RRR. No M/R/G. Poor pedal pulses. Resp: CTA B/L. No rhonchi, rales, crackles or wheezing. Abd: soft, non-tender, non-distended. MSK: Good ROM in BUE & BLE. Trace pitting edema right lower leg. Right lower leg mildly erythematous, improved. Bilateral stasis dermatitis. Right foot bandaged, s/p TMA. Neuro: CN II-XII grossly intact. Strength 5/5 in BUE & BLE. Alert and oriented x3. Psych: appropriate mood and affect. Discharge Plan Plan Patient Disposition: Home w/HOME HEALTH Patient condition on transfer: Stable Care Plan Goals: You are being discharged on the following medications: -Doxycycline 100 mg twice daily for 5 days The following medications have been STOPPED: - Ciprofloxacin Please continue taking all other medications as previously prescribed. You have been started on outpatient dialysis with Dr Bryant. Please follow with your primary doctor within 7-10 days. You will be seen at wound care clinic ([address] [place] [phone]) for further management.Call [phone] for appointment. - Wound care to right foot. Ambulate using the heel of your foot only, Do not walk on the wound portion of foot *Wash hands with soap and water, remove old dressing. Cleanse incision with wound cleanser spray and pat dry with gauze. *Wash hands again * Place adaptic (vasoline like gauze) over the incision. Layer with dry gauze and wrap with gauze wrap. *Change once a day and as needed for falling off or soiling. Any active bleeding, apply pressure dressing and return to ED You are being discharged with home health for wound care and dressing changes. Please ensure dressings are changed daily. Please follow-up with surgeon Dr. Jones in 2-3 weeks for suture removal. Please continue to follow-up with vascular surgery for optimal wound healing. Please return to the ED if develop new or worsening symptoms. Out patient dialysis at [facility], M/W/F @ 5p.m. chair time. Start date 07/10/2024. Prescriptions/Referrals Prescriptions/Med Rec: New doxycycline hyclate 100 mg capsule 100 mg PO BID 5 Days Qty: 10 0RF Continued (DME) blood-glucose meter [Accu-Chek Guide Me Glucose Mtr] Misc See Rx Instructions .Route Qty: 1 0RF Rx Instructions: As directed (DME) Accu-Chek Guide test strips Strip See Rx Instructions .Route Qty: 100 2RF Rx Instructions: As directed (DME) lancets [Accu-Chek Fastclix Lancet Drum] Misc See Rx Instructions .Route Qty: 200 2RF Rx Instructions: As directed amlodipine 10 mg tablet 10 mg PO QDAY Qty: 30 3RF hydralazine 50 mg tablet 50 mg PO TID 30 Days Qty: 90 3RF (DME) WBI-Ttvb-Xprshh BP Cuff Misc See Rx Instructions .Route Qty: 1 0RF Rx Instructions: As directed (DME) FreeStyle Ninfa 3 Plus Sensor Device See Rx Instructions .Route Qty: 1 2RF Rx Instructions: As directed Use one sensor every 14 days (DME) FreeStyle Ninfa 3 [place] Misc See Rx Instructions .Route Qty: 1 0RF Rx Instructions: As directed Use daily as needed to check your blood sugar insulin glargine [Lantus Solostar U-100 Insulin] 100 unit/mL (3 mL) insulin pen 15 unit subcut QAM Qty: 15 0RF (DME) pen needle, diabetic [BD Ultra-Fine Orig Pen Needle] 29 gauge x 1/2 needle See Rx Instructions .Route Qty: 100 0RF Rx Instructions: As directed (DME) blood ketone glucose monitor Kit See Rx Instructions .Route Qty: 1 0RF Rx Instructions: As directed (DME) lancets [Acti-Zak Lancets] 28 gauge misc See Rx Instructions .Route Qty: 100 0RF Rx Instructions: As directed (DME) Accutrend Glucose test strips Strip See Rx Instructions .Route Qty: 50 1RF Rx Instructions: As directed Discontinued ciprofloxacin HCl 500 mg tablet 500 mg PO DAILY 14 Days Qty: 14 0RF doxycycline hyclate 100 mg capsule 100 mg PO BID 14 Days Qty: 28 0RF Referrals: Dejon Bang [Physician] - Ning Jones MD [Physician] - (You will receive a phone call to confirm a follow-up appt with me in 2-3 weeks) Yang Christensen MD [Primary Care Provider] - Patient/Caregiver Discharge Instructions Discharge Activity: activity as tolerated Other Discharge Activity Instructions:: Out patient dialysis at [facility], M/W/F @ 5p.m. chair time. Start date 07/10/2024 Education Materials: Nutrition for Wound Healing, Controlling High Blood Pressure, Hemodialysis, Coping with Kidney Failure, Hypertension and Kidney Disease, Osteomyelitis Dc, Incision Care Dc, Changing Dressing Dc, Amputation What to Expect After, Preventing Surgical Site Infections Print Language: [place] Citizen Stand Alone Forms: Ayanna Award Info., Patient Portal Info Letter Discharge Order Discharge Orders: Discharge (Routine); Ordered 07/08/24 Ordered By: Darrin Apple Quality Discharge Quality Measures VTE prophylaxis
--- NOTE | 2024-07-09 07:52 | PC.CC ---
Addendum entered by Norma Santos RN 07/09/24 08:47: Pt booked with [facility] pending SOC Original Note: Referrals sent for HH no preference noted ,waiting for responses
[2024-07-13 07:24] LABS: Hepatitis Be Antigen* NONREACTIVE
--- NOTE | 2024-07-14 09:09 | PC.CC ---
Contacted [facility] , SOC date was 07-10-24.
== END 2024-07-08 18:02 | disposition home health service (06) | DRG 617 ==
LOC: SERX 17:33 → SERHOLD 07-06 06:01 → S3NX 07-06 06:01
PROVIDERS: Internal Medicine Nephrology; Nurse Practitioner Primary Care; Surgery; Admitting Provider Student in an Organized Health Care Education/Training Program; Emergency Provider Emergency Medicine; PCP Student in an Organized Health Care Education/Training Program; Visit Provider Internal Medicine
PROC: 0Y6M0Z9 Detachment at Right Foot, Partial 1st Ray, Open Approach (ICD-10-PCS; CPT 28820; principal; 2024-07-07 07:30)
DX: E11.69 Type 2 diabetes mellitus with other specified complication (principal); E11.52 Type 2 diabetes mellitus with diabetic peripheral angiopathy with gangrene; L03.115 Cellulitis of right lower limb; M87.874 Other osteonecrosis, right foot; I12.0 Hypertensive chronic kidney disease with stage 5 chronic kidney disease or end stage renal disease; M86.171 Other acute osteomyelitis, right ankle and foot; I16.0 Hypertensive urgency; E11.22 Type 2 diabetes mellitus with diabetic chronic kidney disease; N18.6 End stage renal disease; D63.1 Anemia in chronic kidney disease; E11.40 Type 2 diabetes mellitus with diabetic neuropathy, unspecified; E11.621 Type 2 diabetes mellitus with foot ulcer; L97.519 Non-pressure chronic ulcer of other part of right foot with unspecified severity; Z90.49 Acquired absence of other specified parts of digestive tract; Z79.4 Long term (current) use of insulin; Z79.899 Other long term (current) drug therapy
CPT/HCPCS: 36415; 73630; 76937; 77001; 80053; 80061; 80074; 80202; 83036; 83605; 83735; 84100; 84145; 84484; 85025; 85610; 85652; 85730; 86140; 86580; 87040; 87340; 87350; 93005; 93225; 93306; 93971; 96365; 96366; 96368; 96372; 97162; 99285; A4217; A4649; C1750; C1894; J0131; J0360; J0461; J1171; J1642; J1643; J1815; J2250; J2405; J2543; J2704; J2765; J3010; J3370; J3490; J7050; P9047; Q4081; A9270

== ENCOUNTER → 2024-07-23 | Outpatient (CLI) | payer MEDICARE, MEDICAID, SELFPAY | END | disposition home or self-care (01) | LOC: SWHD 08:03 | PROVIDERS: Visit Provider Student in an Organized Health Care Education/Training Program | DX: I96 Gangrene, not elsewhere classified (principal); T81.89XA Other complications of procedures, not elsewhere classified, initial encounter; L97.512 Non-pressure chronic ulcer of other part of right foot with fat layer exposed; E11.69 Type 2 diabetes mellitus with other specified complication; Z99.2 Dependence on renal dialysis; N18.6 End stage renal disease; Z79.4 Long term (current) use of insulin | CPT/HCPCS: 99214; G0463 ==

== ENCOUNTER 2024-07-24 10:08 | Outpatient (AMB) | payer MEDICARE, MEDICAID, SELFPAY ==
--- NOTE | 2024-07-24 10:27 | PD.RESCLINIC ---
Vital Signs 07/24/24 10:40 BP 135/73 H Blood Pressure Source Automatic Cuff Blood Pressure Location Right Upper Arm Position Sitting Respiration 18 Pulse 60 Pulse Source Monitor Temp 97.5 F Temp Source Temporal Artery Scan Pulse Oximetry (%) 94 L Oxygen Delivery Method Room Air Allergies/Meds Allergies & Medications Allergies No Known Allergies Allergy (Verified 07/29/24 08:18) Medication Reconciliation blood ketone glucose monitor #1 ea 02/12/24 [Rx Confirmed 07/29/24] blood sugar diagnostic (Accutrend Glucose test strips) #50 ea 02/12/24 [Rx Confirmed 07/29/24] insulin glargine 100 unit/mL (3 mL) subcutaneous pen (Lantus Solostar U-100 Insulin) 15 unit (0.15 mL) subcut QAM #15 mL 02/12/24 [Rx Confirmed 07/29/24] lancets 28 gauge (Acti-Zak Lancets) #100 ea 02/12/24 [Rx Confirmed 07/29/24] pen needle, diabetic 29 gauge x 1/2 (BD Ultra-Fine Original Pen Needle) #100 ea 02/12/24 [Rx Confirmed 07/29/24] miscellaneous medical supply (VUC-Hxou-Ylqsym Blood Pressure Cuff) #1 ea 02/14/24 [Rx Confirmed 07/29/24] blood-glucose sensor (FreeStyle Ninfa 3 Plus Sensor device) #1 ea 02/24/24 [Rx Confirmed 07/29/24] blood-glucose,print line inspector,cont (FreeStyle Ninfa 3 [place]) #1 ea 02/24/24 [Rx Confirmed 07/29/24] blood sugar diagnostic (Accu-Chek Guide test strips) #100 ea 03/20/24 [Rx Confirmed 07/29/24] blood-glucose meter (Accu-Chek Guide Me Glucose Meter) #1 ea 03/20/24 [Rx Confirmed 07/29/24] lancets (Accu-Chek Fastclix Lancet Drum) #200 ea 03/20/24 [Rx Confirmed 07/29/24] amlodipine 10 mg tablet 10 mg PO QDAY #30 tabs 04/24/24 [Rx Confirmed 07/29/24] hydralazine 50 mg tablet 50 mg PO TID 1 month #90 tabs 03/14/25 [Rx Confirmed 07/29/24] FreeStyle Ninfa 3 Plus Sensor (blood-glucose sensor) #1 ea 07/24/24 [Rx Confirmed 07/29/24] FreeStyle Ninfa 3 [place] (blood-glucose,print line inspector,cont) #1 ea 07/24/24 [Rx Confirmed 07/29/24] MA Intake Visit Data Collection New Patient or Established: Established Patient (seen at [facility] within 3 years) Seen by Clinical Staff ONLY (RN/MA): No Pain Present Currently: No Pain scale:: 0 Pain Scale Used: Peña-Jean/Numerical Gas Pipe Layer Required: No PCP or OBGYN visit in last 3 months: Yes Hx Now: No Do You Feel Safe at Home: Yes Authorities Contacted: N/A Smoking Status Smoking Status: Former smoker Immunization / Flu Flu Vaccine in the Last 12 Months: Yes Flu Vaccine Exclusion Criteria: Already Received Past Medical History Past Medical History NEUROLOGIC: Negative Neurological Disorders CARDIAC: Positive Cardiac Disorders and Hypertension; Negative Congestive Heart Failure RESPIRATORY: Negative Chronic Obstructive Pulmonary Disease (COPD) GASTROINTESTINAL: Negative Gastrointestinal Disorders GENITOURINARY: Negative Genitourinary Disorders or Renal Disease ENDOCRINE: Positive Endocrine Disorders and Diabetes Mellitus Type 2; Negative Diabetes Mellitus Type 1 HEMATOLOGIC: Negative Blood Disorders OTHER HISTORY: Negative Autoimmune Disease or Anesthesia Reactions Social History SMOKING STATUS: Smoking status: Former smoker ALCOHOL: Alcohol Intake: Former ALCOHOL FREQUENCY: Alcohol Intake Frequency: 3 or More Drinks per Day HOUSING: Housing: Apartment LIVES WITH: Lives With: Family Patient Portal Julianaalina Social History Living Situation History Housing: Apartment Tobacco History Smoking Status: Former smoker Alcohol History Alcohol Intake: Former Alcohol Intake Frequency: 3 or More Drinks per Day Domestic Abuse History Do You Feel Safe at Home: Yes Review of Systems Report any current symptoms Only answer those that you have currently: Past Medical History Past Medical History Have you ever been diagnosed with any of the following: Cardiology Problems Congestive Heart Failure: No Hypertension: Yes Respiratory Problems Chronic Obstructive Pulmonary Disease (COPD): No Genital/Urinary Problems Renal Disease: No Endocrine Problems Diabetes Mellitus Type 1: No Diabetes Mellitus Type 2: Yes Other Problems Autoimmune Disease: No Anesthesia Reactions: No History of Present Illness HPI Narrative 68 y/o M PMHx HTN, insulin dependent DM, came to the [facility] after hospital discharge for RLE osteomyelitis. Patient currently taking Ciprofloxacin 250 BID and doxycycline 100mg po bid for a duration of 6 weeks for his osteo. Patient also wanted to establish care with primary care physician. Basic labs were ordered including CBC, CMP, as well inflammatory markers ESR and CRP to monitor progression of treatment. BP was found to be elevated was started on low dose lisinopril and told follow up within 1-2 weeks to review labs. 06/26/2024: Patient was unable to reach appointment however spoke to daughter who is taking care of the patient via telephone visit. Daughter states patient will be started on dialysis and is pending dialysis catheter placement patient already has chair time in [place] will be started on dialysis schedule Saturday. Daughter who is communicating with the patient states patient is not having any fevers, chills at this time or any symptoms. However is stating the patient's lower extremity starting to smell we will treat patient empirically with antibiotic therapy at this time, however was instructed that there is concern of recurring osteomyelitis given his poor blood flow and poorly controlled HTN and DM and will very likely need vascular intervention. Patient is also in denial of needing BKA but was counseled on the importance of having source control. Of note patient is pending Right BKA with vascular surgery however patient is pending cardiac clearance at this time. Patient has not scheduled an appointment yet with cardiology instructed on the importance of this so patient can have his surgery and to have proper source control. Will follow up very soon. 07/03/2024: Patient interviewed accompanied by daughter, Luz. Patient's daughter reports he is scheduled to undergo permcath placement and start hemodialysis soon. He will call to make an appointment on 07/06 to scheduled the permcath placement. Patient is being followed by Clerk Cashier, Dr. Suad Pierson for his impending dialysis. In regards to the patient's right foot, he was started on PO abx cipro and doxy for suspected osteomyelitis 1 week prior. She notes the malodor from the ulcer has decreased but no change in the size or erythema of the DFU. Patient will see vascular surgeon in [place] for possible amputation of the foot due to recurrent osteomyelitis secconday to PAD and uncontrolled DM2. He is currently pending cardiac clearance to undergo aforementioned amputation, however has been unable to f/u with pit hand due to transport issues. Will refer patient to a local pit hand for further evaluation and cardiac clearance. In office BP measured markedly elevated at 215/99. Patient currerntly asymptomatic. In regards to his DM2 management, his FSG have been 115-150's however they were not fasting. Due to the patient worsening osteomyelitis and hypertensive urgency, he was advised to present himself to the ED for further evaluation of osteomyelitis. 07/24/2024:Patient is seen today at the [facility] after hospital discharge. Patient had a recent hospital admission due to worsening osteomyelitis and hypertensive urgency. Patient did have transmetatarsal amputation during this hospitalization. Patient was also started on hemodialysis. Per the daughter who is with the patient blood sugars at home ranging between 115-150, with 15 units of Lantus at bedtime. Prescribed freestyle ninfa 3+ so patient can have continuous glucose monitoring as patient is insulin-dependent diabetic with complications, blood pressures here in the office 135/73, heart rate 60. Patient will have follow-up visits with general surgery on 07/27, cardiology 08/05, vascular surgery 08/06. Objective/Exam Narrative Physical exam: Physical Exam GENERAL: NAD, NC/AT, responsive/cooperative. A&Ox3 HEENT: Moist mucosa. Eyes open, symmetrical, & clear CARDIO: No chest pain on palpation. Heart RRR, no obvious murmurs PULM: No noted coughing/dyspnea. Lungs CTA B/L, no R/W/R GI: Abdomen soft, nondistended, no pain on palpation. BSx4 URO/CROWN WHEEL ASSEMBLER:: No further abnormalities noted. SKIN/MSK/EXT: RLE covered, no pain on palpation. Pedal pulses present B/L, diminshed NEURO: :AAOX3, no focal neuro deficits Assessment & Plan Diagnosis / Problem List (1) ESRD (end stage renal disease): Status: Acute Plan: Patient started on hemodialysis currently going at [facility] Current darkroom technician unable to follow the patient we will send referral for new darkroom technician (2) Insulin dependent diabetes mellitus: Status: Acute Plan: Currently on 15 units of Lantus at bedtime Blood sugars ranging between 115?150 ? Freestyle ninfa 3+ ordered (3) Hypertension: Status: Acute Plan: BP 135/73, heart rate 60 ? Continue current management Advanced Care Planning Advance care planning discussed with:: patient and child Office Procedures [facility] Level of Care Nursing/Assessment Patient Status: Established Patient Nursing Assessment/Reassessment: Medication Reconciliation, Update PMH in EMR and Vital Signs Coordination of Care: Complex Care and Chronic Disease 1-5, Consent,records obtained, informed consent, Education Simp Pt/Fam and Staff clarify orders Established Patient Charge Established Patient Point Assignment: 85 Established Patient Point Charge: EP Level 3 (80-115)
[2024-07-24 10:40] VITALS: BP 135/73; PULSE 60; RESP 18; TEMP 36.4; O2SAT 94
== END 2024-07-24 11:27 | disposition home or self-care (01) ==
LOC: HODAHC 10:08
PROVIDERS: Supervising Provider Internal Medicine; Visit Provider Student in an Organized Health Care Education/Training Program
DX: E11.22 Type 2 diabetes mellitus with diabetic chronic kidney disease (principal); I12.0 Hypertensive chronic kidney disease with stage 5 chronic kidney disease or end stage renal disease; N18.6 End stage renal disease; Z99.2 Dependence on renal dialysis; Z79.4 Long term (current) use of insulin; E11.69 Type 2 diabetes mellitus with other specified complication; M86.9 Osteomyelitis, unspecified
CPT/HCPCS: 99213; G0463

== ENCOUNTER 2024-07-27 10:14 | Outpatient (AMB) | payer MEDICARE, MEDICAID, SELFPAY ==
[2024-07-27 10:25] VITALS: BP 168/73; PULSE 57; RESP 18; TEMP 36.6; O2SAT 97
--- NOTE | 2024-07-27 10:25 | GSCOFFNT_ITS ---
Vital Signs - [facility] 07/27/24 10:25 Weight 72.575 kg Weight Measurement Method Stated by Patient BP 168/73 H Blood Pressure Source Automatic Cuff Blood Pressure Location Left Upper Arm Position Sitting Respiration 18 Pulse 57 L Pulse Source Monitor Temp 97.9 F Temp Source Temporal Artery Scan Pulse Oximetry (%) 97 Oxygen Delivery Method Room Air Med/Allergies Allergies & Medications Allergies No Known Allergies Allergy (Verified 07/27/24 10:27) Medication Reconciliation blood ketone glucose monitor #1 ea 02/12/24 [Rx Confirmed 07/27/24] blood sugar diagnostic (Accutrend Glucose test strips) #50 ea 02/12/24 [Rx Confirmed 07/27/24] insulin glargine 100 unit/mL (3 mL) subcutaneous pen (Lantus Solostar U-100 Insulin) 15 unit (0.15 mL) subcut QAM #15 mL 02/12/24 [Rx Confirmed 07/27/24] lancets 28 gauge (Acti-Zak Lancets) #100 ea 02/12/24 [Rx Confirmed 07/27/24] pen needle, diabetic 29 gauge x 1/2 (BD Ultra-Fine Original Pen Needle) #100 ea 02/12/24 [Rx Confirmed 07/27/24] miscellaneous medical supply (QIJ-Ywwd-Qnxkpz Blood Pressure Cuff) #1 ea 02/13 [Rx Confirmed 07/27/24] blood-glucose sensor (FreeStyle Ninfa 3 Plus Sensor device) #1 ea 02/24/24 [Rx Confirmed 07/27/24] blood-glucose,bacteriologist pharmaceutical,cont (FreeStyle Ninfa 3 [place]) #1 ea 02/24/24 [Rx Confirmed 07/27/24] blood sugar diagnostic (Accu-Chek Guide test strips) #100 ea 03/20/24 [Rx Confirmed 07/27/24] blood-glucose meter (Accu-Chek Guide Me Glucose Meter) #1 ea 03/20/24 [Rx Confirmed 07/27/24] lancets (Accu-Chek Fastclix Lancet Drum) #200 ea 03/20/24 [Rx Confirmed 07/27/24] amlodipine 10 mg tablet 10 mg PO QDAY #30 tabs 04/24/24 [Rx Confirmed 07/27/24] hydralazine 50 mg tablet 50 mg PO TID 1 month #90 tabs 05/22/24 [Rx Confirmed 07/27/24] FreeStyle Ninfa 3 Plus Sensor (blood-glucose sensor) #1 ea 07/24/24 [Rx Confirmed 07/27/24] FreeStyle Ninfa 3 [place] (blood-glucose,bacteriologist pharmaceutical,cont) #1 ea 07/24/24 [Rx Confirmed 07/27/24] MA Intake Visit Data Collection New Patient or Established: Established Patient (seen at [facility] within 3 years) Reason for Visit:: FOLLOW UP SURGERY Pain Present Currently: Yes Pain scale:: 0 Pain Scale Used: Peña-Jean/Numerical Ceramic Coater Required: No PCP or OBGYN visit in last 3 months: Yes Smoking Status Smoking Status: Former smoker Immunization / Flu Flu Vaccine in the Last 12 Months: Yes Flu Vaccine Exclusion Criteria: Already Received Past Medical History Past Medical History NEUROLOGIC: Negative Neurological Disorders CARDIAC: Positive Cardiac Disorders and Hypertension; Negative Congestive Heart Failure RESPIRATORY: Negative Chronic Obstructive Pulmonary Disease (COPD) GASTROINTESTINAL: Negative Gastrointestinal Disorders GENITOURINARY: Negative Genitourinary Disorders or Renal Disease ENDOCRINE: Positive Endocrine Disorders and Diabetes Mellitus Type 2; Negative Diabetes Mellitus Type 1 HEMATOLOGIC: Negative Blood Disorders OTHER HISTORY: Negative Autoimmune Disease or Anesthesia Reactions Social History SMOKING STATUS: Smoking status: Former smoker ALCOHOL: Alcohol Intake: Former ALCOHOL FREQUENCY: Alcohol Intake Frequency: 3 or More Drinks per Day HOUSING: Housing: Apartment LIVES WITH: Lives With: Family HPI HPI Narrative 69M with HTN, CKD, DM and R osteomyelitis of the 5th digit, gangrene of most toes now s/p amputation of R 1-5th digits 07/07/24, here for planned follow up. Pt reports feeling well overall, states he has minimal pain and is ambulating around the house. He is being seen at wound care weekly and is planned for hyperbaric oxygen therapy pending insurance approval. Per daughter his finger sticks have been in the low 100s ROS Review of Systems Systems Reviewed: All systems reviewed, normal except as documented Objective/Exam General General Appearance: alert, cooperative and well groomed Resp Respiratory exam: Absent respiratory distress Extremities Extremities exam: Present other (right foot incision with eschar, no surrounding erythema, no fluctuance or tenderness. sutures removed) Assessment & Plan Diagnosis / Problem List (1) Osteomyelitis: Status: Acute Assessment & Plan: 69M with HTN, CKD, DM and R osteomyelitis of the 5th digit, s/p amputation of R 1-5th toes 07/07/24, gradually recovering Plan: Appreciate Wound Healing care F/u in 6 weeks (2) Peripheral arterial disease: Status: Acute Assessment & Plan: Pt has a follow up with his vascular surgeon coming up soon Advanced Care Planning Advance care planning discussed with:: other Office Procedures GNS Level of Care Nursing/Assessment Patient Status: Established Patient Nursing Assessment/Reassesment: Medication Reconciliation, Update PMH in EMR and Vital Signs Coordination of Care: Complex Care/Chronic Disease 5 or more, Education Complex Pt/Fam, Consent,records obtained, informed consent, Results/Orders obtained and Staff clarify orders Established Patient Charge Established Patient Point Assignment: 105 Established Patient Point Charge: EP Level 3 (80-115) Patient Portal Questionaires Social History Living Situation History Housing: Apartment Tobacco History Smoking Status: Former smoker Alcohol History Alcohol Intake: Former Alcohol Intake Frequency: 3 or More Drinks per Day Review of Systems Report any current symptoms Only answer those that you have currently: Past Medical History Past Medical History Have you ever been diagnosed with any of the following: Cardiology Problems Congestive Heart Failure: No Hypertension: Yes Respiratory Problems Chronic Obstructive Pulmonary Disease (COPD): No Genital/Urinary Problems Renal Disease: No Endocrine Problems Diabetes Mellitus Type 1: No Diabetes Mellitus Type 2: Yes Other Problems Autoimmune Disease: No Anesthesia Reactions: No
== END 2024-07-27 11:05 | disposition home or self-care (01) ==
PROVIDERS: Supervising Provider Surgery; Visit Provider Surgery
DX: Z47.81 Encounter for orthopedic aftercare following surgical amputation (principal); Z89.421 Acquired absence of other right toe(s); I73.9 Peripheral vascular disease, unspecified
CPT/HCPCS: 99213; G0463

== ENCOUNTER 2024-08-07 08:03 | Outpatient (RCR) | payer MEDICARE, MEDICAID, SELFPAY | END 2024-08-08 23:59 | disposition home or self-care (01) | LOC: SWHD 08:03 | PROVIDERS: Visit Provider Physician Assistant | DX: I96 Gangrene, not elsewhere classified (principal); T81.89XA Other complications of procedures, not elsewhere classified, initial encounter; L97.518 Non-pressure chronic ulcer of other part of right foot with other specified severity; E11.69 Type 2 diabetes mellitus with other specified complication; Z99.2 Dependence on renal dialysis; N18.6 End stage renal disease; Z79.4 Long term (current) use of insulin | CPT/HCPCS: 97597 ×2; 82962; 99212; G0277; G0463 ==

== ENCOUNTER → 2024-08-28 | Outpatient (CLI) | payer MEDICARE, MEDICAID, SELFPAY | END | disposition home or self-care (01) | PROVIDERS: Referring Provider Student in an Organized Health Care Education/Training Program; Visit Provider Student in an Organized Health Care Education/Training Program | DX: E11.621 Type 2 diabetes mellitus with foot ulcer (principal) | CPT/HCPCS: 87070; 87075; 87077; 87186; 87205 ==

== ENCOUNTER 2024-09-04 08:10 | Outpatient (RCR) | payer MEDICARE, MEDICAID, SELFPAY | END 2024-09-07 23:59 | disposition home or self-care (01) | LOC: SWHD 08:10 | PROVIDERS: PCP Student in an Organized Health Care Education/Training Program; Referring Provider Student in an Organized Health Care Education/Training Program; Visit Provider Physician Assistant | DX: I96 Gangrene, not elsewhere classified (principal); T81.89XA Other complications of procedures, not elsewhere classified, initial encounter; L97.512 Non-pressure chronic ulcer of other part of right foot with fat layer exposed; E11.69 Type 2 diabetes mellitus with other specified complication; Z99.2 Dependence on renal dialysis; N18.6 End stage renal disease; Z79.4 Long term (current) use of insulin | CPT/HCPCS: 11042 ×4; 82962; 99212; A9270; G0277; G0463 ==

== ENCOUNTER 2024-09-10 08:20 | Outpatient (RCR) | payer MEDICARE, MEDICAID, SELFPAY | END 2024-10-08 23:59 | disposition home or self-care (01) | LOC: SWHD 08:20 | PROVIDERS: PCP Student in an Organized Health Care Education/Training Program; Referring Provider Student in an Organized Health Care Education/Training Program; Visit Provider Student in an Organized Health Care Education/Training Program | DX: I96 Gangrene, not elsewhere classified (principal); L97.515 Non-pressure chronic ulcer of other part of right foot with muscle involvement without evidence of necrosis; S91.301A Unspecified open wound, right foot, initial encounter; X58.XXXA Exposure to other specified factors, initial encounter; E11.69 Type 2 diabetes mellitus with other specified complication; Z99.2 Dependence on renal dialysis; N18.6 End stage renal disease; Z79.4 Long term (current) use of insulin; M86.8X7 Other osteomyelitis, ankle and foot | CPT/HCPCS: 11042; 97597; 82962; A9270; G0277 ==

== ENCOUNTER → 2024-09-18 | Outpatient (CLI) | payer MEDICARE, MEDICAID, SELFPAY | END | disposition home or self-care (01) | LOC: SWHD 09:03 | PROVIDERS: PCP Student in an Organized Health Care Education/Training Program; Referring Provider Student in an Organized Health Care Education/Training Program; Visit Provider Surgery | DX: I96 Gangrene, not elsewhere classified (principal); T81.89XA Other complications of procedures, not elsewhere classified, initial encounter; L97.511 Non-pressure chronic ulcer of other part of right foot limited to breakdown of skin; S98.131A Complete traumatic amputation of one right lesser toe, initial encounter; X58.XXXA Exposure to other specified factors, initial encounter; E11.69 Type 2 diabetes mellitus with other specified complication; Z99.2 Dependence on renal dialysis; N18.6 End stage renal disease; Z79.4 Long term (current) use of insulin | CPT/HCPCS: 11042; 97597; A9270 ==

== ENCOUNTER → 2024-09-24 | Outpatient (CLI) | payer MEDICARE, MEDICAID, SELFPAY | END | disposition home or self-care (01) | LOC: SWHD 10:33 | PROVIDERS: PCP Student in an Organized Health Care Education/Training Program; Referring Provider Student in an Organized Health Care Education/Training Program; Visit Provider Student in an Organized Health Care Education/Training Program | DX: I96 Gangrene, not elsewhere classified (principal); L97.515 Non-pressure chronic ulcer of other part of right foot with muscle involvement without evidence of necrosis; E11.69 Type 2 diabetes mellitus with other specified complication; Z99.2 Dependence on renal dialysis; N18.6 End stage renal disease; Z79.4 Long term (current) use of insulin; M86.8X7 Other osteomyelitis, ankle and foot | CPT/HCPCS: 11044; A9270 ==

== ENCOUNTER → 2024-10-15 | Outpatient (CLI) | payer MEDICARE, MEDICAID, SELFPAY | END | disposition home or self-care (01) | PROVIDERS: Visit Provider Student in an Organized Health Care Education/Training Program | DX: I96 Gangrene, not elsewhere classified (principal); L97.516 Non-pressure chronic ulcer of other part of right foot with bone involvement without evidence of necrosis; S91.301A Unspecified open wound, right foot, initial encounter; X58.XXXA Exposure to other specified factors, initial encounter; E11.69 Type 2 diabetes mellitus with other specified complication; Z99.2 Dependence on renal dialysis; N18.6 End stage renal disease; Z79.4 Long term (current) use of insulin; M86.8X7 Other osteomyelitis, ankle and foot | CPT/HCPCS: 11042; A9270 ==

== ENCOUNTER → 2024-10-21 | Outpatient (CLI) | payer MEDICARE, MEDICAID, SELFPAY | END | disposition home or self-care (01) | PROVIDERS: Visit Provider Student in an Organized Health Care Education/Training Program | DX: I96 Gangrene, not elsewhere classified (principal); L97.514 Non-pressure chronic ulcer of other part of right foot with necrosis of bone; S91.301A Unspecified open wound, right foot, initial encounter; X58.XXXA Exposure to other specified factors, initial encounter; E11.69 Type 2 diabetes mellitus with other specified complication; Z99.2 Dependence on renal dialysis; N18.6 End stage renal disease; Z79.4 Long term (current) use of insulin; M86.8X7 Other osteomyelitis, ankle and foot | CPT/HCPCS: 11042 ==

== ENCOUNTER → 2024-10-28 | Outpatient (CLI) | payer MEDICARE, MEDICAID, SELFPAY | END | disposition home or self-care (01) | LOC: SWHD 08:58 | PROVIDERS: PCP Student in an Organized Health Care Education/Training Program; Referring Provider Student in an Organized Health Care Education/Training Program; Visit Provider Student in an Organized Health Care Education/Training Program | DX: I96 Gangrene, not elsewhere classified (principal); L97.516 Non-pressure chronic ulcer of other part of right foot with bone involvement without evidence of necrosis; S91.301A Unspecified open wound, right foot, initial encounter; X58.XXXA Exposure to other specified factors, initial encounter; E11.69 Type 2 diabetes mellitus with other specified complication; Z99.2 Dependence on renal dialysis; N18.6 End stage renal disease; Z79.4 Long term (current) use of insulin; M86.8X7 Other osteomyelitis, ankle and foot | CPT/HCPCS: 11042; A9270 ==

== ENCOUNTER → 2024-11-11 | Outpatient (CLI) | payer MEDICAID, SELFPAY | END | disposition home or self-care (01) | PROVIDERS: Visit Provider Student in an Organized Health Care Education/Training Program | DX: I96 Gangrene, not elsewhere classified (principal); L97.516 Non-pressure chronic ulcer of other part of right foot with bone involvement without evidence of necrosis; S91.301A Unspecified open wound, right foot, initial encounter; X58.XXXA Exposure to other specified factors, initial encounter; E11.69 Type 2 diabetes mellitus with other specified complication; Z99.2 Dependence on renal dialysis; M86.8X7 Other osteomyelitis, ankle and foot; N18.6 End stage renal disease | CPT/HCPCS: 11042; A9270 ==

== ENCOUNTER → 2024-12-02 | Outpatient (CLI) | payer MEDICARE, MEDICAID, SELFPAY | END | disposition home or self-care (01) | LOC: SWHD 08:38 | PROVIDERS: Visit Provider Student in an Organized Health Care Education/Training Program | DX: I96 Gangrene, not elsewhere classified (principal); L97.516 Non-pressure chronic ulcer of other part of right foot with bone involvement without evidence of necrosis; S91.301A Unspecified open wound, right foot, initial encounter; X58.XXXA Exposure to other specified factors, initial encounter; E11.69 Type 2 diabetes mellitus with other specified complication; Z99.2 Dependence on renal dialysis; M86.8X7 Other osteomyelitis, ankle and foot; N18.6 End stage renal disease | CPT/HCPCS: 97597; A9270 ==

== ENCOUNTER 2025-01-13 13:40 | Outpatient (AMB) | payer MEDICAID, SELFPAY ==
[2025-01-13 13:48] VITALS: BP 162/64; PULSE 80; RESP 18; TEMP 36.3; O2SAT 97
--- NOTE | 2025-01-13 13:48 | PD.RESCLINIC ---
Vital Signs 01/13/25 13:48 Weight 68.266 kg Weight Measurement Method Standing Scale BP 162/64 H Blood Pressure Source Automatic Cuff Blood Pressure Location Right Upper Arm Position Sitting Respiration 18 Pulse 80 Pulse Source Monitor Temp 97.4 F Temp Source Temporal Artery Scan Pulse Oximetry (%) 97 Oxygen Delivery Method Room Air Allergies/Meds Allergies & Medications Allergies No Known Allergies Allergy (Verified 01/13/25 13:50) Medication Reconciliation blood ketone glucose monitor #1 ea 02/12/24 [Rx Confirmed 01/13/25] blood sugar diagnostic (Accutrend Glucose test strips) #50 ea 02/12/24 [Rx Confirmed 01/13/25] insulin glargine 100 unit/mL (3 mL) subcutaneous pen (Lantus Solostar U-100 Insulin) 15 unit (0.15 mL) subcut QAM #15 mL 02/12/24 [Rx Confirmed 01/13/25] lancets 28 gauge (Acti-Zak Lancets) #100 ea 02/12/24 [Rx Confirmed 01/13/25] pen needle, diabetic 29 gauge x 1/2 (BD Ultra-Fine Original Pen Needle) #100 ea 02/12/24 [Rx Confirmed 01/13/25] miscellaneous medical supply (HLE-Wfkv-Xnlouv Blood Pressure Cuff) #1 ea 02/14/24 [Rx Confirmed 01/13/25] blood-glucose sensor (FreeStyle Ninfa 3 Plus Sensor device) #1 ea 02/24/24 [Rx Confirmed 01/13/25] blood-glucose,web press roll tender,cont (FreeStyle Ninaf 3 [place]) #1 ea 02/24/24 [Rx Confirmed 01/13/25] blood sugar diagnostic (Accu-Chek Guide test strips) #100 ea 03/20/24 [Rx Confirmed 01/13/25] blood-glucose meter (Accu-Chek Guide Me Glucose Meter) #1 ea 03/20/24 [Rx Confirmed 01/13/25] lancets (Accu-Chek Fastclix Lancet Drum) #200 ea 03/20/24 [Rx Confirmed 01/13/25] amlodipine 10 mg tablet 10 mg PO QDAY #30 tabs 04/24/24 [Rx Confirmed 01/13/25] FreeStyle Ninfa 3 Plus Sensor (blood-glucose sensor) #1 ea 07/24/24 [Rx Confirmed 01/13/25] [employer] Ninfa 3 [place] (blood-glucose,web press roll tender,cont) #1 ea 07/24/24 [Rx Confirmed 01/13/25] carvedilol 3.125 mg tablet (Coreg) 3.125 mg PO BID 1 month #60 tabs 01/13/25 [Rx] MA Intake Visit Data Collection New Patient or Established: Established Patient (seen at [facility] within 3 years) Seen by Clinical Staff ONLY (RN/MA): No Pain Present Currently: No Pain scale:: 0 Pain Scale Used: Peña-Jean/Numerical Structural Architect Required: No PCP or OBGYN visit in last 3 months: No Do You Feel Safe at Home: Yes Authorities Contacted: N/A Smoking Status Smoking Status: Former smoker Immunization / Flu Flu Vaccine in the Last 12 Months: No Flu Vaccine Exclusion Criteria: No Exclusion Criteria (Will follow up about flu shot next visit.) Past Medical History Past Medical History NEUROLOGIC: Negative Neurological Disorders CARDIAC: Positive Cardiac Disorders and Hypertension; Negative Congestive Heart Failure RESPIRATORY: Negative Chronic Obstructive Pulmonary Disease (COPD) GASTROINTESTINAL: Negative Gastrointestinal Disorders GENITOURINARY: Negative Genitourinary Disorders or Renal Disease ENDOCRINE: Positive Endocrine Disorders and Diabetes Mellitus Type 2; Negative Diabetes Mellitus Type 1 HEMATOLOGIC: Negative Blood Disorders OTHER HISTORY: Negative Autoimmune Disease or Anesthesia Reactions Social History SMOKING STATUS: Smoking status: Former smoker ALCOHOL: Alcohol Intake: Former ALCOHOL FREQUENCY: Alcohol Intake Frequency: 3 or More Drinks per Day HOUSING: Housing: Apartment LIVES WITH: Lives With: Family Patient Portal Questionaires PHQ-9 PHQ-2 Over the last 2 weeks, how often have you been bothered by any of the following problems? 1. Little interest or pleasure in doing things: not at all 2. Feeling down, depressed, or hopeless: not at all Total score: 0 Social History Living Situation History Housing: Apartment Tobacco History Smoking Status: Former smoker Alcohol History Alcohol Intake: Former Alcohol Intake Frequency: 3 or More Drinks per Day Domestic Abuse History Do You Feel Safe at Home: Yes Review of Systems Report any current symptoms Only answer those that you have currently: Past Medical History Past Medical History Have you ever been diagnosed with any of the following: Cardiology Problems Congestive Heart Failure: No Hypertension: Yes Respiratory Problems Chronic Obstructive Pulmonary Disease (COPD): No Genital/Urinary Problems Renal Disease: No Endocrine Problems Diabetes Mellitus Type 1: No Diabetes Mellitus Type 2: Yes Other Problems Autoimmune Disease: No Anesthesia Reactions: No History of Present Illness HPI Narrative 68 y/o M PMHx HTN, insulin dependent DM, came to the [facility] after hospital discharge for RLE osteomyelitis. Patient currently taking Ciprofloxacin 250 BID and doxycycline 100mg po bid for a duration of 6 weeks for his osteo. Patient also wanted to establish care with primary care physician. Basic labs were ordered including CBC, CMP, as well inflammatory markers ESR and CRP to monitor progression of treatment. BP was found to be elevated was started on low dose lisinopril and told follow up within 1-2 weeks to review labs. 06/26/2024: Patient was unable to reach appointment however spoke to daughter who is taking care of the patient via telephone visit. Daughter states patient will be started on dialysis and is pending dialysis catheter placement patient already has chair time in [place] will be started on dialysis schedule Saturday. Daughter who is communicating with the patient states patient is not having any fevers, chills at this time or any symptoms. However is stating the patient's lower extremity starting to smell we will treat patient empirically with antibiotic therapy at this time, however was instructed that there is concern of recurring osteomyelitis given his poor blood flow and poorly controlled HTN and DM and will very likely need vascular intervention. Patient is also in denial of needing BKA but was counseled on the importance of having source control. Of note patient is pending Right BKA with vascular surgery however patient is pending cardiac clearance at this time. Patient has not scheduled an appointment yet with cardiology instructed on the importance of this so patient can have his surgery and to have proper source control. Will follow up very soon. 07/03/2024: Patient interviewed accompanied by daughter, Luz. Patient's daughter reports he is scheduled to undergo permcath placement and start hemodialysis soon. He will call to make an appointment on 07/06 to scheduled the permcath placement. Patient is being followed by Office Administration Instructor, Dr. Suad Pierson for his impending dialysis. In regards to the patient's right foot, he was started on PO abx cipro and doxy for suspected osteomyelitis 1 week prior. She notes the malodor from the ulcer has decreased but no change in the size or erythema of the DFU. Patient will see vascular surgeon in [place] for possible amputation of the foot due to recurrent osteomyelitis secconday to PAD and uncontrolled DM2. He is currently pending cardiac clearance to undergo aforementioned amputation, however has been unable to f/u with network intern due to transport issues. Will refer patient to a local network intern for further evaluation and cardiac clearance. In office BP measured markedly elevated at 215/99. Patient currerntly asymptomatic. In regards to his DM2 management, his FSG have been 115-150's however they were not fasting. Due to the patient worsening osteomyelitis and hypertensive urgency, he was advised to present himself to the ED for further evaluation of osteomyelitis. 07/24/2024:Patient is seen today at the [facility] after hospital discharge. Patient had a recent hospital admission due to worsening osteomyelitis and hypertensive urgency. Patient did have transmetatarsal amputation during this hospitalization. Patient was also started on hemodialysis. Per the daughter who is with the patient blood sugars at home ranging between 115-150, with 15 units of Lantus at bedtime. Prescribed freestyle ninfa 3+ so patient can have continuous glucose monitoring as patient is insulin-dependent diabetic with complications, blood pressures here in the office 135/73, heart rate 60. Patient will have follow-up visits with general surgery on 07/27, cardiology 08/05, vascular surgery 08/06. 01/13/2025: Patient seen in the [facility]. He has been attending dialysis and his foot debridement appointments and tolerating both well. His last A1c was 6.1 in June and he mentions that his sugar is around 120-140 at home. 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 He is in stage II hypertension today with a BP of 162/64. Will discontinue 3 times daily hydralazine and begin Coreg 3.125 twice daily and follow-up in 2 weeks to check his blood pressure. Review of Systems Review of Systems Narrative Review of Systems: Review of Systems: General: Denies fevers, chills. HEENT: Denies headache, congestion, or sore throat. Cardiac: Denies chest pain or palpitations. Pulmonary: Denies shortness of breath or cough. GI: Denies nausea, vomiting, diarrhea, constipation, melena, or hematochezia. : Denies dysuria, hematuria, frequency, or urgency. MSK: Denies pain in the extremities, joints, or myalgias. Neuro: Denies weakness, numbness, vision changes, or speech difficulty. Objective/Exam Narrative Physical exam: General: Awake and in no acute distress. Conversational and non-toxic appearing. Neurologic: GCS 15. Alert and oriented x3, no gross neurological deficit, and patient able to move all 4 extremities. HEENT: Normocephalic, atraumatic, mucous membranes moist. Pupils reactive to light. Heart: Regular rate and rhythm, normal S1 and S2, no murmurs. Lungs: Clear to auscultation bilaterally with no wheezing or crackles. Abdomen: Soft, nondistended, nontender, positive bowel sounds. No guarding or rebound tenderness. Extremities: Right lower extremity wrapped. No edema in the lower extremities. Dorsalis pedis pulses diminished bilaterally Skin: Warm. Dry. No rash or ecchymoses. Assessment & Plan Diagnosis / Problem List (1) Hypertension: Status: Acute Plan 69-year-old male past medical history of hypertension, PAD, osteomyelitis, ESRD on dialysis, insulin-dependent diabetes melitis, diabetic foot infection status post debridement and all-digit amputation presents today for follow-up. #ESRD on dialysis Patient attends hemodialysis on Saturday Plan: Will refer to different nephrology group so the patient can attend dialysis in [place] per his request. #Insulin-dependent diabetes mellitus Last A1c was 6.1 on 07/04/2024 Patient mentions that his sugars between 116-140 at home Plan: Will continue current insulin regimen of 15 units of Lantus at bedtime #Hypertension Stage 2 Patient presents with a BP of 162/64 today Currently on amlodipine 10 mg daily and hydralazine 50 mg 3 times daily Consider in the presence of ESRD on dialysis Patient mentions that he has been compliant with his medications Plan: Will discontinue hydralazine and start Coreg 3.125 mg twice a day Will follow-up in 2 weeks for blood pressure check. Patient was seen and discussed with my attending physician Dr. Leti TORRES. [place] DO PGY-1. Advanced Care Planning Advance care planning discussed with:: patient Office Procedures [facility] Level of Care Nursing/Assessment Patient Status: Established Patient Nursing Assessment/Reassessment: Medication Reconciliation, Update PMH in EMR and Vital Signs Coordination of Care: Complex Care and Chronic Disease 1-5, Complex Care/Chronic Disease 5 or more, Consent,records obtained, informed consent, Lab and Imaging orders, Results/Orders obtained and Staff clarify orders Established Patient Charge Established Patient Point Assignment: 125 Established Patient Point Charge: EP Level 4 (120-155)
== END 2025-01-13 14:51 | disposition home or self-care (01) ==
LOC: HODAHC 13:40
DX: I12.0 Hypertensive chronic kidney disease with stage 5 chronic kidney disease or end stage renal disease (principal); E11.22 Type 2 diabetes mellitus with diabetic chronic kidney disease; N18.6 End stage renal disease; Z79.4 Long term (current) use of insulin; Z99.2 Dependence on renal dialysis; I73.9 Peripheral vascular disease, unspecified
CPT/HCPCS: 99214; G0463

== ENCOUNTER 2025-01-21 10:45 | Day surgery (SDC) | payer MEDICAID, SELFPAY ==
[2025-01-18 09:28] VITALS: BMI 24.7
[2025-01-18 10:22] LABS: Basophils # (Auto) 0.1 Thou/mm3 (0.0-0.2); Basophils % (Auto) 1 % (0-2.5); Eosinophils # (Auto) 0.7 Thou/mm3 (0.0-0.5); Eosinophils % (Auto) 6 % (0-10); Hematocrit 35.7 % (41.0-53.0); Hemoglobin 11.5 g/dL (13.5-16.0); Immature Granulocytes Auto 0.04 Thou/mm3 (0.00-0.00); Lymphocytes # (Auto) 2.1 Thou/mm3 (1.0-4.8); Lymphocytes % (Auto) 17 % (10-50); Mean Corpuscular HGB Conc 32.2 g/dl (31.0-37.0); Mean Corpuscular Hemoglobin 30.6 pg (25.0-35.0); Mean Corpuscular Volume 95 fL (80-100); Monocytes # (Auto) 0.9 Thou/mm3 (0.0-0.8); Monocytes % (Auto) 7 % (0-12); Neutrophils # (Auto) 8.6 Thou/mm3 (1.8-7.7); Neutrophils % (Auto) 70 % (37-80); Nucleated Red Blood Cell # 0.00 Thou/mm3 (0.00-0.00); Nucleated Red Blood Cell % 0 /100 WBC (0); Platelet Count 165 Thou/mm3 (140-440); RDW Standard Deviation 51.9 fL (35.1-43.9); Red Blood Count 3.76 Miln/mm3 (4.50-5.90); White Blood Count 12.4 Thou/mm3 (3.8-10.6)
[2025-01-18 10:30] LABS: INR 1.0 (0.9-1.3); Partial Thromboplastin Time 30.6 Seconds (22.0-36.0); Prothrombin Time 10.3 Seconds (9.0-12.2)
[2025-01-18 10:43] LABS: Alanine Aminotransferase 16 U/L (10-49); Albumin, Serum 4.3 gm/dL (3.4-4.8); Albumin/Globulin Ratio 1.4 (1.2-2.2); Alkaline Phosphatase 61 U/L (46-116); Anion Gap 11 (7-16); Aspartate Amino Transferase 15 U/L (0-34); BUN/Creatinine Ratio 8 Ratio (12-20); Bilirubin,Total 0.3 mg/dL (0.3-1.2); Blood Urea Nitrogen 45 mg/dL (9-23); Calcium 9.3 mg/dL (8.3-10.6); Calcium (Corrected) 9.3 mg/dL (8.5-10.1); Carbon Dioxide 23.3 mMol/L (20.0-31.0); Chloride 105 mMol/L (98-107); Creatinine (Component) 5.5 mg/dL (0.6-1.3); Estimated Creatinine Clearance 11.5 mL/min (>60); Globulin 3.1 gm/dL (2.3-3.5); Glucose 111 mg/dL (74-106); Osmolality,Calculated 290 (275-295); Potassium 4.8 mMol/L (3.4-5.1); Sodium 139 mMol/L (136-145); Total Protein 7.4 gm/dL (5.7-8.2); eGFR 10 See Note
--- NOTE | 2025-01-20 14:24 | SUR.PREOP ---
Pt's daughter notified to bring pt at 1100.
[2025-01-21] VITALS (7 sets, daily range): BP systolic 158–178; BP diastolic 69–81; PULSE 60–66; RESP 12–17; TEMP 36.2–36.4; O2SAT 95–100; BMI 23.5
[2025-01-21 11:47] LABS: Potassium 4.1 mMol/L (3.4-5.1)
--- NOTE | 2025-01-21 14:53 | ESOP_ITS ---
Date of Procedure 01/21/25 Pre Op Diagnosis End-stage renal disease and the need for permanent dialysis access Post Op Diagnosis Same as pre-op diagnosis Procedure Revision of left upper extremity brachiobasilic arteriovenous fistula via ba silic vein transposition Findings There was excellent flow in the fistula Procedure Description With the patient supine under adequate general anesthesia the left upper extremity sterilely prepped and draped. A timeout was performed the basilic vein was examined with B-mode and color-flow ultrasound imaging and felt to be appropriate for vein transposition. At this point incision was made from the medial elbow to the deltopectoral groove and hemostasis was obtained with the electrocautery. Blunt and sharp dissection were then used to free the basilic vein from surrounding tissues with the help of the harmonic focus scalpel. All branches were ligated with hemoclips. When the vein was freed throughout the length of the incision a small nerve branch had to be divided to facilitate full mobilization of the vein which will probably result in some numbness on the volar aspect of the forearm. At this point a flap was created on the lateral aspect of the incision with electrocautery and the subcutaneous tissues were reapproximated below the vein with a 3-0 Vicryl continuous suture and the skin was closed on top of the vein with a 4 Monocryl subcuticular stitch. A Prineo dressing was applied. Patient woke well from anesthesia and was moved to recovery in stable condition Anesthesia other (Laryngeal mask anesthesia) Implants Implants comments: None Pathology / specimen None Estimated Blood Loss 10 Disposition PACU Surgeon Luisito Rankin MD Surgical Staff Operation Date: 01/21/25 14:15 Case Staff Anesthesiologist: Alan Nieto RN First Assistant: Roxanna Sharma
--- NOTE | 2025-01-21 15:20 | SUR.PHASEII ---
pt received from OR in recovery bay 5. pt asleep but responds to voice, breathing unlabored on oxymask 6l. v/s stable. pt dressing to left arm cdi. report received from Jostin Huang and Stephanie TURNER.
--- NOTE | 2025-01-21 15:20 | SUR.PHASEI ---
pt awake and alert, breathing unlabored on room air. v/s stable. pt dressing to left arm cdi. pt able to transfer to wheelchair with assistance. d/c instructions given with daughter Luz in room, all questions answered. pt d/c via wheelchair with all belongings.
[2025-01-21] MEDS: fentaNYL CIT INJ 50 mCg/ML AMP 2ML 25 MCG IVP ×2 (15:36→16:07)
--- NOTE | 2025-01-21 16:00 | SUR.PHASEII ---
pt able to tolerate oral fluids without difficulty swallowing or nausea/vomiting.
--- NOTE | 2025-01-21 16:38 | SUR.PHASEII ---
pt awake and alert, breathing unlabored on room air. v/s stable. pt dressing to left arm cdi. pt able to transfer to wheelchair with steady gait. d/c instructions given with daughter Luz in room, all questions answered. pt d/c via wheelchair with all belongings.
== END 2025-01-21 16:38 | disposition home or self-care (01) ==
PROVIDERS: Anesthesiology; PCP Student in an Organized Health Care Education/Training Program; Referring Provider Surgery Vascular Surgery; Visit Provider Surgery Vascular Surgery
PROC: (CPT 36819; principal; 2025-01-21 14:00)
DX: N18.6 End stage renal disease (principal); T82.898A Other specified complication of vascular prosthetic devices, implants and grafts, initial encounter
CPT/HCPCS: 36819; 36415; 80053; 84132; 85025; 85610; 85730; A4649; J0131; J0690; J1100; J1644; J2405; J2440; J2704; J3010; J3490; J0665

== ENCOUNTER → 2025-01-29 | Outpatient (CLI) | payer MEDICARE, MEDICAID, SELFPAY | END | disposition home or self-care (01) | PROVIDERS: Visit Provider Surgery | DX: I96 Gangrene, not elsewhere classified (principal); S91.301A Unspecified open wound, right foot, initial encounter; X58.XXXA Exposure to other specified factors, initial encounter; L97.516 Non-pressure chronic ulcer of other part of right foot with bone involvement without evidence of necrosis; E11.69 Type 2 diabetes mellitus with other specified complication; Z99.2 Dependence on renal dialysis; M86.8X7 Other osteomyelitis, ankle and foot; N18.6 End stage renal disease | CPT/HCPCS: 11042; A9270 ==

== ENCOUNTER → 2025-02-19 | Outpatient (CLI) | payer MEDICARE, MEDICAID, SELFPAY | END | disposition home or self-care (01) | LOC: SWHD 09:18 | PROVIDERS: Visit Provider Surgery | DX: I96 Gangrene, not elsewhere classified (principal); S91.301A Unspecified open wound, right foot, initial encounter; X58.XXXA Exposure to other specified factors, initial encounter; L97.516 Non-pressure chronic ulcer of other part of right foot with bone involvement without evidence of necrosis; E11.69 Type 2 diabetes mellitus with other specified complication; Z99.2 Dependence on renal dialysis; M86.8X7 Other osteomyelitis, ankle and foot; N18.6 End stage renal disease | CPT/HCPCS: 97597; A9270 ==

== ENCOUNTER → 2025-02-26 | Outpatient (CLI) | payer MEDICARE, MEDICAID, SELFPAY | END | disposition home or self-care (01) | LOC: SWHD 09:17 | PROVIDERS: Visit Provider Surgery | DX: E11.621 Type 2 diabetes mellitus with foot ulcer (principal); S91.301A Unspecified open wound, right foot, initial encounter; X58.XXXA Exposure to other specified factors, initial encounter; Z99.2 Dependence on renal dialysis; N18.6 End stage renal disease | CPT/HCPCS: 11042; A9270 ==